=== PATIENT | female | born 1995 | race Caucasian/White ===

== ENCOUNTER 2020-10-20 07:36 | Inpatient (IN) ==
[2020-10-20] MEDS ORDERED: DINOPROSTONE 10 MG INSERT PV ONE (08:21)
[2020-10-20] MEDS ORDERED: PENICILLIN G POTASSIUM 6 MU in DEXTROSE 5% 250 ML IV STA (08:21)
[2020-10-20] MEDS ORDERED: OXYTOCIN 30 UNITS/500 ML BAG IV PRN (08:21)
[2020-10-20] MEDS ORDERED: OR MISCELLANEOUS MED ONE (08:23)
[2020-10-20] MEDS ORDERED: LACTATED RINGER'S 500 ML IV ONE (08:33)
--- NOTE | 2020-10-20 08:33 | History & Physical Report ---
Date of Service October 20, 2020 Assessment & Plan (1) Gestational diabetes mellitus (GDM): 25-year-old G1, P0 at 39 weeks of gestation with gestational diabetes, on Metformin and history of cystic fibrosis and on medications. Vital signs stable afebrile Cervix unfavorable, presentation Vertex, heart rate with borderline tachycardia, patient had coffee before she came GBS positive Plan, admit, labs, monitor, IV fluid bolus and Cervidil for cervical ripening (2) GBS (group B Streptococcus carrier), +RV culture, currently : Admission and Anticipated Discharge Date Admission Date: October 20, 2020 History of Present Illness Primary Care Provider: NO PCP Patient is a 25-year-old G1, P0 at 39 weeks of gestation who was scheduled for induction of labor for gestational diabetes and required Metformin. She has no complaints, denies contractions, leakage of fluid, vaginal bleeding, fever or chills, nausea or vomiting, chest pain or shortness of breath, cough nor Covid symptoms. She reports good movements. Her has been complicated by 1 history of cystic fibrosis since childhood and it has been stable with medications. Father of baby is tested for it and was not carrier. 2 gestational diabetes, on Metformin and fingersticks have been stable 3 medication exposure during first trimester 4 GBS positive 5) exocrine pancreatic insufficiency 6 splenomegaly 7 bipolar disorder She has been seen [facility], last ultrasound was about 3 weeks ago and baby was 63 percentile. Patient History [employer] History No h/o STD, no h/o HSV Review of Systems All systems reviewed & are unremarkable except as noted in HPI & below Physical Exam Constitutional: well developed and well nourished Portably laying in bed, not in acute distress. Gastrointestinal (Abdomen): normal bowel sounds, soft, nontender, no hepatosplenomegaly (GRAVDI, ALEA 7-8 LB, US: 3500 gr, vertex) Genitourinary: normal external appearance OB Exam Abdomen: + vertex Manual OB Exam: + cervical dilation fingertip, + cervical effacement 50% and + station -2 OB Exam Monitor Tracing: + external uterine monitor used and + category I (160's, normal variability, accels, no decels, had coffee before) Results & Data ([facility]) Vital Signs (Past 12 Hours) Vital Signs Pulse BP 10/20/20 07:41 85 116/78
[2020-10-20 08:48] LABS: Hematocrit (blood only) 38.1 % (37-47); Hemoglobin 13.4 g/dL (12.0-16.0); Mean Corpuscular Hgb Conc 35.2 g/dL (32-36); Mean Corpuscular Volume 88.2 fL (80-100); Mean Platelet Volume 11.1 fL (7.4-10.4); Platelet Count 146 K/uL (130-400); RDW Coefficient of Variation 12.3 % (11.5-14.5); RDW Standard Deviation 39.6 fL (36.4-46.3); Red Blood Count 4.32 M/uL (4.2-5.4); White Blood Count 9.59 K/uL (4.8-10.8)
[2020-10-20] MEDS: LACTATED RINGER'S 1,000 ML IV PRN ×3 (08:57→19:21)
[2020-10-20 09:08] LABS: Albumin Level 2.4 gm/dl (3.4-5.0); BUN Creatinine Ratio 15.2 (10-20); Calcium 8.6 mg/dl (8.5-10.1); Creatinine Clr Calc Pharmacy 144.3 ml/min; Est GFR (African American) 145.8 ml/min; Est GFR (Non-African American) 125.8 ml/min; Potassium 3.8 mmol/L (3.5-5.1)
[2020-10-20 09:11] LABS: Albumin Globulin Ratio 0.8 (0.9-2); Bilirubin,Total 0.4 mg/dl (0.2-1); Globulin 3.2 gm/dl (2.5-4.0); Total Protein 5.6 gm/dl (6.4-8.2)
[2020-10-20] MEDS ORDERED: BUTORPHANOL TARTRATE 1 MG/ML VIAL IV PRN (15:53)
--- NOTE | 2020-10-20 15:53 | Obstetrical Progress Note ---
Date of Service October 20, 2020 Assessment & Plan Admission and Anticipated Discharge Date Admission Date: October 20, 2020 Subjective Patient is reevaluated. She feels well no complaints. She denies contractions, pain, leakage of fluid or vaginal bleeding. She occasionally feels mild tightening but not painful. She reports good movements heart rate had been category 1 [place] with contractions every 2-4 minutes, patient does not feel them. Continue to monitor and cervical ripening. Lab Results 10/20/20 10/20/20 10/20/20 Range/Units 08:30 08:30 12:30 WBC 9.59 (4.8-10.8) K/uL RBC 4.32 (4.2-5.4) M/uL Hgb 13.4 (12.0-16.0) g/dL Hct 38.1 (37-47) % MCV 88.2 (80-100) fL MCH 31.0 (25-34) pg MCHC 35.2 (32-36) g/dL RDW Std Deviation 39.6 (36.4-46.3) fL RDW Coeff of Rayomnd 12.3 (11.5-14.5) % Plt Count 146 (130-400) K/uL MPV 11.1 H (7.4-10.4) fL Sodium 139 (136-145) mmol/L Potassium 3.8 (3.5-5.1) mmol/L Chloride 112 H (98-107) mmol/L Carbon Dioxide 17 L (21-32) mmol/L Anion Gap 11.0 (3-11) BUN 10 (7-18) mg/dl Creatinine 0.64 (0.6-1.2) mg/dl Est Cr Clr Drug Dosing 144.3 ml/min Est GFR ( Amer) 145.8 ml/min Est GFR (Non-Af Amer) 125.8 ml/min BUN/Creatinine Ratio 15.2 (10-20) Glucose 108 H (70-99) mg/dl POC Glucose 89 (70-99) mg/dl Calcium 8.6 (8.5-10.1) mg/dl Total Bilirubin 0.4 (0.2-1) mg/dl AST 13 L (15-37) U/L ALT 14 (12-78) U/L Alkaline Phosphatase 120 H (45-117) U/L Total Protein 5.6 L (6.4-8.2) gm/dl Albumin 2.4 L (3.4-5.0) gm/dl Globulin 3.2 (2.5-4.0) gm/dl Albumin/Globulin Ratio 0.8 L (0.9-2) COVID-19 Eval Order SARS-CoV-2, RNA, NAAT (NEGATIVE) 10/20/20 10/20/20 Range/Units Unknown Unknown WBC (4.8-10.8) K/uL RBC (4.2-5.4) M/uL Hgb (12.0-16.0) g/dL Hct (37-47) % MCV (80-100) fL MCH (25-34) pg MCHC (32-36) g/dL RDW Std Deviation (36.4-46.3) fL RDW Coeff of Raymond (11.5-14.5) % Plt Count (130-400) K/uL MPV (7.4-10.4) fL Sodium (136-145) mmol/L Potassium (3.5-5.1) mmol/L Chloride (98-107) mmol/L Carbon Dioxide (21-32) mmol/L Anion Gap (3-11) BUN (7-18) mg/dl Creatinine (0.6-1.2) mg/dl Est Cr Clr Drug Dosing ml/min Est GFR ( Amer) ml/min Est GFR (Non-Af Amer) ml/min BUN/Creatinine Ratio (10-20) Glucose (70-99) mg/dl POC Glucose (70-99) mg/dl Calcium (8.5-10.1) mg/dl Total Bilirubin (0.2-1) mg/dl AST (15-37) U/L ALT (12-78) U/L Alkaline Phosphatase (45-117) U/L Total Protein (6.4-8.2) gm/dl Albumin (3.4-5.0) gm/dl Globulin (2.5-4.0) gm/dl Albumin/Globulin Ratio (0.9-2) COVID-19 Eval [facility] SARS-CoV-2, RNA, NAAT NEGATIVE (NEGATIVE) Results & Data ([facility]) Vital Signs (Past 12 Hours) Vital Signs Temp Pulse Resp BP 10/20/20 15:27 36.8 C 67 20 118/62 10/20/20 12:33 72 106/66 10/20/20 11:18 36.8 C 10/20/20 10:45 71 112/56 L 10/20/20 07:46 36.8 C 85 20 116/78 10/20/20 07:41 85 116/78
[2020-10-20] MEDS: ASCORBIC ACID 500 MG TAB PO SCH (20:53)
[2020-10-20] MEDS: CALCIUM CARBONATE 1250MG TAB PO SCH (20:54)
[2020-10-20] MEDS: TOCOPHERYL, DL-ALPHA 400 UNITS 180 MG CAP PO SCH (20:55)
[2020-10-20] MEDS: MONTELUKAST SODIUM 10 MG TABLET PO SCH (20:55)
[2020-10-20] MEDS: LYSINE 500 MG PO SCH (20:56)
[2020-10-20] MEDS: TEZACAFTOR PO SCH (20:57)
[2020-10-20] MEDS: IVACAFTOR PO SCH (20:57)
[2020-10-20] MEDS: VITAMIN A PO SCH (20:57)
[2020-10-20] MEDS: [UNRECOGNIZED DRUG - OTHER] PO SCH (20:57)
[2020-10-20] MEDS: ELEXACAFTOR PO SCH (20:57)
[2020-10-20] MEDS ORDERED: MONTELUKAST SODIUM 10 MG TABLET PO SCH (21:00)
[2020-10-20] MEDS ORDERED: NON-FORMULARY MEDICATION (Vitamin A 2,400 mcg Capsule) PO SCH (21:00)
[2020-10-20] MEDS ORDERED: NON-FORMULARY MEDICATION (Lysine [L-Lysine] 500 mg Tablet) PO SCH (21:00)
[2020-10-20] MEDS: FERROUS SULFATE 325 MG TAB PO SCH (21:23)
[2020-10-20] MEDS: PRENATAL VITAMIN 1 TAB PO SCH (21:23)
--- NOTE | 2020-10-20 22:29 | Obstetrical Progress Note ---
Date of Service October 20, 2020 Assessment & Plan Admission and Anticipated Discharge Date Admission Date: October 20, 2020 Subjective Patient feels well, still does not feel contractions. Pain is 1/10 at most No LOF/VB +FM Cervidil was removed and her cervix was 1/ 50%/ -2 FHR categ I [place]: ctxs 1-3 min, palpate moderate to strong Plan to continue with Cervical ripening Will start PO Cytotec when ctxs will space out. All questions were not answered. Results & Data ([facility]) Vital Signs (Past 12 Hours) Vital Signs Temp Pulse Resp BP 10/20/20 19:33 36.8 C 68 18 114/67 10/20/20 15:27 36.8 C 67 20 118/62 10/20/20 12:33 72 106/66 10/20/20 11:18 36.8 C 10/20/20 10:45 71 112/56 L
[2020-10-21] MEDS: LACTATED RINGER'S 1,000 ML IV PRN ×2 (01:04→07:43)
[2020-10-21] MEDS: miSOPROStoL 50 MCG TAB PO SCH ×7 (01:18→23:20)
[2020-10-21] MEDS ORDERED: [UNRECOGNIZED DRUG - OTHER] PO SCH (09:00)
[2020-10-21] MEDS: CHOLECALCIFEROL 1,000 UNITS 25 MCG TAB PO SCH (09:03)
[2020-10-21] MEDS: ELEXACAFTOR PO SCH ×2 (09:03→20:56)
[2020-10-21] MEDS: TEZACAFTOR PO SCH ×2 (09:03→20:56)
[2020-10-21] MEDS: IVACAFTOR PO SCH ×2 (09:03→20:56)
--- NOTE | 2020-10-21 10:10 | Labor Progress Brief Note ---
Date of Service October 21, 2020 Assessment & Plan Admission and Anticipated Discharge Date Admission Date: October 20, 2020 Physical Exam Genitourinary: Manual OB Exam: + cervical dilation fingertip, + cervical effacement 50% and + station high OB Exam Monitor Tracing: + external FHT monitor used, + external uterine monitor used and + category I Results & Data ([facility]) Vital Signs (Past 12 Hours) Vital Signs Temp Pulse Resp BP 10/21/20 07:17 37.1 C 66 20 123/56 L 10/21/20 03:12 36.9 C 18 10/21/20 03:11 71 111/69 10/20/20 23:28 36.7 C 70 18 109/57 L
--- NOTE | 2020-10-21 17:04 | Labor Progress Brief Note ---
Date of Service October 21, 2020 Assessment & Plan Admission and Anticipated Discharge Date Admission Date: October 20, 2020 Physical Exam Genitourinary: Manual OB Exam: + cervical dilation 1 cm, + cervical effacement 60% and + station high OB Exam Monitor Tracing: + external FHT monitor used, + external uterine monitor used and + category I Will give another Cytotec Results & Data ([facility]) Vital Signs (Past 12 Hours) Vital Signs Temp Pulse Resp BP 10/21/20 11:27 36.6 C 74 20 113/63 10/21/20 07:17 37.1 C 66 20 123/56 L
[2020-10-21] MEDS: PRENATAL VITAMIN 1 TAB PO SCH (20:51)
[2020-10-21] MEDS: FERROUS SULFATE 325 MG TAB PO SCH (20:51)
[2020-10-21] MEDS: [UNRECOGNIZED DRUG - OTHER] PO SCH (20:52)
[2020-10-21] MEDS: LYSINE 500 MG PO SCH (20:52)
[2020-10-21] MEDS: VITAMIN A PO SCH (20:52)
[2020-10-21] MEDS: ASCORBIC ACID 500 MG TAB PO SCH (20:53)
[2020-10-21] MEDS: CALCIUM CARBONATE 1250MG TAB PO SCH (20:54)
[2020-10-21] MEDS: MONTELUKAST SODIUM 10 MG TABLET PO SCH (20:55)
[2020-10-21] MEDS: TOCOPHERYL, DL-ALPHA 400 UNITS 180 MG CAP PO SCH (20:55)
[2020-10-22] MEDS: miSOPROStoL 50 MCG TAB PO SCH ×4 (03:33→15:04)
[2020-10-22] MEDS: LACTATED RINGER'S 1,000 ML IV PRN (08:02)
[2020-10-22] MEDS ORDERED: PENICILLIN G POTASSIUM 6 MU in DEXTROSE 5% 250 ML IV ONE (08:30)
[2020-10-22] MEDS: CHOLECALCIFEROL 1,000 UNITS 25 MCG TAB PO SCH (08:35)
[2020-10-22] MEDS: IVACAFTOR PO SCH ×2 (08:36→21:05)
[2020-10-22] MEDS: ELEXACAFTOR PO SCH ×2 (08:36→21:05)
[2020-10-22] MEDS: TEZACAFTOR PO SCH ×2 (08:36→21:05)
[2020-10-22] MEDS ORDERED: OXYTOCIN 30 UNITS/500 ML BAG IV PRN (09:01)
--- NOTE | 2020-10-22 09:05 | Obstetrical Progress Note ---
Date of Service October 22, 2020 Assessment & Plan Admission and Anticipated Discharge Date Admission Date: October 20, 2020 Subjective Patient is seen and examined She has received PO Cytotec since yesterday morning She does not feel ctxs No LOF/VB +FM's 1st dose of PCN has been started VE: 2/ 40%/ -2, anterior FHR categ I Plan to start Oxytocin and AROM after PCN will be in She agrees with above plan Continue to monitor Results & Data ([facility]) Vital Signs (Past 12 Hours) Vital Signs Temp Pulse Resp BP 10/22/20 07:21 36.7 C 74 20 116/79 10/22/20 02:31 36.8 C 65 16 100/61 10/21/20 22:58 66 123/56 L 10/21/20 22:57 36.9 C 18
[2020-10-22] MEDS: PENICILLIN G POTASSIUM 3 MU in DEXTROSE 5% 100 ML IV PRN ×3 (12:13→20:13)
[2020-10-22] MEDS: LACTATED RINGER'S 1,000 ML IV SCH ×4 (13:06→22:52)
[2020-10-22] MEDS ORDERED: ePHEDrine sulfate 50 MG/ML AMP ONE (13:22)
[2020-10-22] MEDS ORDERED: BUPIVACAINE 0.25% 30 ML VIAL ONE (13:22)
[2020-10-22] MEDS ORDERED: SODIUM CHLORIDE 0.9% INJ 10 ML VIAL ONE (13:22)
[2020-10-22] MEDS ORDERED: fentaNYL citrate 100 MCG/2 ML VIAL ONE (13:22)
[2020-10-22] MEDS ORDERED: fentaNYL 2MCG/ML ROPIVACAINE 1.25MG/ML 100 ML BAG EPI ONE (13:23)
--- NOTE | 2020-10-22 13:34 | Anesthesiology Consultation ---
Date of Service October 22, 2020 Assessment & Plan (1) Encounter for pre-operative examination: Chart Review Chart Review: Acceptable Risk for Surgery and Patient NOT seen in Pre Admission Testing Consults Requested none History Height/Weight Height: 5 ft 5 in Weight: 81.647 kg Allergies Allergy/AdvReac Type Severity Reaction Status Date / Time No Known Allergies Allergy Verified 10/20/20 08:37 Medications Home Medications Medication Instructions Recorded Confirmed Last Taken ascorbic acid (vitamin C) [Vitamin 1 g PO HS 10/20/20 10/20/20 10/19/20 21:00 C] calcium 600 mg PO HS 10/20/20 10/20/20 10/19/20 21:00 cholecalciferol (vitamin D3) 125 mcg PO DAILY 10/20/20 10/20/20 10/19/20 21:00 [Vitamin D3] wizhtpzupan-ckxxjnaccn-tojicat 150 ea PO DAILY 10/20/20 10/20/20 10/20/20 06:00 [Trikafta] ferrous sulfate [iron] 325 mg PO HS 10/20/20 10/20/20 10/19/20 21:00 lysine [L-Lysine] 500 mg PO HS 10/20/20 10/20/20 10/19/20 21:00 montelukast [Singulair] 10 mg PO HS 10/20/20 10/20/20 10/19/20 21:00 prenat.vits,nohemi,yec-fftj-ptanp 1 tab PO HS 10/20/20 10/20/20 10/19/20 21:00 [ Vitamin] vitamin A 2,400 mcg PO HS 10/20/20 10/20/20 10/19/20 21:00 vitamin E 400 unit PO 10/20/20 10/20/20 10/19/20 21:00 Active Medications Generic Name Dose Route Start Last Admin Trade Name Freq PRN Reason Stop Dose Admin Ascorbic Acid 1,000 mg 10/20/20 21:00 10/21/20 20:53 Ascorbic Acid 500 Mg Tab PO 11/19/20 20:59 1,000 mg HS DMITRIY Administration Calcium Carbonate 1,250 mg 10/20/20 21:00 10/21/20 20:54 Calcium Carbonate 1250mg Tab PO 11/19/20 20:59 1,250 mg HS DMITRIY Administration Ferrous Sulfate 325 mg 10/20/20 21:00 10/21/20 20:51 Ferrous Sulfate 325 Mg Tab PO 11/19/20 20:59 325 mg HS DMITRIY Administration Penicillin G Potassium 3 mu/ 106 mls @ 100 mls/hr 10/20/20 08:21 10/22/20 12:13 Dextrose IV 10/30/20 08:20 100 mls/hr Q4H PRN Administration Give until delivery Oxytocin 30 units in 500 mls @ 6 mls/hr 10/22/20 09:01 10/22/20 10:30 Pitocin IV 10/24/20 09:00 0.36 units/hr .Q24H PRN 6 mls/hr Labor Induction/Augmentation Titration Protocol 0.36 UNITS/HR Misoprostol 50 mcg 10/21/20 00:00 10/22/20 13:07 Misoprostol 50 Mcg Tab PO 11/20/20 00:00 Not Given Q4 DMITRIY Montelukast Sodium 10 mg 10/20/20 21:00 10/21/20 20:55 Montelukast Sodium 10 Mg Tablet PO 11/19/20 20:59 10 mg HS DMITRIY Administration L-Lysine 500mg 1 ea 10/20/20 21:00 10/21/20 20:52 Tablet ~Non- PO 11/19/20 20:59 500 mg Formulary Patient's HS DMITRIY Administration Own Med~ Vitamin A - Retinal 1 ea 10/20/20 21:00 10/21/20 20:52 Pamitate 2400mcg PO 11/19/20 20:59 2,400 mcg Capsule ~Non- HS DMITRIY Administration Formulary Patient's Own Med~ Trikafta - 2 ea 10/21/20 09:00 10/22/20 08:36 Elexacaftor 100mg, PO 11/20/20 08:59 2 tab Tezacaftor 50mg, & QAM DMITRIY Administration Ivacaftor 75mg ~Non- Formulary Pom~ Trikafta - Ivacaftor 1 ea 10/20/20 21:00 10/21/20 20:56 150mg Tab ~Non- PO 11/19/20 20:59 150 mg Formulary Patient's HS DMITRIY Administration Own Med~ Prenat Multivit/Car Checker/Iron/Folic Ac 1 tab 10/20/20 21:00 10/21/20 20:51 Vitamin 1 Tab PO 11/19/20 20:59 1 tab HS DMITRIY Administration Vitamin D 5,000 units 10/21/20 09:00 10/22/20 08:35 Cholecalciferol 1,000 Units 25 Mcg Tab PO 11/20/20 08:59 5,000 units DAILY DMITRIY Administration Vitamin E 400 units 10/20/20 21:00 10/21/20 20:55 Tocopheryl, Dl-Alpha 400 Units 180 Mg Cap PO 11/19/20 20:59 400 units HS DMITRIY Administration Past Medical History Medical History Bipolar 1 disorder Constipation Cystic fibrosis Exocrine pancreatic insufficiency Gestational diabetes mellitus (GDM) affecting first Metformin Intestinal malabsorption Nasal polyp Splenomegaly Past Surgical History Surgical History H/O wisdom tooth extraction Social History Smoking Status: Never smoker Hx Alcohol Use: No Hx Substance Use: No Physical Exam Vital Signs Last Vital Signs Temp 36.7 C 10/22/20 07:21 Pulse 66 10/22/20 12:21 Resp 20 10/22/20 10:00 BP 115/67 10/22/20 12:21 Testing Laboratory Results 10/20/20 08:30 10/20/20 08:30
[2020-10-22] MEDS ORDERED: diphenhydrAMINE 50 MG/ML VIAL IV PRN (13:38)
[2020-10-22] MEDS ORDERED: NALOXONE HCL 1 MG in SODIUM CHLORIDE 0.9% 1000ML 1,000 ML IV PRN (13:38)
[2020-10-22] MEDS ORDERED: NALOXONE HCL 0.4 MG/1 ML VIAL/CARP IV PRN (13:38)
[2020-10-22] MEDS ORDERED: ONDANSETRON INJ 2 MG/ML 2 ML VIAL IV PRN (13:38)
[2020-10-22] MEDS ORDERED: fentaNYL 2MCG/ML ROPIVACAINE 1.25MG/ML 100 ML BAG EPI PRN (13:38)
[2020-10-22] MEDS ORDERED: ePHEDrine sulfate 50 MG/ML AMP IV PRN (13:38)
--- NOTE | 2020-10-22 16:23 | Obstetrical Progress Note ---
Date of Service October 22, 2020 Assessment & Plan Admission and Anticipated Discharge Date Admission Date: October 20, 2020 Subjective Late entry from 11:10 Patient is reevaluated She has received 1st dose of PCN, started on Pitocin Does not feel much contractions VE; 2-3cm/ 50%/ -2, anterior, tight bag, AROM'ed clear fluid Continue to monitor Results & Data ([facility]) Vital Signs (Past 12 Hours) Vital Signs Temp Pulse Resp BP Pulse Ox 10/22/20 16:15 67 111/59 L 10/22/20 16:14 66 96 10/22/20 16:09 65 96 10/22/20 16:04 64 94 10/22/20 16:02 60 117/70 10/22/20 15:59 64 95 10/22/20 15:54 61 94 10/22/20 15:49 61 94 10/22/20 15:47 57 L 112/65 10/22/20 15:44 60 94 10/22/20 15:39 62 94 10/22/20 15:34 61 94 10/22/20 15:31 37 C 60 16 111/74 10/22/20 15:29 61 94 10/22/20 15:27 58 L 94 10/22/20 15:24 63 96 10/22/20 15:22 63 94 10/22/20 15:19 64 95 10/22/20 15:16 62 20 121/59 L 10/22/20 15:14 63 95 10/22/20 15:09 67 95 10/22/20 15:04 67 96 10/22/20 14:59 71 96 10/22/20 14:56 70 115/69 10/22/20 14:54 69 16 108/61 95 10/22/20 14:52 71 114/63 10/22/20 14:50 68 115/65 10/22/20 14:49 70 96 10/22/20 14:48 69 112/68 10/22/20 14:46 70 118/70 10/22/20 14:44 79 98 10/22/20 14:43 83 20 118/83 10/22/20 14:39 67 100 10/22/20 14:37 65 115/73 10/22/20 14:34 81 96 10/22/20 14:29 79 99 10/22/20 14:24 80 125/79 99 10/22/20 14:23 81 139/97 10/22/20 13:36 67 121/68 10/22/20 13:35 36.9 C 20 10/22/20 12:21 66 115/67 10/22/20 11:25 65 109/64 10/22/20 10:20 65 104/53 L 10/22/20 10:00 65 20 114/58 L 10/22/20 09:46 67 16 105/60 10/22/20 09:29 60 20 115/75 10/22/20 07:21 36.7 C 74 20 116/79
--- NOTE | 2020-10-22 16:25 | Obstetrical Progress Note ---
Date of Service October 22, 2020 Assessment & Plan Admission and Anticipated Discharge Date Admission Date: October 20, 2020 Subjective Patient is reevaluated She received epidural and comfortable 3rd of PCN was given VE; 3/ 70%/ -1, coned head, IUPC was placed Pitocin is at 10 miu/min Continue to monitor closely and titer Pitocin dose Results & Data ([facility]) Vital Signs (Past 12 Hours) Vital Signs Temp Pulse Resp BP Pulse Ox 10/22/20 16:19 77 97 10/22/20 16:15 67 111/59 L 10/22/20 16:14 66 96 10/22/20 16:09 65 96 10/22/20 16:04 64 94 10/22/20 16:02 60 117/70 10/22/20 15:59 64 95 10/22/20 15:54 61 94 10/22/20 15:49 61 94 10/22/20 15:47 57 L 112/65 10/22/20 15:44 60 94 10/22/20 15:39 62 94 10/22/20 15:34 61 94 10/22/20 15:31 37 C 60 16 111/74 10/22/20 15:29 61 94 10/22/20 15:27 58 L 94 10/22/20 15:24 63 96 10/22/20 15:22 63 94 10/22/20 15:19 64 95 10/22/20 15:16 62 20 121/59 L 10/22/20 15:14 63 95 10/22/20 15:09 67 95 10/22/20 15:04 67 96 10/22/20 14:59 71 96 10/22/20 14:56 70 115/69 10/22/20 14:54 69 16 108/61 95 10/22/20 14:52 71 114/63 10/22/20 14:50 68 115/65 10/22/20 14:49 70 96 10/22/20 14:48 69 112/68 10/22/20 14:46 70 118/70 10/22/20 14:44 79 98 10/22/20 14:43 83 20 118/83 10/22/20 14:39 67 100 10/22/20 14:37 65 115/73 10/22/20 14:34 81 96 10/22/20 14:29 79 99 10/22/20 14:24 80 125/79 99 10/22/20 14:23 81 139/97 10/22/20 13:36 67 121/68 10/22/20 13:35 36.9 C 20 10/22/20 12:21 66 115/67 10/22/20 11:25 65 109/64 10/22/20 10:20 65 104/53 L 10/22/20 10:00 65 20 114/58 L 10/22/20 09:46 67 16 105/60 10/22/20 09:29 60 20 115/75 10/22/20 07:21 36.7 C 74 20 116/79
--- NOTE | 2020-10-22 19:23 | Obstetrical Progress Note ---
Date of Service October 22, 2020 Assessment & Plan Admission and Anticipated Discharge Date Admission Date: October 20, 2020 Subjective Patient is reevaluated IUPC was not monitoring contractions well, with higher base pressure and low amplitude contractions VE: 6 cm/ 90%/ 0 station, head is coned, ROP FHR categ I Ext toco" ctxs q 1-3 min Continue to monitor closely Results & Data ([facility]) Vital Signs (Past 12 Hours) Vital Signs Temp Pulse Resp BP Pulse Ox 10/22/20 19:16 64 120/64 10/22/20 19:14 72 95 10/22/20 19:09 79 96 10/22/20 19:04 72 95 10/22/20 19:01 68 109/64 10/22/20 18:59 71 96 10/22/20 18:54 76 96 10/22/20 18:49 71 97 10/22/20 18:47 69 106/58 L 10/22/20 18:44 73 97 10/22/20 18:39 72 97 10/22/20 18:34 81 96 10/22/20 18:32 69 102/58 L 10/22/20 18:29 68 95 10/22/20 18:24 65 95 10/22/20 18:19 64 95 10/22/20 18:17 82 104/56 L 10/22/20 18:14 37.1 C 68 16 95 10/22/20 18:09 68 95 10/22/20 18:04 68 95 10/22/20 18:02 61 105/65 10/22/20 18:00 62 101/61 10/22/20 17:59 65 95 10/22/20 17:54 67 95 10/22/20 17:49 67 96 10/22/20 17:46 72 99/57 L 10/22/20 17:44 72 96 10/22/20 17:39 81 96 10/22/20 17:34 67 95 10/22/20 17:30 56 L 106/58 L 10/22/20 17:29 63 94 10/22/20 17:24 62 94 10/22/20 17:19 69 97 10/22/20 17:16 58 L 109/61 10/22/20 17:14 65 97 10/22/20 17:09 60 94 10/22/20 17:04 57 L 96 10/22/20 17:01 36.8 C 55 L 16 125/76 10/22/20 16:59 57 L 96 10/22/20 16:54 58 L 96 10/22/20 16:49 59 L 95 10/22/20 16:47 64 128/87 10/22/20 16:44 60 95 10/22/20 16:39 60 96 10/22/20 16:34 60 95 10/22/20 16:31 59 L 20 121/71 10/22/20 16:29 62 94 10/22/20 16:24 74 96 10/22/20 16:19 77 97 10/22/20 16:15 67 111/59 L 10/22/20 16:14 66 96 10/22/20 16:09 65 96 10/22/20 16:04 64 94 10/22/20 16:02 60 16 117/70 10/22/20 15:59 64 95 10/22/20 15:54 61 94 10/22/20 15:49 61 94 10/22/20 15:47 57 L 112/65 10/22/20 15:44 60 94 10/22/20 15:39 62 94 10/22/20 15:34 61 94 10/22/20 15:31 37 C 60 16 111/74 10/22/20 15:29 61 94 10/22/20 15:27 58 L 94 10/22/20 15:24 63 96 10/22/20 15:22 63 94 10/22/20 15:19 64 95 10/22/20 15:16 62 20 121/59 L 10/22/20 15:14 63 95 10/22/20 15:09 67 95 10/22/20 15:04 67 96 10/22/20 14:59 71 96 10/22/20 14:56 70 115/69 10/22/20 14:54 69 16 108/61 95 10/22/20 14:52 71 114/63 10/22/20 14:50 68 115/65 10/22/20 14:49 70 96 10/22/20 14:48 69 112/68 10/22/20 14:46 70 118/70 10/22/20 14:44 79 98 10/22/20 14:43 83 20 118/83 10/22/20 14:39 67 100 10/22/20 14:37 65 115/73 10/22/20 14:34 81 96 10/22/20 14:29 79 99 10/22/20 14:24 80 125/79 99 10/22/20 14:23 81 139/97 10/22/20 13:36 67 121/68 10/22/20 13:35 36.9 C 20 10/22/20 12:21 66 115/67 10/22/20 11:25 65 109/64 10/22/20 10:20 65 104/53 L 10/22/20 10:00 65 20 114/58 L 10/22/20 09:46 67 16 105/60 10/22/20 09:29 60 20 115/75 10/22/20 07:21 36.7 C 74 20 116/79
[2020-10-22] MEDS: CALCIUM CARBONATE 1250MG TAB PO SCH (21:01)
[2020-10-22] MEDS: TOCOPHERYL, DL-ALPHA 400 UNITS 180 MG CAP PO SCH (21:01)
[2020-10-22] MEDS: ASCORBIC ACID 500 MG TAB PO SCH (21:01)
[2020-10-22] MEDS: MONTELUKAST SODIUM 10 MG TABLET PO SCH (21:02)
[2020-10-22] MEDS: LYSINE 500 MG PO SCH (21:03)
[2020-10-22] MEDS: VITAMIN A PO SCH (21:04)
[2020-10-22] MEDS: [UNRECOGNIZED DRUG - OTHER] PO SCH (21:04)
[2020-10-22] MEDS: PRENATAL VITAMIN 1 TAB PO SCH (21:08)
[2020-10-22] MEDS: FERROUS SULFATE 325 MG TAB PO SCH (21:08)
--- NOTE | 2020-10-22 21:55 | Obstetrical Progress Note ---
Date of Service October 22, 2020 Assessment & Plan Admission and Anticipated Discharge Date Admission Date: October 20, 2020 Subjective Patient has been reevalauted x2 by myself for variable/ early decels started about 1.5 hours ago Episodes of categ I and II Pitocin is stopped and IVF Bolus/ nasal O2 being given VE; 10/ 100%/+2 FHR 150's Will start pushing Results & Data ([facility]) Vital Signs (Past 12 Hours) Vital Signs Temp Pulse Resp BP Pulse Ox 10/22/20 21:49 71 100 10/22/20 21:47 74 127/59 L 10/22/20 21:46 70 90 10/22/20 21:44 65 96 10/22/20 21:39 66 96 10/22/20 21:34 68 96 10/22/20 21:32 66 121/66 10/22/20 21:29 72 97 10/22/20 21:24 66 96 10/22/20 21:19 71 96 10/22/20 21:15 63 112/63 10/22/20 21:14 73 98 10/22/20 21:09 69 97 10/22/20 21:04 76 96 10/22/20 21:00 66 108/61 10/22/20 20:59 77 97 10/22/20 20:54 80 96 10/22/20 20:49 67 96 10/22/20 20:46 74 99/57 L 10/22/20 20:44 75 93 10/22/20 20:39 79 93 10/22/20 20:34 75 93 10/22/20 20:32 75 101/55 L 10/22/20 20:29 82 94 10/22/20 20:24 74 95 10/22/20 20:19 78 96 10/22/20 20:15 71 123/68 10/22/20 20:14 73 94 10/22/20 20:09 70 95 10/22/20 20:08 36.8 C 10/22/20 20:04 72 95 10/22/20 20:00 76 118/66 10/22/20 19:59 81 95 10/22/20 19:54 70 94 10/22/20 19:49 67 94 10/22/20 19:46 62 120/64 10/22/20 19:44 66 94 10/22/20 19:39 70 94 10/22/20 19:34 66 94 10/22/20 19:31 65 117/65 10/22/20 19:29 66 95 10/22/20 19:24 66 95 10/22/20 19:19 68 95 10/22/20 19:16 64 120/64 10/22/20 19:15 18 10/22/20 19:14 72 95 10/22/20 19:09 79 96 10/22/20 19:04 72 95 10/22/20 19:01 68 109/64 10/22/20 18:59 71 96 10/22/20 18:54 76 96 10/22/20 18:49 71 97 10/22/20 18:47 69 106/58 L 10/22/20 18:44 73 97 10/22/20 18:39 72 97 10/22/20 18:34 81 96 10/22/20 18:32 69 102/58 L 10/22/20 18:29 68 95 10/22/20 18:24 65 95 10/22/20 18:19 64 95 10/22/20 18:17 82 104/56 L 10/22/20 18:14 37.1 C 68 16 95 10/22/20 18:09 68 95 10/22/20 18:04 68 95 10/22/20 18:02 61 105/65 10/22/20 18:00 62 101/61 10/22/20 17:59 65 95 10/22/20 17:54 67 95 10/22/20 17:49 67 96 10/22/20 17:46 72 99/57 L 10/22/20 17:44 72 96 10/22/20 17:39 81 96 10/22/20 17:34 67 95 10/22/20 17:30 56 L 106/58 L 10/22/20 17:29 63 94 10/22/20 17:24 62 94 10/22/20 17:19 69 97 10/22/20 17:16 58 L 109/61 10/22/20 17:14 65 97 10/22/20 17:09 60 94 10/22/20 17:04 57 L 96 10/22/20 17:01 36.8 C 55 L 16 125/76 10/22/20 16:59 57 L 96 10/22/20 16:54 58 L 96 10/22/20 16:49 59 L 95 10/22/20 16:47 64 128/87 10/22/20 16:44 60 95 10/22/20 16:39 60 96 10/22/20 16:34 60 95 10/22/20 16:31 59 L 20 121/71 10/22/20 16:29 62 94 10/22/20 16:24 74 96 10/22/20 16:19 77 97 10/22/20 16:15 67 111/59 L 10/22/20 16:14 66 96 10/22/20 16:09 65 96 10/22/20 16:04 64 94 10/22/20 16:02 60 16 117/70 10/22/20 15:59 64 95 10/22/20 15:54 61 94 10/22/20 15:49 61 94 10/22/20 15:47 57 L 112/65 10/22/20 15:44 60 94 10/22/20 15:39 62 94 10/22/20 15:34 61 94 10/22/20 15:31 37 C 60 16 111/74 10/22/20 15:29 61 94 10/22/20 15:27 58 L 94 10/22/20 15:24 63 96 10/22/20 15:22 63 94 10/22/20 15:19 64 95 10/22/20 15:16 62 20 121/59 L 10/22/20 15:14 63 95 10/22/20 15:09 67 95 10/22/20 15:04 67 96 10/22/20 14:59 71 96 10/22/20 14:56 70 115/69 10/22/20 14:54 69 16 108/61 95 10/22/20 14:52 71 114/63 10/22/20 14:50 68 115/65 10/22/20 14:49 70 96 10/22/20 14:48 69 112/68 10/22/20 14:46 70 118/70 10/22/20 14:44 79 98 10/22/20 14:43 83 20 118/83 10/22/20 14:39 67 100 10/22/20 14:37 65 115/73 10/22/20 14:34 81 96 10/22/20 14:29 79 99 10/22/20 14:24 80 125/79 99 10/22/20 14:23 81 139/97 10/22/20 13:36 67 121/68 10/22/20 13:35 36.9 C 20 10/22/20 12:21 66 115/67 10/22/20 11:25 65 109/64 10/22/20 10:20 65 104/53 L 10/22/20 10:00 65 20 114/58 L
--- NOTE | 2020-10-23 00:59 | Obstetrical Progress Note ---
Date of Service October 23, 2020 Assessment & Plan Admission and Anticipated Discharge Date Admission Date: October 20, 2020 Subjective Patient has been pushing almost an hour. Head at +2 station with caput succanadeum+ FHR categ I Continue to monitor and pushing. Results & Data ([facility]) Vital Signs (Past 12 Hours) Vital Signs Temp Pulse Resp BP Pulse Ox 10/23/20 00:54 83 95 10/23/20 00:49 81 95 10/23/20 00:44 87 95 10/23/20 00:39 80 95 10/23/20 00:34 72 94 10/23/20 00:29 71 95 10/23/20 00:24 93 H 94 10/23/20 00:19 70 94 10/23/20 00:14 66 96 10/23/20 00:09 68 97 10/23/20 00:04 68 97 10/23/20 00:02 118 H 120/59 L 10/22/20 23:59 68 97 10/22/20 23:54 97 H 96 10/22/20 23:49 68 98 10/22/20 23:46 67 121/76 10/22/20 23:44 69 98 10/22/20 23:39 69 98 10/22/20 23:34 75 98 10/22/20 23:31 70 127/77 10/22/20 23:29 67 97 10/22/20 23:24 72 98 10/22/20 23:19 89 98 10/22/20 23:16 63 120/71 10/22/20 23:14 72 96 10/22/20 23:09 73 97 10/22/20 23:04 74 95 10/22/20 23:00 63 119/71 10/22/20 22:59 69 96 10/22/20 22:54 67 97 10/22/20 22:49 71 98 10/22/20 22:45 67 126/75 10/22/20 22:44 60 99 10/22/20 22:39 64 99 10/22/20 22:34 66 99 10/22/20 22:31 65 123/69 10/22/20 22:29 61 100 10/22/20 22:24 67 99 10/22/20 22:19 66 99 10/22/20 22:16 62 128/75 10/22/20 22:14 64 99 10/22/20 22:09 65 99 10/22/20 22:04 71 99 10/22/20 22:02 62 119/73 10/22/20 22:00 37.0 C 10/22/20 21:59 63 99 10/22/20 21:54 64 98 10/22/20 21:49 71 100 10/22/20 21:47 74 127/59 L 10/22/20 21:46 70 90 10/22/20 21:44 65 96 10/22/20 21:39 66 96 10/22/20 21:34 68 96 10/22/20 21:32 66 121/66 10/22/20 21:29 72 97 10/22/20 21:24 66 96 10/22/20 21:19 71 96 10/22/20 21:15 63 112/63 10/22/20 21:14 73 98 10/22/20 21:09 69 97 10/22/20 21:04 76 96 10/22/20 21:00 66 108/61 10/22/20 20:59 77 97 10/22/20 20:54 80 96 10/22/20 20:49 67 96 10/22/20 20:46 74 99/57 L 10/22/20 20:44 75 93 10/22/20 20:39 79 93 10/22/20 20:34 75 93 10/22/20 20:32 75 101/55 L 10/22/20 20:29 82 94 10/22/20 20:24 74 95 10/22/20 20:19 78 96 10/22/20 20:15 71 123/68 10/22/20 20:14 73 94 10/22/20 20:09 70 95 10/22/20 20:08 36.8 C 10/22/20 20:04 72 95 10/22/20 20:00 76 118/66 10/22/20 19:59 81 95 10/22/20 19:54 70 94 10/22/20 19:49 67 94 10/22/20 19:46 62 120/64 10/22/20 19:44 66 94 10/22/20 19:39 70 94 10/22/20 19:34 66 94 10/22/20 19:31 65 117/65 10/22/20 19:29 66 95 10/22/20 19:24 66 95 10/22/20 19:19 68 95 10/22/20 19:16 64 120/64 10/22/20 19:15 18 10/22/20 19:14 72 95 10/22/20 19:09 79 96 10/22/20 19:04 72 95 10/22/20 19:01 68 109/64 10/22/20 18:59 71 96 10/22/20 18:54 76 96 10/22/20 18:49 71 97 10/22/20 18:47 69 106/58 L 10/22/20 18:44 73 97 10/22/20 18:39 72 97 10/22/20 18:34 81 96 10/22/20 18:32 69 102/58 L 10/22/20 18:29 68 95 10/22/20 18:24 65 95 10/22/20 18:19 64 95 10/22/20 18:17 82 104/56 L 10/22/20 18:14 37.1 C 68 16 95 10/22/20 18:09 68 95 10/22/20 18:04 68 95 10/22/20 18:02 61 105/65 10/22/20 18:00 62 101/61 10/22/20 17:59 65 95 10/22/20 17:54 67 95 10/22/20 17:49 67 96 10/22/20 17:46 72 99/57 L 10/22/20 17:44 72 96 10/22/20 17:39 81 96 10/22/20 17:34 67 95 10/22/20 17:30 56 L 106/58 L 10/22/20 17:29 63 94 10/22/20 17:24 62 94 10/22/20 17:19 69 97 10/22/20 17:16 58 L 109/61 10/22/20 17:14 65 97 10/22/20 17:09 60 94 10/22/20 17:04 57 L 96 10/22/20 17:01 36.8 C 55 L 16 125/76 10/22/20 16:59 57 L 96 10/22/20 16:54 58 L 96 10/22/20 16:49 59 L 95 10/22/20 16:47 64 128/87 10/22/20 16:44 60 95 10/22/20 16:39 60 96 10/22/20 16:34 60 95 10/22/20 16:31 59 L 20 121/71 10/22/20 16:29 62 94 10/22/20 16:24 74 96 10/22/20 16:19 77 97 10/22/20 16:15 67 111/59 L 10/22/20 16:14 66 96 10/22/20 16:09 65 96 10/22/20 16:04 64 94 10/22/20 16:02 60 16 117/70 10/22/20 15:59 64 95 10/22/20 15:54 61 94 10/22/20 15:49 61 94 10/22/20 15:47 57 L 112/65 10/22/20 15:44 60 94 10/22/20 15:39 62 94 10/22/20 15:34 61 94 10/22/20 15:31 37 C 60 16 111/74 10/22/20 15:29 61 94 10/22/20 15:27 58 L 94 10/22/20 15:24 63 96 10/22/20 15:22 63 94 10/22/20 15:19 64 95 10/22/20 15:16 62 20 121/59 L 10/22/20 15:14 63 95 10/22/20 15:09 67 95 10/22/20 15:04 67 96 10/22/20 14:59 71 96 10/22/20 14:56 70 115/69 10/22/20 14:54 69 16 108/61 95 10/22/20 14:52 71 114/63 10/22/20 14:50 68 115/65 10/22/20 14:49 70 96 10/22/20 14:48 69 112/68 10/22/20 14:46 70 118/70 10/22/20 14:44 79 98 10/22/20 14:43 83 20 118/83 10/22/20 14:39 67 100 10/22/20 14:37 65 115/73 10/22/20 14:34 81 96 10/22/20 14:29 79 99 10/22/20 14:24 80 125/79 99 10/22/20 14:23 81 139/97 10/22/20 13:36 67 121/68 10/22/20 13:35 36.9 C 20
[2020-10-23] MEDS: PENICILLIN G POTASSIUM 3 MU in DEXTROSE 5% 100 ML IV PRN (01:42)
[2020-10-23] MEDS ORDERED: MINERAL OIL 30 ML UDC ONE (02:55)
[2020-10-23] MEDS ORDERED: LIDOCAINE 1% LOCAL 20 ML VIAL ONE (03:32)
[2020-10-23] MEDS ORDERED: METHYLERGONOVINE MALEATE 0.2 MG/ML AMP ONE (04:13)
[2020-10-23] MEDS ORDERED: MEASLES, MUMPS & RUBELLA VIRUS VIAL SQ ONE (04:28)
[2020-10-23] MEDS ORDERED: miSOPROStoL 100 MCG TAB PR ONE (04:28)
[2020-10-23] MEDS ORDERED: BENZOCAINE 20% AER SPR 82.5 GM CAN EXT PRN (04:28)
[2020-10-23] MEDS ORDERED: oxyCODONE/ACETAMINOPHEN 5mg/325mg TAB PO PRN (04:28)
[2020-10-23] MEDS ORDERED: bisacodyL 10 MG SUPP PR PRN (04:28)
[2020-10-23] MEDS ORDERED: OXYTOCIN 30 UNITS/500 ML BAG IV PRN (04:28)
[2020-10-23] MEDS ORDERED: METHYLERGONOVINE MALEATE 0.2 MG/ML AMP IM ONE (04:28)
[2020-10-23] MEDS ORDERED: DIPHTHERIA/TETANUS/PERTUSSIS 0.5 ML SYR/VIAL IM ONE (04:28)
[2020-10-23] MEDS ORDERED: SUPERCREAM 0.870% 15 GM JAR EXT PRN (04:28)
[2020-10-23] MEDS ORDERED: HYDROCORTISONE ACETATE 25 MG SUPP PR PRN (04:28)
[2020-10-23] MEDS ORDERED: ACETAMINOPHEN 325 MG TAB PO PRN (04:28)
--- NOTE | 2020-10-23 04:37 | Delivery Summary ---
Vaginal Delivery Summary Date of Service October 23, 2020 Vaginal Delivery Summary Patient was found to be fully dilated and had urge to push. She pushed for almost 4 hours and there was a large caput on the head which was from the perineum. Perineum had tight hymenal band and skin. Patient was exhausted and after verbal a small right mediolateral episiotomy was opened. She pushed with female contractions and head was coming out very slowly suggesting turtle sign, nursing team were notified and the patient's bed was lowered. With Jason maneuver and suprapubic pressure unable to deliver anterior/right shoulder. Posterior left shoulder was grasped by my left hand and delivered without difficulty there was a body cord around the baby and then anterior shoulder was delivered with minimal traction baby was handed off to the mother and cord was clamped x2 and cut and baby was taken off to the by the nursery team. The time between the delivery of the head and body was less than 1 minute. The cord blood was obtained. And vagina perineum were checked for lacerations. There was only right mediolateral episode to me which was opened earlier. It was repaired with 2-0 Vicryl in a running locked fashion bringing the vaginal mucosa together bulbocavernosus muscles together and secured in a subcuticular fashion. An excellent hemostasis which was achieved. Rest of the vagina and perineum were intact. And placenta was found to be in the vagina delivered spontaneously as intact and complete uterus was explored found to be empty and it was boggy and feels with blood clots. IV oxytocin was started as bolus and uterine massage was done and she was given IM Methergine and uterus started to firm down and bleeding slowed down. Patient was also given intrarectal Cytotec. EBL was 300 mL. Mom and baby tolerated the procedure well sponge lap needle count was correct x2 baby was a viable male Apgars 5/8 and weight is 4203 gr. No other complications happened, other wilde moderate shoulder dystocia, and I was present during all procedure.
[2020-10-23] MEDS ORDERED: miSOPROStoL 100 MCG TAB ONE (04:53)
[2020-10-23] MEDS: IBUPROFEN 600 MG TAB PO PRN ×4 (06:36→22:24)
[2020-10-23] MEDS ORDERED: METHYLERGONOVINE MALEATE 0.2 MG TAB PO SCH (08:00)
[2020-10-23] MEDS: PRENATAL VITAMIN 1 TAB PO SCH ×2 (10:53→20:36)
[2020-10-23] MEDS: DOCUSATE SODIUM 100 MG CAP PO SCH ×2 (10:53→20:29)
[2020-10-23] MEDS: CHOLECALCIFEROL 1,000 UNITS 25 MCG TAB PO SCH (10:53)
[2020-10-23] MEDS: FERROUS SULFATE 325 MG TAB PO SCH ×2 (10:53→20:35)
[2020-10-23] MEDS: IVACAFTOR PO SCH ×2 (10:54→20:32)
[2020-10-23] MEDS: ELEXACAFTOR PO SCH ×2 (10:54→20:32)
[2020-10-23] MEDS: TEZACAFTOR PO SCH ×2 (10:54→20:32)
[2020-10-23] MEDS ORDERED: Nursing to Pharmacy Communication SCH (12:45)
--- NOTE | 2020-10-23 13:05 | Anesthesia Procedure Note ---
Date of Service October 23, 2020 Anesthesia Post Epidural Note Vital Signs Vital Signs: Temp Pulse Resp BP Pulse Ox 36.8 C 77 18 123/75 96 10/23/20 00:30 10/23/20 06:17 10/23/20 06:15 10/23/20 06:17 10/23/20 04:19 Pain Intensity Abdomen: Pain Intensity: 0 Notes Mental Status: alert / awake / arousable and participated in evaluation Nausea / Vomiting: adequately controlled Pain: adequately controlled Airway Patency, RR, SpO2: stable & adequate BP & HR: stable & adequate Hydration State: stable & adequate Neuraxial Anesthesia: was administered and sensory block is resolving Anesthetic Complications: no major complications apparent and Pt Satisfied with anesthetic care Epidural: Removed without complications and With tip intact
[2020-10-23] MEDS: METHYLERGONOVINE MALEATE 0.2 MG TAB PO SCH ×2 (17:17→20:29)
[2020-10-23] MEDS: MONTELUKAST SODIUM 10 MG TABLET PO SCH (20:30)
[2020-10-23] MEDS: ASCORBIC ACID 500 MG TAB PO SCH (20:30)
[2020-10-23] MEDS: CALCIUM CARBONATE 1250MG TAB PO SCH (20:30)
[2020-10-23] MEDS: TOCOPHERYL, DL-ALPHA 400 UNITS 180 MG CAP PO SCH (20:30)
[2020-10-23] MEDS: [UNRECOGNIZED DRUG - OTHER] PO SCH (20:31)
[2020-10-23] MEDS: VITAMIN A PO SCH (20:31)
[2020-10-23] MEDS: LYSINE 500 MG PO SCH (20:32)
[2020-10-24] MEDS: METHYLERGONOVINE MALEATE 0.2 MG TAB PO SCH (00:25)
[2020-10-24 06:25] LABS: Hematocrit (blood only) 35.5 % (37-47); Hemoglobin 12.2 g/dL (12.0-16.0); Mean Corpuscular Hemoglobin 31.2 pg (25-34); Mean Corpuscular Hgb Conc 34.4 g/dL (32-36); Mean Corpuscular Volume 90.8 fL (80-100); Mean Platelet Volume 11.3 fL (7.4-10.4); Platelet Count 144 K/uL (130-400); RDW Coefficient of Variation 12.8 % (11.5-14.5); RDW Standard Deviation 42.2 fL (36.4-46.3); Red Blood Count 3.91 M/uL (4.2-5.4); White Blood Count 13.85 K/uL (4.8-10.8)
[2020-10-24] MEDS: IBUPROFEN 600 MG TAB PO PRN ×2 (06:38→16:00)
[2020-10-24] MEDS: ELEXACAFTOR PO SCH ×2 (08:56→20:43)
[2020-10-24] MEDS: TEZACAFTOR PO SCH ×2 (08:56→20:43)
[2020-10-24] MEDS: IVACAFTOR PO SCH ×2 (08:56→20:43)
[2020-10-24] MEDS: PRENATAL VITAMIN 1 TAB PO SCH ×2 (08:58→20:42)
[2020-10-24] MEDS: CHOLECALCIFEROL 1,000 UNITS 25 MCG TAB PO SCH (08:58)
[2020-10-24] MEDS: DOCUSATE SODIUM 100 MG CAP PO SCH ×2 (08:58→20:39)
[2020-10-24] MEDS: FERROUS SULFATE 325 MG TAB PO SCH ×2 (08:58→20:39)
--- NOTE | 2020-10-24 11:41 | Obstetrical Progress Note ---
Date of Service October 24, 2020 Assessment & Plan (1) Normal course: POD #1 pt doing well No complaints Subjective Ambulation: ambulating normally Voiding: no voiding problems Passing Gas:: Yes Diet Tolerance:: regular diet Lochia:: Small Feeding Type:: breast feeding Review of Systems All systems reviewed & are unremarkable except as noted in HPI & below Physical Exam Constitutional WD/WN, vitals as above well developed and well nourished Eyes PERRL, conjunctivae normal, anicteric sclerae Neck trachea midline, no thyromegaly Respiratory normal respiratory effort, lungs clear to auscultation Auscultation: no crackles, no rales and no wheezes Cardiovascular RRR, no murmur, no edema Gastrointestinal (Abdomen) normal bowel sounds, soft, nontender, no hepatosplenomegaly Uterus is below umbilicus Musculoskeletal no cyanosis or clubbing, extremities motor strength 5/5 Skin no rashes, warm and dry Neurologic patellar DTR's 2+ bilat, sensation intact Psychiatric A+Ox3, euthymic affect Genitourinary normal external appearance Results & Data ([facility]) Vital Signs (Past 12 Hours) Vital Signs Temp Pulse Pulse Resp BP BP 10/24/20 10:05 37.1 C 99 H 18 123/83 10/24/20 09:00 36.7 C 78 18 112/77 10/24/20 00:24 36.8 C 79 16 115/79
[2020-10-24] MEDS ORDERED: bisacodyL 5 MG TABEC PO SCH (20:00)
[2020-10-24] MEDS: CALCIUM CARBONATE 1250MG TAB PO SCH (20:39)
[2020-10-24] MEDS: MONTELUKAST SODIUM 10 MG TABLET PO SCH (20:39)
[2020-10-24] MEDS: TOCOPHERYL, DL-ALPHA 400 UNITS 180 MG CAP PO SCH (20:41)
[2020-10-24] MEDS: LYSINE 500 MG PO SCH (20:41)
[2020-10-24] MEDS: ASCORBIC ACID 500 MG TAB PO SCH (20:41)
[2020-10-24] MEDS: VITAMIN A PO SCH (20:42)
[2020-10-24] MEDS: [UNRECOGNIZED DRUG - OTHER] PO SCH (20:42)
[2020-10-25] MEDS: IBUPROFEN 600 MG TAB PO PRN ×2 (02:55→08:08)
--- NOTE | 2020-10-25 05:51 | Obstetrical Progress Note ---
Date of Service October 25, 2020 Assessment & Plan (1) Normal course: PPD #2 pt doing well No complaints d/c home with instructions Subjective Ambulation: ambulating normally Voiding: no voiding problems Passing Gas:: Yes Diet Tolerance:: regular diet Lochia:: Small Feeding Type:: breast feeding Review of Systems All systems reviewed & are unremarkable except as noted in HPI & below Physical Exam Constitutional WD/WN, vitals as above well developed and well nourished Eyes PERRL, conjunctivae normal, anicteric sclerae Neck trachea midline, no thyromegaly Respiratory normal respiratory effort, lungs clear to auscultation Auscultation: no crackles, no rales and no wheezes Cardiovascular RRR, no murmur, no edema Gastrointestinal (Abdomen) normal bowel sounds, soft, nontender, no hepatosplenomegaly Uterus is below umbilicus Musculoskeletal no cyanosis or clubbing, extremities motor strength 5/5 Skin no rashes, warm and dry Neurologic patellar DTR's 2+ bilat, sensation intact Psychiatric A+Ox3, euthymic affect Genitourinary normal external appearance Results & Data ([facility]) Vital Signs (Past 12 Hours) Vital Signs Temp Pulse Resp BP 10/24/20 23:30 36.6 C 73 18 132/88
[2020-10-25 06:36] LABS: Hematocrit (blood only) 28.9 % (37-47); Hemoglobin 9.7 g/dL (12.0-16.0)
[2020-10-25] MEDS: FERROUS SULFATE 325 MG TAB PO SCH (08:09)
[2020-10-25] MEDS: DOCUSATE SODIUM 100 MG CAP PO SCH (08:09)
[2020-10-25] MEDS: PRENATAL VITAMIN 1 TAB PO SCH (08:09)
[2020-10-25] MEDS: CHOLECALCIFEROL 1,000 UNITS 25 MCG TAB PO SCH (08:10)
[2020-10-25] MEDS: ELEXACAFTOR PO SCH (08:11)
[2020-10-25] MEDS: IVACAFTOR PO SCH (08:11)
[2020-10-25] MEDS: TEZACAFTOR PO SCH (08:11)
== END 2020-10-25 12:35 | disposition home or self-care (01) | DRG 806 ==
LOC: 4S1 07:36 → 4S2 10-23 07:01

== ENCOUNTER 2024-01-24 07:40 | Inpatient (IN) ==
--- NOTE | 2024-01-11 14:51 | Anesthesiology Consultation ---
Date of Service January 11, 2024 Assessment & Plan (1) Encounter for pre-operative examination: - pulmonology office visit 11/14/23 [facility]: "...cystic fibrosis lung disease, CF related gastrointestinal disease, and CF related endocrine disease...CFTR Mutation Targeted Therapy Eligible: Trikafta since 05/2019...Encourage at least daily ACT (VEST, flutter, exercise) and inhaled meds to keep FEV1 >90%. Pt prefers to use them PRN, but will restart if any s/s acute infection. No indication for suppressive INH abx at this time..." - Per air support control officer on 01/11/24: No known infectious disease contacts, current infectious disease symptoms in past 10 days or COVID positive test result in the past 30 days. Chart Review Chart Review: charge entry clerk initiated History Surgery Operation Date: 01/24/24 09:05 Proposed Procedures p Primary Section - Husam Raymond MD Height/Weight Height: 5 ft 5 in Weight: 88.451 kg Allergies Allergy/AdvReac Type Severity Reaction Status Date / Time No Known Allergies Allergy Verified 01/11/24 12:47 Medications Home Medications Medication Instructions Recorded Confirmed Last Taken ascorbic acid (vitamin C) 1,000 mg 1 g PO HS 10/20/20 01/11/24 10/19/20 21:00 tablet (Vitamin C) calcium 600 mg capsule 600 mg PO HS 10/20/20 01/11/24 10/19/20 21:00 cholecalciferol (vitamin D3) 125 125 mcg PO DAILY 10/20/20 01/11/24 10/19/20 21:00 mcg (5,000 unit) tablet (Vitamin D3) elexacaftor 100 mg-tezacaf 150 ea PO DAILY 10/20/20 01/11/24 10/20/20 06:00 50mg-ivacaf 75mg(d)/ivacaf 150mg(n) tablets (Trikafta) lysine 500 mg tablet (L-Lysine) 500 mg PO HS 10/20/20 01/11/24 10/19/20 21:00 montelukast 10 mg tablet 10 mg PO HS 10/20/20 01/11/24 10/19/20 21:00 (Singulair) prenat.vits,nohemi,mei-gogi-lxinz 1 tab PO HS 10/20/20 01/11/24 10/19/20 21:00 vitamin A 2,400 mcg capsule 2,400 mcg PO HS 10/20/20 01/11/24 10/19/20 21:00 vitamin E 268 mg (400 unit) capsule 400 unit PO 10/20/20 01/11/24 10/19/20 21:00 risperidone 1 mg tablet 1.5 mg PO HS 01/11/24 01/11/24 Unknown sertraline 50 mg tablet 50 mg PO QA 01/11/24 01/11/24 Unknown Past Medical History Medical History Bipolar 1 disorder Cystic fibrosis Sees Pulmonology Dr. 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, no issues for a few years Gestational diabetes checks blood sugar daily, fasting in the 80's and post prandial 125, no meds Hx MRSA infection (2014) luisa lfredo clayton had been admitted for 2 weeks due to CF, treated at the time, no current problems Hx of splenomegaly (2020) hx, felt it was due to mono but not confirmed Intestinal malabsorption Nasal polyp Past Surgical History Surgical History H/O wisdom tooth extraction Social History Smoking Status: Never smoker Do You Dip or Chew Tobacco: No Hx Alcohol Use: Yes alcohol intake frequency: holidays/special occasions only Alcohol Intake Frequency Comment: when not Hx Substance Use: No substance use type: does not use
[2024-01-24] MEDS ORDERED: ONDANSETRON INJ 2 MG/ML 2 ML VIAL ONE (08:33)
[2024-01-24] MEDS ORDERED: fentaNYL citrate PF 100 MCG/2 ML VIAL ONE (08:33)
[2024-01-24] MEDS ORDERED: DEXAMETHASONE SOD INJ 4 MG/ML VIAL ONE (08:33)
[2024-01-24] MEDS ORDERED: MoRPHine SULFATE PF 1 MG/ML 10 ML AMP/VIAL ONE (08:33)
[2024-01-24] MEDS ORDERED: OXYTOCIN 10 UNITS/ML VIAL ONE (08:33)
[2024-01-24] MEDS ORDERED: PHENYLEPHRINE 100MCG/ML 10ML SYR IV ONE (08:33)
[2024-01-24] MEDS ORDERED: ePHEDrine sulfate 50 MG/5 ML SYR ONE (08:33)
--- OUTSIDE RECORDS SUMMARY | 2024-01-24 09:13 | External Medical Summary | Summary of Care ---
Author Name Unknown Organization [facility] Address [address] [place] [address] Phone [phone] Care Team Providers Care Embedded Processor Name Role Phone Unavailable Primary Care Provider Unavailabl e Reason for Visit * Reason Comments Return Visit Non Stress Test Encounter Details Date Type Department Care Team (Late st Contact Info) Description 01/12/2024 8:30 AM EDT [facility] [address] [place] [id number] Jhonny Dc MD [address] [place] [id number] Rh negative, antepartum*; Diet controlled gestational diabetes mellitus (GDM) in third trimester; CF (cystic fibrosis) ([facility]); High-risk in third trimester; Respiratory system disease affecting , antepartum; Bipolar disease during in third trimester ([facility]); H/O macrosomia in in prior , currently ; Rubella non-immune status, antepartum; Chlamydia infection affecting in third trimester; Excessive growth affecting management of in third trimester, single or unspecified fetus; Breech presentation, single or unspecified fetus Allergies No known active allergiesdocumented as of this encounter (statuses as of 01/12/2024) Medications Medication Sig Dispensed Refills Start Date End Date Status COMPRESSOR/NEBULIZER MISCIndications:Cyst ic fibrosis (HCC) Use as directed 1 Device 0 05/31/2012 Active Additional Information Patient not taking.Reported on 07/21/2023 JUAN CARLOS LC PLUS NEBULIZER MISCIndications:Cyst ic fibrosis with pulmonary manifestations (HCC) Use daily with Ijyyi-Xpj-wlqcjnye device 1 Device 5 06/13/2012 Active Additional Information Patient not taking.Reported on 12/12/2023 SIDESTREAM NEBULIZER-REUSABLE MISCIndications:Cyst ic fibrosis with pulmonary manifestations (HCC) Use daily with Pulmozyme 1 Device 5 06/13/2012 Active Additional Information Patient not taking.Reported on 07/21/2023 albuterol sulfate (PROVENTIL) (2.5 MG/3ML) 0.083% nebulizer solutionIndications: Cystic fibrosis (HCC),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 May increase to every 4 hours as needed during exacerbations 360 Vial 1 05/10/2018 Active Additional Information Patient not taking.Reported on 11/14/2023 Ferrous Sulfate (IRON) 325 (65 Fe) MG TABSIndications:Cyst ic fibrosis (HCC) Take 1 Tab by mouth daily. 90 Tab 1 05/10/2018 Active Additional Information Patient not taking.Reported on 11/14/2023 Calcium 500 MG TabletIndications:Cy stic fibrosis (HCC) Take 1 Tab by mouth daily. Unsure of dose 90 Tab 1 05/10/2018 Active Ascorbic Acid (VITAMIN C) 100 MG TabletIndications:Cy stic fibrosis (HCC) Take 1 Tab by mouth daily. 90 Tab 1 05/10/2018 Active dornase jamee (PULMOZYME) 1 MG/ML nebulizer solutionIndications: Cystic fibrosis (HCC) Inhale 2.5 mg by mouth daily. 75 mL 5 04/10/2019 Active Additional Information Patient not taking.Reported on 06/22/2023 Albuterol Sulfate (ALBUTEROL HFA) 108 (90 BASE) MCG/ACT inhalerIndications:C ystic fibrosis (HCC) Inhale 2 Puffs by mouth every 4 hours as needed for Cough, Shortness of Breath or Wheezing. 18 g 5 06/20/2019 Active Additional Information Patient not taking.Reported on 11/14/2023 Pancrelipase, Cfa-Iqzs-Dwxr, (ZENPEP) 19594-18605 units CPEPIndications:Cyst ic fibrosis (HCC) Take 6 Caps by mouth three times a day with meals. Take 4 caps with snacks. 2700 Cap 1 08/22/2019 Active Additional Information Patient not taking.Reported on 11/14/2023 MVW Complete Formulation D3000 Oral CapsuleIndications:C ystic fibrosis (HCC) Take 2 Capsules by mouth daily. 60 Capsule 5 04/01/2021 Active Sodium Chloride 7 % Inhalation Nebulization Solution (Hyper-Benjamin)Indicatio ns:Cystic fibrosis (HCC) Inhale via nebulizer 4 mL in the morning AND 4 mL before bedtime. 720 mL 1 06/28/2021 Active Additional Information Patient not taking.Reported on 06/22/2023 Fluticasone Propionate 50 MCG/ACT Nasal Suspension (Flonase)Indications :Dysfunction of right eustachian tube Administer into each nostril 2 Sprays in the morning. 16 g 5 09/30/2021 Active Additional Information Patient not taking.Reported on 11/14/2023 Montelukast Sodium 10 MG Oral Tablet (Singulair)Indicatio ns:Asthma, allergic,Cystic fibrosis (HCC) TAKE ONE TABLET BY MOUTH EVERY DAY 90 Tablet 3 09/12/2022 Active 28-0.8 MG Oral Tablet Take by mouth. Active Bizware Flex System w/Device Kit Use to test blood sugars 4 times daily (fasting, 1 hour after breakfast, lunch, and dinner) 1 Kit 07/18/2023 Active Bizware In Vitro Strip (Glucose Blood) Use to test blood sugars 4 times daily (fasting, 1 hour after breakfast, lunch, and dinner) 125 Strip 6 07/18/2023 Active Receptos Delica Lancets 30G Use to test blood sugars 4 times daily (fasting, 1 hour after breakfast, lunch, and dinner) 200 Each 6 07/18/2023 Active Cholecalciferol 125 MCG (5000 UT) Oral TabletIndications:Vi tamin D insufficiency Take 10,000 Units by mouth every evening. 60 Tablet 5 07/20/2023 Active risperiDONE 1 MG Oral Tablet (RisperDAL) Take 1.5 Tablets by mouth every night at bedtime. 135 Tablet 1 07/26/2023 Active Sertraline HCl 50 MG Oral Tablet (Zoloft) Take 1 Tablet by mouth in the morning. 90 Tablet 1 07/26/2023 Active Trikafta 100-50-75 & 150 MG Oral Tablet Therapy Pack (Ubrsmwoy-Tsprrsn-Nx acaf & Ivacaf)Indications:C ystic fibrosis with pulmonary manifestations (HCC) Take 2 orange tablets by mouth in the morning and 1 light blue tablet by mouth in the evening. Take with fat-containing food. TAKE 2 ORANGE TABLETS BY MOUTH IN THE MORNING AND 1 LIGHT BLUE TABLET BY MOUTH IN THE EVENING. TAKE WITH FAT-CONTAINING FOOD 84 Each 5 11/13/2023 Active documented as of this encounter (statuses as of 01/12/2024) Active Problems Problem Noted Date Diagnosed Date presentation, breech 12/28/2023 Last Assessment & Plan: Fetus remains in breech presentation. Spontaneous version may still occur, however may be less likely with larger fetus and persistence of this presentation. Vaginal is typically avoided to prevent head entrapment. Options include delivery or attempt at external cephalic version. In ECV manual pressure is applied to the abdomen to turn the fetus from breech to vertex. This can be achieved by either a forward or backward roll with the goal of converting the fetus to vertex and awaiting spontaneous labor. The procedure should be performed at 37+ weeks to reduce the risk for spontaneous re-version to breech and also so that fetus is full term should delivery be required due to emergency during the procedure. The only contraindications to the procedure are the same as those that would prohibit (previa, etc), although success rate may be lower in obese women, anterior placenta, and low AILEEN. The success rate is reported to be around 50%. Use of terbutaline before the procedure increases the success rate; epidural may also improve success. Rhogam should be given to Rh negative women unless they will be delivered within 72 hours of ECV. Monica has an upcoming appointment to discuss all options with her OB team and decide on next steps. Excessive growth affec ting management of in third trimester 12/01/2023 Last Assessment & Plan: LGA noted with EFW at 97%ile. Projected birthweight in a similar range to last delivery at just over 4000g. She had GDM in that as well. We reviewed larger size may increase the chance for delivery complications, however, she has a very reassuring history. If fetus turns cephalic and vaginal is planned, consider repeat u/s for growth at 38-39 weeks to r/o EFW > 4500g. Rubella non-immune status, antepartum 06/09/2023 Chlamydia infection complicating 06/09 Overview: + test at [facility], sent azithromycin High-risk 06/08/2023 Last Assessment & Plan: I reviewed the ultrasound. The anatomy that was visualized is appropriate for the gestational age. Respiratory system disease affecting , antepartum 06/08/2023 Overview: Cystic fibrosis Follows with [facility] Denies complications with cystic fibrosis in last 06/08/23 MFM genetic counseling referral placed Per MFM: Prothrombin time each trimester Growth scans q4-6 weeks Twice weekly NSTs 32 wks Last Assessment & Plan: CONSIDERATIONS: Reviewed with patient that in 2010, there were 211 pregnancies reported in the Cystic Fibrosis Foundation Registry. Small case series and larger cohort studies have not documented adverse maternal outcomes for women with mild to moderate pulmonary disease (ie, FEV1 greater than 60% predicted) who become , although the frequency of treatment for pulmonary exacerbations was increased during . Discussed with patient that severe disease, especially when pulmonary hypertension is present, can present significant challenges and should be considered a contraindication to . Risk factors for adverse outcomes include poor nutritional status, FEV1 less than 60%, pulmonary hypertension, and diabetes. does not appear to adversely affect the course of the disease; however, women with cystic fibrosis who become may experience complications such as growth restriction and premature delivery. RECOMMENDATIONS: Recommend that patient be followed closely by a pulmonology specialist throughout the course of her in a multi-disciplinary fashion with Maternal Medicine and patient s primary OB provider. See Genetic Counselor s notes. Recommend referral to Nutrition Services and close monitoring of maternal nutrition and weight gain throughout . Recommend early gestational diabetes screening due to the increased risk for secondary insulin deficiency. If the early 1 hour glucola is normal, then it should be repeated at 26 to 28 weeks Prothrombin Time should be evaluated every trimester, and parenteral vitamin K administered for elevated prothrombin time. Recommend Maternal Medicine ultrasound for anatomy at 18-20 gestation and then for growth every 4-6 weeks after 24 weeks gestation. Recommend twice weekly surveillance starting at 32 weeks gestation or sooner if the maternal condition warrants. Recommend an anesthesia referral antepartum. Bipolar disease during 06/08/2023 Overview: bipolar disorder managed with Risperidone and Zoloft No current outpatient therapy Reports a stable mood in . Denies any suicidal or homicidal ideation. Reports she has a good support system at home. Last Assessment & Plan: CONSIDERATIONS: and delivery can worsen the symptoms of bipolar disorder. and women have a sevenfold higher risk of hospital admission than those who have not recently been . Rates of relapse range from 32% to 67%. There also is an increased risk of psychosis as high as 46%. Stopping treatment may increase the risk of recurrent mood episodes, particularly if medications are discontinued abruptly (eg, in less than two weeks). Women who discontinue medication within 6 months of conception are more than twice as likely to suffer a recurrence of the disease. Risperdal. Risperidone and its metabolite cross the placenta. 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 Antipsychotic use during the third trimester of has a risk for extrapyramidal symptoms (EPS) and/or withdrawal symptoms in newborns following delivery. Symptoms in the may include agitation, feeding disorder, hypertonia, hypotonia, respiratory distress, somnolence, and tremor. These effects may be self-limiting and allow recovery within hours or days with no specific treatment, or they may be severe requiring prolonged hospitalization. RECOMMENDATIONS: For bipolar patients who are , we suggest maintenance pharmacotherapy rather than no treatment. However, for patients with a mild lifetime course of illness, it is reasonable to try to avoid pharmacotherapy during . The decision to treat bipolar disorder during should be determined on an individualized basis and treatment should be provided by general psychiatrists in collaboration with obstetricians and primary care clinicians H/O macrosomia in infant in prior , currently 06/08/2023 Overview: First complicated by macrosomia. Delivered vaginally. weighed 4,203g (9 lbs 4 oz). Last Assessment & Plan: CONSIDERATIONS: Explained that macrosomia is defined as a weight of greater than 4000 grams. A woman who previously has given to an weighing more than 4,000 g is 5-10 times more likely to deliver an weighing more than 4,500 g than a woman without such a history. Discussed that a variety of factors predispose a to macrosomia, including preexisting maternal diabetes, uncontrolled gestational diabetes, maternal prepregnancy obesity, excessive gestational weight gain, maternal interpregnancy weight gain, a prior macrosomic , postterm , and maternal nonsmoking status. An accurate diagnosis of macrosomia can be made only by weighing the after delivery. The diagnosis of macrosomia is imprecise. Methods used to predict weight include assessment of maternal risk factors, clinical examination, and ultrasound measurement of the fetus. For suspected macrosomia, the accuracy of estimated weight using ultrasound biometry is no better than that obtained with clinical palpation. RECOMMENDATION: Recommend performing gestational diabetes mellitus screen at time of first visit and repeat again at 26-28 weeks if early screen is normal. CF (cystic fibrosis) 06/08/2020 Last Assessment & Plan: I reviewed the ultrasound with her. The anatomy that was visualized appears unremarkable and the biometry is appropriate for the gestational age. The amniotic fluid volume is subjectively normal. She states that she has gained anywhere from 4 to 9 lb during this and her cystic fibrosis has been under good control. Bipolar 1 disorder 06/02/2020 Diet controlled gestational diabetes mellitus (G DM) 05/13/2020 Overview: 2hr OGTT completed on 07/06/2023: (12 weeks) FBS - 103 (elevated) 1hr - 216 (elevated) 2hr - 121 (WNL) Lab Results Component Value Date/Time HEMOGLOBIN A1C - [facility] 4.9 12/13/2022 09:41 AM HEMOGLOBIN A1C - [facility] 4.9 07/04/2019 08:17 AM 07/21/23: MFM [facility] consult complete. Enrolled in [facility]. Instructions provided to report blood sugars each week for MFM review; A1C ordered 07/26/23: received message from [facility] team that they are unable to get in contact with patient; MyG message sent to patient regarding same 08/17/23: Sent MyG message to patient about calling [facility] to get enrolled in RPM --KW 08/22/23: RPM; a couple elevated PP values; overall Stable (<50%) 08/28/23: RPM reviewed; stable overall 09/05/20230366-SXA-ywahuihl 5 of 7 days in the past week; stable 09/12/23: RPM reviewed; Stable 09/19/23: RPM reviewed; Stable. Not testing every day. 09/26/23: RPM reviewed; Stable; more consistent reporting 10/03/23: RPM reviewed; Stable but not testing consistently. 10/10/20238804-XTQ-zkevyrdf 2 days along with 2 additional fasting blood sugars. Messaged patient to be consistent with testing and reporting. 10/17/23: RPM reviewed; several missed readings, but overall stable 10/24/20231372-XVN-lxceqcrc 3 of past 6 days; overall stable. Messaged to test four times daily and report. 10/31/20237854-TPR-fcxedf 11/06/20233012-NPD-hudkpfvy 5 of 7 days; stable 11/14/20232358-HJP-lmqhrbsj 3 of past 7 days. Messaged to be consistent with testing and reporting. 11/21/20237215-PKX-atyyyw 11/27/23: RPM reviewed; Stable but missing some values - requested updated log of missing values 12/05/20230055-VJH-twembw 12/12/20236309-BRF-sfsoxlcg 5 of 7 days in the past week. Stable 12/19/23: RPM reviewed; a few missing days but all reported readings stable. 12/26/20239331-IDM-ctcactyo 4 of the past 7 days; stable. Messaged to be consistent with testing four times daily and reporting. 01/02/20241268-BVK-cricgtwl 4 days in the past week; stable 01/09/20244790-XUU-jruwzpbz 4 days in the past week; stable Last Assessment & Plan: Working with [facility]. Rh negative, antepartum 03/19/2020 Splenomegaly 11/07/2017 Constipation 09/06/2017 Overview: 06/02/20: denies current sx. Cystic fibrosis with gastrointestinal manifestat ions 07/26/2016 Exocrine pancreatic insufficiency 07/26/2016 Vitamin D insufficiency 07/26/2016 History of nasal polyp 07/26/2016 Cystic fibrosis with pulmonary manifestations Vaccine refused by patient 06/21/2011 Overview: refused HPV VACCIN FOR DISEASE NEC 11/20/2001 Malabsorption 08/29/2001 Cystic Fibrosis ( homozygous [id number]) Estimated Date of Delivery Comme nts Yes 01/29/2024 Based on Ultraso und documented as of this encounter (statuses as of 01/12/2024) Resolved Problems Problem Noted Date Diagnosed Date Resolved Date History of gestational diabe nahid mellitus (GDM) in prior , currently 06/08/2023 11/08/2023 Overview: History of gestational diabetes controlled with Metformin in last Last Assessment & Plan: Reviewed with patient that women who have a history of GDM in a previous may have up to a 75% risk for GDM in subsequent pregnancies. Recommend obtaining early one hour Glucola screen and repeat again at 26-28 weeks if early screen is normal. GBS (group B Streptococcus c arrjacques), +RV culture, currently 10/05/2020 06/07/2023 Bipolar disease during , antepartum 06/07/2023 Last Assessment & Plan: 06/02/20: reports symptoms range from mild; she denies SI/HI; declines psychiatric medications; intermittently follows with behavioral health provider here at [facility] [place]. DISCUSSION: 1. and delivery can worsen the symptoms of bipolar disorder. and women have a sevenfold higher risk of hospital admission than those who have not recently been . 2. Rates of relapse range from 32% to 67%. There also is an increased risk of psychosis as high as 46%. 3. Stopping treatment may increase the risk of recurrent mood episodes, particularly if medications are discontinued abruptly (eg, in less than two weeks). Women who discontinue medication within 6 months of conception are more than twice as likely to suffer a recurrence of the disease. RECOMMENDATIONS: 1. For bipolar patients who are , we suggest maintenance pharmacotherapy rather than no treatment. However, for patients with a mild lifetime course of illness, it is reasonable to try to avoid pharmacotherapy during . 2. The decision to treat bipolar disorder during should be determined on an individualized basis and treatment should be provided by general psychiatrists in collaboration with obstetricians and primary care clinicians 3. Women who experience depression exacerbation during may benefit from psychotherapy to replace or augment medication. 4. Alternative treatments such as EPA (eicosapentanoic acid) omega-3 fish oil may be tried if the patient desires. Natural sources of EPA include small oily fish that are also low in mercury, including anchovies, spencer, sardines (boneless & skinless & in olive oil), [place] mackerel (i.e. not Bereket mackerel), or cooked salmon (i.e. not sashimi). Medication exposure during f irst trimester of 06/02/2020 06/07/2023 Overview: Currently compliant with Trikafta and other CF related medications; she plans to breastfeed with Trikafta. Last Assessment & Plan: Trikafta: Based on experimental animal studies, therapy with ivacaftor/tezacaftor/elexacaftor or ivacaftor/tezacaftor is not expected to increase congenital malformations. Anecdotal human reports are available. High-risk 04/15/2020 06/07/19 24 Need for rubella vaccination 03/19/2020 06/07/2023 Respiratory system disease a ffecting , antepartum 03/19/2020 06/07/2023 Overview: 06/02/20: FEV1: 97%; partner has not been tested for CF carrier status --her partner's insurance information was collected today and provided to genetic counselor [facility]. 4x lifetime hospitalizations, most recent in 2014. Last Assessment & Plan: DISCUSSION: 1. Reviewed with patient that in 2010, there were 211 pregnancies reported in the Cystic Fibrosis Foundation Registry. Small case series and larger cohort studies have not documented adverse maternal outcomes for women with mild to moderate pulmonary disease (ie, FEV1 greater than 60% predicted) who become , although the frequency of treatment for pulmonary exacerbations was increased during . 2. Discussed with patient that severe disease, especially when pulmonary hypertension is present, can present significant challenges and should be considered a contraindication to . 3. Risk factors for adverse outcomes include poor nutritional status, FEV1 less than 60%, pulmonary hypertension, and diabetes. 4. does not appear to adversely affect the course of the disease; however, women with cystic fibrosis who become may experience complications such as growth restriction and premature delivery. RECOMMENDATIONS: 1. Recommend that patient be followed closely by a pulmonology specialist throughout the course of her in a multi-disciplinary fashion with Maternal Medicine and patient s primary OB provider. 2. See Genetic Counselor s notes. 3. Recommend referral to Nutrition Services and close monitoring of maternal nutrition and weight gain throughout . 4. Recommend early gestational diabetes screening due to the increased risk for secondary insulin deficiency. If the early 1 hour glucola is normal, then it should be repeated at 26 to 28 weeks 5. Prothrombin Time should be evaluated every trimester, and parenteral vitamin K administered for elevated prothrombin time. 6. Recommend Maternal Medicine ultrasound for anatomy at 18-20 gestation and then for growth every 4-6 weeks after 24 weeks gestation. 7. Recommend twice weekly surveillance starting at 32 weeks gestation or sooner if the maternal condition warrants. 8. Recommend an anesthesia referral antepartum. 9. s/p Influenza vaccine for fall 2019. Surveillance of previously p rescribed contraceptive method 12/05/2012 05/11/2020 documented as of this encounter (statuses as of 01/12/2024) Immunizations Name Administration Dates Next Due COVID-19 mRNA, LNP-s, No Pre serve, 2-Dose Series (PlayMotion) 06/01/2021,11/16/2020,10/26/2020 H1N1 2009 Influenza, IM 03/27/2009 Meningococcal Conjugate Vacc ine (Menactra/Menveo) 07/14/2015,05/18/2010 Pneumococcal Conjugate Vacci ne, 20-valent ([id number]) 03/31/2022 Pneumococcal Polysaccharide PPV23 (Pneumovax) 03/05/2019 Seasonal Influenza, PF, 6 M & above, IM , (FluLaval or Fluzone) 04/18/2023,03/07/2022,04/01/2021,03/05 Seasonal Influenza, Quadriva lent, No Preserve, IM 03/05/2019,02/08/2018,03/09/2017,03/16,03/19/2015 Seasonal Influenza, Split, I IV3, With Preserve, Inj 01/23/2014,04/04/2013,03/08/2012,03/14,02/25/2010,02/05/2009,02/25/2008 ,03/21/2007,03/17/2006 TDAP (age 10 and older)(Boostrix) 11/08/2023,,07/14/2015 TDAP, Age 7 and older, IM (Adacel) 05/18/2010 Varicella Vaccine (Chicken Pox) 05/18/2010 documented as of this encounter Social History Tobacco Use Types Packs/Day Years Used Date Smoking Tobacco: Never Smokeless Tobacco: Never Alcohol Use Standard Drinks/Week Comments Not Currently 0 (1 standard drink = 0.6 oz pur e alcohol) denies in AUDIT-C Answer Date Recorded Q1: How often do you have a drink containing alc ohol? 2-4 times a month 03/30/2022 Q2: How many drinks containi ng alcohol do you have on a typical day when you are drinking? 5 or 6 03/30/2022 Q3: How often do you have si x or more drinks on one occasion? Monthly 03/30/2022 PHQ-2 Answer Date Recorded PHQ Adult Total Score 0 11/14/2023 Hunger Vital Sign Answer Date Recorded Within the past 12 months, y ou worried that your food would run out before you got the money to buy more. Never true 12/05/19 24 Within the past 12 months, t he food you bought just didn't last and you didn't have money to get more. Never true 12/05/2023 Cutler Depression Scale Answer Date Recorded Cutler Depression Scale Total 5 06/08/2023 The thought of harming myself has occurred to me . Never 06/08/2023 Childcare Answer Date Recorded Do you feel overwhelmed with taking care of a child, family member or friend? No 12/05/2023 Does your family need help f inding childcare? (Household - for ages 0-17 years) Not on file 12/05/2023 Clothing Answer Date Recorded Have you been unable to get clothing when it was really needed? No 12/05/2023 Is your family able to get c lothes or diapers when needed? (Household - for ages 0-17 years) Not on file 12/05/2023 Personal Safety Answer Date Recorded Do you feel unsafe or have concerns for your saf ety? No 12/05/2023 Do you have concerns for you r family's safety? (Household - for ages 0-17 years) Not on file 12/05/2023 Utilities Answer Date Recorded Do you have trouble paying y our heating, water, or electric bill? No 12/05/2023 Is your family able to pay t he heat, water, or electric bill? (Household - for ages 0-17 years) Not on file 12/05/2023 Does your family have access to good internet? (Household - for ages 0-17 years) Not on file 12/05/2023 Employment Status Answer Date Recorded Are you unemployed or without regular income? No 12/05/2023 Does the household have a [facility] source of income? (Household - for ages 0-17 years) Not on file 12/05/2023 Social Connections Answer Date Recorded How often do you feel lonely or isolated from th ose around you? Rarely 12/05/2023 Financial Resource Strain Answer Date R ecorded Do you have any trouble payi ng for your medications, or do you think you might in the future? No 12/05/2023 Does your family have troubl e paying for medicine? (Household - for ages 0-17 years) Not on file 12/05/2023 Transportation Needs Answer Date Record ed Do you have trouble getting a ride to medical visits or work? (Adult - for ages 18 years and over) Not on file 12/05/2023 Does your family have a hard time getting a ride to doctors visits? (Household - for ages 0-17 years) Not on file 12/05/2023 Has lack of transportation k ept you from medical appointments, meetings, work, or from getting things needed for daily living? Check all that apply. No 12/05/2023 Do you (or your family) have trouble finding or paying for a ride (transportation)? (Household - for ages 0-17 years) Not on file 12/05/2023 Housing Stability Answer Date Recorded Do you currently live in a s helter or have no steady place to sleep at night? No 12/05/2023 Do you think you are at risk of becoming homeless? (Adult - for ages 18 years and over) Not on file 12/05/2023 Does your family worry about paying for your home or becoming homeless? (Household - for ages 0-17 years) Not on file 0 12/05/2023 Are you homeless or worried that you might be in the future? No 12/05/2023 Are you (or your family) ben eless or worried that you might be in the future? (Household - for ages 0-17 years) Not on file Food Insecurity Answer Date Recorded Do you need food for this week? No 12/05/2023 Are you able to get enough f ood for your family? (Household - for ages 0-17 years) Not on file 12/05/2023 Does your family need food t his week? (Household - for ages 0-17 years) Not on file 12/05/2023 Do you always have enough fo od for your family? (Household - for ages 0-17 years) Not on file 12/05/2023 Estimated Date of Delivery Comme nts Yes 01/29/2024 Based on Ultraso und Sex and Gender Information Value Date Recorded Sex Assigned at Female 06/08/2023 1:32 PM EST Gender Identity Female 06/08/2023 1:32 PM EST Sexual Orientation Straight 06/08/2023 1: 32 PM EST Job Start Date Occupation Industry Not on file Not on file Not on file documented as of this encounter Last Filed Vital Signs Vital Sign Reading Time Taken Comments Blood Pressure 102/60 01/12/2024 8:16 AM EDT Pulse - - Temperature 36.1 C (97 F) 01/12/2024 8:16 AM EDT Respiratory Rate - - Oxygen Saturation - - Inhaled Oxygen Concentration - - Weight 91.2 kg (201 lb) 01/12/2024 8:16 AM EDT Height 162.6 cm (5' 4") 01/12/2024 8:16 AM EDT Body Mass Index 34.5 01/12/2024 8:16 AM EDT documented in this encounter Functional Status Functional Status Response Date of Assess ment Are you deaf or do you have serious difficulty h earing? No 10/30/2014 Are you blind or do you have serious difficulty seeing, even when wearing glasses? No 10/30/2014 Do you have serious difficul ty walking or climbing stairs? (5 years old or older) No 10/30/2014 Do you have difficulty dress ing or bathing? (5 years old or older) No 10/30/2014 Because of a physical, menta l, or emotional condition, do you have difficulty doing errands alone such as visiting a doctor s office or shopping? (15 years old or older) No 10/31/19 15 Cognitive Status Response Date of Assessm ent Because of a physical, menta l, or emotional condition, do you have serious difficulty concentrating, remembering, or making decisions? (5 years old or older) No 10/30/2014 documented as of this encounter Progress Notes * Jhonny Dc MD - 01/12/2024 9:39 AM EDT 1st time seeing pt Doing well Pt has hx of DM on diet CF Bipolar disorder Breech presentation; Sono done today confirms breech presentation H&P done in [facility] documented in this encounter H&P Notes * Jhonny Dc MD - 01/12/2024 9:46 AM EDT [address] [address] Appt line [phone] Monica Dickey is a 28 year old year old year old at 37w4d Patient is scheduled for section because of breech presentation. Ultrasound done on 01/12/2024 confirms breech presentation. Patient's is complicated with the following gestational diabetes on diet 2. Bipolar disorder 3. 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 Denies h/o STDs and abnormal Paps. Her past medical/surgical histories and current medications are recorded in the electronic record. Past Surgical History: Procedure Laterality Date INTRAUT COPPER CONTRACEPTIVE 07/03/15 Family History Problem Relation Name Age of Onset No Past Hx Mother No Past Hx Father Cystic Fibrosis Sister Bipolar Disorder Sister Anxiety Disorder Sister Depression Sister Heart Disorder Grandmother (Maternal) Heart Disorder Grandfather (Maternal) Cancer Grandfather (Paternal) No Known Problems Son History Social History Socioeconomic History Marital status: Spouse name: Not on file Number of children: 1 Years of education: Not on file Highest education level: Not on file Occupational History Not on file Tobacco Use Smoking status: Never Smokeless tobacco: Never Vaping Use Vaping status: Never Used Substance and Sexual Activity Alcohol use: Not Currently Comment: denies in Drug use: Never Sexual activity: Yes Partners: Male Other Topics Concern Not on file Social History Narrative Not on file Social Determinants of Health Financial Resource Strain: Low Risk (12/05/2023) Financial Resource Strain Do you have any trouble paying for your medications, or do you think you might in the future? (Adult - for ages 18 years and over): No Does your family have trouble paying for medicine? (Household - for ages 0-17 years): Not on file Food Insecurity: No Food Insecurity (12/05/2023) Food Insecurity Do you need food for this week? (Adult - for ages 18 years and over): No Are you able to get enough food for your family? (Household - for ages 0-17 years): Not on file Does your family need food this week? (Household - for ages 0-17 years): Not on file Do you always have enough food for your family? (Household - for ages 0-17 years): Not on file Transportation Needs: No Transportation Needs (12/05/2023) Transportation Needs Do you have trouble getting a ride to medical visits or work? (Adult - for ages 18 years and over):Not on file Does your family have a hard time getting a ride to doctors visits? (Household - for ages 0-17 years): Not on file Has lack of transportation kept you from medical appointments, meetings, work, or from getting things needed for daily living? Check all that apply. (Adult - for ages 18 years and over): No Do you (or your family) have trouble finding or paying for a ride (transportation)? (Household - for ages 0-17 years): Not on file Social Connections: Socially Integrated (12/05/2023) Social Connections How often do you feel lonely or isolated from those around you? (Adult - for ages 18 years and over): Rarely Housing Stability: Low Risk (12/05/2023) Housing Stability Do you currently live in a chcf or have no steady place to sleep at night? (Adult - for ages 18 years and over): No Do you think you are at risk of becoming homeless? (Adult - for ages 18 years and over): Not on file Does your family worry about paying for your home or becoming homeless? (Household - for ages 0-17 years): Not on file Are you homeless or worried that you might be in the future? (Adult - for ages 18 years and over): No Are you (or your family) homeless or worried that you might be in the future? (Household - for ages0-17 years): Not on file @[facility]@ Physical Exam: BP 102/60 | Temp 36.1 C (97 F) | Ht 1.626 m (5' 4") | Wt 91.2 kg (201 lb) | LMP 03/25/2023 | BMI 34.50 kg/m | BSA 2.03 m CV: S1, S2. Regular rate and Rhythm Lungs: Clear to auscultation bilaterally. Abdomen: Soft with a gravid uterus and no palpable contractions. Fundal Height: 37cms heart rate: 140/min Extremities: Soft non tender calves bilaterally. A/P: 28 year old year old 1. Breech presentation scheduled for primary section. 2. History of cystic fibrosis 3. History of bipolar disorder. 4. Gestational diabetes mellitus on diet We have discussed the risk alternatives and complications of surgery including more surgery to correct complication,risk of anesthesia,infection,damage to internal organs and . We have also discussed the possibility that pt's present situation may not change. Pt is aware and wishes to proceed to surgery. Consent is signed Jhonny Dc MD 01/12/2024 9:46 AM documented in this encounter Plan of Treatment Upcoming Encounters Date Type Department Care Team (Late st Contact Info) Description 01/16/2024 1:45 PM EDT Office Visit Gynecology/Obstetrics Alisa Fiore [address] [place] [address] Radha Diaz CRNP [address] [place] [address] Scarlett Fiore Stress Tests [place] [address] [place] [address] 01/19/2024 1:45 PM EDT Office Visit Gynecology/Obstetrics Alisa Fiore [address] [place] [address] Radha Diaz CRNP [address] [place] [address] Scarlett Fiore Stress [facility] [place] [address] [place] [address] 01/24/2024 9:15 AM EDT Office Visit Non [facility], Operating Room, [address] [place] [address] Husam Haque MD [address] [place] [address] 01/26/2024 1:45 PM EDT Office Visit Gynecology/Obstetrics [facility] [place] [address] [place] [address] Radha Diaz CRNP [address] [place] [address] [facility], Non Stress Tests [facility] [address] [place] [address] 01/30/2024 11:30 AM EDT Telemedicine Pulmonary Medicine, [place] [address] [place] [address] [place], [facility] Pulmonary [address] [place] [address] 01/31/2024 2:00 PM EDT Office Visit Gynecology/Obstetrics [facility] [place] [address] [place] [address] Radha Diaz CRNP [address] [place] [address] 02/05/2024 10:00 AM EDT Telemedicine Psychiatry Jimbo [facility] [address] [place] [address] Catina Araiza CRNP [address] [place] [address] Health Maintenance Due Date Last Done Comments HPV (Gardasil) Vaccine (1 - 3-dose series) 2012 COVID-19 Vaccine (2022-2 4 season) 2023 06/01/2021, 11/16/2020, 10/26/2020 Influenza Vaccine (FLU shot) (#1) 2024 04/18/2023, 03/07/2022, 04/01/2021, Additional history exists Pap Smear 05/20/2025 05/20/2022, 07/05/2019 DTaP,Tdap,and Td Vaccines (1 0 - Td or Tdap) 11/07/2033 11/08/2023, 09/01/2020, 07/14/2015, Additional history exists Hepatitis B Vaccine Completed 03/30/1998, 1997, 1997 MENINGOCOCCAL (MENACTRA/MENVEO) Completed 6, 05/18/2010 Pneumococcal Vaccine: Pediat rics (0 to 5 Years) and At-Risk Patients (6 to 64 Years) Completed 03/31/2022, 03/05/2019 Gonorrhea / Chlamydia Screen Discontinued , 07/06/2023, 06/08/2023, Additional history exists documented as of this encounter Medical Devices Not on filedocumented as of this encounter Visit Diagnoses Diagnosis Rh negative, antepartum- Primary Rhesus isoimmunization affecting management of mother, antepartum condition Diet controlled gestational diabetes mellitus (GDM) in third trimester CF (cystic fibrosis) (HCC) Cystic fibrosis without mention of meconium ileus High-risk in third trimester Respiratory system disease affecting , antepartum Bipolar disease during in third trimester (HCC) H/O macrosomia in infant in prior , currently with other poor obstetric history Rubella non-immune status, antepartum Other specified complication, antepartum Chlamydia infection affecting in third trimester Excessive growth affecting management of in third trimester, single or unspecified fetus Breech presentation, single or unspecified fetus documented in this encounter Additional Health Concerns Infection Onset Date Last Indicated Resolved Time Cystic fibrosis 11/10/2021 11/10/2021 documented as of this encounter Advance Directives * Full Code (Latest Code Status on File) Date Activated Date Inactivated Comments 10/30/2014 3:30 PM 11/12/2014 6:49 PM This order r eflects the patients wishes and were consensually agreed upon. Question Answer Comments Discussion of Advance Directives occurred with: Not Discussed Does the patient have a Living Will? No Does the patient have Health Care Power of Attor blank? No * Full Code Date Activated Date Inactivated Comments 04/24/2012 12:01 PM 05/08/2012 6:45 PM This order reflects the patients wishes and were consensually agreed upon. Question Answer Comments Discussion of Advance Directives occurred with: Not Discussed Does the patient have a Living Will? No Does the patient have Health Care Power of Attor blank? No * Full Code Date Activated Date Inactivated Comments 03/18/2011 2:41 PM 03/21/2011 7:11 PM This order reflects the patients wishes and were consensually agreed upon. Question Answer Comments Discussion of Advance Directives occurred with: Not Discussed
--- OUTSIDE RECORDS SUMMARY | 2024-01-24 09:13 | External Medical Summary | Summary of Care ---
Author Name Unknown Organization [facility] Address [address] [facility] [place] [address] Phone [phone] Care Team Providers Care Frame Changer Name Role Phone Unavailable Primary Care Provider Unavailabl e Encounter Details Date Type Department Care Team (Late st Contact Info) Description 01/04/2024 Telephone [facility] [address] [place] [address] Rdaha Diaz CRNP [address] [place] [address] Allergies No known active allergiesdocumented as of this encounter (statuses as of 01/10/2024) Medications Medication Sig Dispensed Refills Start Date End Date Status COMPRESSOR/NEBULIZER MISCIndications:Cyst ic fibrosis (HCC) Use as directed 1 Device 0 05/31/2012 Active Additional Information Patient not taking.Reported on 07/21/2023 JUAN CARLOS LC PLUS NEBULIZER MISCIndications:Cyst ic fibrosis with pulmonary manifestations (HCC) Use daily with Uqxru-Gef-oathzbwp device 1 Device 5 06/13/2012 Active Additional [...] Information Patient not taking.Reported on 11/14/2023 Pancrelipase, Vya-Aczh-Ayvh, (ZENPEP) [id number] units CPEPIndications:Cyst ic fibrosis (HCC) Take 6 [...] MG Oral Tablet Take by mouth. Active PointCare Flex System w/Device Kit Use to test blood sugars 4 times daily (fasting, 1 hour after breakfast, lunch, and dinner) 1 Kit 07/18/2023 Active PointCare In Vitro Strip (Glucose Blood) Use to test blood sugars 4 times daily (fasting, 1 hour after breakfast, lunch, and dinner) 125 Strip 6 07/18/2023 Active Keepy [employer] Systems Lancets 30G Use to test blood sugars 4 times daily (fasting, 1 hour after breakfast, lunch, and dinner) 200 Each 07/18/2023 Active Cholecalciferol 125 MCG (5000 UT) [...] & 150 MG Oral Tablet Therapy Pack (Azbopkws-Zmxcgjy-Cu acaf & Ivacaf)Indications:C ystic fibrosis with pulmonary [...] as of this encounter (statuses as of 01/10/2024) Active Problems Problem Noted Date Diagnosed Date [...] infection complicating 06/09 Overview: + test at [facility], sent azithromycin High-risk 06/08/2023 Last Assessment [...] and primary care clinicians H/O macrosomia in in prior , currently 06/08/2023 Overview: First complicated by macrosomia. Delivered vaginally. Infant weighed 4,203g (9 lbs 4 oz). Last Assessment & Plan: CONSIDERATIONS: Explained that macrosomia is defined as a weight of greater than 4000 grams. A woman who previously has given to an infant weighing more than 4,000 g is 5-10 times more likely to deliver an weighing more than 4,500 g than a woman without such a history. Discussed that a variety of factors predispose a to macrosomia, including preexisting maternal diabetes, uncontrolled gestational diabetes, maternal prepregnancy obesity, excessive gestational weight gain, maternal interpregnancy weight gain, a prior macrosomic infant, postterm , and maternal nonsmoking status. An [...] Sent MyG message to patient about calling to get enrolled in RPM --KW 08/22/23: RPM; a couple elevated PP values; overall Stable (<50%) 08/28/23: RPM reviewed; stable overall 09/05/20230551-RKT-jcukivaa 5 of 7 days in the past week; stable 09/12/23: RPM reviewed; Stable 09/19/23: RPM reviewed; Stable. Not testing every day. 09/26/23: RPM reviewed; Stable; more consistent reporting 10/03/23: RPM reviewed; Stable but not testing consistently. 10/10/20238090-ASF-hktqjuqo 2 days along with 2 additional fasting blood sugars. Messaged patient to be consistent with testing and reporting. 10/17/23: RPM reviewed; several missed readings, but overall stable 10/24/20230270-XVQ-hvhltjih 3 of past 6 days; overall stable. Messaged to test four times daily and report. 10/31/20235194-UDE-xkgvbo 11/06/20237116-DKY-aczzcich 5 of 7 days; stable 11/14/20235505-NFS-cbgrbaqe 3 of past 7 days. Messaged to be consistent with testing and reporting. 11/21/[id number]-OSJ-lynwbu 11/27/23: RPM reviewed; Stable but missing some values - requested updated log of missing values 12/05/20238408-TXR-zteedh 12/12/20231775-MVF-zvdysduk 5 of 7 days in the past week. Stable 12/19/23: RPM reviewed; a few missing days but all reported readings stable. 12/26/20238232-ZDD-tttpkgdp 4 of the past 7 days; stable. Messaged to be consistent with testing four times daily and reporting. 01/02/20243803-VWZ-rbswnnhu 4 days in the past week; stable 01/09/20248249-YRF-vchytocj 4 days in the past week; stable [...] 11/20/2001 Malabsorption 08/29/2001 Cystic Fibrosis ( homozygous [id number]) Estimated Date of Delivery Comme nts Yes 01/29/2024 Based on Ultraso und documented as of this encounter (statuses as of 01/10/2024) Resolved Problems Problem Noted Date Diagnosed Date [...] is normal. GBS (group B Streptococcus c arrier), +RV culture, currently 10/05/2020 06/07/2023 Bipolar disease during , antepartum 06/07/2023 Last Assessment & Plan: 06/02/20: reports symptoms range from mild; she denies SI/HI; declines psychiatric medications; intermittently follows with behavioral health provider here at [facility]. DISCUSSION: 1. and delivery can worsen the [...] low in mercury, including anchovies, spencer, sardines (bonesindy & skinless & in olive oil), Hopkins mackerel (i.e. not Bereket mackerel), or cooked [...] collected today and provided to genetic counselor BRADEN. 4x lifetime hospitalizations, most recent in 2014. [...] as of this encounter (statuses as of 01/10/2024) Immunizations Name Administration Dates Next Due COVID-19 mRNA, LNP-s, No Pre serve, 2-Dose Series ([employer]) 06/01/2021,11/16/2020,10/26/2020 H1N1 2009 Influenza, IM 03/27/2009 Meningococcal Conjugate Vacc ine (Menactra/Menveo) 07/14/2015,05/18/2010 Pneumococcal Conjugate Vacci ne, 20-valent (Okzryge79) 03/31/2022 Pneumococcal Polysaccharide PPV23 (Pneumovax) 03/05/2019 Seasonal [...] money to get more. Never true 12/05/2023 Omaha Depression Scale Answer Date Recorded Omaha Depression Scale Total 5 06/08/2023 The thought [...] No 12/05/2023 Does the household have a re gular source of income? (Household - for ages [...] No 12/05/2023 Are you (or your family) bne eless or worried that you might be [...] on file documented as of this encounter Functional Status Functional Status Response [...] No 10/30/2014 documented as of this encounter Miscellaneous Notes * Telephone Encounter - Patrizia Padilla MED ASSIST - 01/04/2024 2:56 PM EDT FMLA papers handed in by patient. Papers filled out, faxed and placed in triage. Patient picking up at next appointment. documented in this encounter Plan of Treatment Upcoming Encounters Date Type Department Care Team (Late st Contact Info) Description 01/12/2024 8:30 AM EDT Office Visit Gynecology/Obstetrics Alisa Fiore [address] [place] [address] Jhonny Dc MD [address] [place] [address] 01/16/2024 1:45 PM EDT Office Visit Gynecology/Obstetrics Alisa Fiore [address] [place] [address] Radha Diaz CRNP [address] [place] [address] Scarlett Fiore Stress [facility] [place] [address] [place] [address] 01/19/2024 1:45 PM EDT Office Visit Gynecology/Obstetrics Alisa Fiore [address] [place] [address] Radha Diaz CRNP [address] [place] [address] Scarlett Foire Stress [facility] [place] [address] [place] [address] 01/24/2024 9:15 AM EDT Office Visit Non [facility], Operating Room, [address] [place] [address] Husam Haque MD [address] [place] [address] 01/26/2024 1:45 PM EDT Office Visit Gynecology/Obstetrics Alisa Fiore [address] [place] [address] Radha Diaz CRNP [address] [place] [address] [facility] [place] [address] [place] [address] 01/30/2024 11:30 AM EDT Telemedicine Pulmonary Medicine, [place] [address] [place] [address] [place], Pharmacist Pulmonary [address] [place] [address] 01/31/2024 2:00 PM EDT Office Visit Gynecology/Obstetrics Alisa Fiore [address] [place] [address] Radha Diaz CRNP [address] [facility] [place] [address] 02/05/2024 10:00 AM EDT [facility] [address] [place] [address] Catina Araiza CRNP [address] [place] [address] Health Maintenance Due Date Last Done Comments HPV (Gardasil) Vaccine (1 - 3-dose series) 2012 COVID-19 Vaccine ( - 2022-2 4 season) 2023 06/01/2021, 11/16/2020, 10/26/2020 Influenza Vaccine (FLU shot) (#1) 2024 04/18/2023, 03/07/2022, 04/01/2021, Additional history exists Pap Smear 05/20/2025 05/20/2022, 07/05/2019 DTaP,Tdap,and Td Vaccines (1 0 - Td or Tdap) 11/07/2033 11/08/2023, 09/01/2020, 07/14/2015, Additional history exists Hepatitis B Vaccine Completed 03/30/1998, 1997, 1997 MENINGOCOCCAL (MENACTRA/MENVEO) Completed , 05/18/2010 Pneumococcal Vaccine: Pediat rics (0 to 5 Years) and At-Risk Patients (6 to 64 Years) Completed 03/31/2022, 03/05/2019 Gonorrhea / Chlamydia Screen Discontinued , 07/06/2023, 06/08/2023, Additional history exists documented as of this encounter Medical Devices Not on filedocumented as of this encounter Additional Health Concerns Infection Onset [...]
--- OUTSIDE RECORDS SUMMARY | 2024-01-24 09:13 | External Medical Summary | Summary of Care ---
Author Name Unknown Organization [facility] Address [address] [facility] [place] [address] Phone [phone] Care Team Providers Care Afterschool Name Role Phone Unavailable Primary Care Provider Unavailabl e Reason for Visit * Reason Comments Return Visit Encounter Details Date Type Department Care Team (Late st Contact Info) Description 01/16/2024 1:45 PM EDT Office Visit Gynecology/Obstetric s [facility] [address] [place] [address] Radha Diaz CRNP [address] [place] [address] [place], Non Stress Tests [facility] [address] [place] [address] Rh negative, antepartum*; Diet controlled gestational diabetes mellitus (GDM) in third trimester; CF (cystic fibrosis) ([facility]); High-risk in third trimester; Respiratory system disease affecting , antepartum; Bipolar disease during , antepartum ([facility]); H/O macrosomia in in prior , currently ; Rubella non-immune status, antepartum; Chlamydia infection affecting in first trimester; Excessive growth affecting management of in third trimester, single or unspecified fetus; Breech presentation, single or unspecified fetus Allergies No known active allergiesdocumented as of this encounter (statuses as of 01/16/2024) Medications Medication Sig Dispensed Refills Start Date End Date Status COMPRESSOR/NEBULIZER MISCIndications:Cyst ic fibrosis (HCC) Use as directed 1 Device 0 05/31/2012 Active Additional Information Patient not taking.Reported on 07/21/2023 JUAN CARLOS LC PLUS NEBULIZER MISCIndications: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 Active OpenWhere Verio Flex System w/Device Kit Use to test blood sugars 4 times daily (fasting, 1 hour after breakfast, lunch, and dinner) 1 Kit 07/18/2023 Active Sellboxio In Vitro Strip (Glucose Blood) Use to test blood sugars 4 times daily (fasting, 1 hour after breakfast, lunch, and dinner) 125 Strip 6 07/18/2023 Active OpenWhere Delica Lancets 30G Use to test blood [...] & 150 MG Oral Tablet Therapy Pack (Mnagfgbr-Mmxbamc-Sw acaf & Ivacaf)Indications:C ystic fibrosis with pulmonary [...] as of this encounter (statuses as of 01/16/2024) Active Problems Problem Noted Date Diagnosed Date [...] infection complicating 06/09 Overview: + test at [facility], sent azithromycin High-risk 06/08/2023 Last Assessment & Plan: I reviewed the ultrasound. The anatomy that was visualized is appropriate for the gestational age. Respiratory system disease affecting , antepartum 06/08/2023 Overview: [facility] Denies complications with cystic fibrosis in last 06/08/23 MF genetic counseling referral placed Per [facility]: Prothrombin time each trimester Growth scans q4-6 [...] 5-10 times more likely to deliver an infant weighing more than 4,500 g than a [...] Stable (<50%) 08/28/23: RPM reviewed; stable overall 09/05/20232658-OBI-rkgssqgd 5 of 7 days in the past week; stable 09/12/23: RPM reviewed; Stable 09/19/23: RPM reviewed; Stable. Not testing every day. 09/26/23: RPM reviewed; Stable; more consistent reporting 10/03/23: RPM reviewed; Stable but not testing consistently. 10/10/20238563-AZP-hcysvtti 2 days along with 2 additional fasting blood sugars. Messaged patient to be consistent with testing and reporting. 10/17/23: RPM reviewed; several missed readings, but overall stable 10/24/20235508-KNU-jverhwfr 3 of past 6 days; overall stable. Messaged to test four times daily and report. 10/31/20230636-FIZ-gnxaqa 11/06/20233686-JQR-bqlcqnel 5 of 7 days; stable 11/14/20239540-QDJ-vbuvtejl 3 of past 7 days. Messaged to be consistent with testing and reporting. 11/21/20237408-UCE-ireobv 11/27/23: RPM reviewed; Stable but missing some values - requested updated log of missing values 12/05/20238885-HQX-necwsg 12/12/20235971-AST-ojideobw 5 of 7 days in the past week. Stable 12/19/23: RPM reviewed; a few missing days but all reported readings stable. 12/26/20234139-OTE-rgnxpwpz 4 of the past 7 days; stable. Messaged to be consistent with testing four times daily and reporting. 01/02/20242437-BRB-kgetxbfx 4 days in the past week; stable 01/09/20247933-JSM-zjuhdymn 4 days in the past week; stable 01/15/20243739-ZWW-mrmxxzia 1 day in the past week. Sent message asking her to report values. Last Assessment & Plan: Working with [facility]. [...] 11/20/2001 Malabsorption 08/29/2001 Cystic Fibrosis ( homozygous [id number]) Estimated Date of Delivery Comme nts Yes 01/29/2024 Based on Ultraso und documented as of this encounter (statuses as of 01/16/2024) Resolved Problems Problem Noted Date Diagnosed Date [...] is normal. GBS (group B Streptococcus c mary), +RV culture, currently 10/05/2020 06/07/2023 Bipolar disease during , antepartum 1 06/07/2023 Last Assessment & Plan: 06/02/20: reports symptoms range from mild; she denies SI/HI; declines psychiatric medications; intermittently follows with behavioral health provider here at [facility]. DISCUSSION: 1. and delivery can worsen the [...] (boneless & skinless & in olive oil), Upshur mackerel (i.e. not Bereket mackerel), or cooked [...] as of this encounter (statuses as of 01/16/2024) Immunizations Name Administration Dates Next Due COVID-19 mRNA, LNP-s, No Pre serve, 2-Dose Series ([employer]) 06/01/2021,11/16/2020,10/26/2020 H1N1 2009 Influenza, IM 03/27/2009 Meningococcal Conjugate Vacc ine (Menactra/Menveo) 07/14/2015,05/18/2010 Pneumococcal Conjugate Vacci ne, 20-valent ([id number]) 03/31/2022 Pneumococcal Polysaccharide PPV23 (Pneumovax) 03/05/2019 Seasonal [...] money to get more. Never true 12/05/2023 [place] Depression Scale Answer Date Recorded [place] Depression Scale Total 5 06/08/2023 The thought [...] No 12/05/2023 Does the household have a [facility] source of income? (Household - for ages [...] Sign Reading Time Taken Comments Blood Pressure 104/72 01/16/2024 1:47 PM EDT Pulse - - Temperature - - Respiratory Rate - - Oxygen Saturation - - Inhaled Oxygen Concentration - - Weight 91.6 kg (202 lb) 01/16/2024 1:47 PM EDT Height 162.6 cm (5' 4") 01/16/2024 1:47 PM EDT Body Mass Index 34.67 01/16/2024 1:47 PM EDT documented in this encounter Functional Status [...] as of this encounter Progress Notes * Radha Diaz CRNP - 01/16/2024 1:49 PM EDT ASSESSMENT assessment with Non-stress Test completed on 01/16/2024 at 38.1weeks gestation for indication of CF heart baseline: 130 bpm Variability: Moderate Decelerations: absent Accelerations: present Contractions: Present, iregular NST start time: 2010 (per timestamp on NST machine) NST stop time: 2039 (per timestamp on NST machine) NST strip reviewed, interpreted, and approved by OB providerRadha CRNP . NST strip stored in clinic storage file documented in this encounter Plan of Treatment Upcoming Encounters Date Type Department Care Team (Late st Contact Info) Description 01/19/2024 1:45 PM EDT Office Visit Gynecology/Obstetrics [facility] [address] [place] [address] Radha Diaz CRNP [address] [place] [address] [place] [facility] Stress Tests [place] [address] [place] [address] 01/24/2024 9:15 AM EDT Office Visit Non [facility], Operating Room, [address] [place] [address] Husam Haque MD [address] [place] [address] 01/26/2024 1:45 PM EDT Office Visit Gynecology/Obstetrics [facility] [address] [address] Radha Diaz CRNP [address] [place] [address] [facility] Stress Tests [place] [address] [place] [address] 01/30/2024 11:30 AM EDT Telemedicine Pulmonary Medicine, [place] [address] [place] [address] [place], [facility] Pulmonary [address] [place] [address] 01/31/2024 2:00 PM EDT Office Visit Gynecology/Obstetrics [facility] [address] [place] [address] Radha Diaz CRNP [address] [place] [address] 02/05/2024 10:00 AM EDT Telemedicine Psychiatry [facility] [address] [place] [address] Catina Araiza CRNP [address] [place] [address] 02/22/2024 9:30 AM EDT Office Visit Pulmonary Medicine, [place] [address] [place] [address] Micaela Holly, [address] [place] [address] Health Maintenance Due Date Last Done Comments HPV (Gardasil) Vaccine (1 - 3-dose series) 2012 COVID-19 Vaccine ( - 2022-2 4 season) 2023 06/01/2021, 11/16/2020, 10/26/2020 Influenza Vaccine (FLU shot) (#1) 2024 04/18/2023, 03/07/2022, 04/01/2021, Additional history exists Pap Smear 05/20/2025 05/20/2022, 07/05/2019 DTap/Tdap Vaccines (10 - Td or Tdap) 11/07/2033 11/08/2023, 09/01/2020, [...] disease affecting , antepartum Bipolar disease during , antepartum (HCC) H/O macrosomia in infant in prior , currently with other poor obstetric history Rubella non-immune status, antepartum Other specified complication, antepartum Chlamydia infection affecting in first trimester Excessive growth affecting management of in [...]
--- OUTSIDE RECORDS SUMMARY | 2024-01-24 09:13 | External Medical Summary | Summary of Care ---
Author Name Unknown Organization [facility] Address [address] [facility] [place] [address] Phone [phone] Care Team Providers Care Electronic Plotting System Operator Name Role Phone Unavailable Primary Care Provider Unavailabl e Reason for Visit * Reason Comments Return Visit Non Stress Test Encounter Details Date Type Department Care Team (Late st Contact Info) Description 01/19/2024 1:45 PM EDT Office Visit Gynecology/Obstetric s [facility] [address] [place] [address] Radha Diaz CRNP [address] [place] [address] [place], Non Stress Tests [place] [address] [place] [address] High-risk in third trimester*; Rh negative, antepartum; Diet controlled gestational diabetes mellitus (GDM) in third trimester; CF (cystic fibrosis) ([facility]); Respiratory system disease affecting , antepartum; Bipolar disease during , antepartum ([facility]); H/O macrosomia in in prior , currently ; Rubella non-immune status, antepartum; Chlamydia infection affecting , antepartum; Excessive growth affecting management of in third trimester, single or unspecified fetus; Breech presentation, single or unspecified fetus Allergies No known active allergiesdocumented as of this encounter (statuses as of 01/19/2024) Medications Medication Sig Dispensed Refills Start Date End Date Status COMPRESSOR/NEBULIZER MISCIndications:Cyst ic fibrosis (HCC) Use as directed 1 Device 0 05/31/2012 Active Additional Information Patient not taking.Reported on 07/21/2023 JUAN CARLOS LC PLUS NEBULIZER MISCIndications: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 Active [employer] Verio Flex System w/Device Kit Use to test blood sugars 4 times daily (fasting, 1 hour after breakfast, lunch, and dinner) 1 Kit 07/18/2023 Active Ard[employer] Technologies[employer] Verio In Vitro Strip (Glucose Blood) Use to test blood sugars 4 times daily (fasting, 1 hour after breakfast, lunch, and dinner) 125 Strip 6 07/18/2023 Active Ardica TechnologiesTouch Delica Lancets 30G Use to test blood [...] & 150 MG Oral Tablet Therapy Pack (Eddgaabj-Ofifdfh-Wa acaf & Ivacaf)Indications:C ystic fibrosis with pulmonary [...] as of this encounter (statuses as of 01/19/2024) Active Problems Problem Noted Date Diagnosed Date [...] infection complicating 06/09 Overview: + test at [facility], sent azithromycin High-risk 06/08/2023 Last Assessment & Plan: I reviewed the ultrasound. The anatomy that was visualized is appropriate for the gestational age. Respiratory system disease affecting , antepartum 06/08/2023 Overview: Cystic fibrosis Follows with [facility] Denies complications with cystic fibrosis in last 06/08/23 MFM genetic counseling referral placed Per [facility]: Prothrombin time each trimester Growth scans [...] noted in one case report of an exposed to risperidone in utero; relationship to [...] Stable (<50%) 08/28/23: RPM reviewed; stable overall 09/05/20236368-YFB-twcibmqh 5 of 7 days in the past week; stable 09/12/23: RPM reviewed; Stable 09/19/23: RPM reviewed; Stable. Not testing every day. 09/26/23: RPM reviewed; Stable; more consistent reporting 10/03/23: RPM reviewed; Stable but not testing consistently. 10/10/20234683-DIY-uwwaiapc 2 days along with 2 additional fasting blood sugars. Messaged patient to be consistent with testing and reporting. 10/17/23: RPM reviewed; several missed readings, but overall stable 10/24/20232505-OSY-eucpmefm 3 of past 6 days; overall stable. Messaged to test four times daily and report. 10/31/20230160-ZMN-bhwpti 11/06/20239405-OVE-pflgttmd 5 of 7 days; stable 11/14/20236614-HKZ-frdheouo 3 of past 7 days. Messaged to be consistent with testing and reporting. 11/21/20233503-NHY-qvrowm 11/27/23: RPM reviewed; Stable but missing some values - requested updated log of missing values 12/05/20234108-MMF-gpvjtt 12/12/20233528-WGZ-zdvzobbh 5 of 7 days in the past week. Stable 12/19/23: RPM reviewed; a few missing days but all reported readings stable. 12/26/20234328-EML-txcsjrap 4 of the past 7 days; stable. Messaged to be consistent with testing four times daily and reporting. 01/02/20242012-HSO-zvxcibik 4 days in the past week; stable 01/09/20246983-XPT-qazqiwnn 4 days in the past week; stable 01/15/20245063-VZF-waskqbjh 1 day in the past week. Sent [...] 11/20/2001 Malabsorption 08/29/2001 Cystic Fibrosis ( homozygous [id number]) Estimated Date of Delivery Comme nts Yes 01/29/2024 Based on Ultraso und documented as of this encounter (statuses as of 01/19/2024) Resolved Problems Problem Noted Date Diagnosed Date [...] follows with behavioral health provider here at [facility]. DISCUSSION: 1. and delivery can worsen the [...] (boneless & skinless & in olive oil), Carlton mackerel (i.e. not Bereket mackerel), or cooked [...] as of this encounter (statuses as of 01/19/2024) Immunizations Name Administration Dates Next Due COVID-19 mRNA, LNP-s, No Pre serve, 2-Dose Series ([employer]) 06/01/2021,11/16/2020,10/26/2020 H1N1 2009 Influenza, IM 03/27/2009 Meningococcal Conjugate Vacc ine (Menactra/Menveo) 07/14/2015,05/18/2010 Pneumococcal Conjugate Vacci ne, 20-valent (Egryeen46) 03/31/2022 Pneumococcal Polysaccharide PPV23 (Pneumovax) 03/05/2019 Seasonal Influenza, PF, 6 M & above, IM , (FluLaval or Fluzone) 04/18/2023,03/07/2022,04/01/2021,03/05 Seasonal Influenza, Quadriva lent, No Preserve, IM 03/05/2019,02/08/2018,03/09/2017,03/16,03/19/2015 Seasonal Influenza, Trivalen t, (IIV3), with Preserv, (Fluzone) 01/23/2014,04/04/2013,03/08/2012,03/14,02/25/2010,02/05/2009,02/25/2008 ,03/21/2007,03/17/2006 TDAP (age 10 and older)(Boostrix) [...] money to get more. Never true 12/05/2023 [place] Depression Scale Answer Date Recorded [place] Depression Scale Total 5 06/08/2023 The thought [...] Sign Reading Time Taken Comments Blood Pressure 92/62 01/19/2024 1:37 PM EDT Pulse - - Temperature - - Respiratory Rate - - Oxygen Saturation - - Inhaled Oxygen Concentration - - Weight 91.6 kg (202 lb) 01/19/2024 1:37 PM EDT Height 162.6 cm (5' 4") 01/19/2024 1:37 PM EDT Body Mass Index 34.67 01/19/2024 1:37 PM EDT documented in this encounter Functional [...] Progress Notes * Radha Diaz CRNP - 01/19/2024 1:46 PM EDT 38w4d No concerns today. Ready for c/s next week. Aware to call to confirm time. ASSESSMENT assessment with Non-stress Test completed on 01/19/2024 at 38.4weeks gestation for indication of CF heart baseline: 150 bpm Variability: Moderate Decelerations: absent Accelerations: present Contractions: None NST start time: 2328 (per timestamp on NST machine) NST stop time: 2356 (per timestamp on NST machine NST strip reviewed, interpreted, and approved by OB provider, LAMIN Cross . NST strip stored in clinic storage file documented in this encounter Nursing Notes * Massiel Keith LPN - 01/19/2024 2:01 PM EDT 38w4d NST, VIVI Csenelda 01/23. documented in this encounter Plan of Treatment Upcoming Encounters Date Type Department Care Team (Late st Contact Info) Description 01/24/2024 9:15 AM EDT Office Visit Non [facility], Operating Room, [facility] [address] [place] [facility] [place] [address] Husam Haque MD [address] [place] [address] 01/26/2024 1:45 PM EDT Office Visit Gynecology/Obstetrics [facility] [address] [place] [address] Radha Diaz CRNP [address] [place] [address] Scar[facility] Stress Tests [facility] [address] [facility] [place] [address] 01/30/2024 3:00 PM EDT Telemedicine Pulmonary Medicine, [place] [address] [place], [place] [id number] [place], Pharmacist Pulmonary [address] [place] [address] 01/31/2024 2:00 PM EDT Office Visit Gynecology/Obstetrics [facility] [address] [facility] [place] [address] Radha Diaz CRNP [address] [place] [address] 02/05/2024 10:00 AM EDT Telemedicine Psychiatry [facility] [place] [address] [place] [address] Catina Araiza CRNP [address] [place] [address] 02/22/2024 9:30 AM EDT Office Visit Pulmonary Medicine, [place] [address] [place] [address] Micaela Holly, [address] [place], [place] [id number] Health Maintenance Due Date Last Done Comments [...] as of this encounter Visit Diagnoses Diagnosis High-risk in third trimester- Primary Rh negative, antepartum Rhesus isoimmunization affecting management of mother, antepartum condition Diet controlled gestational diabetes mellitus (GDM) in third trimester CF (cystic fibrosis) (HCC) Cystic fibrosis without mention of meconium ileus Respiratory system disease affecting , antepartum Bipolar disease during , antepartum (HCC) H/O macrosomia in infant in prior , currently with other poor obstetric history Rubella non-immune status, antepartum Other specified complication, antepartum Chlamydia infection affecting , antepartum Excessive growth affecting management of in third [...]
--- OUTSIDE RECORDS SUMMARY | 2024-01-24 09:14 | External Medical Summary | Summary of Care ---
Author Name Unknown Organization [facility] Address [address] [facility] [place] [address] Phone [phone] Care Team Providers Care Surface Room Shop Optician Name Role Phone Unavailable Primary Care Provider Unavailabl e Reason for Visit * Reason Comments Return Visit Non Stress Test Encounter Details Date Type Department Care Team (Late st Contact Info) Description 01/05/2024 1:45 PM EDT Office Visit Gynecology/Obstetric s [facility] [address] [place] [address] Radha Diaz CRNP [address] [place] [address] [place], Non Stress Tests [facility] [address] [place] [address] Rh negative, antepartum*; High-risk in third trimester; Diet controlled gestational diabetes mellitus (GDM) in third trimester; CF (cystic fibrosis) ([facility]); Respiratory system disease affecting , antepartum; Bipolar disease during , antepartum ([facility]); H/O macrosomia in in prior , currently ; Rubella non-immune status, antepartum; Chlamydia infection affecting , antepartum; Excessive growth affecting management of in third trimester, single or unspecified fetus; Breech presentation, single or unspecified fetus Allergies No known active allergiesdocumented as of this encounter (statuses as of 01/05/2024) Medications Medication Sig Dispensed Refills Start Date End Date Status COMPRESSOR/NEBULIZER MISCIndications:Cyst ic fibrosis (HCC) Use as directed 1 Device 0 05/31/2012 Active Additional Information Patient not taking.Reported on 07/21/2023 JUAN CARLOS LC PLUS NEBULIZER MISCIndications: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 Active Kaboodle Verio Flex System w/Device Kit Use to test blood sugars 4 times daily (fasting, 1 hour after breakfast, lunch, and dinner) 1 Kit 07/18/2023 Active Autism Home Support ServicesToBooyah Verio In Vitro Strip (Glucose Blood) Use to test blood sugars 4 times daily (fasting, 1 hour after breakfast, lunch, and dinner) 125 Strip 6 07/18/2023 Active Autism Home Support ServicesTouch Delica Lancets 30G Use to test blood [...] & 150 MG Oral Tablet Therapy Pack (Nybqibxo-Nwvogte-Hx acaf & Ivacaf)Indications:C ystic fibrosis with pulmonary [...] as of this encounter (statuses as of 01/05/2024) Active Problems Problem Noted Date Diagnosed Date [...] infection complicating 06/09 Overview: + test at [facility], sent azithromycin High-risk 06/08/2023 Last Assessment & Plan: I reviewed the ultrasound. The anatomy that was visualized is appropriate for the gestational age. Respiratory system disease affecting , antepartum 06/08/2023 Overview: Cystic fibrosis Follows with [facility] Denies complications with cystic fibrosis in last 06/08/23 MFM genetic counseling referral placed Per [facility]: Prothrombin time each trimester Growth scans q4-6 [...] Stable (<50%) 08/28/23: RPM reviewed; stable overall 09/05/20235292-XDO-xsclycnn 5 of 7 days in the past week; stable 09/12/23: RPM reviewed; Stable 09/19/23: RPM reviewed; Stable. Not testing every day. 09/26/23: RPM reviewed; Stable; more consistent reporting 10/03/23: RPM reviewed; Stable but not testing consistently. 10/10/20237376-EVO-ewihplwk 2 days along with 2 additional fasting blood sugars. Messaged patient to be consistent with testing and reporting. 10/17/23: RPM reviewed; several missed readings, but overall stable 10/24/20232258-XXF-duilrasp 3 of past 6 days; overall stable. Messaged to test four times daily and report. 10/31/20234883-TFB-cufmwm 11/06/20230590-IPK-ehbqvtcj 5 of 7 days; stable 11/14/20236088-HBO-ohupoibe 3 of past 7 days. Messaged to be consistent with testing and reporting. 11/21/20231971-MQN-diubts 11/27/23: RPM reviewed; Stable but missing some values - requested updated log of missing values 12/05/20237253-GDI-nzpbhy 12/12/20233937-AWH-lmjfiikz 5 of 7 days in the past week. Stable 12/19/23: RPM reviewed; a few missing days but all reported readings stable. 12/26/20238964-YIS-duzcgyyi 4 of the past 7 days; stable. Messaged to be consistent with testing four times daily and reporting. 01/02/20243133-BHQ-wboufnml 4 days in the past week; stable [...] 11/20/2001 Malabsorption 08/29/2001 Cystic Fibrosis ( homozygous [id number]) Estimated Date of Delivery Comme nts Yes 01/29/2024 Based on Ultraso und documented as of this encounter (statuses as of 01/05/2024) Resolved Problems Problem Noted Date Diagnosed Date [...] follows with behavioral health provider here at [facility] [place]. DISCUSSION: 1. and delivery can worsen the [...] (boneless & skinless & in olive oil), [place] mackerel (i.e. not [place] mackerel), or cooked [...] as of this encounter (statuses as of 01/05/2024) Immunizations Name Administration Dates Next Due COVID-19 mRNA, LNP-s, No Pre serve, 2-Dose Series (Hipvan) 06/01/2021,11/16/2020,10/26/2020 H1N1 2009 Influenza, IM 03/27/2009 Meningococcal Conjugate Vacc ine (Menactra/Menveo) 07/14/2015,05/18/2010 Pneumococcal Conjugate Vacci ne, 20-valent (Sjwgyav72) 03/31/2022 Pneumococcal Polysaccharide PPV23 (Pneumovax) 03/05/2019 Seasonal [...] money to get more. Never true 12/05/2023 [place] Depression Scale Answer Date Recorded [place] Depression Scale Total 5 06/08/2023 The thought [...] No 12/05/2023 Does the household have a [facility] source of income? (Household - for ages [...] Sign Reading Time Taken Comments Blood Pressure 100/68 01/05/2024 1:48 PM EDT Pulse - - Temperature - - Respiratory Rate - - Oxygen Saturation - - Inhaled Oxygen Concentration - - Weight 90.7 kg (200 lb) 01/05/2024 1:48 PM EDT Height 162.6 cm (5' 4") 01/05/2024 1:48 PM EDT Body Mass Index 34.33 01/05/2024 1:48 PM EDT documented in this encounter Functional [...] Progress Notes * Radha Diaz CRNP - 01/05/2024 2:42 PM EDT ASSESSMENT assessment with Non-stress Test completed on 01/05/2024 at 36.4weeks gestation for indication of CF heart baseline: 150 bpm Variability: Moderate Decelerations: absent Accelerations: present Contractions: None NST start time: 1346 NST stop time: 1426 NST strip reviewed, interpreted, and approved by OB provider, LAMIN Cross . NST strip stored in clinic storage file documented in this encounter Nursing Notes * Massiel Keith LPN - 01/05/2024 2:12 PM EDT 36w4d NST documented in this encounter Plan of Treatment Upcoming Encounters Date Type Department Care Team (Late st Contact Info) Description 01/09/2024 11:00 AM EDT Telemedicine Pulmonary Medicine, [address] [address] [place], Pharmacist Pulmonary [address] [place] [address] 01/09/2024 1:45 PM EDT Office Visit Gynecology/Obstetrics [facility] [address] [place] [address] Radha Diaz CRNP [address] [place] [address] [place], Non Stress Tests [facility] [address] [place] [address] 01/11/2024 9:30 AM EDT Office Visit Pulmonary Medicine, [place] [address] [place] [address] Micaela Holly [address] [place] [address] 01/12/2024 8:30 AM EDT Office Visit Gynecology/Obstetrics [facility] [address] [place] [address] Jhonny Dc MD [address] [place] [address] 01/12/2024 1:45 PM EDT Office Visit Gynecology/Obstetrics [facility] [address] [place] [address] Radha Diaz CRNP [address] [place] [address] Adebayo Non Stress Tests [facility] [address] [place] [address] 01/16/2024 1:45 PM EDT Office Visit Gynecology/Obstetrics [facility] [address] [place] [address] Radha Diaz CRNP [address] [place] [address] Adebayo Non Stress Tests [place] [address] [place] [address] 01/19/2024 1:45 PM EDT Office Visit Gynecology/Obstetrics [facility] [address] [place], [place] [address] Radha Diaz CRNP [address] [place] [address] Adebayo Non Stress Tests [place] [address] [place] [address] 01/24/2024 9:15 AM EDT Office Visit Non [facility], Operating Room, [address] [place] [address] Husam Haque MD [address] [place], [place] [address] 01/26/2024 1:45 PM EDT Office Visit Gynecology/Obstetrics [facility] [address] [place] [address] Radha Diaz CRNP [address] [place] [address] Adebayo Non Stress Tests [facility] [address] [place], [place] [address] 01/31/2024 2:00 PM EDT Office Visit Gynecology/Obstetrics [facility] [address] [place] [address] Radha Diaz CRNP [address] [place] [address] 02/05/2024 10:00 AM EDT [facility] [address] [place] [address] Catina Araiza CRNP [address] [place] [address] Health Maintenance Due Date Last Done Comments HPV (Gardasil) Vaccine (1 - 3-dose series) 2012 COVID-19 Vaccine (4 - 2022-2 4 season) 2023 06/01/2021, 11/16/2020, [...] isoimmunization affecting management of mother, antepartum condition High-risk in third trimester Diet controlled gestational diabetes mellitus (GDM) in third trimester CF (cystic fibrosis) (HCC) Cystic fibrosis without mention of meconium ileus Respiratory system disease affecting , antepartum Bipolar disease during , antepartum (HCC) H/O macrosomia in in prior , currently with other poor [...]
--- OUTSIDE RECORDS SUMMARY | 2024-01-24 09:14 | External Medical Summary | Summary of Care ---
Author Name Unknown Organization [facility] Address [address] [facility] [place] [address] Phone [phone] Care Team Providers Care Property Staff Accountant Name Role Phone Unavailable Primary Care Provider Unavailabl e Reason for Visit * Reason Comments Return Visit Encounter Details Date Type Department Care Team (Late st Contact Info) Description 01/09/2024 1:45 PM EDT Office Visit Gynecology/Obstetric s [facility] [address] [place] [address] Radha Diaz CRNP [address] [place] [address] [place], Non Stress Tests [place] [address] [place] [address] High-risk in third trimester*; Rh negative, antepartum; Diet controlled gestational diabetes mellitus (GDM) in third trimester; CF (cystic fibrosis) ([facility]); Respiratory system disease affecting , antepartum; H/O macrosomia in in prior , currently ; Rubella non-immune status, antepartum; Excessive growth affecting management of in third trimester, single or unspecified fetus; Breech presentation, single or unspecified fetus Allergies No known active allergiesdocumented as of this encounter (statuses as of 01/09/2024) Medications Medication Sig Dispensed Refills Start Date End Date Status COMPRESSOR/NEBULIZER MISCIndications:Cyst ic fibrosis (HCC) Use as directed 1 Device 0 05/31/2012 Active Additional Information Patient not taking.Reported on 07/21/2023 JUAN CARLOS LC PLUS NEBULIZER MISCIndications: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 Active BrandShieldio Flex System w/Device Kit Use to test blood sugars 4 times daily (fasting, 1 hour after breakfast, lunch, and dinner) 1 Kit 07/18/2023 Active BrandShieldio In Vitro Strip (Glucose Blood) Use to test blood sugars 4 times daily (fasting, 1 hour after breakfast, lunch, and dinner) 125 Strip 6 07/18/2023 Active AcomniToWhat's On Foodie Delica Lancets 30G Use to test blood [...] & 150 MG Oral Tablet Therapy Pack (Igrpvlex-Pwtwvaa-Sa acaf & Ivacaf)Indications:C ystic fibrosis with pulmonary [...] as of this encounter (statuses as of 01/09/2024) Active Problems Problem Noted Date Diagnosed Date [...] infection complicating 06/09 Overview: + test at [facility], sent azithromycin High-risk 06/08/2023 Last Assessment [...] Stable (<50%) 08/28/23: RPM reviewed; stable overall 09/05/20230072-WMU-obilytlz 5 of 7 days in the past week; stable 09/12/23: RPM reviewed; Stable 09/19/23: RPM reviewed; Stable. Not testing every day. 09/26/23: RPM reviewed; Stable; more consistent reporting 10/03/23: RPM reviewed; Stable but not testing consistently. 10/10/20232863-YGG-icnicfyr 2 days along with 2 additional fasting blood sugars. Messaged patient to be consistent with testing and reporting. 10/17/23: RPM reviewed; several missed readings, but overall stable 10/24/20238806-TKN-vdhevfiw 3 of past 6 days; overall stable. Messaged to test four times daily and report. 10/31/20235735-RUF-xwayob 11/06/20237355-OCS-pvocnojd 5 of 7 days; stable 11/14/20236931-MUD-ligqcein 3 of past 7 days. Messaged to be consistent with testing and reporting. 11/21/20231624-XLT-eoaius 11/27/23: RPM reviewed; Stable but missing some values - requested updated log of missing values 12/05/20231646-ZOJ-gjyjqb 12/12/20237847-EZV-syrdwmwe 5 of 7 days in the past week. Stable 12/19/23: RPM reviewed; a few missing days but all reported readings stable. 12/26/20233083-AZY-zrvxhdka 4 of the past 7 days; stable. Messaged to be consistent with testing four times daily and reporting. 01/02/20243966-QDW-duixworg 4 days in the past week; stable 01/09/20244924-DPS-wjapcilk 4 days in the past week; stable [...] 11/20/2001 Malabsorption 08/29/2001 Cystic Fibrosis ( homozygous [id number]) Estimated Date of Delivery Comme nts Yes 01/29/2024 Based on Ultraso und documented as of this encounter (statuses as of 01/09/2024) Resolved Problems Problem Noted Date Diagnosed Date [...] follows with behavioral health provider here at [facility] [place]. DISCUSSION: 1. and [...] (boneless & skinless & in olive oil), [place] mackerel (i.e. not Bere[place] mackerel), or cooked [...] as of this encounter (statuses as of 01/09/2024) Immunizations Name Administration Dates Next Due COVID-19 mRNA, LNP-s, No Pre serve, 2-Dose Series (Infinisource) 06/01/2021,11/16/2020,10/26/2020 H1N1 2009 Influenza, IM 03/27/2009 Meningococcal Conjugate Vacc ine (Menactra/Menveo) 07/14/2015,05/18/2010 Pneumococcal Conjugate Vacci ne, 20-valent (Kwevawf98) 03/31/2022 Pneumococcal Polysaccharide PPV23 (Pneumovax) 03/05/2019 Seasonal [...] money to get more. Never true 12/05/2023 [place] Depression Scale Answer Date Recorded [place] Depression Scale Total 5 06/08/2023 The thought [...] No 12/05/2023 Does the household have a [facility] [employer] [facility] source of income? (Household - for ages [...] Sign Reading Time Taken Comments Blood Pressure - - Pulse - - Temperature - - Respiratory Rate - - Oxygen Saturation - - Inhaled Oxygen Concentration - - Weight 91.2 kg (201 lb) 01/09/2024 1:41 PM EDT Height 162.6 cm (5' 4") 01/09/2024 1:41 PM EDT Body Mass Index 34.5 01/09/2024 1:41 PM EDT documented in this encounter Functional [...] Progress Notes * Radha Diaz CRNP - 01/09/2024 2:10 PM EDT ASSESSMENT assessment with Non-stress Test completed on 01/09/2024 at 37.1weeks gestation for indication of CF heart baseline: 130 bpm Variability: Moderate Decelerations: absent Accelerations: present Contractions: None NST start time: 1539 NST stop time: 1605 NST strip reviewed, interpreted, and approved by OB provider, LAMIN Cross . NST strip stored in clinic storage file documented in this encounter Plan of Treatment Upcoming Encounters Date Type Department Care Team (Late st Contact Info) Description 01/12/2024 8:30 AM EDT Office Visit Gynecology/Obstetrics [facility] [address] [place] [address] Jhonny Dc MD [address] [place] [address] 01/16/2024 1:45 PM EDT Office Visit Gynecology/Obstetrics [facility] [address] [place] [address] Radha Diaz CRNP [address] [place] [address] Adebayo Non Stress Tests [facility] [address] [place] [address] 01/19/2024 1:45 PM EDT Office Visit Gynecology/Obstetrics [facility] [address] [place] [address] Radha Diaz CRNP [address] [place] [address] Adebayo Non Stress Tests [place] [address] [place] [address] 01/24/2024 9:15 AM EDT Office Visit Non [facility], Operating Room, [address] [place] [address] Husam Haque MD [address] [place] [address] 01/26/2024 1:45 PM EDT Office Visit Gynecology/Obstetrics [facility] [address] [place] [address] Radha Diaz CRNP [address] [place] [address] Adebayo Non Stress Tests [facility] [address] [place] [address] 01/30/2024 11:30 AM EDT Telemedicine Pulmonary Medicine, [address] [address] [place], Pharmacist Pulmonary [facility] [address] 01/31/2024 2:00 PM EDT Office Visit Gynecology/Obstetrics [facility] [address] [place] [address] Radha Diaz CRNP [address] [place] [address] 02/05/2024 10:00 AM EDT Telemedicine Psychiatry [facility] Marie [address] [place] [address] Catina Araiza CRNP [address] [place] [address] Health Maintenance Due Date Last [...] ileus Respiratory system disease affecting , antepartum H/O macrosomia in infant in prior , currently with other poor obstetric history Rubella non-immune status, antepartum Other specified complication, antepartum Excessive growth affecting management of in [...]
--- OUTSIDE RECORDS SUMMARY | 2024-01-24 09:14 | External Medical Summary | Summary of Care ---
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 Name Role Phone Unavailable Primary Care Provider Unavailabl e Reason for Visit * Reason Comments Return Visit Non Stress Test Encounter Details Date Type Department Care Team (Late st Contact Info) Description 01/02/2024 1:45 PM EDT Office Visit Gynecology/Obstetric s [facility] [address] [place] [address] Radha Diaz CRNP [address] [place] [address] [place], Non Stress Tests [facility] [address] [place] [address] High-risk in third trimester*; Rh negative, antepartum; Diet controlled gestational diabetes mellitus (GDM) in third trimester; CF (cystic fibrosis) ([facility]); Respiratory system disease affecting , antepartum; Bipolar disease during , antepartum ([facility]); H/O macrosomia in in prior , currently ; Rubella non-immune status, antepartum; Chlamydia infection affecting in third trimester; Excessive growth affecting management of in third trimester, single or unspecified fetus; Breech presentation, single or unspecified fetus Allergies No known active allergiesdocumented as of this encounter (statuses as of 01/02/2024) Medications Medication Sig Dispensed Refills Start Date End Date Status COMPRESSOR/NEBULIZER MISCIndications:Cyst ic fibrosis (HCC) Use as directed 1 Device 0 05/31/2012 Active Additional Information Patient not taking.Reported on 07/21/2023 JUAN CARLOS LC PLUS NEBULIZER MISCIndications:Cyst ic fibrosis with pulmonary manifestations (HCC) Use daily with Gixxv-Oyr-bobtuvfu device 1 Device 5 06/13/2012 Active Additional [...] Information Patient not taking.Reported on 11/14/2023 Pancrelipase, Sbt-Vhul-Ydup, (ZENPEP) 55352-64[address] units CPEPIndications:Cyst ic fibrosis (HCC) Take 6 [...] MG Oral Tablet Take by mouth. Active [employer] Verio Flex System w/Device Kit Use to test blood sugars 4 times daily (fasting, 1 hour after breakfast, lunch, and dinner) 1 Kit 07/18/2023 Active BflyToBitInstant Verio In Vitro Strip (Glucose Blood) Use to test blood sugars 4 times daily (fasting, 1 hour after breakfast, lunch, and dinner) 125 Strip 6 07/18/2023 Active BflyTouch Delica Lancets 30G Use to test blood [...] & 150 MG Oral Tablet Therapy Pack ([place]-Dwsevvp-Az acaf & Ivacaf)Indications:C ystic fibrosis with pulmonary [...] as of this encounter (statuses as of 01/02/2024) Active Problems Problem Noted Date Diagnosed Date [...] infection complicating 06/09 Overview: + test at [facility], sent azithromycin High-risk 06/08/2023 Last Assessment & Plan: I reviewed the ultrasound. The anatomy that was visualized is appropriate for the gestational age. Respiratory system disease affecting , antepartum 06/08/2023 Overview: Cystic fibrosis Follows with [facility] Denies complications with cystic fibrosis in last 06/08/23 MFM genetic counseling referral placed Per [facility]: Prothrombin time each trimester Growth scans [...] Stable (<50%) 08/28/23: RPM reviewed; stable overall 09/05/20235546-PWP-yqzwwpbt 5 of 7 days in the past week; stable 09/12/23: RPM reviewed; Stable 09/19/23: RPM reviewed; Stable. Not testing every day. 09/26/23: RPM reviewed; Stable; more consistent reporting 10/03/23: RPM reviewed; Stable but not testing consistently. 10/10/20234862-QZM-orxdxsny 2 days along with 2 additional fasting blood sugars. Messaged patient to be consistent with testing and reporting. 10/17/23: RPM reviewed; several missed readings, but overall stable 10/24/20232955-SFG-ewxzzqtx 3 of past 6 days; overall stable. Messaged to test four times daily and report. 10/31/20233584-QHY-wblilr 11/06/20236172-WBB-gylohoqy 5 of 7 days; stable 11/14/20231912-KKF-nfbgauim 3 of past 7 days. Messaged to be consistent with testing and reporting. 11/21/20231138-JEE-epqlua 11/27/23: RPM reviewed; Stable but missing some values - requested updated log of missing values 12/05/20235899-TFK-ixbxpl 12/12/20239874-BDD-lkoeaabd 5 of 7 days in the past week. Stable 12/19/23: RPM reviewed; a few missing days but all reported readings stable. 12/26/20232186-VFA-sqciwqww 4 of the past 7 days; stable. Messaged to be consistent with testing four times daily and reporting. 01/02/20241487-LAG-huoswsbf 4 days in the past week; stable [...] 11/20/2001 Malabsorption 08/29/2001 Cystic Fibrosis ( homozygous [id number]) Estimated Date of Delivery Comme nts Yes 01/29/2024 Based on Ultraso und documented as of this encounter (statuses as of 01/02/2024) Resolved Problems Problem Noted Date Diagnosed Date [...] [place] [facility] [place]: 1. and delivery can worsen the [...] (boneless & skinless & in olive oil), [place] mackerel (i.e. not Bere[place] mackerel), or cooked [...] as of this encounter (statuses as of 01/02/2024) Immunizations Name Administration Dates Next Due COVID-19 mRNA, LNP-s, No Pre serve, 2-Dose Series ([employer]) 06/01/2021,11/16/2020,10/26/2020 DTP/HIB (Tetramune) 01/27/1998,1997 DTaP Dipth/Tet/Acell Pertussis (Infanrix), Peds 11/20/2001,12/22/1998,03/30/1998 H1N1 2009 Influenza, IM 03/27/2009 Haemophilius B (HIB), unspecified 12/22/1998,01/1998 Hepatitis B Vaccine 03/30/1998,1997,1997 IPV - Polio Virus Vaccine (Inact) 11/20/2001 Influenza, Whole Virus 03/05/2001 MMR - Measles/Mumps/Rubella Vaccine 11/20/2001,0 09/21/1998 Meningococcal Conjugate Vacc ine (Menactra/Menveo) 07/14/2015,05/18/2010 OPV - Polio Virus Vaccine (Oral) 999,03/30/1998,01/27/1998,11/26 Pneumococcal Conjugate Vacci ne, 20-valent (Rwjwbos37) 03/31/2022 Pneumococcal Polysaccharide PPV23 (Pneumovax) 03/05/2019 Seasonal Influenza, PF, 6 M & above, IM , (FluLaval or Fluzone) 04/18/2023,03/07/2022,04/01/2021,03/05 Seasonal Influenza, Quadriva lent, No Preserve, IM 03/05/2019,02/08/2018,03/09/2017,03/16,03/19/2015 Seasonal Influenza, Split, I IV3, No Preserve, Inj 05/11/1998,04/13/1998 Seasonal Influenza, Split, I IV3, With Preserve, Inj 01/23/2014,04/04/2013,03/08/2012,03/14,02/25/2010,02/05/2009,02/25/2008 ,03/21/2007,03/17/2006,03/24/2005,11/2003,03/03/2003,04/03/2002 TB Vicki Test 09/20/1999,09/21/1998 TDAP (age 10 and older)(Boostrix) 11/08/2023,,07/14/2015 TDAP, Age 7 and older, IM (Adacel) 05/18/2010 Varicella Vaccine (Chicken Pox) 05/18/2010,09/21 documented as of this encounter Social History [...] money to get more. Never true 12/05/2023 [place] Depression Scale Answer Date Recorded [place] Depression Scale Total 5 06/08/2023 The thought [...] Sign Reading Time Taken Comments Blood Pressure 118/66 01/02/2024 1:52 PM EDT Pulse - - Temperature - - Respiratory Rate - - Oxygen Saturation - - Inhaled Oxygen Concentration - - Weight 90.3 kg (199 lb) 01/02/2024 1:52 PM EDT Height - - Body Mass Index 34.16 12/26/2023 1:39 PM EDT documented in this encounter Functional [...] Progress Notes * Radha Diaz CRNP - 01/02/2024 2:40 PM EDT 36w1d Baby is breech. Agreeable to scheduling c/s at [facility]. No concerns. Baby is active. Denies feeling contractions, no bleeding or LOF. GBS and repeat chlamydia today. Soil Checker Documentation Provider requested logging tractor operator swamp. Name of logging tractor operator swamp: Patrizia ASSESSMENT assessment with Non-stress Test completed on 01/02/2024 at 36.1weeks gestation for indication of cystic fibrosis heart baseline: 130 bpm Variability: Moderate Decelerations: absent Accelerations: present Contractions: Present, irregular. Pt not feeling any NST start time: 1206 NST stop time: 1231 NST strip reviewed, interpreted, and approved by OB provider, LAMIN Cross . NST strip stored in clinic storage file * Patrizia Padilla MED ASSIST - 01/02/2024 2:27 PM EDT 36w1d Discuss delivery per MFM, baby still breech GBS swab and GC swab today. documented in this encounter Plan of Treatment Upcoming Encounters Date Type Department Care Team (Late st Contact Info) Description 01/05/2024 1:45 PM EDT Office Visit Gynecology/Obstetrics [facility] [address] [place] [address] Radha Diaz CRNP [address] [place] [address] [facility] Stress Tests [facility] [address] [place] [address] 01/09/2024 11:00 AM EDT Telemedicine Pulmonary Medicine, [place] [address] [place] [address] [place], [facility] Pulmonary [address] [place] [address] 01/09/2024 1:45 PM EDT Office Visit Gynecology/Obstetrics [facility] [address] [place] [address] Radha Diaz CRNP [address] [place] [address] [place], Non Stress Tests [place] [address] [place] [address] 01/11/2024 9:30 AM EDT Office Visit Pulmonary Medicine, [place] [address] [place] [address] Micaela Holly, [address] [place] [facility] [place] [address] 01/12/2024 1:45 PM EDT Office Visit Gynecology/Obstetrics [facility] [address] [place], [place] [address] Radha Diaz CRNP [address] [place], [place] [address] Adebayo Non Stress Tests [facility] [address] [place] [address] 01/16/2024 1:45 PM EDT Office Visit Gynecology/Obstetrics [facility] [address] [place] [address] Radha Diaz CRNP [address] [place] [address] Adebayo Non Stress Tests [place] [address] [place] [address] 01/19/2024 1:45 PM EDT Office Visit Gynecology/Obstetrics [facility] [address] [place] [address] Radha Diaz CRNP [address] [place] [address] Adebayo, Non Stress Tests [place] [address] [place] [address] 01/26/2024 1:45 PM EDT Office Visit Gynecology/Obstetrics [facility] [address] [place] [address] Radha Diaz CRNP [address] [place] [address] Adebayo, Non Stress Tests [place] [address] [facility] [place] [address] 02/05/2024 10:00 AM EDT Telemedicine Psychiatry Erika Chambers [address] [place] [address] Catina Araiza CRNP [address] [place] [address] Pending Results Name Type Priority Associated Diagnoses Date /Time GROUP B STREP CULTURE/PCR Lab Routine High-risk in third trimester 01/02/2024 2:45 PM EDT CHLAMYDIA TRACHOMATIS AND NEISSERIA GONORRHOEAE, AMPLIFIED PROBE Lab Routine High-risk in third trimester Chlamydia infection affecting in third trimester 01/02/2024 2:45 PM EDT Scheduled Orders Name Type Priority Associated Diagnoses Orde r Schedule CHLAMYDIA TRACHOMATIS AND NEISSERIA GONORRHOEAE, AMPLIFIED PROBE Lab Routine High-risk in third trimester Chlamydia infection affecting in third trimester Expected: 01/02/2024, Expires: 01/01/2025 Health Maintenance Due Date Last Done Comments [...] 03/05/2019 Gonorrhea / Chlamydia Screen Discontinued , 06/08/2023, 03/18/2020, Additional history exists documented as of this [...]
--- OUTSIDE RECORDS SUMMARY | 2024-01-24 09:14 | External Medical Summary | Summary of Care ---
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 Name Role Phone Unavailable Primary Care Provider Unavailabl e Reason for Visit * Reason Onset Date Comments Appointment 01/04/2024 Encounter Details Date Type Department Care Team (Late st Contact Info) Description 01/04/2024 Telephone [facility] [address] [place] [address] Radha Diaz CRNP [address] [place] [address] Appointment Allergies No known active allergiesdocumented as of this encounter (statuses as of 01/04/2024) Medications Medication Sig Dispensed Refills Start Date End Date Status COMPRESSOR/NEBULIZER MISCIndications:Cyst ic fibrosis (HCC) Use as directed 1 Device 0 05/31/2012 Active Additional Information Patient not taking.Reported on 07/21/2023 JUAN CARLOS LC PLUS NEBULIZER MISCIndications:Cyst ic fibrosis with pulmonary manifestations (HCC) Use daily with Jrgcb-Pok-purqcals device 1 Device 5 06/13/2012 Active Additional [...] Information Patient not taking.Reported on 11/14/2023 Pancrelipase, Bjb-Dhpz-Kobn, (ZENPEP) 30346-47[address] units CPEPIndications:Cyst ic fibrosis (HCC) Take 6 [...] MG Oral Tablet Take by mouth. Active [employer] Flex System w/Device Kit Use to test blood sugars 4 times daily (fasting, 1 hour after breakfast, lunch, and dinner) 1 Kit 07/18/2023 Active [employer] Systems In Vitro Strip (Glucose Blood) Use to test blood sugars 4 times daily (fasting, 1 hour after breakfast, lunch, and dinner) 125 Strip 6 07/18/2023 Active Overtone Lancets 30G Use to test blood sugars [...] & 150 MG Oral Tablet Therapy Pack (Aimivokg-Pafikle-Es acaf & Ivacaf)Indications:C ystic fibrosis with pulmonary [...] as of this encounter (statuses as of 01/04/2024) Active Problems Problem Noted Date Diagnosed Date [...] infection complicating 06/09 Overview: + test at [facility], sent azithromycin High-risk 06/08/2023 Last [...] Stable (<50%) 08/28/23: RPM reviewed; stable overall 09/05/20238724-OHQ-xvrkuszb 5 of 7 days in the past week; stable 09/12/23: RPM reviewed; Stable 09/19/23: RPM reviewed; Stable. Not testing every day. 09/26/23: RPM reviewed; Stable; more consistent reporting 10/03/23: RPM reviewed; Stable but not testing consistently. 10/10/20235255-UHV-vhntrsgy 2 days along with 2 additional fasting blood sugars. Messaged patient to be consistent with testing and reporting. 10/17/23: RPM reviewed; several missed readings, but overall stable 10/24/20235540-UHM-zbasxqlb 3 of past 6 days; overall stable. Messaged to test four times daily and report. 10/31/20233616-VEB-fydrct 11/06/20235329-AED-dmwegoxa 5 of 7 days; stable 11/14/20238428-SCU-zplskogj 3 of past 7 days. Messaged to be consistent with testing and reporting. 11/21/20232213-XSQ-nafpkn 11/27/23: RPM reviewed; Stable but missing some values - requested updated log of missing values 12/05/20230751-YUH-hxheqn 12/12/20233748-YDS-sxtzjvmp 5 of 7 days in the past week. Stable 12/19/23: RPM reviewed; a few missing days but all reported readings stable. 12/26/20237014-DFY-givuyvst 4 of the past 7 days; stable. Messaged to be consistent with testing four times daily and reporting. 01/02/20244417-GSO-tzheimhv 4 days in the past week; stable [...] 11/20/2001 Malabsorption 08/29/2001 Cystic Fibrosis ( homozygous [id number]) Estimated Date of Delivery Comme nts Yes 01/29/2024 Based on Ultraso und documented as of this encounter (statuses as of 01/04/2024) Resolved Problems Problem Noted Date Diagnosed Date [...] follows with behavioral health provider here at [facility] [place]. DISCUSSION: 1. and delivery can worsen the [...] (boneless & skinless & in olive oil), [place] mackerel (i.e. not [place] mackerel), or cooked [...] as of this encounter (statuses as of 01/04/2024) Immunizations Name Administration Dates Next Due COVID-19 mRNA, LNP-s, No Pre serve, 2-Dose Series ([employer]) 06/01/2021,11/16/2020,10/26/2020 H1N1 2009 Influenza, IM 03/27/2009 Meningococcal Conjugate Vacc ine (Menactra/Menveo) 07/14/2015,05/18/2010 Pneumococcal Conjugate Vacci ne, 20-valent ([id number]) 03/31/2022 Pneumococcal Polysaccharide PPV23 (Pneumovax) 03/05/2019 Seasonal [...] money to get more. Never true 12/05/2023 [place] Depression Scale Answer Date Recorded [place] Depression Scale Total 5 06/08/2023 The thought [...] encounter Miscellaneous Notes * Telephone Encounter - Massiel Keith LPN - 01/04/2024 3:25 PM EDT left message for patient to call office Can pt come in for nst at 10am tomorrow, 01/04? documented in this encounter Plan of Treatment Upcoming Encounters Date Type Department Care Team (Late st Contact Info) Description 01/05/2024 1:45 PM EDT Office Visit [facility]cology[facility] [address] [place] [address] Radha Diaz CRNP [address] [place] [address] Adebayo, Non Stress Tests [facility] [address] [place] [address] 01/09/2024 11:00 AM EDT Telemedicine Pulmonary Medicine, [place] [address] [place] [address] [place] [address] [place] [address] 01/09/2024 1:45 PM EDT Office Visit Gynecology/Obstetrics [facility] [address] [place] [address] Radha Diaz CRNP [address] [place] [address] Adebayo Non Stress Tests [place] [address] [place] [address] 01/11/2024 9:30 AM EDT Office Visit Pulmonary Medicine, [place] [address] [place] [address] Micaela Holly, [address] [place], [place] [id number] 01/12/2024 8:30 AM EDT Office Visit Gynecology/Obst[facility]s [facility] [address] [place] [address] Jhonny Dc MD [address] [place] [address] 01/12/2024 1:45 PM EDT Office Visit Gynecology/Obstetrics [facility] [address] [place] [address] Radha Diaz CRNP [address] [place], [place] [address] Scarlett [facility] Stress Tests [place] [address] [place], [place] [address] 01/16/2024 1:45 PM EDT Office Visit Gynecology/Obstetrics [facility] [address] [place] [address] Radha Diaz CRNP [address] [place], [place] [address] Scarlett [facility] Stress Tests [place] [address] [place] [address] 01/19/2024 1:45 PM EDT Office Visit Gynecology/Obstetrics [facility] [address] [place] [address] Radha Diaz CRNP [address] [place], [place] [address] Scarlett [facility] Stress Tests [place] [address] [place] [address] 01/24/2024 9:15 AM EDT Office Visit Non [facility], Operating Room, [address] [place] [address] Husam Haque MD [address] [place] [address] 01/26/2024 1:45 PM EDT Office Visit Gynecology/Obstetrics [facility] [address] [place], [place] [address] Radha Diaz CRNP [address] [place], [place] [address] Adebayo, Scarlett Stress Tests [place] [address] [place] [address] 01/31/2024 2:00 PM EDT Office Visit [facility] [address] [place] [address] Radha Diaz CRNP [address] [place] [address] 02/05/2024 10:00 AM EDT Telemedicine Psychiatry Erika Chambers [address] [place] [address] Catina Araiza CRNP [address] [place] [address] Health Maintenance Due Date Last [...]
--- OUTSIDE RECORDS SUMMARY | 2024-01-24 09:14 | External Medical Summary ---
Author Name Unknown Address Unknown Organization K01:[facility] [place] [address] [place] [address] Laboratory Report Ordering Provider Test Date Status BRUCEALFREDO 01/02/2024 14:45:04 Final Observation Date Value Abnormality Reference (Units ) Status Chlamydia trachomatis rRNA [Presence] in Specimen by NIKI with probe detection 01/02/2024 14:45:04 Negative Negative Final No Chlamydia trachomatis det ected by time study engineer-mediated nucleic acid amplification. Neisseria gonorrhoeae rRNA [ Presence] in Specimen by NIKI with probe detection 01/02/2024 14:45:04 Negative Negative Final No Neisseria gonorrhoeae det ected by time study engineer-mediated nucleic acid amplification. Performing Location [facility] [place] [address] [place] [address]
--- OUTSIDE RECORDS SUMMARY | 2024-01-24 09:14 | External Medical Summary | Summary of Care ---
Author Name Unknown Organization [facility] Address [address] [facility] [place] [address] Phone [phone] Care Team Providers Care Top Cleaner Name Role Phone Unavailable Primary Care Provider Unavailabl e Reason for Visit * Reason Onset Date Comments Advice 01/02/2024 Call for [facility] se ction Encounter Details Date Type Department Care Team (Late st Contact Info) Description 01/02/2024 Telephone Gynecology/Obstetrics [facility] [address] [place] [address] Radha Diaz CRNP [address] [place] [id number] Advice (Call for [facility] section) Allergies No known active allergiesdocumented as of this encounter (statuses as of 01/03/2024) Medications Medication Sig Dispensed Refills Start Date End Date Status COMPRESSOR/NEBULIZER MISCIndications:Cyst ic fibrosis (HCC) Use as directed 1 Device 0 05/31/2012 Active Additional Information Patient not taking.Reported on 07/21/2023 JUAN CARLOS LC PLUS NEBULIZER MISCIndications:Cyst ic fibrosis with pulmonary manifestations (HCC) Use daily with Rigre-Ijn-ephioeoz device 1 Device 5 06/13/2012 Active Additional [...] Information Patient not taking.Reported on 11/14/2023 Pancrelipase, Wup-Frof-Raed, (ZENPEP) 82705-88732 units CPEPIndications:Cyst ic fibrosis (HCC) Take 6 [...] MG Oral Tablet Take by mouth. Active Digital Envoy Flex System w/Device Kit Use to test blood sugars 4 times daily (fasting, 1 hour after breakfast, lunch, and dinner) 1 Kit 07/18/2023 Active Digital Envoy In Vitro Strip (Glucose Blood) Use to test blood sugars 4 times daily (fasting, 1 hour after breakfast, lunch, and dinner) 125 Strip 6 07/18/2023 Active Blue Source Delica Lancets 30G Use to test blood [...] & 150 MG Oral Tablet Therapy Pack (Ebxjbedi-Sxfgkuc-Tp acaf & Ivacaf)Indications:C ystic fibrosis with pulmonary manifestations ([facility]) Take 2 orange tablets by mouth in the morning and 1 light blue tablet by mouth in the evening. Take with fat-containing food. TAKE 2 ORANGE TABLETS BY MOUTH IN THE MORNING AND 1 LIGHT BLUE TABLET BY MOUTH IN THE EVENING. TAKE WITH FAT-CONTAINING FOOD 84 Each 5 11/13/2023 Active documented as of this encounter (statuses as of 01/03/2024) Active Problems Problem Noted Date Diagnosed Date [...] infection complicating 06/09 Overview: + test at [facility], sent azithromycin High-risk 06/08/2023 Last Assessment & [...] Stable (<50%) 08/28/23: RPM reviewed; stable overall 09/05/20230078-FRT-skpshpto 5 of 7 days in the past week; stable 09/12/23: RPM reviewed; Stable 09/19/23: RPM reviewed; Stable. Not testing every day. 09/26/23: RPM reviewed; Stable; more consistent reporting 10/03/23: RPM reviewed; Stable but not testing consistently. 10/10/20232756-CWR-bnzpltkl 2 days along with 2 additional fasting blood sugars. Messaged patient to be consistent with testing and reporting. 10/17/23: RPM reviewed; several missed readings, but overall stable 10/24/20239125-TDH-rtzirosz 3 of past 6 days; overall stable. Messaged to test four times daily and report. 10/31/20235311-AKB-bcsbai 11/06/20237359-PYU-poqjlqaa 5 of 7 days; stable 11/14/20230725-BOH-chficmyp 3 of past 7 days. Messaged to be consistent with testing and reporting. 11/21/20232394-VHV-pfkdco 11/27/23: RPM reviewed; Stable but missing some values - requested updated log of missing values 12/05/20232967-ZMQ-bufwlw 12/12/20232704-IQX-ulxchlug 5 of 7 days in the past week. Stable 12/19/23: RPM reviewed; a few missing days but all reported readings stable. 12/26/20234815-GFT-sbsxahok 4 of the past 7 days; stable. Messaged to be consistent with testing four times daily and reporting. 01/02/20249684-SJX-yntkqpnb 4 days in the past week; stable [...] 11/20/2001 Malabsorption 08/29/2001 Cystic Fibrosis ( homozygous [id number]) Estimated Date of Delivery Comme nts Yes 01/29/2024 Based on Ultraso und documented as of this encounter (statuses as of 01/03/2024) Resolved Problems Problem Noted Date Diagnosed Date [...] follows with behavioral health provider here at [facility]. DISCUSSION: 1. and [...] (boneless & skinless & in olive oil), [place] mackerel (i.e. not [place] mackerel), or cooked [...] as of this encounter (statuses as of 01/03/2024) Immunizations Name Administration Dates Next Due COVID-19 mRNA, LNP-s, No Pre serve, 2-Dose Series ([employer]) 06/01/2021,11/16/2020,10/26/2020 H1N1 2009 Influenza, IM 03/27/2009 Meningococcal Conjugate Vacc ine (Menactra/Menveo) 07/14/2015,05/18/2010 Pneumococcal Conjugate Vacci ne, 20-valent (Ylxqcrz11) 03/31/2022 Pneumococcal Polysaccharide PPV23 (Pneumovax) 03/05/2019 Seasonal [...] money to get more. Never true 12/05/2023 [place] Depression Scale Answer Date Recorded [place] Depression Scale Total 5 06/08/2023 The thought [...] 12/05/2023 Does the household have a re lar source of income? (Household - for ages [...] Telephone Encounter - Massiel Keith LPN - 01/03/2024 3:16 PM EDT Patient aware. * Telephone Encounter - Ludivina Huertas RN - 01/03/2024 1:52 PM EDT Pt scheduled for on 01/23. Spoke with Keara in L&D and Maria at OR. Date reserved. Submitted through [email or web address]. Preop appt made for 01/[address] Dc Incision check made for 01/30 at 200 with Radha. left message for patient to call office * Telephone Encounter - Radha Diaz CRNP - 01/02/2024 2:39 PM EDT Pt needs scheduled for primary c/s, breech presentation, in 39th week. EDC 01/29/24. documented in this encounter Plan of Treatment Upcoming Encounters Date Type Department Care Team (Late st Contact Info) Description 01/05/2024 1:45 PM EDT Office Visit Gynecology/Obstetrics [facility] [address] [place] [address] Radha Diaz CRNP [address] [place] [address] Adebyao Non Stress Tests [facility] [address] [place] [address] 01/09/2024 11:00 AM EDT Telemedicine Pulmonary Medicine, [place] [address] [facility] [place] [address] E[facility] [address] [facility] [place] [address] 01/09/2024 1:45 PM EDT Office Visit Gynecology/Obstetrics [facility] [address] [place] [address] Radha Diaz CRNP [address] [place] [address] [facility], Non Stress Tests [facility] [address] [place] [address] 01/11/2024 9:30 AM EDT Office Visit Pulmonary Medicine, [place] [address] [place] [address] Micaela Holly, [address] [place] [address] 01/12/2024 8:30 AM EDT Office Visit Gynecology/Obstetrics [facility] [address] [place] [address] Jhonny Dc MD [address] [place] [address] 01/12/2024 1:45 PM EDT Office Visit Gynecology/Obstetrics [facility] [address] [place] [address] Radha Diaz CRNP [address] [place] [address] Adebayo Non Stress Tests [facility] [address] [place] [address] 01/16/2024 1:45 PM EDT Office Visit Gynecology/Obstetrics [facility] [address] [place] [address] Radha Diaz CRNP [address] [place] [address] Fi[place], Non Stress Tests [facility] [address] [place] [address] 01/19/2024 1:45 PM EDT Office Visit Gynecology/Obstetrics [facility] [address] [place] [address] Radha Diaz CRNP [address] [place] [address] Scarlett [facility] Stress [facility] [address] [place] [address] 01/24/2024 9:15 AM EDT Office Visit Non [facility], Operating Room, [place] [address] [facility] [place] [address] Husam Haque MD [address] [place] [address] 01/26/2024 1:45 PM EDT Office Visit Gynecology/Obstetrics [facility] [address] [place] [address] Radha Diaz CRNP [address] [place] [address] Scarlett [facility] [address] [place] [address] 01/31/2024 2:00 PM EDT Office Visit Gynecology/Obstetrics [facility] [address] [place] [address] Radha Diaz CRNP [address] [place] [address] 02/05/2024 10:00 AM EDT Telemedicine Psychiatry Erika [facility] [address] [place] [address] Catina Araiza CRNP [address] [place] [address] Health Maintenance Due Date Last Done [...]
--- OUTSIDE RECORDS SUMMARY | 2024-01-24 09:14 | External Medical Summary | Summary of Care ---
Author Name Unknown Organization [facility] Address [address] [place] [address] Phone [phone] Care Team Providers Care Radius Grinder Name Role Phone Unavailable Primary Care Provider Unavailabl e Encounter Details Date Type Department Care Team (Late st Contact Info) Description 12/28/2023 9:30 AM EDT Office Visit Artificial Limb Fitter Obstetrics [facility], [address] [place] [address] Wilda Qiu, DO [address] [place] [address] H/O macrosomia in in prior , currently *; Diet controlled gestational diabetes mellitus (GDM) in third trimester; 35 weeks gestation of ; Ultrasound for screening for growth restriction; Excessive growth affecting management of in third trimester, single or unspecified fetus; Breech presentation, single or unspecified fetus Allergies No known active allergiesdocumented as of this encounter (statuses as of 12/28/2023) Medications Medication Sig Dispensed Refills Start Date End Date Status COMPRESSOR/NEBULIZER MISCIndications:Cyst ic fibrosis (HCC) Use as directed 1 Device 0 05/31/2012 Active Additional Information Patient not taking.Reported on 07/21/2023 JUAN CARLOS LC PLUS NEBULIZER MISCIndications:Cyst ic fibrosis with pulmonary manifestations (HCC) Use daily with Wdgcg-Gxc-lksblmya device 1 Device 5 06/13/2012 Active Additional [...] Information Patient not taking.Reported on 11/14/2023 Pancrelipase, Mdj-Mvfh-Pdqv, (ZENPEP) 24993-40[address] units CPEPIndications:Cyst ic fibrosis (HCC) Take 6 [...] MG Oral Tablet Take by mouth. Active Tilkee Flex System w/Device Kit Use to test blood sugars 4 times daily (fasting, 1 hour after breakfast, lunch, and dinner) 1 Kit 07/18/2023 Active Tilkee In Vitro Strip (Glucose Blood) Use to test blood sugars 4 times daily (fasting, 1 hour after breakfast, lunch, and dinner) 125 Strip 6 07/18/2023 Active [employer] Media Delopendorse Lancets 30G Use to test blood sugars [...] & 150 MG Oral Tablet Therapy Pack (Jnvjzgeo-Vodfwgv-Ef acaf & Ivacaf)Indications:C ystic fibrosis with pulmonary [...] as of this encounter (statuses as of 12/28/2023) Active Problems Problem Noted Date Diagnosed Date [...] infection complicating 06/09 Overview: + test at [facility], sent azithromycin High-risk 06/08/2023 Last Assessment & [...] patient about calling to get enrolled in [facility] 08/22/23: RPM; a couple elevated PP values; overall Stable (<50%) 08/28/23: RPM reviewed; stable overall 09/05/20230991-BLX-hkjpbyni 5 of 7 days in the past week; stable 09/12/23: RPM reviewed; Stable 09/19/23: RPM reviewed; Stable. Not testing every day. 09/26/23: RPM reviewed; Stable; more consistent reporting 10/03/23: RPM reviewed; Stable but not testing consistently. 10/10/20233534-TZK-caeqnvcc 2 days along with 2 additional fasting blood sugars. Messaged patient to be consistent with testing and reporting. 10/17/23: RPM reviewed; several missed readings, but overall stable 10/24/20237034-JKW-bwjglavx 3 of past 6 days; overall stable. Messaged to test four times daily and report. 10/31/20237287-RYI-fyinje 11/06/20232524-VGF-wewxxngu 5 of 7 days; stable 11/14/20234033-ZVF-ypxllqww 3 of past 7 days. Messaged to be consistent with testing and reporting. 11/21/20235207-GIC-zpslne 11/27/23: RPM reviewed; Stable but missing some values - requested updated log of missing values 12/05/20236917-YXX-iiegbr 12/12/20234503-HQL-docodvrk 5 of 7 days in the past week. Stable 12/19/23: RPM reviewed; a few missing days but all reported readings stable. 12/26/20235526-XFB-wdjeoblx 4 of the past 7 days; stable. Messaged to be consistent with testing four times daily and reporting. Last Assessment & Plan: Working with [facility]. [...] 11/20/2001 Malabsorption 08/29/2001 Cystic Fibrosis ( homozygous [id number]) Estimated Date of Delivery Comme nts Yes 01/29/2024 Based on Ultraso und documented as of this encounter (statuses as of 12/28/2023) Resolved Problems Problem Noted Date Diagnosed Date [...] follows with behavioral health provider here at [facility]. DISCUSSION: 1. and delivery can worsen the [...] (boneless & skinless & in olive oil), [place] mackerel (i.e. not [place]re[place] mackerel), or cooked [...] as of this encounter (statuses as of 12/28/2023) Immunizations Name Administration Dates Next Due COVID-19 mRNA, LNP-s, No Pre serve, 2-Dose Series (Power2SME) 06/01/2021,11/16/2020,10/26/2020 DTP/HIB (Tetramune) 01/27/1998,1997 DTaP Dipth/Tet/Acell Pertussis (Infanrix), Peds 11/20/2001,12/22/1998,03/30/1998 H1N1 2009 Influenza, IM 03/27/2009 Haemophilius B (HIB), unspecified 12/22/1998,01/1998 Hepatitis B Vaccine 03/30/1998,1997,1997 IPV - Polio Virus Vaccine (Inact) 11/20/2001 Influenza, Whole Virus 03/05/2001 MMR - Measles/Mumps/Rubella Vaccine 11/20/2001,0 09/21/1998 Meningococcal Conjugate Vacc ine (Menactra/Menveo) 07/14/2015,05/18/2010 OPV - Polio Virus Vaccine (Oral) 999,03/30/1998,01/27/1998,11/26 Pneumococcal Conjugate Vacci ne, 20-valent (Mrkwudj76) 03/31/2022 Pneumococcal Polysaccharide PPV23 (Pneumovax) 03/05/2019 Seasonal [...] money to get more. Never true 12/05/2023 [place] Depression Scale Answer Date Recorded [place] Depression Scale Total 5 06/08/2023 The thought [...] as of this encounter Progress Notes * Wilda Qiu, - 12/28/2023 12:40 PM EDT MATERNAL MEDICINE VISIT Monica Dickey presented today at 35w3d for an ultrasound and follow-up of her high risk . She was seen for the following indications: Problem List Items Addressed This Visit Diet controlled gestational diabetes mellitus (GDM) H/O macrosomia in infant in prior , currently - Primary Excessive growth affecting management of in third trimester LGA noted with EFW at 97%ile. Projected [...] 38-39 weeks to r/o EFW > 4500g. presentation, breech Fetus remains in breech presentation. Spontaneous version may still occur, however may be less likely with larger fetus and persistence of this presentation. Vaginal is typically avoided to prevent head entrapment. Options include delivery or attempt at external cephalic version. In E CV manual pressure is applied to the abdomen [...] OB team and decide on next steps. Other Visit Diagnoses 35 weeks gestation of Ultrasound for screening for growth restriction We reviewed today's ultrasound findings via telephone after her visit. Patient presented for growth assessment at 35w 3d. Large AC noted at >99% with overall EFW of 3384 g at 97%. AILEEN 20.5 cm. Breech presentation. (For full details, please refer to ultrasound report provided separately). Ms. Dickey's questions were answered to her satisfaction. She was advised to contact our office or her OB provider for any additional questions regarding her . RECOMMENDATIONS: Follow up with MFM for ultrasound as clinically indicated. Thank you for allowing us to participate in the care of this patient. Please call with any questions. Wilda Qiu DO 12/28/2023 12:40 PM documented in this encounter Miscellaneous Notes * Assessment & Plan Note - Wilda Qiu DO - 12/28/2023 12:39 PM EDT Associated Problem(s): presentation, breech Fetus remains in breech presentation. Spontaneous version may still occur, however may be less likely with larger fetus and persistence of this presentation. Vaginal is typically avoided to prevent head entrapment. Options include delivery or attempt at external cephalic version. In E CV manual pressure is applied to the abdomen [...] OB team and decide on next steps. * Assessment & Plan Note - Wilda Qiu DO - 12/28/2023 12:01 PM EDT Associated Problem(s): Excessive growth affecting management of in third trimester LGA noted with EFW at 97%ile. Projected [...] 38-39 weeks to r/o EFW > 4500g. documented in this encounter Plan of Treatment Upcoming Encounters Date Type Department Care Team (Late st Contact Info) Description 12/29/2023 1:45 PM EDT Office Visit Gynecology/Obstetrics [facility] [address] [place] [address] Radha Diaz CRNP [address] [place] [address] Scarlett [facility] Stress [facility] [address] [place] [address] 01/02/2024 1:45 PM EDT Office Visit Gynecology/Obstetrics [facility] [address] [place], [place] [address] Radha Diaz CRNP [address] [place] [address] Scarlett [facility] Stress [facility] [address] [place], [place] [address] 01/05/2024 1:45 PM EDT Office Visit Gynecology/Obstetrics [facility] [address] [place] [address] Radha Diaz CRNP [address] [place], [place] [address] Scarlett Fiore Stress [facility] [place] [address] [place], [place] [address] 01/09/2024 1:45 PM EDT Office Visit Gynecology/Obstetrics [facility] [address] [place] [address] Radha Diaz CRNP [address] [place], [place] [address] Scarlett Fi[facility] Stress [facility] [place] [address] [place], [place] [address] 01/11/2024 9:30 AM EDT Office Visit Pulmonary Medicine, [place] [address] [place] [address] Micaela Holly, [address] [place] [address] 01/12/2024 1:45 PM EDT Office Visit Gynecology/Obstetrics [facility] [address] [place] [address] Radha Diaz STUDIO OWNER [address] [place] [address] Adebayo Non Stress Tests [facility] [address] [place] [address] 01/16/2024 1:45 PM EDT Office Visit Gynecology/Obstetrics [facility] [address] [place] [address] Radha Diaz CRNP [address] [place] [address] Adebayo Non Stress Tests [place] [address] [place] [address] 01/19/2024 1:45 PM EDT Office Visit Gynecology/Obstetrics [facility] [address] [place] [address] Radha Diaz CRNP [address] [place] [address] Adebayo Non Stress Tests [facility] [address] [place] [address] 01/26/2024 1:45 PM EDT Office Visit Gynecology/Obstetrics [facility] [address] [place] [address] Radha Diaz CRNP [address] [place] [address] Adebayo Non Stress Tests [facility] [address] [place] [address] 02/05/2024 10:00 AM EDT Telemedicine Psychiatry Erika Chambers [address] [place] [address] Catina Araiza CRNP [address] [place] [address] Health Maintenance Due Date Last Done Comments [...] as of this encounter Visit Diagnoses Diagnosis H/O macrosomia in in prior , currently - Primary with other poor obstetric history Diet controlled gestational diabetes mellitus (GDM) in third trimester 35 weeks gestation of state, incidental Ultrasound for screening for growth restriction screening for growth retardation using ultrasonics Excessive growth affecting management of in third [...]
--- OUTSIDE RECORDS SUMMARY | 2024-01-24 09:14 | External Medical Summary | Summary of Care ---
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 Name Role Phone Unavailable Primary Care Provider Unavailabl e Reason for Visit * Reason Comments Return Visit Non Stress Test Encounter Details Date Type Department Care Team (Late st Contact Info) Description 01/02/2024 1:45 PM EDT Office Visit Gynecology/Obstetric s [facility] [address] [place] [address] Radha Diaz CRNP [address] [place] [address] [place], Non Stress Tests [place] [address] [place] [address] High-risk in third trimester*; Rh negative, antepartum; Diet controlled gestational diabetes mellitus (GDM) in third trimester; CF (cystic fibrosis) ([facility]); Respiratory system disease affecting , antepartum; Bipolar disease during , antepartum ([facility]); H/O macrosomia in in prior [...] with pulmonary manifestations (HCC) Use daily with Icnbv-Ece-xsgunrhe device 1 Device 5 06/13/2012 Active Additional [...] Information Patient not taking.Reported on 11/14/2023 Pancrelipase, Jdn-Gniy-Glas, (ZENPEP) 19491-15747 units CPEPIndications:Cyst ic fibrosis (HCC) Take 6 [...] MG Oral Tablet Take by mouth. Active [employer] Verio Flex System w/Device Kit Use to test blood sugars 4 times daily (fasting, 1 hour after breakfast, lunch, and dinner) 1 Kit 07/18/2023 [employer]Toenrich-in Verio In Vitro Strip (Glucose Blood) Use to test blood sugars 4 times daily (fasting, 1 hour after breakfast, lunch, and dinner) 125 Strip 6 07/18/2023 [employer]Touch Delica Lancets 30G Use to test blood [...] & 150 MG Oral Tablet Therapy Pack (Yysodquj-Fkhpwrf-Wf acaf & Ivacaf)Indications:C ystic fibrosis with pulmonary [...] complicating 06/09 Overview: + test at [facility], sent azithromycin High-risk 06/08/2023 Last Assessment & Plan: I reviewed the ultrasound. The anatomy that was visualized is appropriate for the gestational age. Respiratory system disease affecting , antepartum 06/08/2023 Overview: Cystic fibrosis Follows with [facility] Denies complications with cystic fibrosis in last 06/08/23 MFM genetic counseling referral placed Per [facility]: Prothrombin time each trimester Growth scans [...] Stable (<50%) 08/28/23: RPM reviewed; stable overall 09/05/20230241-KZV-qgvufkur 5 of 7 days in the past week; stable 09/12/23: RPM reviewed; Stable 09/19/23: RPM reviewed; Stable. Not testing every day. 09/26/23: RPM reviewed; Stable; more consistent reporting 10/03/23: RPM reviewed; Stable but not testing consistently. 10/10/20239195-KIE-cfcrnbpp 2 days along with 2 additional fasting blood sugars. Messaged patient to be consistent with testing and reporting. 10/17/23: RPM reviewed; several missed readings, but overall stable 10/24/20233640-GUM-yjfdxwzp 3 of past 6 days; overall stable. Messaged to test four times daily and report. 10/31/20235028-TRX-rkicqf 11/06/20232000-JPS-zbftdbyf 5 of 7 days; stable 11/14/20230114-BBU-omtyunfz 3 of past 7 days. Messaged to be consistent with testing and reporting. 11/21/20237061-JAV-wqmekv 11/27/23: RPM reviewed; Stable but missing some values - requested updated log of missing values 12/05/20234369-HVT-enekph 12/12/20237077-XHM-wzxndean 5 of 7 days in the past week. Stable 12/19/23: RPM reviewed; a few missing days but all reported readings stable. 12/26/20234545-RFC-ighbsuig 4 of the past 7 days; stable. Messaged to be consistent with testing four times daily and reporting. 01/02/20249455-LIQ-qmqhojrq 4 days in the past week; stable [...] 11/20/2001 Malabsorption 08/29/2001 Cystic Fibrosis ( homozygous [id number]) Estimated Date of Delivery Comme nts Yes [...] follows with behavioral health provider here at [facility]. DISCUSSION: 1. and delivery can worsen the [...] (boneless & skinless & in olive oil), [place] mackerel (i.e. not [place] mackerel), or cooked [...] mRNA, LNP-s, No Pre serve, 2-Dose Series (Chubbies Shorts) 06/01/2021,11/16/2020,10/26/2020 DTP/HIB (Tetramune) 01/27/1998,1997 DTaP Dipth/Tet/Acell Pertussis (Infanrix), Peds 11/20/2001,12/22/1998,03/30/1998 H1N1 2009 Influenza, IM 03/27/2009 Haemophilius B (HIB), unspecified 12/22/1998,01/1998 Hepatitis B Vaccine 03/30/1998,1997,1997 IPV - Polio Virus Vaccine (Inact) 11/20/2001 Influenza, Whole Virus 03/05/2001 MMR - Measles/Mumps/Rubella Vaccine 11/20/2001,0 09/21/1998 Meningococcal Conjugate Vacc ine (Menactra/Menveo) 07/14/2015,05/18/2010 OPV - Polio Virus Vaccine (Oral) 999,03/30/1998,01/27/1998,11/26 Pneumococcal Conjugate Vacci ne, 20-valent (Xesyyjp40) 03/31/2022 Pneumococcal Polysaccharide PPV23 (Pneumovax) 03/05/2019 Seasonal [...] money to get more. Never true 12/05/2023 [place] Depression Scale Answer Date Recorded [place] Depression Scale Total 5 06/08/2023 The thought [...] is breech. Agreeable to scheduling c/s at [facility]. No concerns. Baby is active. Denies feeling contractions, no bleeding or LOF. GBS and repeat chlamydia today. Traffic Technician Documentation Provider requested footwear sales associate. Name of footwear sales associate: Patrizia ASSESSMENT assessment with Non-stress Test completed [...] Gynecology/Obstetrics [facility] [address] [place] [address] Radha Diaz CRNP [address] [place] [address] Scar[facility] Stress Tests [place] [address] [place] [address] 01/09/2024 11:00 AM EDT Telemedicine Pulmonary Medicine, [place] [address] [place] [address] [place], [facility]monary [address] [place] [address] 01/09/2024 1:45 PM EDT Office Visit Gynecology/Obstetrics [facility] [address] [place] [address] Radha Diaz CRNP [address] [place] [address] [place], Non Stress Tests [place] [address] [place] [address] 01/11/2024 9:30 AM EDT Office Visit Pulmonary Medicine, [place] [address] [place] [address] Micaela Holly, [address] [place] [facility] [address] 01/12/2024 1:45 PM EDT Office Visit Gynecology/Obstetrics [facility] [address] [place], [place] [address] Radha Diaz CRNP [address] [place], [place] [address] Adebayo Non Stress Tests [place] [address] [place] [address] 01/16/2024 1:45 PM EDT Office Visit Gynecology/Obstetrics [facility] [address] [place] [address] Radha Diaz CRNP [address] [place] [address] Adebayo Non Stress Tests [place] [address] [place] [address] 01/19/2024 1:45 PM EDT Office Visit Gynecology/Obstetrics [facility] [address] [place] [address] Radha Diaz CRNP [address] [place] [address] Adebayo, Non Stress Tests [place] [address] [place] [address] 01/26/2024 1:45 PM EDT Office Visit Gynecology/Obstetrics [facility] [address] [place] [address] Radha Diaz CRNP [address] [place] [address] Adebayo, Non Stress Tests [place] [address] [facility] [address] 02/05/2024 10:00 AM EDT Telemedicine Psychiatry [facility]rika Chambers [address] [place] [address] Catina Araiza CRNP [address] [place] [address] Pending Results Name Type Priority [...]
--- OUTSIDE RECORDS SUMMARY | 2024-01-24 09:14 | External Medical Summary ---
Author Name Unknown Address Unknown Organization [id number]:[facility] - [address] [place] [address] Laboratory Report Ordering Provider Test Date Status ALFREDO BARRERA 01/02/2024 14:45:04 Final Observation Date Value Abnormality Reference (Units ) Status Streptococcus agalactiae DNA [Presence] in Specimen by NIKI with probe detection 01/02/2024 14:45:04 Negative Negative Final No Group B Streptococcus det ected by culture-enhanced PCR (amplified probe). GBS GBSCT - [facility] 01/02/2024 14:45:04 0.0 Final GBS SPCCT - [facility] 01/02/2024 14:45:04 32.2 Final Performing Location [facility] - [address] [place] [address]
[2024-01-24] MEDS: LACTATED RINGER'S 1,000 ML IV SCH (09:15)
--- OUTSIDE RECORDS SUMMARY | 2024-01-24 09:15 | External Medical Summary | Summary of Care ---
Author Name Unknown Organization [facility] Address [address] [place] [address] Phone [phone] Care Team Providers Care Operator And Truck Driver Name Role Phone Unavailable Primary Care Provider Unavailabl e Encounter Details Date Type Department Care Team (Late st Contact Info) Description 12/26/2023 Telephone Pulmonary Medicine, [place] [address] [place], [place] [id number] [facility] [address] [place], [place] [phone] Allergies No known active allergiesdocumented as of this encounter (statuses as of 12/26/2023) Medications Medication Sig Dispensed Refills Start Date End Date Status COMPRESSOR/NEBULIZER MISCIndications:Cyst ic fibrosis (HCC) Use as directed 1 Device 0 05/31/2012 Active Additional Information Patient not taking.Reported on 07/21/2023 JUAN CARLOS LC PLUS NEBULIZER MISCIndications:Cyst ic fibrosis with pulmonary manifestations (HCC) Use daily with Lmmvz-Nkr-wrudlxaq device 1 Device 5 06/13/2012 Active Additional [...] Information Patient not taking.Reported on 11/14/2023 Pancrelipase, Lit-Iloi-Lpsu, (ZENPEP) 74980-67632 units CPEPIndications:Cyst ic fibrosis (HCC) Take 6 [...] MG Oral Tablet Take by mouth. Active [employer] Flex System w/Device Kit Use to test blood sugars 4 times daily (fasting, 1 hour after breakfast, lunch, and dinner) 1 Kit 07/18/2023 Active [employer] In Vitro Strip (Glucose Blood) Use to test blood sugars 4 times daily (fasting, 1 hour after breakfast, lunch, and dinner) 125 Strip 6 07/18/2023 Active [employer] Delica Lancets 30G Use to test blood [...] & 150 MG Oral Tablet Therapy Pack (Veyxxjcg-Vpzmbqp-Fl acaf & Ivacaf)Indications:C ystic fibrosis with pulmonary [...] as of this encounter (statuses as of 12/26/2023) Active Problems Problem Noted Date Diagnosed Date Excessive growth affec ting management of in third trimester 12/01/2023 Last Assessment & Plan: EFW today at [facility] non-immune status, antepartum 06/09/2023 Chlamydia infection complicating 06/09 Overview: + test at [facility], sent azithromycin High-risk 06/08/2023 Last Assessment & [...] Stable (<50%) 08/28/23: RPM reviewed; stable overall 09/05/20236196-ZEW-ybzsbhor 5 of 7 days in the past week; stable 09/12/23: RPM reviewed; Stable 09/19/23: RPM reviewed; Stable. Not testing every day. 09/26/23: RPM reviewed; Stable; more consistent reporting 10/03/23: RPM reviewed; Stable but not testing consistently. 10/10/20232666-UAV-xaadvjzx 2 days along with 2 additional fasting blood sugars. Messaged patient to be consistent with testing and reporting. 10/17/23: RPM reviewed; several missed readings, but overall stable 10/24/20236559-UKS-ykzzzzbi 3 of past 6 days; overall stable. Messaged to test four times daily and report. 10/31/20236620-FDU-jfmike 11/06/20230983-SBO-pogcfwdf 5 of 7 days; stable 11/14/20237147-BUC-ehwdauop 3 of past 7 days. Messaged to be consistent with testing and reporting. 11/21/20234470-HTJ-stxstf 11/27/23: RPM reviewed; Stable but missing some values - requested updated log of missing values 12/05/20233700-YZW-lvhtcx 12/12/20238876-MNY-ahxkkahy 5 of 7 days in the past week. Stable 12/19/23: RPM reviewed; a few missing days but all reported readings stable. 12/26/20232369-IGH-dabcniic 4 of the past 7 days; stable. [...] 11/20/2001 Malabsorption 08/29/2001 Cystic Fibrosis ( homozygous [id number]) Estimated Date of Delivery Comme nts Yes 01/29/2024 Based on Ultraso und documented as of this encounter (statuses as of 12/26/2023) Resolved Problems Problem Noted Date Diagnosed Date [...] with behavioral health provider here at [facility]. DISCUSSION: 1. and [...] (boneless & skinless & in olive oil), [place] mackerel (i.e. not Bereket mackerel), or cooked [...] as of this encounter (statuses as of 12/26/2023) Immunizations Name Administration Dates Next Due COVID-19 mRNA, LNP-s, No Pre serve, 2-Dose Series ([employer]) 06/01/2021,11/16/2020,10/26/2020 H1N1 2009 Influenza, IM 03/27/2009 Meningococcal Conjugate Vacc ine (Menactra/Menveo) 07/14/2015,05/18/2010 Pneumococcal Conjugate Vacci ne, 20-valent (Hwttxzx03) 03/31/2022 Pneumococcal Polysaccharide PPV23 (Pneumovax) 03/05/2019 Seasonal [...] money to get more. Never true 12/05/2023 [place] Depression Scale Answer Date Recorded [place] Depression Scale Total 5 06/08/2023 The thought [...] encounter Miscellaneous Notes * Telephone Encounter - Ludivina Us RPh - 12/26/2023 3:32 PM EDT Cystic Fibrosis Pharmacist Appointment Request Please schedule annual visit with cystic fibrosis pharmacist. During this visit, patients can expect to review their medication list and discuss medication related issues or concerns including side effects, medication/dose changes, barriers to medication adherence, enrollment in copay assistance programs, etc Department & Provider: Pulm [facility] [place] [[id number]] & Pharmacist Vikram James [[id number]] Patient to be scheduled for visit type:Telemedicine Visit [[id number]] Length of visit: 30 mins Time Frame: within 4 weeks Please route this encounter back to Pulmonary Pharmacist Pool [[id number]] if unable to schedule patientafter 3 attempts. documented in this encounter Plan of Treatment Upcoming Encounters Date Type Department Care Team (Late st Contact Info) Description 12/28/2023 9:30 AM EDT Imaging Maternal Medicine Imaging, [place] [facility] [address] [place] [id number] 12/28/2023 9:30 AM EDT Office Visit Lock Tender Obstetrics Maternal Medicine, [place] [facility] [address] [place] [address] Wilda Qiu, DO [address] [place] [address] 12/29/2023 1:45 PM EDT Office Visit Gynecology/Obstetrics [facility] [address] [place] [address] Radha Diaz CRNP [address] [place] [address] Scarlett [facility] Stress Tests [place] [address] [place] [address] 01/02/2024 1:45 PM EDT Office Visit Gynecology/Obstetrics [facility] [address] [place] [address] Radha Diaz CRNP [address] [place] [address] Adebayo Non Stress Tests [place] [address] [place] [address] 01/05/2024 1:45 PM EDT Office Visit Gynecology/Obstetrics [facility] [address] [place] [address] Radha Diaz CRNP [address] [place] [address] Scarlett [facility] Stress Tests [place] [address] [place] [address] 01/09/2024 1:45 PM EDT Office Visit Gynecology/Obstetrics [facility] [address] [place] [address] Radha Diaz CRNP [address] [place] [address] Scarlett [facility] Stress Tests [place] [address] [place] [address] 01/11/2024 9:30 AM EDT Office Visit Pulmonary Medicine, [place] [address] [place] [address] Micaela Holly, DO [address] [place] [facility] [address] 01/12/2024 1:45 PM EDT Office Visit Gynecology/Obstetrics [facility] [address] [place] [address] Radha Diaz CRNP [address] [place] [address] [place], Non Stress Tests [place] [address] [place] [address] 01/16/2024 1:45 PM EDT Office Visit Gynecology/Obstetrics [facility] [address] [place] [address] Radha Diaz CRNP [address] [place] [address] Fi[place], Non Stress Tests [place] [address] [place] [address] 01/19/2024 1:45 PM EDT Office Visit Gynecology/Obstetrics [facility] [address] [place] [address] Radha Diaz CRNP [address] [place] [address] Fi[place], Non Stress Tests [place] [address] [place] [address] 01/26/2024 1:45 PM EDT Office Visit Gynecology/Obstetrics [facility] [address] [place] [address] Radha Diaz CRNP [address] [place] [address] Fi[place], Non Stress Tests [place] [address] [place] [address] 02/05/2024 10:00 AM EDT Telemedicine Psychiatry [place] [address] [place] [address] Catina Araiza CRNP [address] [facility] [place] [phone] Health Maintenance Due Date Last Done [...]
--- OUTSIDE RECORDS SUMMARY | 2024-01-24 09:15 | External Medical Summary | Summary of Care ---
Author Name Unknown Organization [facility] Address [address] [facility] [place] [address] Phone [phone] Care Team Providers Care Dietary Cook Name Role Phone Unavailable Primary Care Provider Unavailabl e Reason for Visit * Reason Comments Non Stress Test Encounter Details Date Type Department Care Team (Late st Contact Info) Description 12/12/2023 1:45 PM EDT Office Visit Gynecology/Obstetric s [facility] [address] [facility] [place] [address] Radha Diaz CRNP [address] [place] [address] [place], Non Stress Tests [place] [address] [place] [address] High-risk in third trimester*; Rh negative, antepartum; Diet controlled gestational diabetes mellitus (GDM) in third trimester; CF (cystic fibrosis) ([facility]); Respiratory system disease affecting , antepartum; H/O macrosomia in in prior , currently ; Rubella non-immune status, antepartum Allergies No known active allergiesdocumented as of this encounter (statuses as of 12/12/2023) Medications Medication Sig Dispensed Refills Start Date End Date Status COMPRESSOR/NEBULIZER MISCIndications:Cyst ic fibrosis (HCC) Use as directed 1 Device 0 05/31/2012 Active Additional Information Patient not taking.Reported on 07/21/2023 JUAN CARLOS LC PLUS NEBULIZER MISCIndications:Cyst ic fibrosis with pulmonary manifestations (HCC) Use daily with Fzijt-Xfu-lggqqnqr device 1 Device 5 06/13/2012 Active Additional [...] Information Patient not taking.Reported on 11/14/2023 Pancrelipase, Klz-Dtje-Rqdt, (ZENPEP) 46583-94346 units CPEPIndications:Cyst ic fibrosis (HCC) Take 6 [...] MG Oral Tablet Take by mouth. Active Tiendeo Flex System w/Device Kit Use to test blood sugars 4 times daily (fasting, 1 hour after breakfast, lunch, and dinner) 1 Kit 07/18/2023 Active Tiendeo In Vitro Strip (Glucose Blood) Use to test blood sugars 4 times daily (fasting, 1 hour after breakfast, lunch, and dinner) 125 Strip 6 07/18/2023 Active Sportmeets Delica Lancets 30G Use to test blood [...] & 150 MG Oral Tablet Therapy Pack (Iqkbxbpi-Nmklhld-Me acaf & Ivacaf)Indications:C ystic fibrosis with pulmonary [...] as of this encounter (statuses as of 12/12/2023) Active Problems Problem Noted Date Diagnosed Date Excessive growth affec ting management of in third trimester 12/01/2023 Last Assessment & Plan: EFW today at Rubella non-immune status, antepartum 06/09/2023 Chlamydia infection complicating 06/09 Overview: + test at [facility], sent azithromycin High-risk 06/08/2023 Last Assessment [...] Stable (<50%) 08/28/23: RPM reviewed; stable overall 09/05/20236703-GCX-lwmvtpms 5 of 7 days in the past week; stable 09/12/23: RPM reviewed; Stable 09/19/23: RPM reviewed; Stable. Not testing every day. 09/26/23: RPM reviewed; Stable; more consistent reporting 10/03/23: RPM reviewed; Stable but not testing consistently. 10/10/20239137-DVC-zesylcjk 2 days along with 2 additional fasting blood sugars. Messaged patient to be consistent with testing and reporting. 10/17/23: RPM reviewed; several missed readings, but overall stable 10/24/20230352-ROC-noysrxvr 3 of past 6 days; overall stable. Messaged to test four times daily and report. 10/31/20232325-WMY-bggajt 11/06/20236456-ZXU-pvjkzauq 5 of 7 days; stable 11/14/20230146-HFQ-cbwbpynb 3 of past 7 days. Messaged to be consistent with testing and reporting. 11/21/20238537-TFD-xezerc 11/27/23: RPM reviewed; Stable but missing some values - requested updated log of missing values 12/05/20234415-JRZ-hqciab 12/12/20233424-YMS-iomguhlw 5 of 7 days in the past week. Stable Last Assessment & Plan: Working with [facility]. [...] 11/20/2001 Malabsorption 08/29/2001 Cystic Fibrosis ( homozygous [id number]) Estimated Date of Delivery Comme nts Yes 01/29/2024 Based on Ultraso und documented as of this encounter (statuses as of 12/12/2023) Resolved Problems Problem Noted Date Diagnosed Date [...] follows with behavioral health provider here at [facility]. DISCUSSION: 1. and [...] (boneless & skinless & in olive oil), [place] mackerel (i.e. not [place] mackerel), or cooked [...] as of this encounter (statuses as of 12/12/2023) Immunizations Name Administration Dates Next Due COVID-19 mRNA, LNP-s, No Pre serve, 2-Dose Series (Heart Buddy) 06/01/2021,11/16/2020,10/26/2020 H1N1 2009 Influenza, IM 03/27/2009 Meningococcal Conjugate Vacc ine (Menactra/Menveo) 07/14/2015,05/18/2010 Pneumococcal Conjugate Vacci ne, 20-valent ([id number]) 03/31/2022 Pneumococcal Polysaccharide PPV23 (Pneumovax) 03/05/2019 Seasonal [...] Date Smoking Tobacco: Never Smokeless Tobacco: Never Tobacco Cessation:Counseling Given: Not Answered Alcohol Use Standard Drinks/Week Comments Not Currently [...] money to get more. Never true 12/05/2023 [place] Depression Scale Answer Date Recorded [place] Depression Scale Total 5 06/08/2023 The thought [...] 12/05/2023 Transportation Needs Answer Date Record ed READ ONLY Do you have troubl e getting a ride to medical visits or work? Never True 12/05/2023 Does your family have a hard [...] place to sleep at night? No 12/05/2023 READ ONLY Do you think you a re at risk of becoming homeless? No 12/05/2023 Does your family worry about paying [...] Sign Reading Time Taken Comments Blood Pressure 102/62 12/12/2023 2:01 PM EDT Pulse - - Temperature - - Respiratory Rate - - Oxygen Saturation - - Inhaled Oxygen Concentration - - Weight 91.2 kg (201 lb) 12/12/2023 2:01 PM EDT Height 162.6 cm (5' 4") 12/12/2023 2:01 PM EDT Body Mass Index 34.5 12/12/2023 2:01 PM EDT documented in this encounter Functional [...] Progress Notes * Radha Diaz CRNP - 12/12/2023 2:13 PM EDT ASSESSMENT assessment with Non-stress Test completed on 12/12/2023 at 33.1weeks gestation for indication of CF heart baseline: 130 bpm Variability: Moderate Decelerations: absent Accelerations: present Contractions: None NST start time: 1346 NST stop time: 140 NST strip reviewed, interpreted, and approved by OB provider, LAMIN Cross . NST strip stored in clinic storage file documented in this encounter Nursing Notes * Adriana Matthew RN - 12/12/2023 1:57 PM EDT Patient here for NST [id number] No concerns + FM Adriana Matthew RN documented in this encounter Plan of Treatment Upcoming Encounters Date Type Department Care Team (Late st Contact Info) Description 12/15/2023 11:00 AM EDT Office Visit Gynecology/Obstetrics [address] [place] [address] Back[place], LAMIN Kennedy [address] [place] [address] Adebayo, Non Stress Tests [place] [address] [place] [address] 12/19/2023 1:45 PM EDT Office Visit Gynecology/Obstetrics [facility] [address] [place] [address] Radha Diaz CRNP [address] [place] [address] Adebayo Non Stress Tests [place] [address] [place] [address] 12/22/2023 11:00 AM EDT Office Visit Gynecology/Obstetrics [facility] [address] [place] [address] Backer, LAMIN Kennedy [address] [place] [address] Adebayo Non Stress Tests [place] [address] [place] [address] 12/26/2023 1:45 PM EDT Office Visit Gynecology/Obstetrics [facility]Landroc[facility] [place] [address] [place] [address] Radha Diaz CRNP [address] [place] [address] Adebayo Non Stress Tests [place] [address] [place] [address] 12/28/2023 9:30 AM EDT Imaging Maternal Medicine Imaging, [place] [address] [place] [address] 12/29/2023 1:45 PM EDT Office Visit Gynecology/Obstetrics Leandro'padma Rolons [address] [place] [address] Radha Diaz CRNP [address] [place] [address] [place], Non Stress Tests [place] [address] [place] [address] 01/02/2024 1:45 PM EDT Office Visit Gynecology/Obstetrics Alisa Rolons [address] [place] [address] Radha Diaz CRNP [address] [place] [address] Adebayo Non Stress Tests [place] [address] [place] [address] 01/05/2024 1:45 PM EDT Office Visit Gynecology/Obstetrics Alisa Rolons [address] [place] [address] Radha Diaz CRNP [address] [place] [address] Adebayo Non Stress Tests [place] [address] [place] [address] 01/09/2024 1:45 PM EDT Office Visit Gynecology/Obstetrics Alisa [place] [address] [place] [address] Radha Diaz CRNP [address] [place] [address] [place], Non Stress Tests [place] [address] [place] [address] 01/11/2024 9:30 AM EDT Office Visit Pulmonary Medicine, [place] [address] [place] [facility] [place] [address] Micaela Holly, [address] [facility] [place] [address] 01/12/2024 1:45 PM EDT Office Visit Gynecology/Obstetrics [facility] [address] [place] [address] Radha Diaz CRNP [address] [place] [address] Adebayo Non Stress Tests [place] [address] [place] [address] 01/16/2024 1:45 PM EDT Office Visit Gynecology/Obstetrics [facility] [address] [place] [address] Radha Diaz CRNP [address] [place] [address] Adebayo Non Stress Tests [place] [address] [place] [address] 01/19/2024 1:45 PM EDT Office Visit Gynecology/Obstetrics [facility] [address] [place] [address] Radha Diaz CRNP [address] [place] [address] Adebayo Non Stress Tests [place] [address] [place] [address] 01/26/2024 1:45 PM EDT Office Visit Gynecology/Obstetrics [facility] [address] [place] [address] Radha Diaz CRNP [address] [place] [address] [place], Scarlett Stress Tests [place] [address] [place] [address] 02/05/2024 10:00 AM EDT Telemedicine Psychiatry [place] [place] [address] [place] [address] Catina Araiza CRNP [address] [place] [address] Health Maintenance Due Date Last [...] non-immune status, antepartum Other specified complication, antepartum documented in this encounter Additional Health Concerns [...]
--- OUTSIDE RECORDS SUMMARY | 2024-01-24 09:15 | External Medical Summary | Summary of Care ---
Author Name Unknown Organization [facility] Address [address] [facility] [place] [address] Phone [phone] Care Team Providers Care Business Development Representative Name Role Phone Unavailable Primary Care Provider Unavailabl e Reason for Visit * Reason Comments Return Visit Non Stress Test Encounter Details Date Type Department Care Team (Late st Contact Info) Description 12/15/2023 11:00 AM EDT Office Visit Gynecology/Obstetric s [facility] [address] [place] [address] Ling Leonard CRNP [address] [place] [address] Adebayo Non Stress Tests [place] [address] [place] [address] High-risk in third trimester*; Rh negative, antepartum; Diet controlled gestational diabetes mellitus (GDM) in third trimester; CF (cystic fibrosis) ([facility]); Respiratory system disease affecting , antepartum; Bipolar disease during in third trimester ([facility]); H/O macrosomia in in prior , currently ; Rubella non-immune status, antepartum; Chlamydia infection affecting , antepartum Allergies No known active allergiesdocumented as of this encounter (statuses as of 12/15/2023) Medications Medication Sig Dispensed Refills Start Date End Date Status COMPRESSOR/NEBULIZER MISCIndications:Cyst ic fibrosis (HCC) Use as directed 1 Device 0 05/31/2012 Active Additional Information Patient not taking.Reported on 07/21/2023 JUAN CARLOS LC PLUS NEBULIZER MISCIndications:Cyst ic fibrosis with pulmonary manifestations (HCC) Use daily with Tpkdd-Yyg-kvhprois device 1 Device 5 06/13/2012 Active Additional [...] Information Patient not taking.Reported on 11/14/2023 Pancrelipase, Tdr-Upao-Nfda, (ZENPEP) [id number] units CPEPIndications:Cyst ic fibrosis (HCC) Take 6 [...] MG Oral Tablet Take by mouth. Active Drync Flex System w/Device Kit Use to test blood sugars 4 times daily (fasting, 1 hour after breakfast, lunch, and dinner) 1 Kit 07/18/2023 Active Drync In Vitro Strip (Glucose Blood) Use to test blood sugars 4 times daily (fasting, 1 hour after breakfast, lunch, and dinner) 125 Strip 6 07/18/2023 Active Eggs Overnight Delica Lancets 30G Use to test blood [...] & 150 MG Oral Tablet Therapy Pack (Wytgswfe-Ekwzihi-Zb acaf & Ivacaf)Indications:C ystic fibrosis with pulmonary [...] as of this encounter (statuses as of 12/15/2023) Active Problems Problem Noted Date Diagnosed Date Excessive growth affec ting management of in third trimester 12/01/2023 Last Assessment & Plan: EFW today at Rubella non-immune status, antepartum 06/09/2023 Chlamydia infection complicating 06/09 Overview: + test at [facility], sent azithromycin High-risk 06/08/2023 Last Assessment & Plan: I reviewed the ultrasound. The anatomy that was visualized is appropriate for the gestational age. Respiratory system disease affecting , antepartum 06/08/2023 Overview: Cystic fibrosis Follows with [facility] Denies complications with cystic fibrosis in last 06/08/23 MF genetic counseling referral placed Per [facility]: Prothrombin time each trimester Growth [...] Stable (<50%) 08/28/23: RPM reviewed; stable overall 09/05/20232962-ZXL-qzddfknv 5 of 7 days in the past week; stable 09/12/23: RPM reviewed; Stable 09/19/23: RPM reviewed; Stable. Not testing every day. 09/26/23: RPM reviewed; Stable; more consistent reporting 10/03/23: RPM reviewed; Stable but not testing consistently. 10/10/20237012-BTH-vyubkmaw 2 days along with 2 additional fasting blood sugars. Messaged patient to be consistent with testing and reporting. 10/17/23: RPM reviewed; several missed readings, but overall stable 10/24/20239256-NPI-qfoinegf 3 of past 6 days; overall stable. Messaged to test four times daily and report. 10/31/20239667-KRP-nrvaki 11/06/20237951-WTV-gvoxndxu 5 of 7 days; stable 11/14/20233464-WLJ-amrqrmor 3 of past 7 days. Messaged to be consistent with testing and reporting. 11/21/20233558-GKX-zmlene 11/27/23: RPM reviewed; Stable but missing some values - requested updated log of missing values 12/05/20232068-AYT-imvoai 12/12/20232839-YHP-jgxpfzhu 5 of 7 days in the past [...] 11/20/2001 Malabsorption 08/29/2001 Cystic Fibrosis ( homozygous [id number]) Estimated Date of Delivery Comme nts Yes 01/29/2024 Based on Ultraso und documented as of this encounter (statuses as of 12/15/2023) Resolved Problems Problem Noted Date Diagnosed Date [...] follows with behavioral health provider here at [facility] [facility]. DISCUSSION: 1. and [...] (boneless & skinless & in olive oil), [place] mackerel (i.e. not [place] mackerel), or cooked [...] as of this encounter (statuses as of 12/15/2023) Immunizations Name Administration Dates Next Due COVID-19 mRNA, LNP-s, No Pre serve, 2-Dose Series (Transit App) 06/01/2021,11/16/2020,10/26/2020 H1N1 2009 Influenza, IM 03/27/2009 Meningococcal Conjugate Vacc ine (Menactra/Menveo) 07/14/2015,05/18/2010 Pneumococcal Conjugate Vacci ne, 20-valent (Wejgyvn75) 03/31/2022 Pneumococcal Polysaccharide PPV23 (Pneumovax) 03/05/2019 Seasonal [...] money to get more. Never true 12/05/2023 [place] Depression Scale Answer Date Recorded [place] Depression Scale Total 5 06/08/2023 The thought [...] No 12/05/2023 Does the household have a [facility] source of income? (Household - for ages [...] Sign Reading Time Taken Comments Blood Pressure 98/66 12/15/2023 10:57 AM EDT Pulse - - Temperature - - Respiratory Rate - - Oxygen Saturation - - Inhaled Oxygen Concentration - - Weight 90.2 kg (198 lb 12.8 oz) 024 10:57 AM EDT Height 162.6 cm (5' 4") 12/15/2023 10:5 7 AM EDT Body Mass Index 34.12 12/15/2023 10:57 AM EDT documented in this encounter Functional [...] as of this encounter Progress Notes * Ling Leonard CRNP - 12/15/2023 11:09 AM EDT ASSESSMENT assessment with Non-stress Test completed on 12/15/2023 at 33.4 weeks gestation for indicationof maternal cystic fibrosis heart baseline: 130 bpm Variability: Moderate Decelerations: absent Accelerations: present Contractions: None NST start time: 1053 NST stop time: 1116 NST strip reviewed, interpreted, and approved by OB provider, LAMIN Melton . NST strip stored in clinic storage file documented in this encounter Plan of Treatment Upcoming Encounters Date Type Department Care Team (Late st Contact Info) Description 12/19/2023 1:45 PM EDT Office Visit Gynecology/Obstetrics [facility] [address] [place] [address] Radha Diaz CRNP [address] [place] [address] Scarlett [place] [address] 12/22/2023 11:00 AM EDT Office Visit Gynecology/Obstetrics Alisa [facility] [address] [place] [address] Backer, LAMIN Kennedy [address] [place] [address] [place], Non Stress Tests [place] [address] [place] [address] 12/26/2023 1:45 PM EDT Office Visit Gynecology/Obstetrics Alisa [facility] [address] [place] [address] Radha Diaz CRNP [address] [place] [address] Adebayo, Non Stress Tests [place] [address] [place] [address] 12/28/2023 9:30 AM EDT Imaging Maternal Medicine Imaging, [place] [address] [place] [address] 12/29/2023 1:45 PM EDT Office Visit Gynecology/Obstetrics Alisa [facility] [address] [place] [address] Radha Diaz CRNP [address] [place] [address] [place], Non Stress Tests [place] [address] [place] [address] 01/02/2024 1:45 PM EDT Office Visit Gynecology/Obstetrics Alisa [facility] [address] [place] [address] Radha Diaz CRNP [address] [place] [address] Adebayo Non Stress Tests [place] [address] [place] [address] 01/05/2024 1:45 PM EDT Office Visit Gynecology/Obstetrics Alisa [facility] [address] [place] [address] Radha Diaz CRNP [address] [place] [address] Adebayo Non Stress Tests [place] [address] [place] [address] 01/09/2024 1:45 PM EDT Office Visit Gynecology/Obstetrics Alisa [facility] [address] [place] [address] Radha Diaz CRNP [address] [place] [address] Adebayo Non Stress Tests [place] [address] [place] [address] 01/11/2024 9:30 AM EDT Office Visit Pulmonary Medicine, [place] [address] [place] [address] Micaela Holly, [address] [place] [address] 01/12/2024 1:45 PM EDT Office Visit Gynecology/Obstetrics Alisa [facility] [address] [place] [address] Radha Diaz CRNP [address] [place] [address] Adebayo Non Stress Tests [place] [address] [place] [address] 01/16/2024 1:45 PM EDT Office Visit Gynecology/Obstetrics Alisa [place] [address] [place] [address] Radha Diaz CRNP [address] [place], [place] [address] Scarlett Fiore Stress Tests [place] [address] [place], [place] [address] 01/19/2024 1:45 PM EDT Office Visit Gynecology/Obstetrics Alisa [place] [address] [place] [address] Radha Diaz CRNP [address] [place] [address] Scarlett Fiore Stress Tests [place] [address] [place] [address] 01/26/2024 1:45 PM EDT Office Visit Gynecology/Obstetrics Alisa [facility] [address] [place] [address] Radha Diaz CRNP [address] [place] [address] Scarlett Fiore Stress Tests [place] [address] [place] [address] 02/05/2024 10:00 AM EDT Telemedicine Psychiatry Erika Chambers [address] [place] [address] Catina Araiza CRNP [address] [facility] [place] [address] Health Maintenance Due Date Last Done Comments HPV (Gardasil) Vaccine (1 - 3-dose series) 2012 COVID-19 Vaccine (4 - 2023-2 4 season) 2023 06/01/2021, 11/16/2020, 10/26/2020 Influenza [...] in third trimester (HCC) H/O macrosomia in in prior , currently with other poor obstetric history Rubella non-immune status, antepartum Other specified complication, antepartum Chlamydia infection affecting , antepartum documented in this encounter Additional Health [...]
--- OUTSIDE RECORDS SUMMARY | 2024-01-24 09:15 | External Medical Summary | Summary of Care ---
Author Name Unknown Organization [facility] Address [address] [facility] [place] [address] Phone [phone] Care Team Providers Care Bicycle Ii Assembler Name Role Phone Unavailable Primary Care Provider Unavailabl e Reason for Visit * Reason Comments Return Visit Non Stress Test Encounter Details Date Type Department Care Team (Late st Contact Info) Description 12/19/2023 1:45 PM EDT Office Visit Gynecology/Obstetric s [facility] [address] [place] [address] Radha Diaz CRNP [address] [place] [address] [place], Non Stress Tests [place] [address] [place] [address] High-risk in third trimester*; Diet controlled gestational diabetes mellitus (GDM) in third trimester; CF (cystic fibrosis) ([facility]); Respiratory system disease affecting , antepartum; Bipolar disease during in third trimester ([facility]); H/O macrosomia in infant in prior , currently ; Rh negative, antepartum; Rubella non-immune status, antepartum; NST (non-stress test) nonreactive Allergies No known active allergiesdocumented as of this encounter (statuses as of 12/19/2023) Medications Medication Sig Dispensed Refills Start Date End Date Status COMPRESSOR/NEBULIZER MISCIndications:Cyst ic fibrosis (HCC) Use as directed 1 Device 0 05/31/2012 Active Additional Information Patient not taking.Reported on 07/21/2023 JUAN CARLOS LC PLUS NEBULIZER MISCIndications:Cyst ic fibrosis with pulmonary manifestations (HCC) Use daily with Gweww-Amq-eqdkwijv device 1 Device 5 06/13/2012 Active Additional [...] Information Patient not taking.Reported on 11/14/2023 Pancrelipase, Yvi-Zsex-Vmcq, (ZENPEP) 96089-[address] units CPEPIndications:Cyst ic fibrosis (HCC) Take 6 [...] MG Oral Tablet Take by mouth. Active Domosite Flex System w/Device Kit Use to test blood sugars 4 times daily (fasting, 1 hour after breakfast, lunch, and dinner) 1 Kit 07/18/2023 Active TRUECario In Vitro Strip (Glucose Blood) Use to test blood sugars 4 times daily (fasting, 1 hour after breakfast, lunch, and dinner) 125 Strip 6 07/18/2023 Active Groupe Athena Delica Lancets 30G Use to test blood [...] & 150 MG Oral Tablet Therapy Pack (Esxdhivh-Fcejima-Ia acaf & Ivacaf)Indications:C ystic fibrosis with pulmonary [...] as of this encounter (statuses as of 12/19/2023) Active Problems Problem Noted Date Diagnosed Date Excessive growth affec ting management of in third trimester 12/01/2023 Last Assessment & Plan: EFW today at Rubella non-immune status, antepartum 06/09/2023 Chlamydia infection complicating 06/09 Overview: + test at [facility], sent azithromycin High-risk 06/08/2023 Last Assessment & Plan: I reviewed the ultrasound. The anatomy that was visualized is appropriate for the gestational age. Respiratory system disease affecting , antepartum 06/08/2023 Overview: Cystic fibrosis Follows with [facility] Denies complications with cystic fibrosis in last 06/08/23 MF genetic counseling referral placed Per [facility]: Prothrombin time each trimester Growth scans q4-6 [...] Stable (<50%) 08/28/23: RPM reviewed; stable overall 09/05/20232638-KJN-ncbadlhp 5 of 7 days in the past week; stable 09/12/23: RPM reviewed; Stable 09/19/23: RPM reviewed; Stable. Not testing every day. 09/26/23: RPM reviewed; Stable; more consistent reporting 10/03/23: RPM reviewed; Stable but not testing consistently. 10/10/20235365-AJV-nnnypcfd 2 days along with 2 additional fasting blood sugars. Messaged patient to be consistent with testing and reporting. 10/17/23: RPM reviewed; several missed readings, but overall stable 10/24/20236017-IHQ-vqdpmwvz 3 of past 6 days; overall stable. Messaged to test four times daily and report. 10/31/20237727-BLX-gbwwce 11/06/20234246-HPQ-ooqmcgoi 5 of 7 days; stable 11/14/20237484-FMI-llweypwh 3 of past 7 days. Messaged to be consistent with testing and reporting. 11/21/20237820-PDP-wikhgi 11/27/23: RPM reviewed; Stable but missing some values - requested updated log of missing values 12/05/20237534-PBE-zepkef 12/12/20233302-XGH-dnevjfra 5 of 7 days in the past [...] 11/20/2001 Malabsorption 08/29/2001 Cystic Fibrosis ( homozygous [id number]) Estimated Date of Delivery Comme nts Yes 01/29/2024 Based on Ultraso und documented as of this encounter (statuses as of 12/19/2023) Resolved Problems Problem Noted Date Diagnosed Date [...] follows with behavioral health provider here at [facility]. DISCUSSION: 1. and [...] (boneless & skinless & in olive oil), [place] mackerel (i.e. not Bereket mackerel), or cooked [...] as of this encounter (statuses as of 12/19/2023) Immunizations Name Administration Dates Next Due COVID-19 mRNA, LNP-s, No Pre serve, 2-Dose Series (Creditable) 06/01/2021,11/16/2020,10/26/2020 H1N1 2009 Influenza, IM 03/27/2009 Meningococcal Conjugate Vacc ine (Menactra/Menveo) 07/14/2015,05/18/2010 Pneumococcal Conjugate Vacci ne, 20-valent (Suqefoc54) 03/31/2022 Pneumococcal Polysaccharide PPV23 (Pneumovax) 03/05/2019 Seasonal [...] money to get more. Never true 12/05/2023 [place] Depression Scale Answer Date Recorded [place] Depression Scale Total 5 06/08/2023 The thought [...] No 12/05/2023 Does the household have a [facility] [place] source of income? (Household - for ages [...] Sign Reading Time Taken Comments Blood Pressure 108/62 12/19/2023 1:33 PM EDT Pulse - - Temperature - - Respiratory Rate - - Oxygen Saturation - - Inhaled Oxygen Concentration - - Weight 89.4 kg (197 lb) 12/19/2023 1:33 PM EDT Height 162.6 cm (5' 4") 12/19/2023 1:33 PM EDT Body Mass Index 33.81 12/19/2023 1:33 PM EDT documented in this encounter Functional [...] Progress Notes * Radha Diaz CRNP - 12/19/2023 1:43 PM EDT 34w1d Has questions about delivery- baby has been breech, also LGA. Discussed 39w IOL or c/s, dependent on position and size. Following with MFM, next growth u/s is next week. She states that her Apple Watch has reported elevated heart rate on a few occasions, reports to 150bpm. Taught pt how to take pulse to assess this at home. ASSESSMENT assessment with Non-stress Test completed on 12/19/2023 at 34.1weeks gestation for indication of CF heart baseline: 140 bpm Variability: Moderate Decelerations: absent Accelerations: absent Contractions: None NST start time: 1329 NST stop time: 1403 NST strip reviewed, interpreted, and approved by OB provider, LAMIN Cross . NST strip stored in clinic storage file NST does not meet criteria for reactivity- no accelerations. BPP today. documented in this encounter Plan of Treatment Upcoming Encounters Date Type Department Care Team (Late st Contact Info) Description 12/22/2023 11:00 AM EDT Office Visit Gynecology/Obstetrics [facility] [address] [place] [address] Ling Leonard CRNP [address] [place] [address] [place], Non Stress Tests [place] [address] [place] [address] 12/26/2023 1:45 PM EDT Office Visit Gynecology/Obstetrics [facility] [address] [place] [address] Radha Diaz CRNP [address] [place] [address] Adebayo, Non Stress Tests [place] [address] [place] [address] 12/28/2023 9:30 AM EDT Imaging Maternal Medicine Imaging, [place] [facility] [address] [place] [id number] 12/29/2023 1:45 PM EDT Office Visit Gynecology/Obstetrics [facility] [address] [place] [address] Radha Diaz CRNP [address] [place] [address] Adebayo, Non Stress Tests [place] [address] [place] [address] 01/02/2024 1:45 PM EDT Office Visit Gynecology/Obstetrics [facility] [address] [place] [address] Radha Diaz CRNP [address] [place] [address] [place], Non Stress Tests [place] [address] [place] [address] 01/05/2024 1:45 PM EDT Office Visit Gynecology/Obstetrics [facility] [address] [place] [address] Radha iDaz CRNP [address] [place] [address] [place], Non Stress Tests [place] [address] [place] [address] 01/09/2024 1:45 PM EDT Office Visit Gynecology/Obstetrics [facility] [address] [place] [address] Radha Diaz CRNP [address] [place] [address] [place], Non Stress Tests [place] [address] [place] [address] 01/11/2024 9:30 AM EDT Office Visit Pulmonary Medicine, [place] [address] [place] [address] Micaela Holly, [address] [place], [place] [id number] 01/12/2024 1:45 PM EDT Office Visit Gynecology/Obstetrics [facility] [address] [place] [address] Radha Diaz CRNP [address] [place] [address] [place], Non Stress Tests [place] [address] [place] [address] 01/16/2024 1:45 PM EDT Office Visit Gynecology/Obstetrics [facility] [address] [place] [address] Radha Diaz CRNP [address] [place] [address] Adebayo, Non Stress Tests [place] [address] [place] [address] 01/19/2024 1:45 PM EDT Office Visit Gynecology/Obstetrics [facility] [address] [place] [address] Radha Diaz CRNP [address] [place] [address] Adebayo, Non Stress Tests [place] [address] [place] [address] 01/26/2024 1:45 PM EDT Office Visit Gynecology/Obstetrics [facility] [address] [place] [address] Radha Diaz CRNP [address] [place] [address] Adebayo, Non Stress Tests [place] [address] [place] [address] 02/05/2024 10:00 AM EDT Telemedicine Psychiatry Erika [facility] [address] [place] [address] Catina Araiza CRNP [address] [facility] [place] [address] Pending Results Name Type Priority Associated Diagnoses Date /Time US BPP W/O NON-STRESS TEST Medical Imaging Routine NST (non-stress test) nonreactive 12/19/2023 2:24 PM EDT Scheduled Orders Name Type Priority Associated Diagnoses Orde r Schedule US BPP W/O NON-STRESS TEST Medical Imaging Routine NST (non-stress test) nonreactive Expected: 12/19/2023 (Approximate), Expires: 01/18/2025 Health Maintenance Due Date Last Done Comments [...] (6 to 64 Years) Completed 03/31/2022, 03/05/2019 HIV Screening Completed 06/08/2023, 02/20, 04/28/2017 Hepatitis C Screening Completed 06/08/2023 , 06/08/2023, 06/08/2023, Additional history exists Gonorrhea / Chlamydia Screen Discontinued , 06/08/2023, 03/18/2020, Additional history exists documented as of this encounter Medical Devices Not on filedocumented as of this encounter Visit Diagnoses Diagnosis High-risk in third trimester- Primary Diet controlled gestational diabetes mellitus (GDM) in third trimester CF (cystic fibrosis) (HCC) Cystic fibrosis without mention of meconium ileus Respiratory system disease affecting , antepartum Bipolar disease during in third trimester (HCC) H/O macrosomia in in prior , currently with other poor obstetric history Rh negative, antepartum Rhesus isoimmunization affecting management of mother, antepartum condition Rubella non-immune status, antepartum Other specified complication, antepartum NST (non-stress test) nonreactive Abnormal findings on screening documented in this encounter Additional Health Concerns [...]
--- OUTSIDE RECORDS SUMMARY | 2024-01-24 09:15 | External Medical Summary | Summary of Care ---
Author Name Unknown Organization [facility] Address [address] [facility] [place] [address] Phone [phone] Care Team Providers Care Executive Talent Acquisition Consultant Name Role Phone Unavailable Primary Care Provider Unavailabl e Reason for Visit * Reason Comments Return Visit Non Stress Test Encounter Details Date Type Department Care Team (Late st Contact Info) Description 12/26/2023 1:45 PM EDT Office Visit Gynecology/Obstetric s [facility] [address] [place] [address] Radha Diaz CRNP [address] [place] [address] [place], Non Stress Tests [place] [address] [place] [address] High-risk in third trimester*; Diet controlled gestational diabetes mellitus (GDM) in third trimester; CF (cystic fibrosis) ([facility]); Respiratory system disease affecting , antepartum; Bipolar disease during , antepartum ([facility]); H/O macrosomia in infant in prior , currently ; Rubella non-immune status, antepartum; Rh negative, antepartum Allergies No known active allergiesdocumented as of this encounter (statuses as of 12/26/2023) Medications Medication Sig Dispensed Refills Start Date End Date Status COMPRESSOR/NEBULIZER MISCIndications:Cyst ic fibrosis (HCC) Use as directed 1 Device 0 05/31/2012 Active Additional Information Patient not taking.Reported on 07/21/2023 JUAN CARLOS LC PLUS NEBULIZER MISCIndications:Cyst ic fibrosis with pulmonary manifestations (HCC) Use daily with Rpwwi-Wue-xylawqrt device 1 Device 5 06/13/2012 Active Additional [...] Information Patient not taking.Reported on 11/14/2023 Pancrelipase, Aex-Pqts-Dpuh, (ZENPEP) [id number] units CPEPIndications:Cyst ic fibrosis (HCC) Take 6 [...] MG Oral Tablet Take by mouth. Active Merku Flex System w/Device Kit Use to test blood sugars 4 times daily (fasting, 1 hour after breakfast, lunch, and dinner) 1 Kit 07/18/2023 Active CustExio In Vitro Strip (Glucose Blood) Use to test blood sugars 4 times daily (fasting, 1 hour after breakfast, lunch, and dinner) 125 Strip 6 07/18/2023 Active Spectral Edge DelSafeTool Lancets 30G Use to test blood sugars [...] & 150 MG Oral Tablet Therapy Pack (Iucwxpsg-Ghbcgpv-Oc acaf & Ivacaf)Indications:C ystic fibrosis with pulmonary [...] infection complicating 06/09 Overview: + test at [facility], sent azithromycin High-risk 06/08/2023 Last Assessment & Plan: I reviewed the ultrasound. The anatomy that was visualized is appropriate for the gestational age. Respiratory system disease affecting , antepartum 06/08/2023 Overview: Cystic fibrosis Follows with [facility] Denies complications with cystic fibrosis in last 06/08/23 MF genetic counseling referral placed Per [facility]: Prothrombin time each trimester Growth scans [...] Stable (<50%) 08/28/23: RPM reviewed; stable overall 09/05/20238434-HNX-yigdptun 5 of 7 days in the past week; stable 09/12/23: RPM reviewed; Stable 09/19/23: RPM reviewed; Stable. Not testing every day. 09/26/23: RPM reviewed; Stable; more consistent reporting 10/03/23: RPM reviewed; Stable but not testing consistently. 10/10/20234344-CDA-rqdcjcmu 2 days along with 2 additional fasting blood sugars. Messaged patient to be consistent with testing and reporting. 10/17/23: RPM reviewed; several missed readings, but overall stable 10/24/20234936-NRS-xvqrvvag 3 of past 6 days; overall stable. Messaged to test four times daily and report. 10/31/20235809-BDF-efoill 11/06/20234683-OUD-dnywskub 5 of 7 days; stable 11/14/20231532-PYQ-fyqweyhj 3 of past 7 days. Messaged to be consistent with testing and reporting. 11/21/20232300-RHH-uzeyju 11/27/23: RPM reviewed; Stable but missing some values - requested updated log of missing values 12/05/20238658-OXT-opfvlf 12/12/20232004-SWB-beatkogn 5 of 7 days in the past week. Stable 12/19/23: RPM reviewed; a few missing days but all reported readings stable. 12/26/20231940-KMW-tedapwjq 4 of the past 7 days; stable. [...] 11/20/2001 Malabsorption 08/29/2001 Cystic Fibrosis ( homozygous [id number]) Estimated Date of Delivery Comme nts Yes [...] (boneless & skinless & in olive oil), [place] mackerel (i.e. not Bereket mackerel), or cooked [...] mRNA, LNP-s, No Pre serve, 2-Dose Series (Endorphin) 06/01/2021,11/16/2020,10/26/2020 H1N1 2009 Influenza, IM 03/27/2009 Meningococcal Conjugate Vacc ine (Menactra/Menveo) 07/14/2015,05/18/2010 Pneumococcal Conjugate Vacci ne, 20-valent (Tayyxro19) 03/31/2022 Pneumococcal Polysaccharide PPV23 (Pneumovax) 03/05/2019 Seasonal [...] money to get more. Never true 12/05/2023 [place] Depression Scale Answer Date Recorded [place] Depression Scale Total 5 06/08/2023 The thought [...] Sign Reading Time Taken Comments Blood Pressure 94/66 12/26/2023 1:39 PM EDT Pulse - - Temperature - - Respiratory Rate - - Oxygen Saturation - - Inhaled Oxygen Concentration - - Weight 92.1 kg (203 lb) 12/26/2023 1:39 PM EDT Height 162.6 cm (5' 4") 12/26/2023 1:39 PM EDT Body Mass Index 34.84 12/26/2023 1:39 PM EDT documented in this [...] Progress Notes * Radha Diaz CRNP - 12/26/2023 2:07 PM EDT ASSESSMENT assessment with Non-stress Test completed on 12/26/2023 at 35.1weeks gestation for indication of CF heart baseline: 135 bpm Variability: Moderate Decelerations: absent Accelerations: present Contractions: None NST start time: 1324 NST stop time: 1357 NST strip reviewed, interpreted, and approved by OB Radha roberson CRNP . NST strip stored in clinic storage file documented in this encounter Nursing Notes * Massiel Keith LPN - 12/26/2023 1:41 PM EDT 35w1d NST documented in this encounter Plan of Treatment Upcoming Encounters Date Type Department Care Team (Late st Contact Info) Description 12/28/2023 9:30 AM EDT Imaging Maternal Medicine Imaging, [place] [address] [place] [phone] 12/28/2023 9:30 AM EDT Office Visit Windows Desktop Engineer Obstetrics Maternal Medicine, [place] [address] [place] [address] Wilda Qiu, DO [address] [facility] [place], [place] [address] 12/29/2023 1:45 PM EDT Office Visit Gynecology/Obstetrics [facility] [address] [place] [address] Radha Diaz CRNP [address] [place] [address] Adebayo Non Stress Tests [place] [address] [place] [address] 01/02/2024 1:45 PM EDT Office Visit Gynecology/Obstetrics [facility] [address] [place] [address] Radha Diaz CRNP [address] [place] [address] Adebayo Non Stress Tests [place] [address] [place] [address] 01/05/2024 1:45 PM EDT Office Visit Gynecology/Obstetrics [facility] [address] [place] [address] Radha Diaz CRNP [address] [place] [address] Adebayo, Non Stress Tests [place] [address] [place] [address] 01/09/2024 1:45 PM EDT Office Visit Gynecology/Obstetrics [facility] [address] [place] [address] Radha Diaz CRNP [address] [place] [address] Adebayo Non Stress Tests [place] [address] [place] [address] 01/11/2024 9:30 AM EDT Office Visit Pulmonary Medicine, [facility] [address] [place] [address] Micaela Holly, [address] [place] [address] 01/12/2024 1:45 PM EDT Office Visit Gynecology/Obstetrics [facility] [address] [place] [address] Radha Diaz CRNP [address] [place] [address] Adebayo Non Stress Tests [place] [address] [place] [address] 01/16/2024 1:45 PM EDT Office Visit Gynecology/Obstetrics [facility] [address] [place] [address] Radha Diaz COMMERCIAL HORTICULTURE INSTRUCTOR [address] [place] [address] Adebayo Non Stress Tests [place] [address] [place] [address] 01/19/2024 1:45 PM EDT Office Visit Gynecology/Obstetrics [facility] [address] [address] Radha Diaz CRNP [address] [place] [address] [place], Non Stress Tests [place] [address] [place] [address] 01/26/2024 1:45 PM EDT Office Visit Gynecology/Obstetrics [facility] [address] [place] [address] Radha Diaz CRNP [address] [place] [address] Adebayo, Non Stress Tests [place] [address] [place] [address] 02/05/2024 10:00 AM EDT Telemedicine Psychiatry [facility] [address] [place] [address] Catina Araiza CRNP [address] [place] [address] Health Maintenance Due Date Last [...] non-immune status, antepartum Other specified complication, antepartum Rh negative, antepartum Rhesus isoimmunization affecting management of mother, antepartum condition documented in this encounter Additional Health Concerns [...]
--- OUTSIDE RECORDS SUMMARY | 2024-01-24 09:15 | External Medical Summary | Summary of Care ---
Author Name Unknown Organization [facility] Address [address] [place] [address] Phone [phone] Care Team Providers Care Tax Accounting Assistant Name Role Phone Unavailable Primary Care Provider Unavailabl e Encounter Details Date Type Department Care Team (Late st Contact Info) Description 12/28/2023 9:30 AM EDT Office Visit [facility] M[facility], [address] [place] [address] Wilda Qiu, DO [address] [place] [address] H/O macrosomia in in prior [...] with pulmonary manifestations (HCC) Use daily with Cicns-Odc-rcfayszu device 1 Device 5 06/13/2012 Active Additional [...] Information Patient not taking.Reported on 11/14/2023 Pancrelipase, Utd-Ohdz-Uewm, (ZENPEP) [id number] units CPEPIndications:Cyst ic fibrosis (HCC) Take 6 [...] MG Oral Tablet Take by mouth. Active Amperion Flex System w/Device Kit Use to test blood sugars 4 times daily (fasting, 1 hour after breakfast, lunch, and dinner) 1 Kit 07/18/2023 Active Amperion In Vitro Strip (Glucose Blood) Use to test blood sugars 4 times daily (fasting, 1 hour after breakfast, lunch, and dinner) 125 Strip 6 07/18/2023 Active GAMINSIDE DelInventys Thermal Technologies Lancets 30G Use to test blood sugars [...] & 150 MG Oral Tablet Therapy Pack (Zufvdrlm-Mwbsxhg-Io acaf & Ivacaf)Indications:C ystic fibrosis with pulmonary [...] patient about calling to get enrolled in [facility] 08/22/23: RPM; a couple elevated PP values; overall Stable (<50%) 08/28/23: RPM reviewed; stable overall 09/05/20232529-HOL-ewelywbi 5 of 7 days in the past week; stable 09/12/23: RPM reviewed; Stable 09/19/23: RPM reviewed; Stable. Not testing every day. 09/26/23: RPM reviewed; Stable; more consistent reporting 10/03/23: RPM reviewed; Stable but not testing consistently. 10/10/20233094-KFA-vbbmweun 2 days along with 2 additional fasting blood sugars. Messaged patient to be consistent with testing and reporting. 10/17/23: RPM reviewed; several missed readings, but overall stable 10/24/20239177-YOQ-ymrrvoor 3 of past 6 days; overall stable. Messaged to test four times daily and report. 10/31/20234981-XFD-mtdnei 11/06/20236568-QKC-gfxpqxek 5 of 7 days; stable 11/14/20232504-FGO-dfmatfbd 3 of past 7 days. Messaged to be consistent with testing and reporting. 11/21/20231103-NQQ-jpyauk 11/27/23: RPM reviewed; Stable but missing some values - requested updated log of missing values 12/05/20234247-EQN-suchbm 12/12/20239128-GOF-aaeswuzb 5 of 7 days in the past week. Stable 12/19/23: RPM reviewed; a few missing days but all reported readings stable. 12/26/20237563-LIP-fbsoxuox 4 of the past 7 days; stable. [...] 11/20/2001 Malabsorption 08/29/2001 Cystic Fibrosis ( homozygous [id number]) Estimated Date of Delivery Comme nts Yes [...] follows with behavioral health provider here at [facility]. DISCUSSION: 1. and [...] (boneless & skinless & in olive oil), [place] mackerel (i.e. not [place] mackerel), or cooked [...] mRNA, LNP-s, No Pre serve, 2-Dose Series ([employer]) 06/01/2021,11/16/2020,10/26/2020 H1N1 2008 Influenza, IM 03/27/2009 Meningococcal Conjugate Vacc ine (Menactra/Menveo) 07/14/2015,05/18/2010 Pneumococcal Conjugate Vacci ne, 20-valent (Chzltek51) 03/31/2022 Pneumococcal Polysaccharide PPV23 (Pneumovax) 03/05/2019 Seasonal [...] money to get more. Never true 12/05/2023 [place] Depression Scale Answer Date Recorded [place] Depression Scale Total 5 06/08/2023 The thought [...] gestational diabetes mellitus (GDM) H/O macrosomia in in prior , currently - Primary Excessive [...] [place] [address] [place], [place] [address] Radha Diaz CRNP [address] [place] [address] Adebayo Non Stress Tests [facility] [address] [place] [address] 01/02/2024 1:45 PM EDT Office Visit Gynecology/Obstetrics Alisa [facility] [address] [place] [address] Radha Diaz CRNP [address] [place] [address] Adebayo Non Stress Tests [place] [address] [place] [address] 01/05/2024 1:45 PM EDT Office Visit Gynecology/Obstetrics Alisa [place] [address] [place] [address] Radha Diaz CRNP [address] [place] [address] Adebayo Non Stress Tests [place] [address] [place] [address] 01/09/2024 1:45 PM EDT Office Visit Gynecology/Obstetrics [facility] [address] [place] [address] Radha Diaz CRNP [address] [place] [address] Adebayo, Non Stress Tests [place] [address] [place] [address] 01/11/2024 9:30 AM EDT Office Visit Pulmonary Medicine, [place] [address] [place] [address] [facility] [address] [place] [address] 01/12/2024 1:45 PM EDT Office Visit Gynecology/Obstetrics [facility] [address] [place] [address] Radha Diaz CRNP [address] [place] [address] Adebayo Non Stress Tests [place] [address] [place] [address] 01/16/2024 1:45 PM EDT Office Visit Gynecology/Obstetrics [facility] [address] [place] [address] Radha Diaz CRNP [address] [place] [address] Adebayo Non Stress Tests [place] [address] [place] [address] 01/19/2024 1:45 PM EDT Office Visit Gynecology/Obstetrics [facility] [address] [place] [address] Radha Diaz CRNP [address] [place] [address] Fiore, Non Stress Tests [place] [address] [facility] [place] [address] 01/26/2024 1:45 PM EDT Office Visit Gynecology/Obstetrics Alisa Rolons [address] [facility] [place] [address] Radha Diaz CRNP [address] [facility] [address] Adebayo Non Stress Tests [place] [address] [facility] [place] [address] 02/05/2024 10:00 AM EDT [facility] [address] [place] [address] Catina Araiza CRNP [address] [place] [address] Health Maintenance Due Date Last [...]
--- OUTSIDE RECORDS SUMMARY | 2024-01-24 09:15 | External Medical Summary | Summary of Care ---
Author Name Unknown Organization [facility] Address [address] [facility] [place] [address] Phone [phone] Care Team Providers Care Toolmaker Grade Three Name Role Phone Unavailable Primary Care Provider Unavailabl e Reason for Visit * Reason Comments Return Visit Encounter Details Date Type Department Care Team (Late st Contact Info) Description 12/22/2023 11:00 AM EDT Office Visit Gynecology/Obstetric s [facility] [place] [address] [place] [address] Ling Leonard CRNP [address] [place] [address] Adebayo, Non Stress Tests [place] [address] [place] [address] High-risk in third trimester*; Rh negative, antepartum; Diet controlled gestational diabetes mellitus (GDM) in third trimester; CF (cystic fibrosis) ([facility]); Respiratory system disease affecting , antepartum; Bipolar disease during in third trimester ([facility]); H/O macrosomia in in prior , currently ; Rubella non-immune status, antepartum; Chlamydia infection affecting in third trimester; Non-reactive NST (non-stress test) Allergies No known active allergiesdocumented as of this encounter (statuses as of 12/22/2023) Medications Medication Sig Dispensed Refills Start Date End Date Status COMPRESSOR/NEBULIZER MISCIndications:Cyst ic fibrosis (HCC) Use as directed 1 Device 0 05/31/2012 Active Additional Information Patient not taking.Reported on 07/21/2023 JUAN CARLOS LC PLUS NEBULIZER MISCIndications:Cyst ic fibrosis with pulmonary manifestations (HCC) Use daily with Ndeyz-Wbf-gzqbdyxy device 1 Device 5 06/13/2012 Active Additional [...] Information Patient not taking.Reported on 11/14/2023 Pancrelipase, Sdx-Pacx-Yxjb, (ZENPEP) [id number] units CPEPIndications:Cyst ic fibrosis (HCC) Take 6 [...] MG Oral Tablet Take by mouth. Active [employer] Flex System w/Device Kit Use to test blood sugars 4 times daily (fasting, 1 hour after breakfast, lunch, and dinner) 1 Kit 07/18/2023 Active Musical SneakersTouch Slingrio In Vitro Strip (Glucose Blood) Use to test blood sugars 4 times daily (fasting, 1 hour after breakfast, lunch, and dinner) 125 Strip 6 07/18/2023 Active Musical SneakersTouch Delica Lancets 30G Use to test blood [...] & 150 MG Oral Tablet Therapy Pack (Hgxeobkv-Gnytllm-Hg acaf & Ivacaf)Indications:C ystic fibrosis with pulmonary [...] as of this encounter (statuses as of 12/22/2023) Active Problems Problem Noted Date Diagnosed Date Excessive growth affec ting management of in third trimester 12/01/2023 Last Assessment & Plan: EFW today at Rubella non-immune status, antepartum 06/09/2023 Chlamydia infection complicating 06/09 Overview: + test at [facility], sent azithromycin High-risk 06/08/2023 Last Assessment & Plan: I reviewed the ultrasound. The anatomy that was visualized is appropriate for the gestational age. Respiratory system disease affecting , antepartum 06/08/2023 Overview: Cystic fibrosis Follows with [facility] Denies complications with cystic fibrosis in last 06/08/23 MF genetic counseling referral placed Per [facility]: Prothrombin time each trimester Growth scans [...] Stable (<50%) 08/28/23: RPM reviewed; stable overall 09/05/20238280-JHY-nspseqmi 5 of 7 days in the past week; stable 09/12/23: RPM reviewed; Stable 09/19/23: RPM reviewed; Stable. Not testing every day. 09/26/23: RPM reviewed; Stable; more consistent reporting 10/03/23: RPM reviewed; Stable but not testing consistently. 10/10/20234854-EVT-aqvxjgse 2 days along with 2 additional fasting blood sugars. Messaged patient to be consistent with testing and reporting. 10/17/23: RPM reviewed; several missed readings, but overall stable 10/24/20239538-GZC-hsyhatii 3 of past 6 days; overall stable. Messaged to test four times daily and report. 10/31/20231971-UCI-wseztv 11/06/20233141-RYZ-qodjxpzm 5 of 7 days; stable 11/14/20237070-RQS-gmcppgik 3 of past 7 days. Messaged to be consistent with testing and reporting. 11/21/20239022-SLH-guqbzj 11/27/23: RPM reviewed; Stable but missing some values - requested updated log of missing values 12/05/20232157-VOC-alqfeo 12/12/20239514-IPW-phenbpyf 5 of 7 days in the past week. Stable 12/19/23: RPM reviewed; a few missing days but all reported readings stable. Last Assessment & Plan: Working with [facility]. [...] 11/20/2001 Malabsorption 08/29/2001 Cystic Fibrosis ( homozygous [id number]) Estimated Date of Delivery Comme nts Yes 01/29/2024 Based on Ultraso und documented as of this encounter (statuses as of 12/22/2023) Resolved Problems Problem Noted Date Diagnosed Date [...] follows with behavioral health provider here at [facility]. DISCUSSION: 1. and delivery can worsen the [...] (boneless & skinless & in olive oil), [place] mackerel (i.e. not [place]re[place] mackerel), or cooked [...] human reports are available. High-risk 04/15/2020 06/07/19 Need for rubella vaccination 03/19/2020 06/07/2023 Respiratory [...] as of this encounter (statuses as of 12/22/2023) Immunizations Name Administration Dates Next Due COVID-19 mRNA, LNP-s, No Pre serve, 2-Dose Series ([employer]) 06/01/2021,11/16/2020,10/26/2020 H1N1 2009 Influenza, IM 03/27/2009 Meningococcal Conjugate Vacc ine (Menactra/Menveo) 07/14/2015,05/18/2010 Pneumococcal Conjugate Vacci ne, 20-valent ([id number]) 03/31/2022 Pneumococcal Polysaccharide PPV23 (Pneumovax) 03/05/2019 Seasonal [...] money to get more. Never true 12/05/2023 [place] Depression Scale Answer Date Recorded [place] Depression Scale Total 5 06/08/2023 The thought [...] - - Weight 90.7 kg (200 lb) 12/22/2023 10:55 AM EDT Height 162.6 cm (5' 4") 12/22/2023 10:55 AM EDT Body Mass Index 34.33 12/22/2023 10:55 AM EDT documented in this encounter Functional [...] Progress Notes * Ling Leonard CRNP - 12/22/2023 10:53 AM EDT ASSESSMENT assessment with Non-stress Test completed on 12/22/2023 at 34.4 weeks gestation for indication of CF heart baseline: 130 bpm Variability: Moderate Decelerations: absent Accelerations: present x1 Contractions: Present occasional NST start time: 1050 NST stop time: 1137 NST strip reviewed, interpreted, and approved by OB provider, LAMIN Melton . NST strip stored in clinic storage file BPP for non-reactive NST 12/27 documented in this encounter Plan of Treatment Upcoming Encounters Date Type Department Care Team (Late st Contact Info) Description 12/22/2023 2:45 PM EDT Imaging Radiology [address] [place] [address] High-risk in third trimester; CF (cystic fibrosis) (HCC); Non-reactive NST (non-stress test) 12/26/2023 1:45 PM EDT Office Visit Gynecology/Obstetric s Alisa Rolons [address] [place] [address] Radha Diaz CRNP [address] [place] [address] Fiore, Non Stress Tests [place] [address] [place] [address] 12/28/2023 9:30 AM EDT Imaging Maternal Medicine Imaging, [place] [address] [place] [id number] 12/29/2023 1:45 PM EDT Office Visit Gynecology/Obstetric s Alisa Rolons [address] [place] [address] Radha Diaz CRNP [address] [place] [address] Fiore, Non Stress Tests [place] [address] [place] [address] 01/02/2024 1:45 PM EDT Office Visit Gynecology/Obstetric s Alisa Rolons [address] [place] [address] Radha Diaz CRNP [address] [place] [address] Fiore, Non Stress Tests [place] [address] [place] [address] 01/05/2024 1:45 PM EDT Office Visit Gynecology/Obstetric s Alisa Rolons [address] [place] [address] Radha Diaz CRNP [address] [place] [address] Fiore, Non Stress Tests [place] [address] [place] [address] 01/09/2024 1:45 PM EDT Office Visit Gynecology/Obstetric s [facility] [address] [place] [address] Radha Diaz CRNP [address] [place] [address] Fiore, Non Stress Tests [place] [address] [place] [address] 01/11/2024 9:30 AM EDT Office Visit Pulmonary Medicine, [place] [address] [place] [address] Micaela Holly, [address] [place] [address] 01/12/2024 1:45 PM EDT Office Visit Gynecology/Obstetric s [facility] [address] [place] [address] Radha Diaz CRNP [address] [place] [address] Fiore, Non Stress Tests [place] [address] [place] [address] 01/16/2024 1:45 PM EDT Office Visit Gynecology/Obstetric s [facility] [address] [place] [address] Radha Diaz CRNP [address] [place] [address] Fiore, Non Stress Tests [place] [address] [place] [address] 01/19/2024 1:45 PM EDT Office Visit Gynecology/Obstetric s Alisa Fi[facility] [address] [place] [address] Radha Diaz CRNP [address] [place] [address] Fiore, Non Stress Tests [place] [address] [place] [address] 01/26/2024 1:45 PM EDT Office Visit Gynecology/Obstetric s Alisa Fiore [address] [place] [address] Radha Diaz CRNP [address] [place] [address] Adebayo Non Stress Tests [place] [address] [place] [address] 02/05/2024 10:00 AM EDT Telemedicine Psychiatry [facility] [place] [address] [place] [address] Catina Araiza CRNP [address] [place] [address] Pending Results Name Type Priority Associated Diagnoses Date /Time US BPP W/O NON-STRESS TEST Medical Imaging Routine High-risk in third trimester CF (cystic fibrosis) (HCC) Non-reactive NST (non-stress test) 12/22/2023 12:02 PM EDT Scheduled Orders Name Type Priority Associated Diagnoses Orde r Schedule US BPP W/O NON-STRESS TEST Medical Imaging Routine High-risk in third trimester CF (cystic fibrosis) (HCC) Non-reactive NST (non-stress test) Expected: 12/22/2023, Expires: 01/21/2025 Health Maintenance Due Date Last Done Comments [...] antepartum Chlamydia infection affecting in third trimester Non-reactive NST (non-stress test) Abnormal findings on screening High-risk in third trimester CF (cystic fibrosis) (HCC) Cystic fibrosis without mention of meconium ileus Non-reactive NST (non-stress test) Abnormal findings on screening documented in this [...]
--- NOTE | 2024-01-24 09:16 | History & Physical Bridge Note ---
Date of Service January 24, 2024 History & Physical Bridge Note I have examined the patient, reviewed the History & Physical and in the interval since the performance of the History & Physical I have noted the following changes of clinical significance: no changes noted Bed side US: denice
--- OUTSIDE RECORDS SUMMARY | 2024-01-24 09:16 | External Medical Summary | Summary of Care ---
Author Name Unknown Organization [facility] Address [address] [place] [address] Phone [phone] Care Team Providers Care Cork Cutter Name Role Phone Unavailable Primary Care Provider Unavailabl e Encounter Details Date Type Department Care Team (Late st Contact Info) Description 11/30/2023 9:30 AM EDT Office Visit Hardboard Press Operator Obstetrics Maternal Medicine, [address] [place] [address] Wilda Qiu, DO [address] [place] [address] Diet controlled gestational diabetes mellitus (GDM) in third trimester*; CF (cystic fibrosis) (HCC); Ultrasound for screening for growth restriction; 31 weeks gestation of Allergies No known active allergiesdocumented as of this encounter (statuses as of 12/01/2023) Medications Medication Sig Dispensed Refills Start Date End Date Status COMPRESSOR/NEBULIZER MISCIndications:Cyst ic fibrosis (HCC) Use as directed 1 Device 0 05/31/2012 Active Additional Information Patient not taking.Reported on 07/21/2023 JUAN CARLOS LC PLUS NEBULIZER MISCIndications:Cyst ic fibrosis with pulmonary manifestations (HCC) Use daily with Ycora-Ajs-vanjorcn device 1 Device 5 06/13/2012 Active Additional Information Patient not taking.Reported on 07/21/2023 SIDESTREAM NEBULIZER-REUSABLE MISCIndications:Cyst ic fibrosis with pulmonary [...] Information Patient not taking.Reported on 11/14/2023 Pancrelipase, Ejt-Jfni-Sjfv, (ZENPEP) [id number] units CPEPIndications:Cyst ic fibrosis (HCC) Take 6 [...] MG Oral Tablet Take by mouth. Active 10BestThings Flex System w/Device Kit Use to test blood sugars 4 times daily (fasting, 1 hour after breakfast, lunch, and dinner) 1 Kit 07/18/2023 Active 10BestThings In Vitro Strip (Glucose Blood) Use to test blood sugars 4 times daily (fasting, 1 hour after breakfast, lunch, and dinner) 125 Strip 6 07/18/2023 Active imagoo Delica Lancets 30G Use to test blood [...] & 150 MG Oral Tablet Therapy Pack (Semdyioo-Xkjmrxj-Eb acaf & Ivacaf)Indications:C ystic fibrosis with pulmonary [...] as of this encounter (statuses as of 12/01/2023) Active Problems Problem Noted Date Diagnosed Date Excessive growth affec ting management of in third trimester 12/01/2023 Last Assessment & Plan: EFW today at [place] non-immune status, antepartum 06/09/2023 Chlamydia infection complicating 06/09 Overview: + test at [facility], sent azithromycin High-risk 06/08/2023 Last Assessment & Plan: I reviewed the ultrasound. The anatomy that was visualized is appropriate for the gestational age. Respiratory system disease affecting , antepartum 06/08/2023 Overview: Cystic fibrosis Follows with [facility] Denies complications with cystic fibrosis in last 06/08/23 MFM genetic counseling referral placed Per [facility]: Prothrombin time each trimester Growth scans [...] Stable (<50%) 08/28/23: RPM reviewed; stable overall 09/05/20238967-WDC-pmrktqsx 5 of 7 days in the past week; stable 09/12/23: RPM reviewed; Stable 09/19/23: RPM reviewed; Stable. Not testing every day. 09/26/23: RPM reviewed; Stable; more consistent reporting 10/03/23: RPM reviewed; Stable but not testing consistently. 10/10/20234500-SAG-sikkpepe 2 days along with 2 additional fasting blood sugars. Messaged patient to be consistent with testing and reporting. 10/17/23: RPM reviewed; several missed readings, but overall stable 10/24/20230794-IDQ-wratgybs 3 of past 6 days; overall stable. Messaged to test four times daily and report. 10/31/20234221-SSX-empfji 11/06/20235946-THD-rehcqill 5 of 7 days; stable 11/14/20236539-EZV-sfpiiohm 3 of past 7 days. Messaged to be consistent with testing and reporting. 11/21/20230266-UXX-fyzpzw 11/27/23: RPM reviewed; Stable but missing some values - requested updated log of missing values Last Assessment & Plan: Working with [facility]. 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 DISCUSSION: 1. and delivery [...] (boneless & skinless & in olive oil), Philo mackerel (i.e. not Bereket mackerel), or cooked [...] as of this encounter (statuses as of 12/01/2023) Immunizations Name Administration Dates Next Due COVID-19 mRNA, LNP-s, No Pre serve, 2-Dose Series (Clavister) 06/01/2021,11/16/2020,10/26/2020 H1N1 2009 Influenza, IM 03/27/2009 Meningococcal Conjugate Vacc ine (Menactra/Menveo) 07/14/2015,05/18/2010 Pneumococcal Conjugate Vacci ne, 20-valent (Xsuqwat45) 03/31/2022 Pneumococcal Polysaccharide PPV23 (Pneumovax) 03/05/2019 Seasonal [...] the money to buy more. Never true 12/14/19 23 Within the past 12 months, t he food you bought just didn't last and you didn't have money to get more. Never true 12/13/2022 [place] Depression Scale Answer Date Recorded [place] Depression Scale Total 5 06/08/2023 The thought of harming myself has occurred to me . Never 06/08/2023 Childcare Answer Date Recorded Do you feel overwhelmed with taking care of a child, family member or friend? No 12/13/2022 Does your family need help f inding childcare? (Household - for ages 0-17 years) Not on file 12/13/2022 Clothing Answer Date Recorded Have you been unable to get clothing when it was really needed? No 12/13/2022 Is your family able to get c lothes or diapers when needed? (Household - for ages 0-17 years) Not on file 12/13/2022 Personal Safety Answer Date Recorded Do you feel unsafe or have concerns for your saf ety? No 12/13/2022 Do you have concerns for you r family's safety? (Household - for ages 0-17 years) Not on file 12/13/2022 Utilities Answer Date Recorded Do you have trouble paying y our heating, water, or electric bill? No 12/13/2022 Is your family able to pay t he heat, water, or electric bill? (Household - for ages 0-17 years) Not on file 12/13/2022 Does your family have access to good internet? (Household - for ages 0-17 years) Not on file 12/13/2022 Employment Status Answer Date Recorded Are you unemployed or without regular income? No 12/13/2022 Does the household have a re gular source of income? (Household - for ages 0-17 years) Not on file 12/13/2022 Social Connections Answer Date Recorded How often do you feel lonely or isolated from th ose around you? Never 12/13/2022 Financial Resource Strain Answer Date R ecorded Do you have any trouble payi ng for your medications, or do you think you might in the future? No 12/13/2022 Does your family have troubl e paying for medicine? (Household - for ages 0-17 years) Not on file 12/13/2022 Transportation Needs Answer Date Record ed READ ONLY Do you have troubl e getting a ride to medical visits or work? Never True 12/13/2022 Does your family have a hard time getting a ride to doctors visits? (Household - for ages 0-17 years) Not on file 12/13/2022 Has lack of transportation k ept you from medical appointments, meetings, work, or from getting things needed for daily living? Check all that apply. (Adult - for ages 18 years and over) Not on file 12/13/2022 Do you (or your family) have trouble finding or paying for a ride (transportation)? (Household - for ages 0-17 years) Not on file 12/13/2022 Housing Stability Answer Date Recorded Do you currently live in a s helter or have no steady place to sleep at night? No 12/13/2022 READ ONLY Do you think you a re at risk of becoming homeless? No 12/13/2022 Does your family worry about paying for your home or becoming homeless? (Household - for ages 0-17 years) Not on file 0 12/13/2022 Are you homeless or worried that you might be in the future? (Adult - for ages 18 years and over) Not on file Are you (or your family) ben eless or worried that you might be in the future? (Household - for ages 0-17 years) Not on file Food Insecurity Answer Date Recorded Do you need food for this week? No 12/13/2022 Are you able to get enough f ood for your family? (Household - for ages 0-17 years) Not on file 12/13/2022 Does your family need food t his week? (Household - for ages 0-17 years) Not on file 12/13/2022 Do you always have enough fo od for your family? (Household - for ages 0-17 years) Not on file 12/13/2022 Estimated Date of Delivery Comme nts Yes [...] this encounter Progress Notes * Wilda Qiu, DO - 12/01/2023 8:35 AM EDT Monica presented today at 31w3d for an ultrasound for the following indications: Diet controlled gestational diabetes mellitus (GDM) in third trimester CF (cystic fibrosis) ([facility]) Ultrasound for screening for growth restriction 31 weeks gestation of Ultrasound summary: Patient presented for growth assessment at 31w 3d. Large AC noted at >99% with overall EFW of 2106 g at 86%. AILEEN 18.2 cm. Breech presentation. I reviewed the ultrasound images. Monica was given the opportunity to meet with me if she had any questions. Please refer to the ultrasound report for additional details about today's ultrasound examination. RECOMMENDATIONS: Recommend follow up ultrasound with MFM in 4-6 weeks for growth secondary to above indications. See prior formal MFM consultation note. Thank you for allowing us to participate in the care of this patient. Please call with any questions. Wilda Qiu DO 12/01/2023 8:35 AM documented in this encounter Miscellaneous Notes * Assessment & Plan Note - Wilda Qiu DO - 12/01/2023 9:29 AM EDT Associated Problem(s): Excessive growth affecting management of in third trimester EFW today at * Assessment & Plan Note - Wilda Qiu DO - 12/01/2023 9:28 AM EDT Associated Problem(s): Diet controlled gestational diabetes mellitus (GDM) Working with [facility]. documented in this encounter Plan of Treatment Upcoming Encounters Date Type Department Care Team (Late st Contact Info) Description 12/05/2023 10:00 AM EDT Telemedicine Psychiatry Erika Chambers [address] [place] [place] [id number] [facility] [address] [facility] [address] 12/05/2023 1:45 PM EDT Office Visit Gynecology/Obstetrics Leandro'padma Rolons [address] [place] [address] Radha Diaz CRNP [address] [place] [address] Fiore, Non Stress Tests Guerrero [address] [place] [address] 12/08/2023 1:45 PM EDT Office Visit Gynecology/Obstetrics Leandro'padma Rolons [address] [place] [address] Radha Diaz CRNP [address] [place] [address] Adebayo Non Stress Tests Guerrero [address] [place] [address] 12/12/2023 1:45 PM EDT Office Visit Gynecology/Obstetrics Alisa Rolons [address] [place] [address] Radha Diaz CRNP [address] [place] [address] Fiore, Non Stress Tests Gu[place]ro [address] [place] [address] 12/15/2023 11:00 AM EDT Office Visit Gynecology/Obstetrics Sylvesters Fiore [address] [place] [address] Ling Leonard CRNP [address] [place] [address] Fiore, Non Stress Tests Guerrero [address] [place] [address] 12/19/2023 1:45 PM EDT Office Visit Gynecology/Obstetrics Alisa Fiore [address] [place] [address] Radha Diaz CRNP [address] [place] [address] Adebayo Non Stress Tests Guerrero [address] [place] [address] 12/22/2023 11:00 AM EDT Office Visit Gynecology/Obstetrics Alisa Fiore [address] [place], [place] [address] BackerLing CRNP [address] [place] [address] Scarlett Fiore Stress Tests [place] [place] [address] 12/26/2023 1:45 PM EDT Office Visit Gynecology/Obstetrics Alisa Fiore [address] [place] [address] Radha Diaz CRNP [address] [place], [place] [address] Scarlett Fiore Stress Tests [address] [place] [address] 12/28/2023 9:30 AM EDT Imaging Maternal Medicine Imaging, [address] [place] [phone] 12/29/2023 1:45 PM EDT Office Visit Gynecology/Obstetrics Alisa Fiore [address] [place], [place] [address] Radha Diaz CRNP [address] [place] [address] Scarlett Fiore Stress Tests [place] [address] [place] [address] 01/02/2024 1:45 PM EDT Office Visit Gynecology/Obstetrics Alisa Fiore [address] [place] [address] Radha Diaz CRNP [address] [place] [address] Scarlett Fiore Stress [facility] [address] [place] [address] 01/05/2024 1:45 PM EDT Office Visit Gynecology/Obstetrics Leandrocindy Fiore [address] [place], [place] [address] Radha Diaz CRNP [address] [place] [address] Scarlett Fiore Stress Tests [place] [address] [place] [address] 01/09/2024 1:45 PM EDT Office Visit Gynecology/Obstetrics Leandrocindy Fiore [address] [place], [place] [address] Radha Diaz CRNP [address] [place] [address] Scarlett Fiore Stress Tests [place] [address] [place] [address] 01/11/2024 9:30 AM EDT Office Visit Pulmonary Medicine, [place] [address], [place] [id number] Micaela Holly, [address] [facility] [place] [address] 01/12/2024 1:45 PM EDT Office Visit Gynecology/Obstetrics Alisa Rolons [address] [place] [address] Radha Diaz CRNP [address] [place] [address] Adebayo Non Stress Tests [place]ro [address] [place] [address] 01/16/2024 1:45 PM EDT Office Visit Gynecology/Obstetrics Alisa Fiore [address] [place] [address] Radha Diaz CRNP [address] [place] [address] Adebayo Non Stress Tests Gu[place]ro [address] [place] [address] 01/19/2024 1:45 PM EDT Office Visit Gynecology/Obstetrics Alisa Rolons [address] [place] [address] Radha Diaz CRNP [address] [place] [address] Adebayo Non Stress Tests Guerrero [address] [place] [address] 01/26/2024 1:45 PM EDT Office Visit Gynecology/Obstetrics Alisa Fiore [address] [place] [address] Radha Diaz CRNP [address] [place] [address] Adebayo Non Stress Tests Guerrero [address] [place] [address] Health Maintenance Due Date Last Done Comments [...] as of this encounter Visit Diagnoses Diagnosis Diet controlled gestational diabetes mellitus (GDM) in third trimester- Primary CF (cystic fibrosis) (HCC) Cystic fibrosis without mention of meconium ileus Ultrasound for screening for growth restriction screening for growth retardation using ultrasonics 31 weeks gestation of state, incidental documented in this encounter Additional Health Concerns [...]
--- OUTSIDE RECORDS SUMMARY | 2024-01-24 09:16 | External Medical Summary | Summary of Care ---
Author Name Unknown Organization [facility] Address [address] [place] [address] Phone [phone] Care Team Providers Care Chuck Splitter Name Role Phone Unavailable Primary Care Provider Unavailabl e Encounter Details Date Type Department Care Team (Late st Contact Info) Description 12/05/2023 10:00 AM EDT Telemedicine Psychiatry Sophia Chambers [address] [place] [phone] Catina Araiza CRNP [address] [place] [address] Bipolar 1 disorder (HCC)* Allergies No known active allergiesdocumented as of this encounter (statuses as of 12/11/2023) Medications Medication Sig Dispensed Refills Start Date End Date Status COMPRESSOR/NEBULIZER MISCIndications:Cyst ic fibrosis (HCC) Use as directed 1 Device 0 05/31/2012 Active Additional Information Patient not taking.Reported on 07/21/2023 JUAN CARLOS LC PLUS NEBULIZER MISCIndications: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 Active Touchtalent Flex System w/Device Kit Use to test blood sugars 4 times daily (fasting, 1 hour after breakfast, lunch, and dinner) 1 Kit 07/18/2023 Active Touchtalent In Vitro Strip (Glucose Blood) Use to test blood sugars 4 times daily (fasting, 1 hour after breakfast, lunch, and dinner) 125 Strip 6 07/18/2023 Active MedRunner Delica Lancets 30G Use to test blood [...] & 150 MG Oral Tablet Therapy Pack (Mlwjlqbz-Yubvvex-Cq acaf & Ivacaf)Indications:C ystic fibrosis with pulmonary [...] as of this encounter (statuses as of 12/11/2023) Active Problems Problem Noted Date Diagnosed Date [...] Stable (<50%) 08/28/23: RPM reviewed; stable overall 09/05/20239724-UUG-opgjpozn 5 of 7 days in the past week; stable 09/12/23: RPM reviewed; Stable 09/19/23: RPM reviewed; Stable. Not testing every day. 09/26/23: RPM reviewed; Stable; more consistent reporting 10/03/23: RPM reviewed; Stable but not testing consistently. 10/10/20233595-TYM-ckugafpn 2 days along with 2 additional fasting blood sugars. Messaged patient to be consistent with testing and reporting. 10/17/23: RPM reviewed; several missed readings, but overall stable 10/24/20232897-EKJ-znsfhxfa 3 of past 6 days; overall stable. Messaged to test four times daily and report. 10/31/20235563-ZKV-ucmhig 11/06/20239748-HUD-nexdomhg 5 of 7 days; stable 11/14/20237008-LUG-jcxgqjjo 3 of past 7 days. Messaged to be consistent with testing and reporting. 11/21/20238126-EDO-bezgfu 11/27/23: RPM reviewed; Stable but missing some values - requested updated log of missing values 12/05/20237649-WUG-owpahk Last Assessment & Plan: Working with [facility]. [...] 11/20/2001 Malabsorption 08/29/2001 Cystic Fibrosis ( homozygous [id number]) Estimated Date of Delivery Comme nts Yes 01/29/2024 Based on Ultraso und documented as of this encounter (statuses as of 12/11/2023) Resolved Problems Problem Noted Date Diagnosed Date [...] follows with behavioral health provider here at [facility]. DISCUSSION: 1. and delivery can worsen the [...] (boneless & skinless & in olive oil), [place] mackerel (i.e. not [place] mackerel), or cooked [...] as of this encounter (statuses as of 12/11/2023) Immunizations Name Administration Dates Next Due COVID-19 mRNA, LNP-s, No Pre serve, 2-Dose Series (CL3VER) 06/01/2021,11/16/2020,10/26/2020 H1N1 2008 Influenza, IM 03/27/2009 Meningococcal Conjugate Vacc ine (Menactra/Menveo) 07/14/2015,05/18/2010 Pneumococcal Conjugate Vacci ne, 20-valent (Wtjilwy48) 03/31/2022 Pneumococcal Polysaccharide PPV23 (Pneumovax) 03/05/2019 Seasonal [...] money to get more. Never true 12/05/2023 [place] Depression Scale Answer Date Recorded [place] Depression Scale Total 5 06/08/2023 The thought [...] as of this encounter Progress Notes * Catina Araiza CRNP - 12/05/2023 10:04 AM EDT OUTPATIENT PSYCHIATRY RETURN VISIT DIVISION OF PSYCHIATRY [facility] [address] Name: Monica Dickey : 1995 Date and Time Patient was Seen: 12/05/2023 at 10:06 AM Patient location: HOME. I was not in a hospital or clinic location. After connecting through [employer], patient was verified with two unique identifiers. Patient (or authorized legal entry level account representative) was then informed that this was a Telemedicine visit and being conducted confidentially over secure lines. Methods to assure confidentiality were taken. Patient acknowledged consent and understanding of privacy and security of the Telemedicine visit. The patient agreed to participate. Start Time: 10:00 am Stop Time: 10:30 am Physical Location of patient: Home CC: I am doing pretty well INTERVAL HISTORY: Patient states that she has been doing well and that her medications continue to work at their current dosages without side effects. She states that her symptoms of depression such as low mood, low energy, low motivation, feelings of excessive guilt, poor sleep, poor appetite and helplessness and hopelessness. Are currently in remission. States that she is not having any new anxious symptoms. Pt denies current or recent active or passive suicidal ideation. Denies experiencing any current or recent AVH, paranoia, and no other delusions endorsed. No signs or symptoms suggesting the presence of derian or psychosis present on exam today. Describes sleep and appetite as WNL. Discussed risks and benefits of medications. Discussed how to contact SENIOR SOFTWARE QUALITY ANALYST if needed through My Chart. DX: Bipolar 1 MEDICATION PLAN: CONTINUE Risperdal 1.5 mg QHS START Sertraline 50 mg QD AIMS: 0 [place]-SUICIDE SEVERITY RATING SCALE Frequent Screener Ask questions that are bold and underlined Since Last Contact (Ramses with an X) YES NO Have you actually had thoughts about killing yourself? x If YES, ask the following questions. If NO, go directly to the last question Have you been thinking about how you might do this? Have you had these thoughts and had some intention of acting on them? E.g. I thought about taking an overdose, but I never made a specific plan as to when where or how I would actually do it.and I would never go through with it. Have you started to work out or worked out the details of how to kill yourself? Do you intend to carry out this plan? As opposed to I have the thoughts, but I definitely will not do anything about them. Have you done anything, started to do anything, or prepared to do anything to end your life? Examples: Collected pills, obtained a gun, gave away valuables, wrote a will or suicide note, took out pills but didn't swallow any, held a gun but changed your mind or it was grabbed from your hand,went to the roof but didn't jump; or actually took pills, tried to shoot yourself, cut yourself, tried to hang yourself, etc. x Low Risk Complete or review crisis plan with patient Discuss risk/protective factors and reasons for living Moderate Risk Complete or review crisis plan with patient Discuss risk/protective factors and reasons for living Discuss removal of means High Risk Maintain 1 to 1 monitoring until assessment is completed Evaluate for higher level of care (Inpatient or PHP) Consultation with Emergency Services as appropriate If patient not admitted: Complete or review crisis plan with patient Discuss risk/protective factors and reasons for living Advise removal of means Consider family or collateral contact to promote safety Schedule follow up care consistent with assessment ALLERGIES Review of patient's allergies indicates: No Known Allergies CURRENT MEDICATIONS: Current Outpatient Medications Medication Sig Dispense Refill COMPRESSOR/NEBULIZER MISC Use as directed (Patient not taking: Reported on 07/21/2023) 1 Device 0 JUAN CARLOS LC PLUS NEBULIZER MISC Use daily with Jytjz-Wxn-zuphiwom device (Patient not taking: Reported on 07/21/2023) 1 Device 5 SIDESTREAM NEBULIZER-REUSABLE MISC Use daily with Pulmozyme (Patient not taking: Reported on 07/21/2023) 1 Device 5 albuterol sulfate (PROVENTIL) (2.5 MG/3ML) 0.083% nebulizer solution Inhale 1 Vial via nebulizer 2 times a day. May increase to every 4 hours as needed during exacerbations (Patient not taking: Reported on 11/14/2023) 360 Vial 1 Ferrous Sulfate (IRON) 325 (65 Fe) MG TABS Take 1 Tab by mouth daily. (Patient not taking: Reportedon 11/14/2023) 90 Tab 1 Calcium 500 MG Tablet Take 1 Tab by mouth daily. Unsure of dose 90 Tab 1 Ascorbic Acid (VITAMIN C) 100 MG Tablet Take 1 Tab by mouth daily. 90 Tab 1 dornase jamee (PULMOZYME) 1 MG/ML nebulizer solution Inhale 2.5 mg by mouth daily. (Patient not taking: Reported on 06/22/2023) 75 mL 5 Albuterol Sulfate (ALBUTEROL HFA) 108 (90 BASE) MCG/ACT inhaler Inhale 2 Puffs by mouth every 4 hours as needed for Cough, Shortness of Breath or Wheezing. (Patient not taking: Reported on 11/14/2023)18 g 5 Pancrelipase, Mte-Blyg-Zltm, (ZENPEP) 51601-69546 units CPEP Take 6 Caps by mouth three times a daywith meals. Take 4 caps with snacks. (Patient not taking: Reported on 11/14/2023) 2700 Cap 1 MVW Complete Formulation D3000 Oral Capsule Take 2 Capsules by mouth daily. 60 Capsule 5 Sodium Chloride 7 % Inhalation Nebulization Solution (Hyper-Benjamin) Inhale via nebulizer 4 mL in the morning AND 4 mL before bedtime. (Patient not taking: Reported on 06/22/2023) 720 mL 1 Fluticasone Propionate 50 MCG/ACT Nasal Suspension (Flonase) Administer into each nostril 2 Sprays in the morning. (Patient not taking: Reported on 11/14/2023) 16 g 5 Montelukast Sodium 10 MG Oral Tablet (Singulair) TAKE ONE TABLET BY MOUTH EVERY DAY 90 Tablet 3 28-0.8 MG Oral Tablet Take by mouth. Touchtalent Flex System w/Device Kit Use to test blood sugars 4 times daily (fasting, 1 hour after breakfast, lunch, and dinner) 1 Kit 0 Touchtalent In Vitro Strip (Glucose Blood) Use to test blood sugars 4 times daily (fasting, 1 hour after breakfast, lunch, and dinner) 125 Strip 6 MedRunner Delica Lancets 30G Use to test blood sugars 4 times daily (fasting, 1 hour after breakfast, lunch, and dinner) 200 Each 6 Cholecalciferol 125 MCG (5000 UT) Oral Tablet Take 10,000 Units by mouth every evening. 60 Tablet 5 risperiDONE 1 MG Oral Tablet (RisperDAL) Take 1.5 Tablets by mouth every night at bedtime. 135 Tablet 1 Sertraline HCl 50 MG Oral Tablet (Zoloft) Take 1 Tablet by mouth in the morning. 90 Tablet 1 Trikafta 100-50-75 & 150 MG Oral Tablet Therapy Pack (Ppvifhck-Luzsdnz-Zfyxkp & Ivacaf) Take 2 orange tablets by mouth in the morning and 1 light blue tablet by mouth in the evening. Take with fat-containing food. TAKE 2 ORANGE TABLETS BY MOUTH IN THE MORNING AND 1 LIGHT BLUE TABLET BY MOUTH IN THE EVENING. TAKE WITH FAT-CONTAINING FOOD 84 Each 5 No current facility-administered medications for this visit. RECENT LABS/IMAGING: Recent Results (from the past 672 hour(s)) TYPE AND SCREEN Collection Time: 11/08/23 1:27 PM Result Value Ref Range ABO B Rh Negative Red Blood Cell Antibody Screen Negative Specimen Expiration Date 11/11/2023 23:59 PT INR Collection Time: 11/08/23 1:27 PM Result Value Ref Range Prothrombin Time 12.2 11.6 - 15.2 seconds INR 0.9 0.8 - 1.2 APTT Collection Time: 11/08/23 1:27 PM Result Value Ref Range aPTT 25 21 - 38 seconds HEMOGLOBIN A1C Collection Time: 11/08/23 1:27 PM Result Value Ref Range Hemoglobin A1C 4.8 4.0 - 5.6 % Estimated Average Glucose 91 <126 mg/dL 25-HYDROXY VITAMIN D Collection Time: 11/08/23 1:27 PM Result Value Ref Range 25-Hydroxy Vitamin D 66 >19 ng/mL VITAMIN A (RETINOL) Collection Time: 11/08/23 1:27 PM Result Value Ref Range Vitamin A (Retinol) 34 (L) 38 - 98 mcg/dL VITAMIN E (TOCOPHEROL) Collection Time: 11/08/23 1:27 PM Result Value Ref Range Alpha-Tocopherol 12.3 5.7 - 19.9 mg/L Wwgz-Pvyhy-Skmtysjami <1.0 <=4.3 mg/L FERRITIN Collection Time: 11/08/23 1:27 PM Result Value Ref Range Ferritin 21 13 - 150 ng/mL GGTP Collection Time: 11/08/23 1:27 PM Result Value Ref Range GGTP 5 <=40 U/L IGE Collection Time: 11/08/23 1:27 PM Result Value Ref Range IgE <2.0 <=214.0 kU/L SYPHILIS ANTIBODY SCREEN Collection Time: 11/08/23 1:27 PM Result Value Ref Range Syphilis Screen Interpretation Nonreactive Nonreactive ANEMIA CBC Collection Time: 11/08/23 1:27 PM Result Value Ref Range WBC 9.06 4.00 - 10.80 K/uL RBC 4.04 3.85 - 5.15 M/uL HGB 12.3 12.0 - 15.3 g/dL HCT 36.2 36.0 - 45.2 % MCV 89.6 81.5 - 97.5 fL MCH 30.4 27.0 - 34.0 pg MCHC 34.0 32.0 - 36.0 g/dL RDW 13.0 11.5 - 15.5 % PLT 153 140 - 400 K/uL MPV 10.7 6.6 - 11.1 fL nRBCs 0 <=0 /100 WBCs DIFFERENTIAL, AUTOMATED Collection Time: 11/08/23 1:27 PM Result Value Ref Range WBC 9.06 4.00 - 10.80 K/uL Neutrophils % 82.1 (H) 40.0 - 75.0 % Lymphocytes % 12.4 (L) 18.0 - 42.0 % Monocytes % 4.1 1.0 - 11.0 % Eosinophils % 0.9 0.0 - 6.0 % Basophils % 0.2 0.0 - 2.0 % Immature Granulocytes % 0.3 0.0 - 2.0 % Absolute Neutrophils 7.44 1.80 - 7.70 K/uL Absolute Lymphocytes 1.12 1.00 - 4.80 K/ul Absolute Monocytes 0.37 0.00 - 1.10 K/uL Absolute Eosinophils 0.08 0.00 - 0.70 K/uL Absolute Basophils 0.02 0.00 - 0.20 K/uL Absolute Immature Granulocytes 0.03 0.00 - 0.20 K/uL PULSE OXIMETRY SNGL DETERMIN (OP) Collection Time: 11/14/23 12:00 AM Result Value Ref Range Pulse Oximetry-Initial Rest 97 Pulse Oximetry-During Exercise Pulse Oximetry-Post Exercise Pulse Oximetry-Post Nebulizer BASIC SPIROMETRY Collection Time: 11/14/23 11:34 AM Result Value Ref Range FVC Actual Pre 3.92 L FVC Actual Pre %Predict 106 % FEV1 Actual Pre 2.89 L FEV1 Actual Pre %Predict 91 % FEV1/FVC Actual Pre 74 % FEF 25-75% Actual Pre 2.10 L/sec FEF 25-75% Actual Pre %Predict 55 % CULTURE, CYSTIC FIBROSIS Collection Time: 11/14/23 11:52 AM Specimen: Throat; Swab Result Value Ref Range Culture Growth Moderate growth normal [place] VITALS There were no vitals filed for this visit. Wt Readings from Last 3 Encounters: 11/21/23 87.4 kg (192 lb 9.6 oz) 11/15/23 86 kg (189 lb 9.5 oz) 11/14/23 86 kg (189 lb 9.6 oz) There is no height or weight on file to calculate BMI. CURRENT MEDICATIONS: Current Outpatient Medications Medication Sig Dispense Refill COMPRESSOR/NEBULIZER MISC Use as directed (Patient not taking: Reported on 07/21/2023) 1 Device 0 JUAN CARLOS LC PLUS NEBULIZER MISC Use daily with Xvnjp-Uhz-euwlrzgl device (Patient not taking: Reported on 07/21/2023) 1 Device 5 SIDESTREAM NEBULIZER-REUSABLE MISC Use daily with Pulmozyme (Patient not taking: Reported on 07/21/2023) 1 Device 5 albuterol sulfate (PROVENTIL) (2.5 MG/3ML) 0.083% nebulizer solution Inhale 1 Vial via nebulizer 2 times a day. May increase to every 4 hours as needed during exacerbations (Patient not taking: Reported on 11/14/2023) 360 Vial 1 Ferrous Sulfate (IRON) 325 (65 Fe) MG TABS Take 1 Tab by mouth daily. (Patient not taking: Reportedon 11/14/2023) 90 Tab 1 Calcium 500 MG Tablet Take 1 Tab by mouth daily. Unsure of dose 90 Tab 1 Ascorbic Acid (VITAMIN C) 100 MG Tablet Take 1 Tab by mouth daily. 90 Tab 1 dornase jamee (PULMOZYME) 1 MG/ML nebulizer solution Inhale 2.5 mg by mouth daily. (Patient not taking: Reported on 06/22/2023) 75 mL 5 Albuterol Sulfate (ALBUTEROL HFA) 108 (90 BASE) MCG/ACT inhaler Inhale 2 Puffs by mouth every 4 hours as needed for Cough, Shortness of Breath or Wheezing. (Patient not taking: Reported on 11/14/2023)18 g 5 Pancrelipase, Mzl-Hppn-Cmtw, (ZENPEP) [id number] units CPEP Take 6 Caps by mouth three times a daywith meals. Take 4 caps with snacks. (Patient not taking: Reported on 11/14/2023) 2700 Cap 1 MVW Complete Formulation D3000 Oral Capsule Take 2 Capsules by mouth daily. 60 Capsule 5 Sodium Chloride 7 % Inhalation Nebulization Solution (Hyper-Benjamin) Inhale via nebulizer 4 mL in the morning AND 4 mL before bedtime. (Patient not taking: Reported on 06/22/2023) 720 mL 1 Fluticasone Propionate 50 MCG/ACT Nasal Suspension (Flonase) Administer into each nostril 2 Sprays in the morning. (Patient not taking: Reported on 11/14/2023) 16 g 5 Montelukast Sodium 10 MG Oral Tablet (Singulair) TAKE ONE TABLET BY MOUTH EVERY DAY 90 Tablet 3 28-0.8 MG Oral Tablet Take by mouth. Touchtalent Flex System w/Device Kit Use to test blood sugars 4 times daily (fasting, 1 hour after breakfast, lunch, and dinner) 1 Kit 0 [place]SE[employer]uch Verio In Vitro Strip (Glucose Blood) Use to test blood sugars 4 times daily (fasting, 1 hour after breakfast, lunch, and dinner) 125 Strip 6 UXArmyTouch Delica Lancets 30G Use to test blood sugars 4 times daily (fasting, 1 hour after breakfast, lunch, and dinner) 200 Each 6 Cholecalciferol 125 MCG (5000 UT) Oral Tablet Take 10,000 Units by mouth every evening. 60 Tablet 5 risperiDONE 1 MG Oral Tablet (RisperDAL) Take 1.5 Tablets by mouth every night at bedtime. 135 Tablet 1 Sertraline HCl 50 MG Oral Tablet (Zoloft) Take 1 Tablet by mouth in the morning. 90 Tablet 1 Trikafta 100-50-75 & 150 MG Oral Tablet Therapy Pack (Hgcohipn-Erhdkfs-Sfwvak & Ivacaf) Take 2 orange tablets by mouth in the morning and 1 light blue tablet by mouth in the evening. Take with fat-containing food. TAKE 2 ORANGE TABLETS BY MOUTH IN THE MORNING AND 1 LIGHT BLUE TABLET BY MOUTH IN THE EVENING. TAKE WITH FAT-CONTAINING FOOD 84 Each 5 No current facility-administered medications for this visit. FAMILY HISTORY: Family History Problem Relation Name Age of Onset No Past Hx Mother No Past Hx Father Cystic Fibrosis Sister Bipolar Disorder Sister Anxiety Disorder Sister Depression Sister Heart Disorder Grandmother (Maternal) Heart Disorder Grandfather (Maternal) Cancer Grandfather (Paternal) No Known Problems Son PAST MEDICAL HISTORY: Past Medical History: Diagnosis Date Bipolar 1 disorder ([facility]) 06/02/2020 Chlamydia infection 04/2017 tx with azithromycin Cystic fibrosis ([facility]) 12/21/2000 cf with stable lung exam weight slowed GDM (gestational diabetes mellitus) 05/13/2020 Early 2 hr GTT due to CF Right lower lobe pneumonia 04/24/2012 Vitamin D insufficiency 07/26/2016 SUMMARY OF/CHANGES TO PAST PSYCHIATRIC, MEDICAL, FAMILY, OR SOCIAL HISTORY: See interval history MEDICAL REVIEW OF SYSTEMS: No medical notes MENTAL STATUS EVALUATION: Appearance: casually dressed Muscle strength and tone: no abnormal involuntary movements noticeable Gait and Station: not assessed, patient seen via teleconference Behavior: cooperative Speech: normal, rate, tone and volume Mood: happy Affect: type - euthymic; range - full range; lability - no Associations: intact Thought Process: goal directed Abstract Reasoning: intact Thought Content: denies suicidal ideations, homicidal ideations, auditory hallucinations, visual hallucinations, delusions, impulsivity to act out or preoccupation with violence Orientation: alert and oriented to person, place, time and situation Attention span/concentration as evidenced by: ability to sustain attention to examiner - intact Insight: good Judgment: good ASSESSMENT AND PLAN: Treatment options and alternatives reviewed with patient who agrees with the above plan. Information about current medications was provided to the patient including reasons why medications are being used. Patient understood the risks, benefits, side-effects, and potential complications associated with changes in medications being proposed (both medications being started, and medications being discontinued or having dose changed). Patient is making an informed medical decision to follow the recommendations outlined in this note. Directed pt to call with any questions or concerns, worsening symptoms and/or ask for earlier appointment. Greater than 50% of the time was spent counseling or coordinating the care of the patient Risk assessment was performed. This is a patient being treated for chronic mental health conditionsand/or substance use disorder as characterized above; at the time of this visit, there was no indication that this patient was either a risk to self, others, or gravely disabled by symptoms of a mental illness or substance use disorder. At the time of this evaluation, pt did not appear to be an acute risk to self or others, there were enough protective factors in place, and it was deemed safe andappropriate to continue with treatment on an outpatient basis with return to clinic in the timeframe described above. We reviewed previous crisis plan should he/she experience worsening of symptoms before next follow-up appointment, including being aware of what resources to use according to the urgency and severityof symptoms. Monica Dickey was able to verbalize understanding of the steps necessary to obtain help between appointments should be needed, from requesting a phone call, to requesting an appointment sooner, including reaching clinic after hours, accessing our system, and accessing emergency mental health and medical services, either at a local emergency department or by activating mobile crisis teams and EMS. Time Spent on Visit: 30 minutes Please note 17 minutes of counseling time over and above medication management was spent on Billing code: [id number] and [id number] LAMIN Torrez Psychiatrist, [facility] 12/05/2023 documented in this encounter Plan of Treatment Upcoming Encounters Date Type Department Care Team (Late st Contact Info) Description 12/12/2023 1:45 PM EDT Office Visit Gynecology/Obstetrics Alisa Fiore [address] [place] [address] Radha Diaz CRNP [address] [place] [address] Fiore, Non Stress Tests [facility] [address] [place] [address] 12/15/2023 11:00 AM EDT Office Visit Gynecology/Obstetrics Alisa Rolons [address] [place] [address] Ling Leonard CRNP [address] [place] [address] Fiore, Non Stress Tests [facility] [address] [place] [address] 12/19/2023 1:45 PM EDT Office Visit Gynecology/Obstetrics Alisa Rolons [address] [place] [address] Radha Diaz CRNP [address] [place] [address] Fiore, Non Stress Tests [facility] [address] [place] [address] 12/22/2023 11:00 AM EDT Office Visit Gynecology/Obstetrics Alisa Rolons [address] [place] [address] Ling Leonard CRNP [address] [place] [address] Fiore, Non Stress Tests [facility] [address] [place] [address] 12/26/2023 1:45 PM EDT Office Visit Gynecology/Obstetrics Alisa Rolons [address] [place] [address] Radha Diaz CRNP [address] [place] [address] Fiore, Non Stress Tests [place] [address] [place] [address] 12/28/2023 9:30 AM EDT Imaging [facility], [place] Fi[facility] [address] [place] [id number] 12/29/2023 1:45 PM EDT Office Visit Gynecology/Obstetrics [facility] [address] [place] [address] Radha Diaz CRNP [address] [place] [address] Fiore, Non Stress Tests [place] [address] [place] [address] 01/02/2024 1:45 PM EDT Office Visit Gynecology/Obstetrics Alisa Rolons [address] [place] [address] Radha Diaz CRNP [address] [place] [address] Adebayo Non Stress Tests [facility] [address] [place] [address] 01/05/2024 1:45 PM EDT Office Visit Gynecology/Obstetrics Alisa Fiore [address] [place] [address] Radha Diaz CRNP [address] [place] [address] Adebayo Non Stress Tests [place] [address] [place] [address] 01/09/2024 1:45 PM EDT Office Visit Gynecology/Obstetrics Alisa Fiore [address] [place] [address] Radha Diaz CRNP [address] [place] [address] Adebayo Non Stress Tests [place] [address] [place] [address] 01/11/2024 9:30 AM EDT Office Visit Pulmonary Medicine, [place] [address] [place] [address] Micaela Holly, [address] [facility] [place] [address] 01/12/2024 1:45 PM EDT Office Visit Gynecology/Obstetrics Alisa Fiore [address] [place] [address] Radha Diaz CRNP [address] [place] [address] Adebayo Non Stress Tests [place] [address] [place] [address] 01/16/2024 1:45 PM EDT Office Visit Gynecology/Obstetrics Alisa Fiore [address] [place] [place] [address] Radha Diaz CRNP [address] [place] [address] Adebayo Non Stress Tests [place] [address] [place] [address] 01/19/2024 1:45 PM EDT Office Visit Gynecology/Obstetrics Alisa Fiore [address] [place] [address] Radha Diaz CRNP [address] [place] [address] Scarlett Fiore Stress Tests [place] [address] [place] [address] 01/26/2024 1:45 PM EDT Office Visit Gynecology/Obstetrics Alisa Fiore [address] [place] [address] Radha Diaz CRNP [address] [place], [place] [address] Scarlett Fiore Stress Tests [place] [address] [place] [address] 02/05/2024 10:00 AM EDT Telemedicine Psychiatry Sophia Chambers 9 [place] [address] Catina Araiza CRNP [address] [facility] [place] [address] Health Maintenance Due [...] as of this encounter Visit Diagnoses Diagnosis Bipolar 1 disorder (HCC)- Primary Bipolar I disorder, most recent episode (or current) unspecified documented in this encounter Additional Health Concerns [...]
--- OUTSIDE RECORDS SUMMARY | 2024-01-24 09:16 | External Medical Summary | Summary of Care ---
Author Name Unknown Organization [facility] Address [address] [facility] [place] [address] Phone [phone] Care Team Providers Care Physical Medicine Physician Name Role Phone Unavailable Primary Care Provider Unavailabl e Reason for Visit * Reason Comments Return Visit Encounter Details Date Type Department Care Team (Late st Contact Info) Description 12/08/2023 1:45 PM EDT Office Visit Gynecology/Obstetric s [facility] [address] [facility] [place] [address] Radha Diaz CRNP [address] [place] [address] Fiore, Non Stress Tests [place] [address] [place] [address] High-risk in third trimester*; Rh negative, antepartum; Diet controlled gestational diabetes mellitus (GDM) in third trimester; CF (cystic fibrosis) ([facility]); Respiratory system disease affecting , antepartum; H/O macrosomia in infant in prior , currently ; Rubella non-immune status, antepartum; Chlamydia infection affecting in first trimester Allergies No known active allergiesdocumented as of this encounter (statuses as of 12/08/2023) Medications Medication Sig Dispensed Refills Start Date End Date Status COMPRESSOR/NEBULIZER MISCIndications:Cyst ic fibrosis (HCC) Use as directed 1 Device 0 05/31/2012 Active Additional Information Patient not taking.Reported on 07/21/2023 JUAN CARLOS LC PLUS NEBULIZER MISCIndications:Cyst ic fibrosis with pulmonary manifestations (HCC) Use daily with Rdbni-Vda-sgsmhyew device 1 Device 5 06/13/2012 Active SIDESTREAM [...] Information Patient not taking.Reported on 11/14/2023 Pancrelipase, Nir-Kxsh-Ahke, (ZENPEP) 64755-[address] units CPEPIndications:Cyst ic fibrosis (HCC) Take 6 [...] MG Oral Tablet Take by mouth. Active [employer] Verio Flex System w/Device Kit Use to test blood sugars 4 times daily (fasting, 1 hour after breakfast, lunch, and dinner) 1 Kit 07/18/2023 Active Epulsio In Vitro Strip (Glucose Blood) Use to test blood sugars 4 times daily (fasting, 1 hour after breakfast, lunch, and dinner) 125 Strip 6 07/18/2023 Active [employer] Delica Lancets 30G Use to test blood [...] & 150 MG Oral Tablet Therapy Pack (Txcwoemc-Nspsfts-Uy acaf & Ivacaf)Indications:C ystic fibrosis with pulmonary [...] as of this encounter (statuses as of 12/08/2023) Active Problems Problem Noted Date Diagnosed Date Excessive growth affec ting management of in third trimester 12/01/2023 Last Assessment & Plan: EFW today at Rubella non-immune status, antepartum 06/09/2023 Chlamydia infection complicating 06/09 Overview: + test at [facility], sent azithromycin High-risk 06/08/2023 Last Assessment & [...] Stable (<50%) 08/28/23: RPM reviewed; stable overall 09/05/20233073-WJH-rutusdbg 5 of 7 days in the past week; stable 09/12/23: RPM reviewed; Stable 09/19/23: RPM reviewed; Stable. Not testing every day. 09/26/23: RPM reviewed; Stable; more consistent reporting 10/03/23: RPM reviewed; Stable but not testing consistently. 10/10/20235713-PEG-nqkjptqx 2 days along with 2 additional fasting blood sugars. Messaged patient to be consistent with testing and reporting. 10/17/23: RPM reviewed; several missed readings, but overall stable 10/24/20236227-FXG-dwfmpbah 3 of past 6 days; overall stable. Messaged to test four times daily and report. 10/31/20234373-MDP-ucckkc 11/06/20237617-LAZ-xgdmvzyr 5 of 7 days; stable 11/14/20235644-BVY-ppmswjac 3 of past 7 days. Messaged to be consistent with testing and reporting. 11/21/20232689-RRX-ubtush 11/27/23: RPM reviewed; Stable but missing some values - requested updated log of missing values 12/05/20233951-ELO-muiqjc Last Assessment & Plan: Working with [facility]. [...] 11/20/2001 Malabsorption 08/29/2001 Cystic Fibrosis ( homozygous [id number]) Estimated Date of Delivery Comme nts Yes 01/29/2024 Based on Ultraso und documented as of this encounter (statuses as of 12/08/2023) Resolved Problems Problem Noted Date Diagnosed Date [...] follows with behavioral health provider here at [facility]. DISCUSSION: 1. and [...] (boneless & skinless & in olive oil), [place] mackerel (i.e. not Bereket mackerel), or cooked [...] as of this encounter (statuses as of 12/08/2023) Immunizations Name Administration Dates Next Due COVID-19 mRNA, LNP-s, No Pre serve, 2-Dose Series (Zhaopin) 06/01/2021,11/16/2020,10/26/2020 H1N1 2009 Influenza, IM 03/27/2009 Meningococcal Conjugate Vacc ine (Menactra/Menveo) 07/14/2015,05/18/2010 Pneumococcal Conjugate Vacci ne, 20-valent ([id number]) 03/31/2022 Pneumococcal Polysaccharide PPV23 (Pneumovax) 03/05/2019 Seasonal [...] money to get more. Never true 12/05/2023 Hampton Depression Scale Answer Date Recorded [place] Depression Scale Total 5 06/08/2023 The thought [...] No 12/05/2023 Does the household have a [facility] source of income? (Household - for ages [...] Sign Reading Time Taken Comments Blood Pressure 118/64 12/08/2023 1:40 PM EDT Pulse - - Temperature - - Respiratory Rate - - Oxygen Saturation - - Inhaled Oxygen Concentration - - Weight 89.4 kg (197 lb) 12/08/2023 1:40 PM EDT Height 164.7 cm (5' 4.84") 12/08/2023 1:40 PM ED T Body Mass Index 32.94 12/08/2023 1:40 PM EDT documented in this encounter Functional [...] Progress Notes * Radha Diaz CRNP - 12/08/2023 2:01 PM EDT ASSESSMENT assessment with Non-stress Test completed on 12/08/2023 at 32.4weeks gestation for indication of CF heart baseline: 130 bpm Variability: Moderate Decelerations: absent Accelerations: present Contractions: None NST start time: 1332 NST stop time: 1400 NST strip reviewed, interpreted, and approved by OB providerRadha CRNP . NST strip stored in clinic storage file documented in this encounter Plan of Treatment Upcoming Encounters Date Type Department Care Team (Late st Contact Info) Description 12/12/2023 1:45 PM EDT Office Visit Gynecology/Obstetrics Alisa Fiore [address] [place] [address] Radha Diaz CRNP [address] [place] [address] Scarlett Fiore Stress Tests [place] [address] [place] [address] 12/15/2023 11:00 AM EDT Office Visit Gynecology/Obstetrics Alisa Fiore [address] [place] [address] Backer, LAMIN Kennedy [address] [place] [address] Fiore, Non Stress Tests [place] [address] [place] [address] 12/19/2023 1:45 PM EDT Office Visit Gynecology/Obstetrics Alisa Fiore [address] [place] [address] Radha Diaz CRNP [address] [place] [address] Adebayo Non Stress Tests [place] [address] [place] [address] 12/22/2023 11:00 AM EDT Office Visit Gynecology/Obstetrics Reevescindy Fiore [address] [place] [address] Backer, LAMIN Kennedy [address] [place] [address] Adebayo Non Stress Tests [place] [address] [place] [address] 12/26/2023 1:45 PM EDT Office Visit Gynecology/Obstetrics Reevescindy Fiore [address] [place] [address] Radha Diaz CRNP [address] [place] [address] Adebayo Non Stress Tests [place] [address] [place] [address] 12/28/2023 9:30 AM EDT Imaging Maternal Medicine Imaging, [place] Fiore [address] [place] [address] 12/29/2023 1:45 PM EDT Office Visit Gynecology/Obstetrics Leandro'padma Rolons [address] [place] [address] Radha Diaz CRNP [address] [place] [address] Fiore, Non Stress Tests [place] [address] [place] [address] 01/02/2024 1:45 PM EDT Office Visit Gynecology/Obstetrics Alisa Rolons [address] [place] [address] Radha Diaz CRNP [address] [place] [address] Adebayo Non Stress Tests [place] [address] [place] [address] 01/05/2024 1:45 PM EDT Office Visit Gynecology/Obstetrics Alisa Rolons [address] [place] [address] Radha Diaz CRNP [address] [place] [address] Adebayo Non Stress Tests [place] [address] [place] [address] 01/09/2024 1:45 PM EDT Office Visit Gynecology/Obstetrics Alisa Rolons [address] [place] [address] Radha Diaz CRNP [address] [place] [address] Adebayo, Non Stress Tests [place] [address] [place] [address] 01/11/2024 9:30 AM EDT Office Visit Pulmonary Medicine, [place] [address] [place] [address] Micaela Holyl, [address] [facility] [place] [address] 01/12/2024 1:45 PM EDT Office Visit Gynecology/Obstetrics [facility] [address] [place] [address] Radha Diaz CRNP [address] [place] [address] Adebayo Non Stress Tests [place] [address] [place] [address] 01/16/2024 1:45 PM EDT Office Visit Gynecology/Obstetrics [facility] [address] [place] [address] Radha Diaz CRNP [address] [place] [address] Adebayo Non Stress Tests [place] [address] [place] [address] 01/19/2024 1:45 PM EDT Office Visit Gynecology/Obstetrics [facility] [address] [place] [address] Radha Diaz CRNP [address] [place] [address] Adebayo Non Stress Tests [place] [address] [place] [address] 01/26/2024 1:45 PM EDT Office Visit Gynecology/Obstetrics [facility] [address] [place] [address] Radha Diaz CRNP [address] [place] [address] Scarlett Fiore Stress Tests [place] [address] [place] [address] 02/05/2024 10:00 AM EDT Telemedicine Psychiatry Artem [place] [address] [place] [address] Catina Araiza CRNP [address] [place] [facility] [place] [address] Health Maintenance Due Date Last Done [...] disease affecting , antepartum H/O macrosomia in in prior , currently with other poor obstetric history Rubella non-immune status, antepartum Other specified complication, antepartum Chlamydia infection affecting in first trimester documented in this encounter Additional Health Concerns [...]
--- OUTSIDE RECORDS SUMMARY | 2024-01-24 09:16 | External Medical Summary | Summary of Care ---
Author Name Unknown Organization [facility] Address [address] [facility] [place] [address] Phone [phone] Care Team Providers Care Automotive Finance Manager Name Role Phone Unavailable Primary Care Provider Unavailabl e Reason for Visit * Reason Comments Return Visit Non Stress Test Encounter Details Date Type Department Care Team (Late st Contact Info) Description 12/05/2023 1:45 PM EDT Office Visit Gynecology/Obstetric s [facility] [address] [place] [address] Radha Diaz CRNP [address] [place] [address] Fiore, Non Stress Tests [place] [address] [place] [address] High-risk in third trimester*; Rh negative, antepartum; Diet controlled gestational diabetes mellitus (GDM) in third trimester; CF (cystic fibrosis) ([facility]); Respiratory system disease affecting , antepartum; Bipolar disease during , antepartum ([facility]); H/O macrosomia in infant in prior , currently ; Rubella non-immune status, antepartum; Chlamydia infection affecting in third trimester Allergies No known active allergiesdocumented as of this encounter (statuses as of 12/05/2023) Medications Medication Sig Dispensed Refills Start Date End Date Status COMPRESSOR/NEBULIZER MISCIndications:Cyst ic fibrosis (HCC) Use as directed 1 Device 0 05/31/2012 Active Additional Information Patient not taking.Reported on 07/21/2023 JUAN CARLOS LC PLUS NEBULIZER MISCIndications:Cyst ic fibrosis with pulmonary manifestations (HCC) Use daily with Fwemz-Bui-oiectglg device 1 Device 5 06/13/2012 Active Additional [...] Information Patient not taking.Reported on 11/14/2023 Pancrelipase, Nsw-Vdem-Bzuy, (ZENPEP) [id number] units CPEPIndications:Cyst ic fibrosis (HCC) Take 6 [...] MG Oral Tablet Take by mouth. Active [employer] Flex System w/Device Kit Use to test blood sugars 4 times daily (fasting, 1 hour after breakfast, lunch, and dinner) 1 Kit 07/18/2023 Active [employer] In Vitro Strip (Glucose Blood) Use to test blood sugars 4 times daily (fasting, 1 hour after breakfast, lunch, and dinner) 125 Strip 6 07/18/2023 Active [employer] Delica Lancets 30G Use to test blood [...] & 150 MG Oral Tablet Therapy Pack (Ypusfgwe-Oppephq-Cs acaf & Ivacaf)Indications:C ystic fibrosis with pulmonary [...] as of this encounter (statuses as of 12/05/2023) Active Problems Problem Noted Date Diagnosed Date Excessive growth affec ting management of in third trimester 12/01/2023 Last Assessment & Plan: EFW today at Rubella non-immune status, antepartum 06/09/2023 Chlamydia infection complicating 06/09 Overview: + test at [facility], sent azithromycin High-risk 06/08/2023 Last Assessment & Plan: I reviewed the ultrasound. The anatomy that was visualized is appropriate for the gestational age. Respiratory system disease affecting , antepartum 06/08/2023 Overview: Cystic fibrosis Follows with [facility] Denies complications with cystic fibrosis in last 06/08/23 MF genetic counseling referral placed Per [facility]: Prothrombin time each trimester Growth scans [...] Stable (<50%) 08/28/23: RPM reviewed; stable overall 09/05/20233836-LZW-mtrairdc 5 of 7 days in the past week; stable 09/12/23: RPM reviewed; Stable 09/19/23: RPM reviewed; Stable. Not testing every day. 09/26/23: RPM reviewed; Stable; more consistent reporting 10/03/23: RPM reviewed; Stable but not testing consistently. 10/10/20231402-GRM-jxlqdtjx 2 days along with 2 additional fasting blood sugars. Messaged patient to be consistent with testing and reporting. 10/17/23: RPM reviewed; several missed readings, but overall stable 10/24/20234089-TFP-rkxtcgpk 3 of past 6 days; overall stable. Messaged to test four times daily and report. 10/31/20230212-DAZ-szczln 11/06/20238423-EDY-wxxpaquc 5 of 7 days; stable 11/14/20238418-ZMU-gxrkjrwt 3 of past 7 days. Messaged to be consistent with testing and reporting. 11/21/20234436-UKE-vwjyvj 11/27/23: RPM reviewed; Stable but missing some values - requested updated log of missing values 12/05/20231990-CLG-mrasry Last Assessment & Plan: Working with [facility]. [...] 11/20/2001 Malabsorption 08/29/2001 Cystic Fibrosis ( homozygous [id number]) Estimated Date of Delivery Comme nts Yes 01/29/2024 Based on Ultraso und documented as of this encounter (statuses as of 12/05/2023) Resolved Problems Problem Noted Date Diagnosed Date [...] follows with behavioral health provider here at [facility]. DISCUSSION: 1. and delivery can worsen the [...] (boneless & skinless & in olive oil), [place] mackerel (i.e. not Bereket mackerel), or cooked [...] as of this encounter (statuses as of 12/05/2023) Immunizations Name Administration Dates Next Due COVID-19 mRNA, LNP-s, No Pre serve, 2-Dose Series ([employer]u Shuju) 06/01/2021,11/16/2020,10/26/2020 H1N1 2009 Influenza, IM 03/27/2009 Meningococcal Conjugate Vacc ine (Menactra/Menveo) 07/14/2015,05/18/2010 Pneumococcal Conjugate Vacci ne, 20-valent ([id number]) 03/31/2022 Pneumococcal Polysaccharide PPV23 (Pneumovax) 03/05/2019 Seasonal [...] money to get more. Never true 12/05/2023 [place] Depression Scale Answer Date Recorded [place] Depression Scale Total 5 06/08/2023 The thought [...] No 12/05/2023 [facility] the [facility]? (Household - [...] Sign Reading Time Taken Comments Blood Pressure 112/62 12/05/2023 2:01 PM EDT Pulse - - Temperature - - Respiratory Rate - - Oxygen Saturation - - Inhaled Oxygen Concentration - - Weight 88.9 kg (196 lb) 12/05/2023 2:01 PM EDT Height - - Body Mass Index 32.77 11/15/2023 2:28 PM EDT documented in this encounter Functional [...] Progress Notes * Radha Diaz CRNP - 12/05/2023 2:38 PM EDT 32w1d No concerns. Baby was still breech last week, wondering how much longer she has to turn cephalic. Has next [facility] 12/27. Baby is active, no contractions, bleeding, LOF. Reports good blood sugar readings. ASSESSMENT assessment with Non-stress Test completed on 12/05/2023 at 32.1weeks gestation for indication of CF heart baseline: 130 bpm Variability: Moderate Decelerations: absent Accelerations: present Contractions: None NST start time: 1347 NST stop time: 1420 NST strip reviewed, interpreted, and approved by OB providerRadha CRNP . NST strip stored in clinic storage file * Patrizia Padilla MED ASSIST - 12/05/2023 2:01 PM EDT Patient present for VIVI/NST 32w1d Denies vaginal bleeding/rom + movements documented in this encounter Plan of Treatment Upcoming Encounters Date Type Department Care Team (Late st Contact Info) Description 12/08/2023 1:45 PM EDT Office Visit Gynecology/Obstetrics [facility] [address] [place] [address] Radha Diaz CRNP [address] [place] [address] Fiore, Non Stress Tests [place] [address] [place] [address] 12/12/2023 1:45 PM EDT Office Visit Gynecology/Obstetrics [facility] [address] [place] [address] Radha Diaz CRNP [address] [place] [address] Adebayo Non Stress Tests [place] [address] [place] [address] 12/15/2023 11:00 AM EDT Office Visit Gynecology/Obstetrics [facility] [address] [place] [address] Ling Leonard CRNP [address] [place] [address] Adebayo Non Stress Tests [place] [address] [place] [address] 12/19/2023 1:45 PM EDT Office Visit Gynecology/Obstetrics [facility] [address] [place] [address] Radha Diaz CRNP [address] [place] [address] Fiore, Non Stress Tests [place] [address] [place] [address] 12/22/2023 11:00 AM EDT Office Visit Gynecology/Obstetrics [facility] [address] [place] [address] Ling Leonard CRNP [address] [place] [address] Fiore, Non Stress Tests [place] [address] [place] [address] 12/26/2023 1:45 PM EDT Office Visit Gynecology/Obstetrics [facility] [address] [place] [address] Radha Diaz CRNP [address] [place] [address] Fiore, Non Stress Tests [place] [address] [place] [address] 12/28/2023 9:30 AM EDT Imaging Maternal Medicine Imaging, [place] [facility]ore [address] [place] [address] 12/29/2023 1:45 PM EDT Office Visit Gynecology/Obstetrics [facility] [address] [place] [address] Radha Diaz CRNP [address] [place] [address] Fiore, Non Stress Tests [place] [address] [place] [address] 01/02/2024 1:45 PM EDT Office Visit Gynecology/Obstetrics [facility] [address] [place] [address] Radha Diaz CRNP [address] [place] [address] Fiore, Non Stress Tests [place] [address] [place] [address] 01/05/2024 1:45 PM EDT Office Visit Gynecology/Obstetrics Alisa Fiore [address] [place] [address] Radha Diaz CRNP [address] [place] [address] Adebayo, Non Stress Tests [place] [address] [place] [address] 01/09/2024 1:45 PM EDT Office Visit Gynecology/Obstetrics Alisa Fiore [address] [place] [address] Radha Diaz CRNP [address] [place] [address] Adebayo Non Stress Tests [place] [address] [place] [address] 01/11/2024 9:30 AM EDT Office Visit Pulmonary Medicine, [place] [address] [place] [address] Micaela Holly, [address] [place] [address] 01/12/2024 1:45 PM EDT Office Visit Gynecology/Obstetrics Alisa Fiore [address] [place] [address] Radha Diaz CRNP [address] [place] [address] Adebayo Non Stress Tests [place] [address] [place] [address] 01/16/2024 1:45 PM EDT Office Visit Gynecology/Obstetrics Alisa Fiore [address] [place] [address] Radha Diaz CRNP [address] [place] [address] Scarlett Fiore Stress Tests [place] [address] [place] [address] 01/19/2024 1:45 PM EDT Office Visit Gynecology/Obstetrics Alisa Fiore [address] [place] [address] Radha Diaz CRNP [address] [place] [address] Scarlett Fiore Stress Tests [place] [address] [place] [address] 01/26/2024 1:45 PM EDT Office Visit Gynecology/Obstetrics Reevescindy Rolons [address] [place], [place] [address] Radha Diaz CRNP [address] [place] [address] Scarlett Fiore Stress Tests [place] [address] [place] [address] 02/05/2024 10:00 AM EDT Telemedicine Psychiatry Erika Chambers [address] [place] [address] Catina Araiza CRNP [address] [facility] [place] [address] Health Maintenance Due Date Last Done [...] antepartum Chlamydia infection affecting in third trimester documented in this encounter Additional Health [...]
--- OUTSIDE RECORDS SUMMARY | 2024-01-24 09:16 | External Medical Summary | Summary of Care ---
Author Name Unknown Organization [facility] Address [address] [facility] [place] [address] Phone [phone] Care Team Providers Care German Tutor Name Role Phone Unavailable Primary Care Provider Unavailabl e Reason for Visit * Reason Comments Return Visit Encounter Details Date Type Department Care Team (Late st Contact Info) Description 11/21/2023 10:15 AM EDT Office Visit Gynecology/Obstetric s [facility] [address] [facility] [place] [address] Marnie Calvo PA-C [address] [facility] [place] [address] High-risk in third trimester*; Diet controlled gestational diabetes mellitus (GDM) in third trimester; Disease of respiratory system affecting in third trimester; CF (cystic fibrosis) ([facility]); Rh negative, antepartum; Bipolar disease during in third trimester ([facility]); H/O macrosomia in infant in prior , currently ; Rubella non-immune status, antepartum; Chlamydia infection affecting in third trimester Allergies No known active allergiesdocumented as of this encounter (statuses as of 11/21/2023) Medications Medication Sig Dispensed Refills Start Date End Date Status COMPRESSOR/NEBULIZER MISCIndications:Cyst ic fibrosis ([facility]) Use as directed 1 Device 0 05/31/2012 Active Additional Information Patient not taking.Reported on 07/21/2023 JUAN CARLOS LC PLUS NEBULIZER MISCIndications:Cyst ic fibrosis with pulmonary manifestations (HCC) Use daily with Ecdtn-Snq-mbjxlefg device 1 Device 5 06/13/2012 Active Additional [...] Information Patient not taking.Reported on 11/14/2023 Pancrelipase, Bvk-Fsse-Rdzh, (ZENPEP) [id number] units CPEPIndications:Cyst ic fibrosis (HCC) Take 6 [...] MG Oral Tablet Take by mouth. Active Ortho-tag Flex System w/Device Kit Use to test blood sugars 4 times daily (fasting, 1 hour after breakfast, lunch, and dinner) 1 Kit 07/18/2023 Active Ortho-tag In Vitro Strip (Glucose Blood) Use to test blood sugars 4 times daily (fasting, 1 hour after breakfast, lunch, and dinner) 125 Strip 6 07/18/2023 Active finalsite Delica Lancets 30G Use to test blood [...] & 150 MG Oral Tablet Therapy Pack (Bjjypwkf-Ynbxcnn-Sx acaf & Ivacaf)Indications:C ystic fibrosis with pulmonary [...] as of this encounter (statuses as of 11/21/2023) Active Problems Problem Noted Date Diagnosed Date Rubella non-immune status, antepartum 06/09/2023 Chlamydia infection complicating 06/09 Overview: + test at [facility], sent azithromycin High-risk 06/08/2023 Last Assessment [...] Stable (<50%) 08/28/23: RPM reviewed; stable overall 09/05/20230275-SOS-tcuazueb 5 of 7 days in the past week; stable 09/12/23: RPM reviewed; Stable 09/19/23: RPM reviewed; Stable. Not testing every day. 09/26/23: RPM reviewed; Stable; more consistent reporting 10/03/23: RPM reviewed; Stable but not testing consistently. 10/10/20238124-XPI-onpimdeb 2 days along with 2 additional fasting blood sugars. Messaged patient to be consistent with testing and reporting. 10/17/23: RPM reviewed; several missed readings, but overall stable 10/24/20232933-XNS-ahpvflne 3 of past 6 days; overall stable. Messaged to test four times daily and report. 10/31/20231689-HCA-jncisz 11/06/20231679-PRL-hljsvqux 5 of 7 days; stable 11/14/20239046-SRR-tekzcfql 3 of past 7 days. Messaged to be consistent with testing and reporting. 11/21/20236761-FHH-txatti Last Assessment & Plan: Working with [facility], but not sending sugars regularly. Please encourage patient to submit sugars. Rh negative, antepartum 03/19/2020 Splenomegaly 11/07/2017 Constipation 09/06/2017 Overview: 06/02/20: denies current sx. Cystic fibrosis with gastrointestinal manifestat ions 07/26/2016 Exocrine pancreatic insufficiency 07/26/2016 Vitamin D insufficiency 07/26/2016 History of nasal polyp 07/26/2016 Cystic fibrosis with pulmonary manifestations Vaccine refused by patient 06/21/2011 Overview: refused HPV VACCIN FOR DISEASE NEC 11/20/2001 Malabsorption 08/29/2001 Cystic Fibrosis ( homozygous [id number]) Estimated Date of Delivery Comme nts Yes 01/29/2024 Based on Ultraso und documented as of this encounter (statuses as of 11/21/2023) Resolved Problems Problem Noted Date Diagnosed Date [...] (boneless & skinless & in olive oil), Guthrie mackerel (i.e. not Bereket mackerel), or cooked [...] as of this encounter (statuses as of 11/21/2023) Immunizations Name Administration Dates Next Due COVID-19 mRNA, LNP-s, No Pre serve, 2-Dose Series (TalentEarth) 06/01/2021,11/16/2020,10/26/2020 H1N1 2009 Influenza, IM 03/27/2009 Meningococcal Conjugate Vacc ine (Menactra/Menveo) 07/14/2015,05/18/2010 Pneumococcal Conjugate Vacci ne, 20-valent ([id number]) 03/31/2022 Pneumococcal Polysaccharide PPV23 (Pneumovax) 03/05/2019 Seasonal [...] money to get more. Never true 12/13/2022 [place] Depression Scale Answer Date Recorded [place] Depression Scale Total 5 06/08/2023 The thought [...] No 12/13/2022 Does the household have a [facility] source [facility] income? (Household - for [...] Sign Reading Time Taken Comments Blood Pressure 116/56 11/21/2023 10:15 AM EDT Pulse - - Temperature - - Respiratory Rate - - Oxygen Saturation - - Inhaled Oxygen Concentration - - Weight 87.4 kg (192 lb 9.6 oz) 11/21/2023 10:15 AM EDT Height - - Body Mass Index 32.21 11/15/2023 2:28 PM EDT documented in this [...] as of this encounter Progress Notes * Marnie Calvo PA-C - 11/21/2023 10:17 AM EDT Monica Dickey is a 28 year old female here for her routine OB appointment at 30w1d Her Estimated Date of Delivery: 01/29/24 REVIEW OF SYSTEMS She affirms movement. Denies vaginal bleeding, LOF, contractions, N/V, headaches, vision changes, chest pain, RUQ pain. PHYSICAL EXAM: Filed Vitals: 11/21/23 1015 BP: 116/56 Weight: 87.4 kg (192 lb 9.6 oz) +FHT 140s Fundal height 30 cm ASSESSMENT/PLAN High-risk in third trimester (Primary) - Follows with MFM for growth U/S q 4-6 weeks. Diet controlled gestational diabetes mellitus (GDM) in third trimester Disease of respiratory system affecting in third trimester - Scheduled for twice weekly NSTs starting at 32w (12/04). CF (cystic fibrosis) ([facility]) Rh negative, antepartum Bipolar disease during in third trimester ([facility]) H/O macrosomia in in prior , currently Rubella non-immune status, antepartum Chlamydia infection affecting in third trimester - Needs NNAMDI at 36w Supervision of - labor precautions and kick counts reviewed RTO in 2 weeks for VIVI/NST. Marnie Calvo PA-C 11/21/2023 * Patrizia Padilla MED ASSIST - 11/21/2023 10:15 AM EDT 30w1d Denies vaginal bleeding/rom + movements No new concerns documented in this encounter Plan of Treatment Upcoming Encounters Date Type Department Care Team (Late st Contact Info) Description 11/30/2023 9:30 AM EDT Imaging Maternal Medicine Imaging, [address] [place] [id number] 12/05/2023 10:00 AM EDT Telemedicine Psychiatry Erika Chambers [address] [place] [phone] Catina Araiza CRNP [address] [place] [phone] 12/05/2023 1:45 PM EDT Office Visit Gynecology/Obstetrics [facility] Rolons [address] [place] [address] Radha Diaz CRNP [address] [place] [address] [place], Non Stress Tests [address] [place] [address] 12/08/2023 1:45 PM EDT Office Visit Gynecology/Obstetrics [facility]ev[facility] Rolons [address] [place] [address] Radha Diaz CRNP [address] [place] [address] [place], Non Stress Tests [place] [address] [place] [address] 12/12/2023 1:45 PM EDT Office Visit Gynecology/Obstetrics Alisa Rolons [address] [place] [address] Radha Diaz CRNP [address] [place] [address] [place], Non Stress Tests [place] [address] [place] [address] 12/15/2023 11:00 AM EDT Office Visit Gynecology/Obstetrics [facility] [place] [address] [place] [address] Backer, Ling Ma, MAIL MESSENGER [address] [place] [address] [place], Non Stress Tests [place] [address] [place] [address] 12/19/2023 1:45 PM EDT Office Visit Gynecology/Obstetrics Alisa Rolons [address] [place] [address] Radha Diaz CRNP [address] [place] [address] [place], Non Stress Tests [place] [address] [place] [address] 12/22/2023 11:00 AM EDT Office Visit Gynecology/Obstetrics Alisa Rolons [address] [place] [address] Backer, Ling Ma, MAIL MESSENGER [address] [place] [address] [place], Non Stress Tests [place] [address] [place] [address] 12/26/2023 1:45 PM EDT Office Visit Gynecology/Obstetrics [facility] [place] [address] [place] [address] Radha Diaz, MAIL MESSENGER [address] [place] [address] [place], Non Stress Tests [place] [address] [place] [address] 12/28/2023 9:30 AM EDT Imaging Maternal Medicine Imaging, [place] [place] [address] 12/29/2023 1:45 PM EDT Office Visit Gynecology/Obstetrics Alisa Rolons [address] [place] [address] Radha Diaz CRNP [address] [place] [address] Adebayo Non Stress Tests [place] [address] [place] [address] 01/02/2024 1:45 PM EDT Office Visit Gynecology/Obstetrics Alisa [place] [address] [place] [address] Radha Diaz CRNP [address] [place] [address] Adebayo Non Stress Tests [place] [address] [place] [address] 01/05/2024 1:45 PM EDT Office Visit Gynecology/Obstetrics Alisa [place] [address] [place] [address] Radha Diaz CRNP [address] [place] [address] Adebayo Non Stress Tests [place] [address] [place] [address] 01/09/2024 1:45 PM EDT Office Visit Gynecology/Obstetrics Alisa [place] [address] [place] [address] Radha Diaz CRNP [address] [place] [address] Adebayo, Non Stress Tests [place] [address] [place] [address] 01/11/2024 9:30 AM EDT Office Visit Pulmonary Medicine, [place] [address] [place] [address] Micaela Holly, [address] [place] [place] [address] 01/12/2024 1:45 PM EDT Office Visit Gynecology/Obstetrics [facility] [place] [address] [place] [address] Radha Diaz CRNP [address] [place] [address] Adebayo Non Stress Tests [place] [address] [place] [address] 01/16/2024 1:45 PM EDT Office Visit Gynecology/Obstetrics Alisa Rolons [address] [place] [address] Radha Diaz CRNP [address] [place] [address] Adebayo Non Stress Tests [place] [address] [place] [address] 01/19/2024 1:45 PM EDT Office Visit Gynecology/Obstetrics [facility] [place] [address] [place] [address] Radha Diaz CRNP [address] [place] [address] [place], Non Stress Tests [place] [address] [place] [address] 01/23/2024 1:45 PM EDT Office Visit Gynecology/Obstetrics [facility] [address] [place] [address] Radha Diaz CRNP [address] [place] [address] Fi[place] Non Stress Tests [facility] [address] [place] [address] 01/26/2024 1:45 PM EDT Office Visit Gynecology/Obstetrics [facility] [address] [place] [address] Radha Diaz CRNP [address] [place] [address] Adebayo Non Stress Tests [facility] [address] [place] [address] Health Maintenance Due Date Last Done Comments GARDASIL-HPV IMMUNIZATION SE AIDA (1 - 3-dose series) 2012 COVID-19 Vaccine (2022-2 4 season) 2023 06/01/2021, 11/16/2020, 10/26/2020 Influenza Vaccine (FLU shot) (#1) 2024 04/18/2023, 03/07/2022, 04/01/2021, Additional history exists Pap Smear 05/20/2025 05/20/2022, 07/05/2019 DTaP,Tdap,and Td Vaccines (1 0 - Td or Tdap) 11/07/2033 11/08/2023, 09/01/2020, 07/14/2015, Additional history exists Hepatitis B Completed 03/30/1998, 12/1997, 1997 MENINGOCOCCAL (MENACTRA/MENVEO) Completed 6, 05/18/2010 Pneumococcal [...] gestational diabetes mellitus (GDM) in third trimester Disease of respiratory system affecting in third trimester CF (cystic fibrosis) (HCC) Cystic fibrosis without mention of meconium ileus Rh negative, antepartum Rhesus isoimmunization affecting management of mother, antepartum condition Bipolar disease during in third trimester (HCC) [...]
--- OUTSIDE RECORDS SUMMARY | 2024-01-24 09:16 | External Medical Summary | Summary of Care ---
Author Name Unknown Organization [facility] Address [address] [place] [address] Phone [phone] Care Team Providers Care Hot Mill Operator Name Role Phone Unavailable Primary Care Provider Unavailabl e Reason for Visit * Reason Comments Follow Up Encounter Details Date Type Department Care Team (Late st Contact Info) Description 11/14/2023 Documentation [facility], [place] [address] [place] [address] Emilia Ferrara Ps [address] [place] [address] Bipolar 1 disorder (HCC)*; Generalized anxiety disorder Allergies No known active allergiesdocumented as of this encounter (statuses as of 11/20/2023) Medications Medication Sig Dispensed Refills Start Date End Date Status COMPRESSOR/NEBULIZER MISCIndications:Cyst ic fibrosis (HCC) Use as directed 1 Device 0 05/31/2012 Active Additional Information Patient not taking.Reported on 07/21/2023 JUAN CARLOS LC PLUS NEBULIZER MISCIndications:Cyst ic fibrosis with pulmonary manifestations (HCC) Use daily with Pdjrv-Cvx-svcvzuag device 1 Device 5 06/13/2012 Active Additional [...] Information Patient not taking.Reported on 11/14/2023 Pancrelipase, Bpx-Nemv-Nosk, (ZENPEP) 01359-52568 units CPEPIndications:Cyst ic fibrosis (HCC) Take 6 [...] MG Oral Tablet Take by mouth. Active AMKAI Flex System w/Device Kit Use to test blood sugars 4 times daily (fasting, 1 hour after breakfast, lunch, and dinner) 1 Kit 07/18/2023 Active AMKAI In Vitro Strip (Glucose Blood) Use to test blood sugars 4 times daily (fasting, 1 hour after breakfast, lunch, and dinner) 125 Strip 6 07/18/2023 Active GeeYuu Lancets 30G Use to test blood sugars [...] & 150 MG Oral Tablet Therapy Pack (Gcroemym-Snryyww-Iz acaf & Ivacaf)Indications:C ystic fibrosis with pulmonary [...] as of this encounter (statuses as of 11/20/2023) Active Problems Problem Noted Date Diagnosed Date Rubella non-immune status, antepartum 06/09/2023 Chlamydia infection complicating 06/09 Overview: + test at [facility], sent azithromycin High-risk 06/08/2023 Last Assessment & Plan: I reviewed the ultrasound. The anatomy that was visualized is appropriate for the gestational age. Respiratory system disease affecting , antepartum 06/08/2023 Overview: Cystic fibrosis Follows with [facility] Denies complications with cystic fibrosis in last 06/08/23 MFM genetic counseling referral placed Per M: Prothrombin time each trimester Growth scans q4-6 [...] Stable (<50%) 08/28/23: RPM reviewed; stable overall 09/05/20232210-CBO-lcjbclgm 5 of 7 days in the past week; stable 09/12/23: RPM reviewed; Stable 09/19/23: RPM reviewed; Stable. Not testing every day. 09/26/23: RPM reviewed; Stable; more consistent reporting 10/03/23: RPM reviewed; Stable but not testing consistently. 10/10/20233425-TQT-gtemtenl 2 days along with 2 additional fasting blood sugars. Messaged patient to be consistent with testing and reporting. 10/17/23: RPM reviewed; several missed readings, but overall stable 10/24/20235130-XMO-acrmkoej 3 of past 6 days; overall stable. Messaged to test four times daily and report. 10/31/20236007-BIG-qykyeq 11/06/20233371-YQE-dcymmakb 5 of 7 days; stable 11/14/20238497-ITH-nmholwmn 3 of past 7 days. Messaged to be consistent with testing and reporting. Last Assessment & Plan: Working with [facility], [...] 11/20/2001 Malabsorption 08/29/2001 Cystic Fibrosis ( homozygous [id number]) Estimated Date of Delivery Comme nts Yes 01/29/2024 Based on Ultraso und documented as of this encounter (statuses as of 11/20/2023) Resolved Problems Problem Noted Date Diagnosed Date [...] follows with behavioral health provider here at [facility]. DISCUSSION: 1. and delivery can worsen the [...] (boneless & skinless & in olive oil), [place] mackerel (i.e. not [place] mackerel), or cooked [...] as of this encounter (statuses as of 11/20/2023) Immunizations Name Administration Dates Next Due COVID-19 mRNA, LNP-s, No Pre serve, 2-Dose Series (REPP) 06/01/2021,11/16/2020,10/26/2020 H1N1 2009 Influenza, IM 03/27/2009 Meningococcal Conjugate Vacc ine (Menactra/Menveo) 07/14/2015,05/18/2010 Pneumococcal Conjugate Vacci ne, 20-valent ([id number]) 03/31/2022 Pneumococcal Polysaccharide PPV23 (Pneumovax) 03/05/2019 Seasonal [...] money to get more. Never true 12/13/2022 Hayward Depression Scale Answer Date Recorded Hayward Depression Scale Total 5 06/08/2023 The thought [...] as of this encounter Progress Notes * Emilia Ferrara PsyD - 11/16/2023 11:10 AM EDT BEHAVIORAL MEDICINE PROGRESS NOTE FOR CYSTIC FIBROSIS CLINIC Psychology, [address] [address] 11/14/2023 11:10 AM DURATION OF VISIT: 10 minutes TYPE OF VISIT: Individual DIAGNOSIS: Bipolar 1; TASNEEM Monica Dickey ([id number]) is a 28 year old female who was seen for 0-15 minutes as part of the Multidisciplinary CF Clinic in order to evaluate psychosocial functioning as it relates to cystic fibrosisand associated treatment adherence. Accompanying Monica were the following: son. AGENDA: Complete mental health symptom screening update Follow up on managing stress and mental health during NOTES: PT denied any significant mood symptoms on assessment or subjective report today Overall feels stress has been well-managed Noted one period of feeling increased stress when selling/buying house, but felt handled this well Continues to use positive coping strategies, as well as utilize social support Continues with medication management and no concerns were reported Denied any other specific concerns today or needs at this time Verbalized understanding how to contact provider should needs arise Agreeable to f/u PRN and plan for yearly BMed visit in March PROGRESS TOWARDS GOALS: Goal: Improved self-management of CF and mood Depression/Anxiety Screening: Labs/Outcomes 06/22/2023 10:42 11/14/2023 Labs/Outcomes PHQ Score 2 0 PHQ Score Description No Depression No Depression GAD7 Score 0 0 PHQ-9 11/16/2023: 0 (0-4 None-minimal depression) TASNEEM-7 11/16/2023: 0 (0-4 None-minimal Anxiety) INTERVENTION: Cognitive Behavioral Therapy PATIENT EDUCATION: Verbal & written MENTAL STATUS AND BEHAVIORAL OBSERVATIONS: Appearance: within normal limits Behavior: within normal limits Speech: normal pitch, rate and volume Affect: Congruent with content of conversation Thought Process: within normal limits and goal directed Thought Content: within normal limits Intellectual Function: within normal limits Sensorium: alert and oriented to person, place, time and situation Cognition: grossly intact Insight/Judgment: good Suicide/Homicidal Ideation/Plan/Intent: none reported Risk/Protective Factors: Reviewed Risk Level Impression: Low Plan: Patient has been provided with emergency phone numbers- [facility] and [facility] Psychiatry [phone]. Encouraged to proceed to the nearest ER 24hrs/7days if symptoms worsen or patientfeels out of control with plan or intent to act on thoughts. Agrees to call back to the clinic withany additional concerns or difficulties. FOLLOW-UP PLAN: Return: will follow w/ team Action Plan: Complete mood symptom screening on annual basis, or earlier if indicated Continue with psychotropic medication management. Treatment plan reviewed with the patient. Patient voices understanding and concurs with plan. Emilia Ferrara PsyD Division of Psychiatry & Behavioral Medicine [facility] [phone] documented in this encounter Plan of Treatment Upcoming Encounters Date Type Department Care Team (Late st Contact Info) Description 11/21/2023 10:15 AM EDT Office Visit Gynecology/Obstetrics Alisa Fiore [address] [place] [address] [facility] Calvo [facility]C [address] [facility] [address] 11/30/2023 9:30 AM EDT Imaging Maternal Medicine Imaging, [place] [place] [phone] 12/05/2023 10:00 AM EDT Telemedicine Psychiatry Erika Chambers [address] [place] [phone] Catina Araiza CRNP [address] [facility] [place] [phone] 12/05/2023 1:45 PM EDT Office Visit Gynecology/Obstetrics [facility]ette[facility] Fiore [address] [place] [address] Radha Diaz CRNP [address] [place] [address] Adebayo Non Stress Tests [place] [address] [place] [address] 12/08/2023 1:45 PM EDT Office Visit Gynecology/Obstetrics [facility]andro[facility]annettepad[facility] Fiore [address] [place] [address] Radha Diaz CRNP [address] [place] [address] Fiore, Non Stress Tests [place] [address] [place] [address] 12/12/2023 1:45 PM EDT Office Visit Gynecology/Obstetrics [facility] [address] [place] [address] Radha Diaz CRNP [address] [place] [address] Adebayo, Non Stress Tests [place] [address] [place] [address] 12/15/2023 11:00 AM EDT Office Visit Gynecology/Obstetrics [facility] [place] [address] BackerLing CRNP [address] [place] [address] Adebayo Non Stress Tests [place] [address] [place] [address] 12/19/2023 1:45 PM EDT Office Visit Gynecology/Obstetrics [facility] [address] [place] [address] Radha Diaz CRNP [address] [place] [address] Adebayo Non Stress Tests [place] [address] [place] [address] 12/22/2023 11:00 AM EDT Office Visit Gynecology/Obstetrics [facility] [address] [place] [address] BackerLing CRNP [address] [place] [address] Fiore, Non Stress Tests [place] [address] [place] [address] 12/26/2023 1:45 PM EDT Office Visit Gynecology/Obstetrics [facility] [address] [place] [address] Radha Diaz CRNP [address] [place] [address] Fiore, Non Stress Tests [place] [address] [place] [address] 12/28/2023 9:30 AM EDT Imaging Maternal Medicine Imaging, [place] [address] [place] [phone] 12/29/2023 1:45 PM EDT Office Visit Gynecology/Obstetrics [facility] [address] [place] [address] Radha Diaz CRNP [address] [place] [address] Adebayo, Non Stress Tests [place] [address] [place] [address] 01/02/2024 1:45 PM EDT Office Visit Gynecology/Obstetrics [facility] [address] [place] [address] Radha Diaz POLLUTION CONTROL ENGINEER [address] [place] [address] Adebayo, Non Stress Tests [place] [address] [place] [address] 01/05/2024 1:45 PM EDT Office Visit Gynecology/Obstetrics [facility] [address] [place] [address] Radha Diaz CRNP [address] [place] [address] Fiore, Non Stress Tests [place] [address] [place] [address] 01/09/2024 1:45 PM EDT Office Visit Gynecology/Obstetrics [facility] [address] [place] [address] Radha Diaz CRNP [address] [place] [address] Adebayo, Non Stress Tests [place] [address] [place] [address] 01/11/2024 9:30 AM EDT Office Visit Pulmonary Medicine, [place] [address] [place] [address] Micaela Holly, [address] [place] [address] 01/12/2024 1:45 PM EDT Office Visit Gynecology/Obstetrics Alisa Rolons [address] [place] [address] Radha Diaz CRNP [address] [place] [address] Adebayo, Non Stress Tests [place] [address] [place] [address] 01/16/2024 1:45 PM EDT Office Visit Gynecology/Obstetrics [facility] [address] [place] [address] Radha Diaz CRNP [address] [place] [address] Adebayo, Non Stress Tests [place] [address] [place] [address] 01/19/2024 1:45 PM EDT Office Visit Gynecology/Obstetrics Alisa Fiore [address] [place] [address] Radha Diaz CRNP [address] [place] [address] Scarlett Fiore Stress Tests [place] [address] [place] [address] 01/23/2024 1:45 PM EDT Office Visit Gynecology/Obstetrics Alisa Fiore [address] [place] [address] Radha Diaz CRNP [address] [place] [address] Scarlett Fiore Stress Tests [place] [address] [place] [address] 01/26/2024 1:45 PM EDT Office Visit Gynecology/Obstetrics Alisa Fiore [address] [place] [address] Radha Diaz CRNP [address] [place] [address] Scarlett Fiore Stress Tests [place] [address] [place] [address] Health Maintenance Due Date Last Done Comments [...] disorder, most recent episode (or current) unspecified Generalized anxiety disorder documented in this encounter Additional Health Concerns [...]
--- OUTSIDE RECORDS SUMMARY | 2024-01-24 09:17 | External Medical Summary | Summary of Care ---
Author Name Unknown Organization [facility] Address [address] [place] [address] Phone [phone] Care Team Providers Care Chartered Wealth Manager Name Role Phone Unavailable Primary Care Provider Unavailabl e Reason for Visit * Reason Onset Date Comments MyCode Consent 11/20/2023 Encounter Details Date Type Department Care Team (Late st Contact Info) Description 11/13/2023 Orders Only Outcomes Research Department [address] [place] [address] Bernadine Yuen CHRA MyCode Research Other*[id number]* Allergies No known active allergiesdocumented as of this encounter (statuses as of 11/20/2023) Medications Medication Sig Dispensed Refills Start Date End Date Status COMPRESSOR/NEBULIZE R MISCIndications:Cys tic fibrosis (HCC) Use as directed 1 Device 0 3 Active Additional Information Patient not taking.Reported on 07/21/2023 JUAN CARLOS LC PLUS NEBULIZER MISCIndications:Cys tic fibrosis with pulmonary manifestations (HCC) Use daily with Qyill-Shg-frxbnlda device 1 Device 5 3 Active Additional Information Patient not taking.Reported on 07/21/2023 SIDESTREAM NEBULIZER-REUSABLE MISCIndications:Cys tic fibrosis with pulmonary manifestations (HCC) Use daily with Pulmozyme 1 Device 5 3 Active Additional Information Patient not taking.Reported on 07/21/2023 albuterol sulfate (PROVENTIL) (2.5 MG/3ML) 0.083% nebulizer solutionIndications :Cystic fibrosis (HCC),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 May increase to every 4 hours as needed during exacerbations 360 Vial 1 8 Active Additional Information Patient not taking.Reported on 11/14/2023 Ferrous Sulfate (IRON) 325 (65 Fe) MG TABSIndications:Cys tic fibrosis (HCC) Take 1 Tab by mouth daily. 90 Tab 1 8 Active Additional Information Patient not taking.Reported on 11/14/2023 Calcium 500 MG TabletIndications:C ystic fibrosis (HCC) Take 1 Tab by mouth daily. Unsure of dose 90 Tab 1 8 Active Ascorbic Acid (VITAMIN C) 100 MG TabletIndications:C ystic fibrosis (HCC) Take 1 Tab by mouth daily. 90 Tab 1 8 Active dornase jamee (PULMOZYME) 1 MG/ML nebulizer solutionIndications :Cystic fibrosis (HCC) Inhale 2.5 mg by mouth daily. 75 mL 5 9 Active Additional Information Patient not taking.Reported on 06/22/2023 Albuterol Sulfate (ALBUTEROL HFA) 108 (90 BASE) MCG/ACT inhalerIndications: Cystic fibrosis (HCC) Inhale 2 Puffs by mouth every 4 hours as needed for Cough, Shortness of Breath or Wheezing. 18 g 5 0 Active Additional Information Patient not taking.Reported on 11/14/2023 Pancrelipase, Vrp-Qktp-Ycgm, (ZENPEP) 26252-03213 units CPEPIndications:Cys tic fibrosis (HCC) Take 6 Caps by mouth three times a day with meals. Take 4 caps with snacks. 2700 Cap 1 0 Active Additional Information Patient not taking.Reported on 11/14/2023 MVW Complete Formulation D3000 Oral CapsuleIndications: Cystic fibrosis (HCC) Take 2 Capsules by mouth daily. 60 Capsule 5 1 Active Sodium Chloride 7 % Inhalation Nebulization Solution (Hyper-Benjamin)Indicati ons:Cystic fibrosis (HCC) Inhale via nebulizer 4 mL in the morning AND 4 mL before bedtime. 720 mL 1 2 Active Additional Information Patient not taking.Reported on 06/22/2023 Fluticasone Propionate 50 MCG/ACT Nasal Suspension (Flonase)Indication s:Dysfunction of right eustachian tube Administer into each nostril 2 Sprays in the morning. 16 g 5 2 Active Additional Information Patient not taking.Reported on 11/14/2023 Montelukast Sodium 10 MG Oral Tablet (Singulair)Indicati ons:Asthma, allergic,Cystic fibrosis (HCC) TAKE ONE TABLET BY MOUTH EVERY DAY 90 Tablet 3 3 Active 28-0.8 MG Oral Tablet Take by mouth. Active Chegue.lá Flex System w/Device Kit Use to test blood sugars 4 times daily (fasting, 1 hour after breakfast, lunch, and dinner) 1 Kit 4 Active Chegue.lá In Vitro Strip (Glucose Blood) Use to test blood sugars 4 times daily (fasting, 1 hour after breakfast, lunch, and dinner) 125 Strip 6 4 Active Engage Mobility Delica Lancets 30G Use to test blood sugars 4 times daily (fasting, 1 hour after breakfast, lunch, and dinner) 200 Each 6 4 Active Cholecalciferol 125 MCG (5000 UT) Oral TabletIndications:V itamin D insufficiency Take 10,000 Units by mouth every evening. 60 Tablet 5 4 Active risperiDONE 1 MG Oral Tablet (RisperDAL) Take 1.5 Tablets by mouth every night at bedtime. 135 Tablet 1 4 Active Sertraline HCl 50 MG Oral Tablet (Zoloft) Take 1 Tablet by mouth in the morning. 90 Tablet 1 4 Active Trikafta 100-50-75 & 150 MG Oral Tablet Therapy Pack (Heglfbty-Zndztyt-F vacaf & Ivacaf)Indications: Cystic fibrosis with pulmonary manifestations (HCC) Take 2 orange tablets by mouth in the morning and 1 light blue tablet by mouth in the evening. Take with fat-containing food. TAKE 2 ORANGE TABLETS BY MOUTH IN THE MORNING AND 1 LIGHT BLUE TABLET BY MOUTH IN THE EVENING. TAKE WITH FAT-CONTAINING FOOD 84 Each 4 11/13/19 24 Discontinu ed(Refill) documented as of this encounter (statuses as of 11/20/2023) Active Problems Problem Noted Date Diagnosed Date Rubella non-immune status, antepartum 06/09/2023 Chlamydia infection complicating 06/09 Overview: + test at [facility], sent azithromycin High-risk 06/08/2023 Last Assessment [...] Stable (<50%) 08/28/23: RPM reviewed; stable overall 09/05/20233659-RMP-fuuoramo 5 of 7 days in the past week; stable 09/12/23: RPM reviewed; Stable 09/19/23: RPM reviewed; Stable. Not testing every day. 09/26/23: RPM reviewed; Stable; more consistent reporting 10/03/23: RPM reviewed; Stable but not testing consistently. 10/10/20233479-GXP-icltkajb 2 days along with 2 additional fasting blood sugars. Messaged patient to be consistent with testing and reporting. 10/17/23: RPM reviewed; several missed readings, but overall stable 10/24/20236299-HCM-mqnijnzd 3 of past 6 days; overall stable. Messaged to test four times daily and report. 10/31/20236224-LBR-hhxszn 11/06/20230623-HXP-qnehiesc 5 of 7 days; stable 11/14/20231208-DUQ-riqzsknh 3 of past 7 days. Messaged to [...] 11/20/2001 Malabsorption 08/29/2001 Cystic Fibrosis ( homozygous [id number]) Estimated Date of Delivery Comme nts Yes [...] follows with behavioral health provider here at [facility] [place] DISCUSSION: 1. and delivery can worsen the [...] (boneless & skinless & in olive oil), Benton mackerel (i.e. not Bereket mackerel), or cooked [...] mRNA, LNP-s, No Pre serve, 2-Dose Series ([employer]) 06/01/2021,11/16/2020,10/26/2020 DTP/HIB (Tetramune) 01/27/1998,1997 DTaP Dipth/Tet/Acell Pertussis (Infanrix), Peds 11/20/2001,12/22/1998,03/30/1998 H1N1 2009 Influenza, IM 03/27/2009 Haemophilius B (HIB), unspecified 12/22/1998,01/1998 Hepatitis B Vaccine 03/30/1998,1997,1997 IPV - Polio Virus Vaccine (Inact) 11/20/2001 Influenza, Whole Virus 03/05/2001 MMR - Measles/Mumps/Rubella Vaccine 11/20/2001,0 09/21/1998 Meningococcal Conjugate Vacc ine (Menactra/Menveo) 07/14/2015,05/18/2010 OPV - Polio Virus Vaccine (Oral) 999,03/30/1998,01/27/1998,11/26 Pneumococcal Conjugate Vacci ne, 20-valent (Qncndgs53) 03/31/2022 Pneumococcal Polysaccharide PPV23 (Pneumovax) 03/05/2019 Seasonal [...] money to get more. Never true 12/13/2022 Falconer Depression Scale Answer Date Recorded Falconer Depression Scale Total 5 06/08/2023 The thought [...] 12/13/2022 Does the household have a re lar [...] as of this encounter Progress Notes * Kianna Mckinnon CHRA - 11/20/2023 9:07 AM EDT MyCode Consent Documentation Monica Youssef Keli provided consent/authorization to participate in the MyCode Project. * Bernadine Yuen CHRA - 11/13/2023 9:38 AM EDT MyCode Reconsent Documentation Monica Dickey was invited to reconsent to the MyCode project and agreed. documented in this encounter Miscellaneous Notes * Addendum Note - Kianna Mckinnon CHRA - 11/20/2023 9:07 AM EDTAddended by: KIANNA MCKINNON on: 11/20/2023 09:07 AM Modules accepted: Orders documented in this encounter Plan of Treatment Upcoming Encounters Date Type Department Care Team (Late st Contact Info) Description 11/21/2023 10:15 AM EDT Office Visit Gynecology/Obstetrics [facility] [address] [facility] [place] [address] Marnie Calvo PA-C [address] [place] [address] [place] [address] 11/30/2023 9:30 AM EDT Imaging [facility], [facility] [address] [place] [address] 12/05/2023 10:00 AM EDT Telemedicine Psychiatry [address], [place] [address] [place] [phone] Catina Araiza CRNP [address] [place] [phone] 12/05/2023 1:45 PM EDT Office Visit Gynecology/Obstetrics [facility] [address] [place], [place] [address] Radha Diaz CRNP [address] [place] [address] Adebayo, Non Stress Tests [facility] [address] [place] [address] 12/08/2023 1:45 PM EDT Office Visit Gynecology/Obstetrics [facility] [address] [place] [address] Radha Diaz CRNP [address] [place] [address] Adebayo, Non Stress Tests [facility] [address] [place] [address] 12/12/2023 1:45 PM EDT Office Visit Gynecology/Obstetrics [facility] [address] [place] [address] Radha Diaz CRNP [address] [place] [address] Adebayo, Non Stress Tests [facility] [address] [place] [address] 12/15/2023 11:00 AM EDT Office Visit Gynecology/Obstetrics [facility] [address] [place] [address] Ling Leonard CRNP [address] [place] [address] Fi[place], Non Stress Tests [facility] [address] [place] [address] 12/19/2023 1:45 PM EDT Office Visit Gynecology/Obstetrics [facility] [address] [place] [address] Radha Diaz CRNP [address] [place] [address] Fi[place], Non Stress Tests [facility] [address] [place] [address] 12/22/2023 11:00 AM EDT Office Visit Gynecology/Obstetrics [facility] [address] [place] [address] Ling Leonard CRNP [address] [place] [address] Fi[place], Non Stress Tests [facility] [address] [place] [address] 12/26/2023 1:45 PM EDT Office Visit Gynecology/Obstetrics [facility] [address] [place] [address] Radha Diaz CRNP [address] [place] [address] Fiore, Non Stress Tests [facility] [address] [place] [address] 12/28/2023 9:30 AM EDT Imaging [facility], [facility] [address] [place] [address] 12/29/2023 1:45 PM EDT Office Visit Gynecology/Obstetrics [facility] [address] [place] [address] Radha Diaz, FORMS ANALYSIS MANAGER [address] [place] [address] Adebayo Non Stress Tests [facility] [address] [place] [address] 01/02/2024 1:45 PM EDT Office Visit Gynecology/Obstetrics [facility] [address] [place] [address] Radha Diaz, FORMS ANALYSIS MANAGER [address] [place] [address] Adebayo Non Stress Tests [facility] [address] [place] [address] 01/05/2024 1:45 PM EDT Office Visit Gynecology/Obstetrics [facility] [address] [place] [address] Radha Diaz, FORMS ANALYSIS MANAGER [address] [place] [address] Adebayo Non Stress Tests [facility] [address] [place] [address] 01/09/2024 1:45 PM EDT Office Visit Gynecology/Obstetrics [facility] [address] [place] [address] Radha Diaz, FORMS ANALYSIS MANAGER [address] [place] [address] Fiore, Non Stress Tests [facility] [address] [place] [address] 01/11/2024 9:30 AM EDT Office Visit Pulmonary Medicine, [place] [address] [place] [address] Micaela Holly, [address] [place] [facility] [place] [address] 01/12/2024 1:45 PM EDT Office Visit Gynecology/Obstetrics [facility] [address] [place] [address] Radha Diaz CRNP [address] [place] [address] Fiore, Non Stress Tests [facility] [address] [place] [address] 01/16/2024 1:45 PM EDT Office Visit Gynecology/Obstetrics [facility] [address] [place] [address] Radha Diaz CRNP [address] [place] [address] Fiore, Non Stress Tests [facility] [address] [place] [address] 01/19/2024 1:45 PM EDT Office Visit Gynecology/Obstetrics [facility] [address] [place] [address] Radha Diaz CRNP [address] [place] [address] Fiore, Non Stress Tests [facility] [address] [place] [address] 01/23/2024 1:45 PM EDT Office Visit Gynecology/Obstetrics [facility] [address] [place] [address] Radha Diaz CRNP [address] [place] [address] Adebayo, Non Stress Tests [facility] [address] [place] [address] 01/26/2024 1:45 PM EDT Office Visit Gynecology/Obstetrics [facility] [address] [place] [address] Radha Diaz CRNP [address] [place] [address] Adebayo, Non Stress Tests [facility] [address] [place] [address] Scheduled Orders Name Type Priority Associated Diagnoses Orde r Schedule MYCODE INITIAL ADULT Lab Routine MyCode Research Other*[id number] Expected: 11/13/2023 (Approximate), Expires: 12/02/2024 MYCODE INITIAL ADULT Lab Routine MyCode Research Other*[id number] Expected: 11/20/2023 (Approximate), Expires: 12/09/2024 Health Maintenance Due Date Last Done Comments [...] Completed 03/30/1998, 12/1997, 1997 MENINGOCOCCAL (MENACTRA/MENVEO) Completed , 05/18/2010 Pneumococcal Vaccine: Pediat rics (0 to 5 Years) and At-Risk Patients (6 to 64 Years) Completed 03/31/2022, 03/05/2019 Gonorrhea / Chlamydia Screen Discontinued , 06/08/2023, 03/18/2020, Additional history exists documented as of this encounter Medical Devices Not on filedocumented as of this encounter Visit Diagnoses Diagnosis MyCode Research Other*[id number]- Primary documented in this encounter Additional Health Concerns Infection Onset Date Last Indicated Resolved Time Cystic fibrosis 11/10/2021 11/10/2021 documented as of this encounter Advance Directives * Full Code (Latest Code Status on File) Date Activated Date Inactivated Comments 10/30/2014 3:30 PM 11/12/2014 6:49 PM This order reflects the patients wishes [...]
--- OUTSIDE RECORDS SUMMARY | 2024-01-24 09:17 | External Medical Summary | Summary of Care ---
Author Name Unknown Organization [facility] Address [address] [place] [address] Phone [phone] Care Team Providers Care Bait Packer Name Role Phone Unavailable Primary Care Provider Unavailabl e Reason for Visit * Reason Comments Follow Up Cystic Fibrosis Encounter Details Date Type Department Care Team (Late st Contact Info) Description 11/14/2023 11:30 AM EDT Office Visit Pulmonary Medicine, [place] [address], [place] [id number] Severiano Holly, [address], [place] [id number] Cystic Fibrosis ( homozygous [id number])*; Cystic fibrosis with pulmonary manifestations (HCC); Allergic rhinitis, unspecified seasonality, unspecified trigger; Exocrine pancreatic insufficiency; Other specified intestinal malabsorption; Diet controlled gestational diabetes mellitus (GDM) in second trimester; Vitamin D insufficiency; High-risk in second trimester Allergies No known active allergiesdocumented as of this encounter (statuses as of 11/14/2023) Medications Medication Sig Dispensed Refills Start Date End Date Status COMPRESSOR/NEBULIZER MISCIndications:Cyst ic fibrosis (HCC) Use as directed 1 Device 0 05/31/2012 Active Additional Information Patient not taking.Reported on 07/21/2023 JUAN CARLOS LC PLUS NEBULIZER MISCIndications:Cyst ic fibrosis with pulmonary manifestations (HCC) Use daily with Iyprk-Vhs-lqjanmhl device 1 Device 5 06/13/2012 Active Additional [...] Information Patient not taking.Reported on 11/14/2023 Pancrelipase, Whl-Osdm-Xbrq, (ZENPEP) 18377-81737 units CPEPIndications:Cyst ic fibrosis (HCC) Take 6 [...] MG Oral Tablet Take by mouth. Active [employer] Flex System w/Device Kit Use to test blood sugars 4 times daily (fasting, 1 hour after breakfast, lunch, and dinner) 1 Kit 07/18/2023 Active [employer] In Vitro Strip (Glucose Blood) Use to test blood sugars 4 times daily (fasting, 1 hour after breakfast, lunch, and dinner) 125 Strip 6 07/18/2023 Active [employer] Lancets 30G Use to test blood sugars [...] & 150 MG Oral Tablet Therapy Pack (Zsrwzgdx-Gjfuvvr-Ou acaf & Ivacaf)Indications:C ystic fibrosis with pulmonary [...] as of this encounter (statuses as of 11/14/2023) Active Problems Problem Noted Date Diagnosed Date Rubella non-immune status, antepartum 06/09/2023 Chlamydia infection complicating 06/09 Overview: + test at [facility], sent azithromycin High-risk 06/08/2023 Last Assessment & Plan: I reviewed the ultrasound. The anatomy that was visualized is appropriate for the gestational age. Respiratory system disease affecting , antepartum 06/08/2023 Overview: Cystic fibrosis Follows with [facility] Denies complications with cystic fibrosis in last 06/08/23 MF genetic counseling referral placed Per M: Prothrombin [...] Stable (<50%) 08/28/23: RPM reviewed; stable overall 09/05/20235542-HDT-ghxrqcde 5 of 7 days in the past week; stable 09/12/23: RPM reviewed; Stable 09/19/23: RPM reviewed; Stable. Not testing every day. 09/26/23: RPM reviewed; Stable; more consistent reporting 10/03/23: RPM reviewed; Stable but not testing consistently. 10/10/20236394-HOO-byurtlib 2 days along with 2 additional fasting blood sugars. Messaged patient to be consistent with testing and reporting. 10/17/23: RPM reviewed; several missed readings, but overall stable 10/24/20231140-OCI-lvzqdhhb 3 of past 6 days; overall stable. Messaged to test four times daily and report. 10/31/20238053-VBV-sonjqk 11/06/20233423-EIG-bvhpfkpm 5 of 7 days; stable 11/14/20239421-YQN-keayeoxi 3 of past 7 days. Messaged to [...] 11/20/2001 Malabsorption 08/29/2001 Cystic Fibrosis ( homozygous [id number]) Estimated Date of Delivery Comme nts Yes 01/29/2024 Based on Ultraso und documented as of this encounter (statuses as of 11/14/2023) Resolved Problems Problem Noted Date Diagnosed Date [...] health provider [facility] at [facility] DISCUSSION: 1. and delivery can worsen the [...] (boneless & skinless & in olive oil), [place] mackerel (i.e. not Bereket mackerel), or cooked [...] as of this encounter (statuses as of 11/14/2023) Immunizations Name Administration Dates Next Due COVID-19 mRNA, LNP-s, No Pre serve, 2-Dose Series ([employer]) 06/01/2021,11/16/2020,10/26/2020 H1N1 2008 Influenza, IM 03/27/2009 Meningococcal Conjugate Vacc ine (Menactra/Menveo) 07/14/2015,05/18/2010 Pneumococcal Conjugate Vacci ne, 20-valent (Bvoiaxp52) 03/31/2022 Pneumococcal Polysaccharide PPV23 (Pneumovax) 03/05/2019 Seasonal [...] money to get more. Never true 12/13/2022 [place] Depression Scale Answer Date Recorded [place] Depression Scale Total 5 06/08/2023 The thought [...] No 12/13/2022 Does the household have a [place] [employer] [place] source of income? (Household - for ages [...] Sign Reading Time Taken Comments Blood Pressure 117/57 11/14/2023 11:26 AM EDT Pulse 90 11/14/2023 11:26 AM EDT Temperature 36.6 C (97.8 F) 11/14/2023 11:26 AM E DT Respiratory Rate - - Oxygen Saturation 97% 11/14/2023 11:26 AM EDT Inhaled Oxygen Concentration - - Weight 86 kg (189 lb 9.6 oz) 11/14/2023 11:26 AM EDT Height 164.7 cm (5' 4.84") 11/14/2023 11:26 AM E DT Body Mass Index 31.7 11/14/2023 11:26 AM EDT documented in this encounter Functional [...] as of this encounter Progress Notes * Severiano Holly, - 11/13/2023 10:49 PM EDT CF CLINIC FOLLOW UP CC: f/u CF HPI: 28 year old female followed in Adult CF clinic for management of cystic fibrosis lung disease,CF related gastrointestinal disease, and CF related endocrine disease - presents today for follow up. She is accompanied by her son, Dequan. CF Genotype: [id number] x 2 CFTR Mutation Targeted Therapy Eligible: Jannfta since 05/2019 Last seen CF clinic: by Dr. Su ; CAROL 01/29/24 Interim Hx / ROS: Now 29 weeks gestation Had 2nd trimester labs done Following closely with OB and MFM Has diet controlled GDM dx'd in 1st trimester Follows with [facility] (Leah Coley RDN) and [facility] ([facility]) / MFM Planning induction by 39 weeks if needed Pulm: VILLAREAL: denies Cough: at baseline Sputum: denies Wheeze: denies S/s respiratory infection: denies Rhinosinus: seasonal issues has singulair, flonase but not using lately ACT / Inhaled Meds: Airway clearance: [place]/Stationary VEST --> not using lately Has flutter device but not using Exercise routine: Walking at work Inhalational Therapies: Albuterol neb BID/HFA PRN - not using HTS 7%: not using Pulmozyme: not using Last admission for CF-related complications: n/a GI: Last weight: 170 lbs (77 kg), Last BMI 28.3 --> 189 lbs, BMI 31.7 today Nutrition stage 0 Nutrition goal for this visit: maintain BMI >22<28 PERT: not taking since started Trikafta Previously on Zenpep 20K 6 w/meals, 4 w/snacks Steatorrhea: denies BM frequency: 1 BM/day - stable Bowel regimen: none Appetite: at baseline GERD: occasional; takes PRN Dionisio's Abdominal pain: denies CRC screening: n/a Endo: CF Related DM: CF Related DM present: no but did meet criteria for GDM in 1st trimester - diet controlled If present, date of CFRD diagnosis: n/a If present, due for CFRD microvascular screening? 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 Graduated 04/2022. Tobacco and Alcohol Use/Exposure?: Denies ALLERGIES: Review of patient's allergies indicates: No Known Allergies MEDICATIONS: Current Outpatient Medications Medication Sig Dispense Refill COMPRESSOR/NEBULIZER MISC Use as directed (Patient not taking: Reported on 07/21/2023) 1 Device 0 JUAN CARLOS LC PLUS NEBULIZER MISC Use daily with Axmhl-Fpr-pmvgvfia device (Patient not taking: Reported on 07/21/2023) 1 Device 5 SIDESTREAM NEBULIZER-REUSABLE MISC Use daily with Pulmozyme (Patient not taking: Reported on 07/21/2023) 1 Device 5 albuterol sulfate (PROVENTIL) (2.5 MG/3ML) 0.083% nebulizer solution Inhale 1 Vial via nebulizer 2 times a day. May increase to every 4 hours as needed during exacerbations 360 Vial 1 Ferrous Sulfate (IRON) 325 (65 Fe) MG TABS Take 1 Tab by mouth daily. 90 Tab 1 Calcium 500 MG Tablet [...] of Breath or Wheezing. 18 g 5 Pancrelipase, Kwl-Aiii-Mabu, (ZENPEP) 94394-11473 units CPEP Take 6 Caps by mouth three times a daywith meals. Take 4 caps with snacks. 2700 Cap 1 MVW Complete Formulation D3000 [...] Sprays in the morning. 16 g 5 Montelukast Sodium 10 MG Oral Tablet (Singulair) TAKE ONE TABLET BY MOUTH EVERY DAY 90 Tablet 3 28-0.8 MG Oral Tablet Take by mouth. [employer] Flex System w/Device Kit Use to test blood sugars 4 times daily (fasting, 1 hour after breakfast, lunch, and dinner) 1 Kit 0 [employer] In Vitro Strip (Glucose Blood) Use to test blood sugars 4 times daily (fasting, 1 hour after breakfast, lunch, and dinner) 125 Strip 6 [employer] Lancets 30G Use to test blood [...] & 150 MG Oral Tablet Therapy Pack (Uskxdiql-Immzzaj-Ciqkwk & Ivacaf) Take 2 orange tablets by mouth in the morning and 1 light blue tablet by mouth in the evening. Take with fat-containing food. TAKE 2 ORANGE TABLETS BY MOUTH IN THE MORNING AND 1 LIGHT BLUE TABLET BY MOUTH IN THE EVENING. TAKE WITH FAT-CONTAINING FOOD 84 Each 5 No current facility-administered medications for this visit. EXAM BP 117/57 | Pulse 90 | Temp 36.6 C (97.8 F) (Tympanic) | Ht 1.647 m (5' 4.84") | Wt 86 kg (189 lb 9.6 oz) | LMP 03/25/2023 | SpO2 97% | BMI 31.70 kg/m | BSA 1.98 m General: awake, alert, ambulatory, NAD, full sentences Eyes: anicteric, clear ENT: nasal mucosa congested, no polyps, no sinus TTP, oropharynx clear; no exudate Neck: no masses or goiter, no cervical LAD, no JVD CV: regular HR, no murmurs or gallops Lungs: clear to auscultation b/l; no wheeze, rhonchi, or crackles Abd: soft, gravid, non tender Ext: no clubbing, edema or cyanosis Skin: no rashes seen on exposed skin; multiple tattoos Neuro: awake, alert, oriented, able to climb onto exam table without assistance Psychiatric: mood and affect appropriate Objective Data: PFT's: I personally reviewed today's PFT studies: FVC 3.92 (106) FEV1 2.89 (91) FEV1/FVC 74 Mild obstruction; FEV1 insignificantly dec'd c/t last study based on absolute value ,but stable based on %predicted (baseline FEV1 3.08, 91%) PFT results reviewed and compared to prior studies. Latest Reference Range & Units 12/13/22 09:37 04/18/23 09:47 06/22/23 10:36 FEV1/FVC Actual Pre % 76 74 74 FVC Actual Pre L 4.06 4.00 4.14 FVC Actual Pre %Predict % 103 102 104 FEV1 Actual Pre L 3.08 2.97 3.06 FEV1 Actual Pre %Predict % 91 88 90 Cultures: Last CF sputum culture: 06/2023 swab: normal [place] Last sputum culture reviewed and compared to prior cultures. 12/2021 - 06/2023 swab: normal [place] 09/2021: MSSA 02/2020 - 06/2021: normal [place] June 2019: MSSA, Steno May 2019: MSSA, Steno February 2019: MSSA, Steno, Klebsiella November 2018: MSSA, steno July 2018: steno, MSSA, H. influenzae Apr 2018: steno, MSSA Jan 2018: steno, MSSA AFB Cx- negative in 2018 Fungal Cx- Aspergillus, Exophiala 05/2019 Annual Labs completed 11/08/23 LFTs- wnl; GGTP 5 Vit D- 66 on D3 10K/day Vit A- 38 (06/2023) --> pnd Vit E- 12 PT/INR- 12.2 / 0.9 A1c- 4.8 OGTT- 102, 109 (12/13/22) IgE- < 2 SCr 0.8 Hb 12.3 CXR (04/18/23): stable DEXA (03/2021): -1.1, -1.0 (Z score -1 to -2.5 = osteopenia, less than -2.5 or fragility fracture = osteoporosis; consider using T scores if > 30 years old) IMPRESSION and PLAN: 28 year old female here for f/u eval of CF with pulmonary disease, pancreatic insufficiency with malabsorption, CF related endocrine disease. Pt is currently 29 weeks gestation and is doing well so far. Has diet controlled GDM dx'd in first trimester. Stable pulmonary symptoms and FEV1 despite minimal ACT/inhaled meds. CF exacerbation present: no 1) CF related lung disease Encourage at least daily ACT (VEST, flutter, exercise) and inhaled meds to keep FEV1 >90% Pt prefers to use them PRN, but will restart if any s/s acute infection No indication for suppressive INH abx at this time Con't Trikafta ([id number] x 2); annual LFT's Con't rhinosinus medication regimen PRN (singulair, flonase) Throat swab sent for CF culture today CF labs / studies: UTD except for repeat Vit A level for 2nd trimester which is pnd Assure respiratory vaccinations UTD 2) CF related GI disease / pancreatic insufficiency Nutrition stage 0 Nutrition intervention: Nutrition goal: maintain BMI >22<28 Not using PERT since on Trikafta; no s/s malabsorption previously on Zenpep 20K 6 w/meals, 4 w/snacks Remains on PNV; not taking CF vitamin (MVW D3000 2/day) Recommend surveillance Vit A levels during (pnd) Annual LFT's while on Trikafta Con't anti-reflux therapy for GERD Bowel regimen prn 3) CF related Endocrine disease Currently has diet controlled GDM, dx'd in 1st trimester - managed by MFM No CFRD based on 11/2022 OGTT though was c/w IFG DEXA UTD from 2020 Vit D level elevated at 66 on Vit D3 10K/day --> will reduce D3 to 5K/day 4) Bipolar 1 disorder Rescreened by CF team today Follows with Psychiatry Con't Risperdal, Sertraline per Psychiatry 5) Reproductive Health - currently 29 weeks gestation Con't f/u with OB, MFM Con't f/u with [facility], [facility] / MFM for management of GDM Con't PNV, surveillance of Vit A levels during Pt plans to con't Trikafta during ; she does not plan to breast feed F/u CF clinic 2 months I spent a total of 40-54 minutes (exact time 55 mins) on the date of service in preparation, delivery, and documentation of the care provided to Monica Dickey excluding any time spent in the performance of separately billed services. Severiano Holly DO Director, [facility] [place] [facility] Clinic Associate, Pulmonary / Critical Care / Sleep Medicine documented in this encounter Nursing Notes * Nicolasa Esparza RRT-WAFER ABRADING MACHINE TENDER - 11/14/2023 11:53 AM EDT Respiratory Care Note: Patient identified by name and birthday. Spirometry was preformed. documented in this encounter Plan of Treatment Upcoming Encounters Date Type Department Care Team (Late st Contact Info) Description 11/21/2023 10:15 AM EDT Office Visit Gynecology/Obstetrics [facility] [address] [facility] [place] [address] Marnie Calvo PA-C [address] [place] [address] [place] [address] 11/30/2023 9:30 AM EDT Imaging M[facility] Medicine Imaging, [facility] [address] [place] [address] 12/05/2023 10:00 AM EDT Telemedicine Psychiatry Jimbo Marie, [place] [address] [place] [id number] Catina Araiza CRNP [address] [place], [place] [address] 12/05/2023 1:45 PM EDT Office Visit Gynecology/Obstetrics [facility] [address] [place] [address] Radha Diaz CRNP [address] [place] [address] [facility], Non Stress Tests [facility] [address] [place] [address] 12/08/2023 1:45 PM EDT Office Visit Gynecology/Obstetrics [facility] [address] [place] [address] Radha Diaz CRNP [address] [place] [address] [facility], Non Stress Tests [facility] [address] [place] [address] 12/12/2023 1:45 PM EDT Office Visit Gynecology/Obstetrics [facility] [address] [place] [address] Radha Diaz CRNP [address] [place] [address] [place], Non Stress Tests [facility] [address] [place] [address] 12/15/2023 11:00 AM EDT Office Visit Gynecology/Obstetrics [facility] [address] [place] [address] Ling Leonard CRNP [address] [place] [address] [facility], Non Stress Tests [facility] [address] [place] [address] 12/19/2023 1:45 PM EDT Office Visit Gynecology/Obstetrics [facility] [address] [place] [address] Radha Diaz CRNP [address] [place] [address] [place], Non Stress Tests [facility] [address] [place] [address] 12/22/2023 11:00 AM EDT Office Visit Gynecology/Obstetrics [facility] [address] [place] [address] Ling Leonard CRNP [address] [place] [address] [facility], Non Stress Tests [facility] [address] [place] [address] 12/26/2023 1:45 PM EDT Office Visit Gynecology/Obstetrics [facility] [address] [place] [address] Radha Diaz CRNP [address] [place] [address] [facility], Non Stress Tests [facility] [address] [place] [address] 12/28/2023 9:30 AM EDT Imaging Maternal Medicine Imaging, [facility] [address] [place] [address] 12/29/2023 1:45 PM EDT Office Visit Gynecology/Obstetrics [facility] [address] [place] [address] Radha Diaz, ENROBING MACHINE CORDER [address] [place] [address] Adebayo, Non Stress Tests [facility] [address] [place] [address] 01/02/2024 1:45 PM EDT Office Visit Gynecology/Obstetrics [facility] [address] [place] [address] Radha Diaz ENROBING MACHINE CORDER [address] [place] [address] Adebayo Non Stress Tests [facility] [address] [place] [address] 01/05/2024 1:45 PM EDT Office Visit Gynecology/Obstetrics [facility] [address] [place] [address] Radha Diaz, ENROBING MACHINE CORDER [address] [place] [address] Adebayo Non Stress Tests [facility] [address] [place] [address] 01/09/2024 1:45 PM EDT Office Visit Gynecology/Obstetrics [facility] [address] [place] [address] Radha Diaz, ENROBING MACHINE CORDER [address] [place] [address] [facility], Non Stress Tests [facility] [address] [place] [address] 01/12/2024 1:45 PM EDT Office Visit Gynecology/Obstetrics [facility] [address] [place] [address] Radha Diaz, ENROBING MACHINE CORDER [address] [place] [address] Adebayo Non Stress Tests [facility] [address] [place] [address] 01/16/2024 1:45 PM EDT Office Visit Gynecology/Obstetrics [facility] [address] [place] [address] Radha Diaz, ENROBING MACHINE CORDER [address] [place] [address] Adebayo Non Stress Tests [facility] [address] [place] [address] 01/19/2024 1:45 PM EDT Office Visit Gynecology/Obstetrics [facility] [address] [place] [address] Radha Diaz, ENROBING MACHINE CORDER [address] [place] [address] Adebayo Non Stress Tests [facility] [address] [place] [address] 01/23/2024 1:45 PM EDT Office Visit Gynecology/Obstetrics [facility] [address] [place] [address] Radha Diaz, ENROBING MACHINE CORDER [address] [place] [address] Adebayo Non Stress Tests [facility] [address] [place] [address] 01/26/2024 1:45 PM EDT Office Visit Gynecology/Obstetrics [facility] [address] [place] [address] Radha Diaz CRNP [address] [place] [address] Adebayo, Non Stress Tests [facility] [address] [place] [address] Pending Results Name Type Priority Associated Diagnoses Date /Time CULTURE, CYSTIC FIBROSIS Lab Routine Cystic Fibrosis ( homozygous [id number]) Cystic fibrosis with pulmonary manifestations (HCC) 11/14/2023 11:52 AM EDT Scheduled Orders Name Type Priority Associated Diagnoses Orde r Schedule CULTURE, CYSTIC FIBROSIS Lab Routine Cystic Fibrosis ( homozygous [id number]) Cystic fibrosis with pulmonary manifestations (HCC) Expected: 11/14/2023, Expires: 11/13/2024 Health Maintenance Due Date Last Done Comments GARDASIL-HPV IMMUNIZATION SE AIDA (1 - 3-dose series) 2012 COVID-19 Vaccine (2022-2 4 season) 2023 06/01/2021, 11/16/2020, 10/26/2020 Pap Smear 05/20/2025 05/20/2022, 07/05/2019 DTaP,Tdap,and Td Vaccines (1 0 - Td or Tdap) 11/07/2033 11/08/2023, 09/01/2020, 07/14/2015, Additional history exists Hepatitis B Completed 03/30/1998, 12/1997, 1997 MENINGOCOCCAL (MENACTRA/MENVEO) Completed 6, 05/18/2010 Pneumococcal Vaccine: Pediat rics (0 to 5 Years) and At-Risk Patients (6 to 64 Years) Completed 03/31/2022, 03/05/2019 Influenza Vaccine (FLU shot) Completed , 03/07/2022, 04/01/2021, Additional history exists Gonorrhea / Chlamydia Screen Discontinued , 06/08/2023, 03/18/2020, Additional history exists documented as of this encounter Medical Devices Not on filedocumented as of this encounter Procedures Procedure Name Priority Date/Time Associated Diagnosis Comments BASIC SPIROMETRY Routine 11/14/2023 11:3 4 AM EDT Cystic Fibrosis ( homozygous [id number]) Cystic fibrosis with pulmonary manifestations (HCC) PULSE OXIMETRY SNGL DETERMIN (OP) Routine 11/14/2023 Cystic Fibrosis ( homozygous [id number]) Cystic fibrosis with pulmonary manifestations (HCC) documented in this encounter Results * BASIC SPIROMETRY (11/14/2023 11:34 AM EDT) FVC Actual Pre 3.92 L [facility] FVC Actual Pre %Predict 106 % [facility] FEV1 Actual Pre 2.89 L [facility] S[facility]DA [facility] FEV1 Actual Pre %Predict 91 % [facility] FEV1/FVC Actual Pre 74 % [facility] FEF 25-75% Actual Pre 2.10 L/sec [facility] FEF 25-75% Actual Pre %Predict 55 % [facility] 11/14/2023 11:3 4 AM EDT Narrative [facility] - 11/14/2023 11:34 AM EDT Mild obstruction; FEV1 insignificantly dec'd c/t last study based on absolute value ,but stable based on %predicted (baseline FEV1 3.08, 91%)This interpretation has been electronically signed: SEVERIANO HOLLY 11/14/2023 03:39:35 PM Lisa Su DO MEDICINE MARVA BARAKAT * PULSE OXIMETRY SNGL DETERMIN (OP) (11/14/2023) Pulse Oximetry-Initia l Rest 97 Pulse Oximetry-During Exercise Pulse Oximetry-Post Exercise Pulse Oximetry-Post Nebulizer Lisa Sweet Mitchell Sharlene DO MEDICINE documented in this encounter Visit Diagnoses Diagnosis Cystic Fibrosis ( homozygous [id number])- Primary Cystic fibrosis without mention of meconium ileus Cystic fibrosis with pulmonary manifestations (HCC) Cystic fibrosis with pulmonary manifestations Allergic rhinitis, unspecified seasonality, unspecified trigger Exocrine pancreatic insufficiency Other specified disease of pancreas Other specified intestinal malabsorption Diet controlled gestational diabetes mellitus (GDM) in second trimester Vitamin D insufficiency Unspecified vitamin D deficiency High-risk in second trimester documented in this encounter Additional Health [...]
--- OUTSIDE RECORDS SUMMARY | 2024-01-24 09:17 | External Medical Summary | Summary of Care ---
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 Name Role Phone Unavailable Primary Care Provider Unavailabl e Reason for Visit * Reason Onset Date Comments Medication Refill 11/13/2023 Encounter Details Date Type Department Care Team (Late st Contact Info) Description 11/13/2023 Refill Pulmonary Medicine, [place] [address], [place] [id number] Severiano Holly, [address] [place] [address] Cystic fibrosis with pulmonary manifestations (HCC) Allergies No known active allergiesdocumented as of this encounter (statuses as of 11/13/2023) Medications Medication Sig Dispensed Refills Start Date End Date Status COMPRESSOR/NEBULIZE R MISCIndications:Cys tic fibrosis (HCC) Use as directed 1 Device 0 3 Active Additional Information Patient not taking.Reported on 07/21/2023 JUAN CARLOS LC PLUS NEBULIZER MISCIndications:Cys tic fibrosis with pulmonary manifestations (HCC) Use daily with Dbuza-Sxs-ameuvydu device 1 Device 5 3 Active Additional [...] during exacerbations 360 Vial 1 8 Active Ferrous Sulfate (IRON) 325 (65 Fe) MG TABSIndications:Cys tic fibrosis (HCC) Take 1 Tab by mouth daily. 90 Tab 1 8 Active Calcium 500 MG TabletIndications:C ystic fibrosis (HCC) [...] or Wheezing. 18 g 5 0 Active Pancrelipase, Wdn-Hcyt-Vicu, (ZENPEP) 47673-[address] units CPEPIndications:Cys tic fibrosis (HCC) Take 6 Caps by mouth three times a day with meals. Take 4 caps with snacks. 2700 Cap 1 0 Active MVW Complete Formulation D3000 Oral CapsuleIndications: Cystic [...] the morning. 16 g 5 2 Active Montelukast Sodium 10 MG Oral Tablet (Singulair)Indicati ons:Asthma, allergic,Cystic fibrosis (HCC) TAKE ONE TABLET BY MOUTH EVERY DAY 90 Tablet 3 3 Active 28-0.8 MG Oral Tablet Take by mouth. Active [employer] Flex System w/Device Kit Use to test blood sugars 4 times daily (fasting, 1 hour after breakfast, lunch, and dinner) 1 Kit 4 Active [employer] In Vitro Strip (Glucose Blood) Use to test blood sugars 4 times daily (fasting, 1 hour after breakfast, lunch, and dinner) 125 Strip 6 4 Active Sendoid DelSiklu Lancets 30G Use to test blood sugars [...] & 150 MG Oral Tablet Therapy Pack (Tcwvxxxb-Morbxca-E vacaf & Ivacaf)Indications: Cystic fibrosis with pulmonary manifestations (HCC) Take 2 orange tablets by mouth in the morning and 1 light blue tablet by mouth in the evening. Take with fat-containing food. TAKE 2 ORANGE TABLETS BY MOUTH IN THE MORNING AND 1 LIGHT BLUE TABLET BY MOUTH IN THE EVENING. TAKE WITH FAT-CONTAINING FOOD 84 Each 5 4 Active Trikafta 100-50-75 & 150 MG Oral Tablet Therapy Pack (Gzsyzppx-Fchhgbh-I vacaf & Ivacaf)Indications: Cystic fibrosis with pulmonary [...] as of this encounter (statuses as of 11/13/2023) Active Problems Problem Noted Date Diagnosed Date Rubella non-immune status, antepartum 06/09/2023 Chlamydia infection complicating 06/09 Overview: + test at [facility], sent azithromycin High-risk 06/08/2023 Last Assessment & Plan: I reviewed the ultrasound. The anatomy that was visualized is appropriate for the gestational age. Respiratory system disease affecting , antepartum 06/08/2023 Overview: Cystic fibrosis Follows with [facility] Denies complications with cystic fibrosis in last 06/08/23 MF genetic counseling referral placed Per [facility]: Prothrombin time each trimester Growth [...] Stable (<50%) 08/28/23: RPM reviewed; stable overall 09/05/20233874-GOV-yazllraa 5 of 7 days in the past week; stable 09/12/23: RPM reviewed; Stable 09/19/23: RPM reviewed; Stable. Not testing every day. 09/26/23: RPM reviewed; Stable; more consistent reporting 10/03/23: RPM reviewed; Stable but not testing consistently. 10/10/20239327-KNC-ilgdemsx 2 days along with 2 additional fasting blood sugars. Messaged patient to be consistent with testing and reporting. 10/17/23: RPM reviewed; several missed readings, but overall stable 10/24/20231218-WPD-mlqipsvh 3 of past 6 days; overall stable. Messaged to test four times daily and report. 10/31/20230272-CPV-dbkywj 11/06/20233817-IAA-hqtqspyx 5 of 7 days; stable Last Assessment & Plan: Working with [facility], [...] 11/20/2001 Malabsorption 08/29/2001 Cystic Fibrosis ( homozygous [id number]) Estimated Date of Delivery Comme nts Yes 01/29/2024 Based on Ultraso und documented as of this encounter (statuses as of 11/13/2023) Resolved Problems Problem Noted Date Diagnosed Date [...] follows with behavioral health provider here at [facility]. DISCUSSION: 1. and delivery can [...] (boneless & skinless & in olive oil), [place] mackerel (i.e. not Bereket mackerel), or cooked [...] as of this encounter (statuses as of 11/13/2023) Immunizations Name Administration Dates Next Due COVID-19 mRNA, LNP-s, No Pre serve, 2-Dose Series (ShareSDK) 06/01/2021,11/16/2020,10/26/2020 H1N1 2009 Influenza, IM 03/27/2009 Meningococcal Conjugate Vacc ine (Menactra/Menveo) 07/14/2015,05/18/2010 Pneumococcal Conjugate Vacci ne, 20-valent ([id number]) 03/31/2022 Pneumococcal Polysaccharide PPV23 (Pneumovax) 03/05/2019 Seasonal [...] Answer Date Recorded PHQ Adult Total Score 2 06/22/2023 Hunger Vital Sign Answer Date Recorded Within the past 12 months, y ou worried that your food would run out before you got the money to buy more. Never true 12/14/19 23 Within the past 12 months, t he food you bought just didn't last and you didn't have money to get more. Never true 12/13/2022 Moore Depression Scale Answer Date Recorded [place] Depression Scale Total 5 06/08/2023 The thought [...] No 12/13/2022 Does the household have a [place] general [...] 18 years and over) Not on file 07/25/202 3 Are you (or your family) ben eless [...] encounter Miscellaneous Notes * Telephone Encounter - Severiano Holly DO - 11/13/2023 4:08 PM EDT Signed Prescriptions: Disp Refills Trikafta 100-50-75 & 150 MG Oral Tablet Th*84 Each5 Sig: Take 2 orange tablets by mouth in the morning and 1 light blue tablet by mouth in the evening. Take with fat-containing food. TAKE 2 ORANGE TABLETS BY MOUTH IN THE MORNING AND 1 LIGHT BLUE TABLET BY MOUTH IN THE EVENING. TAKE WITH FAT-CONTAINING FOODAuthorizing Provider: SEVERIANO HOLLY documented in this encounter Plan of Treatment Upcoming Encounters Date Type Department Care Team (Late st Contact Info) Description 11/14/2023 11:30 AM EDT Office Visit Pulmonary Medicine, [place] [address] [place] [address] Severiano Holly DO [address] [place] [address] 11/21/2023 10:15 AM EDT Office Visit Gynecology/Obstetrics [address] [place] [address] Marnie Calvo PA-C [address] [place] [address] 11/30/2023 9:30 AM EDT Imaging Maternal Medicine Imaging, [address] [place] [phone] 12/05/2023 10:00 AM EDT Telemedicine Psychiatry [place] [address] [place] [phone] Catina Araiza CRNP [address] [place] [phone] 12/05/2023 1:45 PM EDT Office Visit Gynecology/Obstetrics [facility] [address] [facility] [place] [address] Radha Diaz CRNP [address] [place] [address] Adebayo Non Stress Tests [facility] [address] [place] [address] 12/08/2023 1:45 PM EDT Office Visit Gynecology/Obstetrics [facility] [address] [place] [address] Radha Diaz CRNP [address] [place] [address] Adebayo Non Stress Tests [place] [address] [place] [address] 12/12/2023 1:45 PM EDT Office Visit Gynecology/Obstetrics [facility] [address] [place] [address] Radha Diaz CRNP [address] [place] [address] Adebayo Non Stress Tests [place] [address] [place] [address] 12/15/2023 11:00 AM EDT Office Visit Gynecology/Obstetrics [facility] [address] [place] [address] Ling Leonard CRNP [address] [place] [address] Adebayo Non Stress Tests [place] [address] [place] [address] 12/19/2023 1:45 PM EDT Office Visit Gynecology/Obstetrics [facility] [address] [place] [address] Radha Diaz CRNP [address] [place] [address] Fiore, Non Stress Tests [place] [address] [place] [address] 12/22/2023 11:00 AM EDT Office Visit Gynecology/Obstetrics [facility] [address] [place] [address] Ling Leonard CRNP [address] [place] [address] Adebayo Non Stress Tests [facility] [address] [place] [address] 12/26/2023 1:45 PM EDT Office Visit Gynecology/Obstetrics [facility] [address] [place] [address] Radha Diaz CRNP [address] [place] [address] Fiore, Non Stress Tests [facility] [address] [place] [address] 12/28/2023 9:30 AM EDT Imaging Maternal Medicine Imaging, [facility] [address] [place] [address] 12/29/2023 1:45 PM EDT Office Visit Gynecology/Obstetrics [facility] [address] [place] [address] Radha Diaz CRNP [address] [place] [address] Fiore, Non Stress Tests [place] [address] [place] [address] 01/02/2024 1:45 PM EDT Office Visit Gynecology/Obstetrics [facility] [address] [place] [address] Radha Diaz CRNP [address] [place] [address] Fiore, Non Stress Tests [place] [address] [place] [address] 01/05/2024 1:45 PM EDT Office Visit Gynecology/Obstetrics [facility] [address] [place] [address] Radha Diaz CRNP [address] [place] [address] Fiore, Non Stress Tests [place] [address] [place] [address] 01/09/2024 1:45 PM EDT Office Visit Gynecology/Obstetrics Alisa [facility] [address] [place] [address] Radha Diaz CRNP [address] [place] [address] Fiore, Non Stress Tests [place] [address] [place] [address] 01/12/2024 1:45 PM EDT Office Visit Gynecology/Obstetrics [facility] [address] [place] [address] Radha Diaz CRNP [address] [place] [address] Fiore, Non Stress Tests [place] [address] [place] [address] 01/16/2024 1:45 PM EDT Office Visit Gynecology/Obstetrics [facility] [address] [place] [address] Radha Diaz CRNP [address] [place] [address] Fiore, Non Stress Tests [place] [address] [place] [address] 01/19/2024 1:45 PM EDT Office Visit Gynecology/Obstetrics [facility] [address] [place] [address] Radha Diaz CRNP [address] [place] [address] Fiore, Non Stress Tests [place] [address] [place] [address] 01/23/2024 1:45 PM EDT Office Visit Gynecology/Obstetrics [facility]isa [facility] [address] [place] [address] Radha Diaz CRNP [address] [place] [address] Fiore, Non Stress Tests [facility] [address] [place] [address] 01/26/2024 1:45 PM EDT Office Visit Gynecology/Obstetrics [facility] [address] [place] [address] Radha Diaz CRNP [address] [place] [address] Fiore, Non Stress Tests [place] [address] [place] [address] Health Maintenance Due Date Last Done Comments GARDASIL-HPV IMMUNIZATION SE AIDA (1 - 3-dose series) 2012 COVID-19 Vaccine (4 2022-2 4 season) 2023 06/01/2021, 11/16/2020, 10/26/2020 Pap [...] as of this encounter Visit Diagnoses Diagnosis Cystic fibrosis with pulmonary manifestations (HCC) Cystic fibrosis with pulmonary manifestations documented in this encounter Additional Health Concerns [...]
--- OUTSIDE RECORDS SUMMARY | 2024-01-24 09:17 | External Medical Summary | Summary of Care ---
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 Name Role Phone Unavailable Primary Care Provider Unavailabl e Reason for Visit * Reason Onset Date Comments Diabetes 11/15/2023 Encounter Details Date Type Department Care Team (Late st Contact Info) Description 11/15/2023 2:30 PM EDT Scheduled Telephone [facility] [address] [place] [address] Leah Coley, [place] [address] [place] [id number] Allergies No known active allergiesdocumented as of this encounter (statuses as of 11/15/2023) Medications Medication Sig Dispensed Refills Start Date End Date Status COMPRESSOR/NEBULIZER MISCIndications:Cyst ic fibrosis (HCC) Use as directed 1 Device 0 05/31/2012 Active Additional Information Patient not taking.Reported on 07/21/2023 JUAN CARLOS LC PLUS NEBULIZER MISCIndications:Cyst ic fibrosis with pulmonary manifestations (HCC) Use daily with Ospis-Lil-wysuwaxz device 1 Device 5 06/13/2012 Active Additional [...] Information Patient not taking.Reported on 11/14/2023 Pancrelipase, Lsg-Dvyt-Rmab, (ZENPEP) 82746-[address] units CPEPIndications:Cyst ic fibrosis (HCC) Take 6 [...] MG Oral Tablet Take by mouth. Active PostedIn Flex System w/Device Kit Use to test blood sugars 4 times daily (fasting, 1 hour after breakfast, lunch, and dinner) 1 Kit 07/18/2023 Active PostedIn In Vitro Strip (Glucose Blood) Use to test blood sugars 4 times daily (fasting, 1 hour after breakfast, lunch, and dinner) 125 Strip 6 07/18/2023 Active [employer] Lancets 30G Use to test blood sugars [...] & 150 MG Oral Tablet Therapy Pack (Dcuyxpyk-Umohclz-Qv acaf & Ivacaf)Indications:C ystic fibrosis with pulmonary [...] as of this encounter (statuses as of 11/15/2023) Active Problems Problem Noted Date Diagnosed Date [...] Stable (<50%) 08/28/23: RPM reviewed; stable overall 09/05/20233321-EJN-vdpoarrh 5 of 7 days in the past week; stable 09/12/23: RPM reviewed; Stable 09/19/23: RPM reviewed; Stable. Not testing every day. 09/26/23: RPM reviewed; Stable; more consistent reporting 10/03/23: RPM reviewed; Stable but not testing consistently. 10/10/20233268-RLH-fgcqctzl 2 days along with 2 additional fasting blood sugars. Messaged patient to be consistent with testing and reporting. 10/17/23: RPM reviewed; several missed readings, but overall stable 10/24/20232332-NNW-umluqskc 3 of past 6 days; overall stable. Messaged to test four times daily and report. 10/31/20236296-KMK-fvraeg 11/06/20235824-FNC-xrghotfq 5 of 7 days; stable 11/14/20237317-DWU-nbhvfuur 3 of past 7 days. Messaged to [...] 11/20/2001 Malabsorption 08/29/2001 Cystic Fibrosis ( homozygous [id number]) Estimated Date of Delivery Comme nts Yes 01/29/2024 Based on Ultraso und documented as of this encounter (statuses as of 11/15/2023) Resolved Problems Problem Noted Date Diagnosed Date [...] follows with behavioral health provider here at [facility]. DISCUSSION: 1. and delivery can worsen [...] (boneless & skinless & in olive oil), Jack[place] mackerel (i.e. not Bereket mackerel), or cooked [...] as of this encounter (statuses as of 11/15/2023) Immunizations Name Administration Dates Next Due COVID-19 mRNA, LNP-s, No Pre serve, 2-Dose Series ([employer]) 06/01/2021,11/16/2020,10/26/2020 H1N1 2009 Influenza, IM 03/27/2009 Meningococcal Conjugate Vacc ine (Menactra/Menveo) 07/14/2015,05/18/2010 Pneumococcal Conjugate Vacci ne, 20-valent ([id number]) 03/31/2022 Pneumococcal Polysaccharide PPV23 (Pneumovax) 03/05/2019 Seasonal [...] money to get more. Never true 12/13/2022 [place] Depression Scale Answer Date Recorded [place] Depression Scale Total 5 06/08/2023 The thought [...] encounter Miscellaneous Notes * Telephone Encounter - Leah Coley RDN - 11/15/2023 4:27 PM EDT Attempted to contact pt regarding rescheduling canceled diabetes video visit from October 23. Patientanswered phone first time when calling her but phone line went . Attempted to contact pt again.Left message on her voicemail regarding rescheduling appointment. Of note: pt seen yesterday at CF clinic by Juan Reynolds RDN and Dr Holly from Pulmonology Leah Coley RDN, Clinical Dietitian II, [facility] Clinical Nutrition Services [facility] [address] [place] [address] Available via [employer] Portal documented in this encounter Plan of Treatment Upcoming Encounters Date Type Department Care Team (Late st Contact Info) Description 11/21/2023 10:15 AM EDT Office Visit Gynecology/Obstetrics [facility] [address] [place] [address] [facility] [address] 11/30/2023 9:30 AM EDT Imaging Maternal Medicine Imaging, [facility] [place] [phone] 12/05/2023 10:00 AM EDT Telemedicine Psychiatry [facility] [address] [facility] [place] [address] Catina Araiza CRNP [address] [place] [address] 12/05/2023 1:45 PM EDT Office Visit Gynecology/Obstetrics [facility] [address] [place] [address] Radha Diaz CRNP [address] [place] [address] Adebayo Non Stress Tests [place] [address] [place] [address] 12/08/2023 1:45 PM EDT Office Visit Gynecology/Obstetrics [facility] [address] [place] [address] Radha Diaz CRNP [address] [place] [address] Adebayo, Non Stress Tests [place] [address] [place] [address] 12/12/2023 1:45 PM EDT Office Visit Gynecology/Obstetrics [facility] [address] [place] [address] Radha Diaz CRNP [address] [place] [address] Adebayo Non Stress Tests [place] [address] [place] [address] 12/15/2023 11:00 AM EDT Office Visit Gynecology/Obstetrics [facility] [address] [place] [address] Ling Leonard CRNP [address] [place] [address] Adebayo Non Stress Tests [place] [address] [place] [address] 12/19/2023 1:45 PM EDT Office Visit Gynecology/Obstetrics [facility] [address] [place] [address] Radha Diaz CRNP [address] [place] [address] Adebayo, Non Stress Tests [place] [address] [place] [address] 12/22/2023 11:00 AM EDT Office Visit Gynecology/Obstetrics [facility] [address] [place] [address] Ling Leonard CRNP [address] [place] [address] Fiore, Non Stress Tests [place] [address] [place] [address] 12/26/2023 1:45 PM EDT Office Visit Gynecology/Obstetrics [facility] [address] [place] [address] Radha Diaz CRNP [address] [place] [address] Fiore, Non Stress Tests [place] [address] [place] [address] 12/28/2023 9:30 AM EDT Imaging Maternal Medicine Imaging, [facility] [address] [place] [address] 12/29/2023 1:45 PM EDT Office Visit Gynecology/Obstetrics [facility] [address] [place] [address] Radha Diaz CRNP [address] [place] [address] Fiore, Non Stress Tests [place] [address] [place] [address] 01/02/2024 1:45 PM EDT Office Visit Gynecology/Obstetrics [facility] [address] [place] [address] Radha Diaz CRNP [address] [place] [address] Fiore, Non Stress Tests [place] [address] [place] [address] 01/05/2024 1:45 PM EDT Office Visit Gynecology/Obstetrics [facility] [address] [place] [address] Radha Diaz CRNP [address] [place] [address] Adebayo, Non Stress Tests [place] [address] [place] [address] 01/09/2024 1:45 PM EDT Office Visit Gynecology/Obstetrics [facility] [address] [place] [address] Radha Diaz CRNP [address] [place] [address] Adebayo Non Stress Tests [place] [address] [place] [address] 01/11/2024 9:30 AM EDT Office Visit Pulmonary Medicine, [place] [address] [place] [address] Micaela Holly, [address] [place] [address] 01/12/2024 1:45 PM EDT Office Visit Gynecology/Obstetrics [facility] [address] [place] [address] Radha Diaz CRNP [address] [place] [address] Adebayo Non Stress Tests [place] [address] [place] [address] 01/16/2024 1:45 PM EDT Office Visit Gynecology/Obstetrics [facility] [address] [place] [address] Radha Diaz CRNP [address] [place] [address] Scarlett Fiore Stress Tests [place] [address] [place] [address] 01/19/2024 1:45 PM EDT Office Visit Gynecology/Obstetrics [facility] [address] [place], [place] [address] Radha Diaz CRNP [address] [place] [address] Scarlett Fiore Stress Tests [place] [address] [place] [address] 01/23/2024 1:45 PM EDT Office Visit Gynecology/Obstetrics [facility] [address] [place] [address] Radha Diaz CRNP [address] [place] [address] Scarlett Fiore Stress Tests [place] [address] [place] [address] 01/26/2024 1:45 PM EDT Office Visit Gynecology/Obstetrics [facility] [address] [place] [address] Radha Diaz CRNP [address] [place] [address] Scarlett Fiore Stress Tests [place] [address] [place] [address] Health Maintenance Due Date Last Done Comments [...]
--- OUTSIDE RECORDS SUMMARY | 2024-01-24 09:17 | External Medical Summary | Summary of Care ---
Author Name Unknown Organization [facility] Address [address] [place] [address] Phone [phone] Care Team Providers Care Palliative Nurse Name Role Phone Unavailable Primary Care Provider Unavailabl e Reason for Visit * Reason Comments [facility] [employer] [facility] Documentation Encounter Details Date Type Department Care Team (Late st Contact Info) Description 11/14/2023 [facility] Pulmonary Medicine, [place] [address], [place] [id number] Gracie Caicedo, EMA Allergies No known active allergiesdocumented as of this encounter (statuses as of 11/14/2023) Medications Medication Sig Dispensed Refills Start Date End Date Status COMPRESSOR/NEBULIZER MISCIndications:Cyst ic fibrosis (HCC) Use as directed 1 Device 0 05/31/2012 Active Additional Information Patient not taking.Reported on 07/21/2023 JUAN CARLOS LC PLUS NEBULIZER MISCIndications:Cyst ic fibrosis with pulmonary manifestations (HCC) Use daily with Jdqci-Ijx-wxjdnoaq device 1 Device 5 06/13/2012 Active Additional [...] Information Patient not taking.Reported on 11/14/2023 Pancrelipase, Cwa-Gkvz-Qaxr, (ZENPEP) 09627-91416 units CPEPIndications:Cyst ic fibrosis (HCC) Take 6 [...] MG Oral Tablet Take by mouth. Active Maptiaio Flex System w/Device Kit Use to test blood sugars 4 times daily (fasting, 1 hour after breakfast, lunch, and dinner) 1 Kit 07/18/2023 Active Waveborn In Vitro Strip (Glucose Blood) Use to test blood sugars 4 times daily (fasting, 1 hour after breakfast, lunch, and dinner) 125 Strip 6 07/18/2023 Active [employer] Delica Lancets 30G Use to test blood [...] & 150 MG Oral Tablet Therapy Pack (Aiqlxeut-Emwotzx-Em acaf & Ivacaf)Indications:C ystic fibrosis with pulmonary [...] patient about calling to get enrolled in [facility] 08/22/23: RPM; a couple elevated PP values; overall Stable (<50%) 08/28/23: RPM reviewed; stable overall 09/05/20235699-ZSM-vagqzxci 5 of 7 days in the past week; stable 09/12/23: RPM reviewed; Stable 09/19/23: RPM reviewed; Stable. Not testing every day. 09/26/23: RPM reviewed; Stable; more consistent reporting 10/03/23: RPM reviewed; Stable but not testing consistently. 10/10/20238752-MFJ-mcrjydkd 2 days along with 2 additional fasting blood sugars. Messaged patient to be consistent with testing and reporting. 10/17/23: RPM reviewed; several missed readings, but overall stable 10/24/20239858-ZVM-ehglydne 3 of past 6 days; overall stable. Messaged to test four times daily and report. 10/31/20239233-HEQ-wtnxox 11/06/20239447-FYX-ynsagphq 5 of 7 days; stable 11/14/20231002-FBC-vbkbeehb 3 of past 7 days. Messaged to [...] 11/20/2001 Malabsorption 08/29/2001 Cystic Fibrosis ( homozygous [id number]) Estimated Date of Delivery Comme nts Yes [...] follows with behavioral health provider here at [facility]. DISCUSSION: 1. and delivery can worsen the [...] (boneless & skinless & in olive oil), Starr mackerel (i.e. not Bereket mackerel), or cooked [...] mRNA, LNP-s, No Pre serve, 2-Dose Series (Prime Focus) 06/01/2021,11/16/2020,10/26/2020 H1N1 2008 Influenza, IM 03/27/2009 Meningococcal Conjugate Vacc ine (Menactra/Menveo) 07/14/2015,05/18/2010 Pneumococcal Conjugate Vacci ne, 20-valent (Uobsngn53) 03/31/2022 Pneumococcal Polysaccharide PPV23 (Pneumovax) 03/05/2019 Seasonal [...] money to get more. Never true 12/13/2022 Waddell Depression Scale Answer Date Recorded Waddell Depression Scale Total 5 06/08/2023 The thought [...] as of this encounter Progress Notes * Gracie Caicedo LSW - 11/14/2023 1:11 PM EDT .Adult CF Social Work Annual Assessment Sw met with pt and son today in [facility]. 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 [facility]. Agency Supports: Financial Assistance: None [employer] Assistance: [employer] and [facility]: Medication Management: [facility] Psychiatry JACKY:None Transportation: drives self Summary/Plan: Pt reports to be doing well, recently moved into new home but is more organized. Pt due in January with a baby girl, planing delivery at [facility]. No concerns with finances or food security today. Food Insecurity Screening: Food Insecurity: No Food Insecurity (12/13/2022) Food Insecurity Do you need food for [...] for ages 0-17 years): Not on file If patient answered "often true" or "sometimes true" to any statement, the following resources wereprovided: N/A- patient/family screened negatively or declined screening documented in this encounter Plan of Treatment Upcoming Encounters Date Type Department Care Team (Late st Contact Info) Description 11/21/2023 10:15 AM EDT Office Visit Gynecology/Obstetrics [facility] [address] [address] Marnie Calvo PA-C [address] [place] [address] [place] [address] 11/30/2023 9:30 AM EDT Imaging Maternal Medicine Imaging, [facility] [address] [place] [phone] 12/05/2023 10:00 AM EDT Telemedicine Psychiatry Erika Chambers [address] [phone] Catina Araiza CRNP [address] [place] [address] 12/05/2023 1:45 PM EDT Office Visit Gynecology/Obstetrics [facility]ons [address] [place] [address] Radha Diaz CRNP [address] [place] [address] Adebayo Non Stress Tests [facility] [address] [place] [address] 12/08/2023 1:45 PM EDT Office Visit Gynecology/Obstetrics Alisa Rolons [address] [place] [address] Radha Diaz CRNP [address] [place] [address] Adebayo Non Stress Tests [facility] [address] [place] [address] 12/12/2023 1:45 PM EDT Office Visit Gynecology/Obstetrics Alisa Rolons [address] [place] [address] Radha Diaz CRNP [address] [place] [address] Adebayo Non Stress Tests [facility] [address] [place] [address] 12/15/2023 11:00 AM EDT Office Visit Gynecology/Obstetrics Alisa Rolons [address] [place] [address] Ling Leonard CRNP [address] [place] [address] Adebayo Non Stress Tests [facility] [address] [place] [address] 12/19/2023 1:45 PM EDT Office Visit Gynecology/Obstetrics Alisa [facility] [address] [place] [address] Radha Diaz CRNP [address] [place] [address] Adebayo Non Stress Tests [facility] [address] [place] [address] 12/22/2023 11:00 AM EDT Office Visit Gynecology/Obstetrics Alisa [address] [place], [place] [address] BackerLing CRNP [address] [place] [address] Adebayo Non Stress Tests [facility] [address] [place] [address] 12/26/2023 1:45 PM EDT Office Visit Gynecology/Obstetrics Alisa [facility] [address] [place], [place] [address] Radha Diaz CRNP [address] [place] [address] Adebayo Non Stress Tests [place] [address] [place] [address] 12/28/2023 9:30 AM EDT Imaging Maternal Medicine Imaging, [place] [address] [place] [phone] 12/29/2023 1:45 PM EDT Office Visit Gynecology/Obstetrics Alisa [facility] [address] [place] [address] Radha Diaz CRNP [address] [place] [address] Fiore, Non Stress Tests [facility] [address] [place] [address] 01/02/2024 1:45 PM EDT Office Visit Gynecology/Obstetrics [facility] [address] [place] [address] Radha Diaz CRNP [address] [place] [address] Adebayo, Non Stress Tests [place] [address] [place] [address] 01/05/2024 1:45 PM EDT Office Visit Gynecology/Obstetrics Alisa Rolons [address] [place] [address] Radha Diaz CRNP [address] [place] [address] Adebayo Non Stress Tests [place] [address] [place] [address] 01/09/2024 1:45 PM EDT Office Visit Gynecology/Obstetrics Alisa Rolons [address] [place] [address] Radha Diaz CRNP [address] [place] [address] Fiore, Non Stress Tests [facility] [address] [place] [address] 01/12/2024 1:45 PM EDT Office Visit Gynecology/Obstetrics [facility] [address] [place] [address] Radha Diaz CRNP [address] [place] [address] Fiore, Non Stress Tests [facility] [address] [place] [address] 01/16/2024 1:45 PM EDT Office Visit Gynecology/Obstetrics [facility] [address] [place] [address] Radha Diaz CRNP [address] [place] [address] Fiore, Non Stress Tests [facility] [address] [place] [address] 01/19/2024 1:45 PM EDT Office Visit Gynecology/Obstetrics [facility] [address] [place] [address] Radha Diaz CRNP [address] [place] [address] Adebayo Non Stress Tests [facility] [address] [place] [address] 01/23/2024 1:45 PM EDT Office Visit Gynecology/Obstetrics [facility] [address] [place] [address] Radha Diaz CRNP [address] [place] [address] Fiore, Non Stress Tests [facility] [address] [place] [address] 01/26/2024 1:45 PM EDT Office Visit Gynecology/Obstetrics [facility] [address] [place] [address] Radha Diaz CRNP [address] [place] [address] Fiore, Non Stress Tests [facility] [address] [place] [address] Health Maintenance Due Date Last Done Comments [...]
--- OUTSIDE RECORDS SUMMARY | 2024-01-24 09:17 | External Medical Summary | Summary of Care ---
Author Name Unknown Organization [facility] Address [address] [place] [address] Phone [phone] Care Team Providers Care Manager Ambulatory Name Role Phone Unavailable Primary Care Provider Unavailabl e Reason for Visit * Reason Comments Medical Nutrition Therapy Encounter Details Date Type Department Care Team (Latest Contact Info) Description 11/14/2023 11:30 AM EDT [facility] [address] [place] [address] Juan Reynolds RDN [address], [place] [id number] Diet controlled gestational diabetes mellitus (GDM), antepartum*; Cystic Fibrosis ( homozygous [id number]) Allergies No known active allergiesdocumented as of this encounter (statuses as of 11/15/2023) Medications Medication Sig Dispensed Refills Start Date End Date Status COMPRESSOR/NEBULIZER MISCIndications:Cyst ic fibrosis (HCC) Use as directed 1 Device 0 05/31/2012 Active Additional Information Patient not taking.Reported on 07/21/2023 JUAN CARLOS LC PLUS NEBULIZER MISCIndications:Cyst ic fibrosis with pulmonary manifestations (HCC) Use daily with Futjs-Zmj-xfvpsjvk device 1 Device 5 06/13/2012 Active Additional [...] Information Patient not taking.Reported on 11/14/2023 Pancrelipase, Jji-Ojus-Zbvw, (ZENPEP) 00870-10203 units CPEPIndications:Cyst ic fibrosis (HCC) Take 6 [...] MG Oral Tablet Take by mouth. Active LCO Creation Flex System w/Device Kit Use to test blood sugars 4 times daily (fasting, 1 hour after breakfast, lunch, and dinner) 1 Kit 07/18/2023 Active [employer] In Vitro Strip (Glucose Blood) Use to test blood sugars 4 times daily (fasting, 1 hour after breakfast, lunch, and dinner) 125 Strip 6 07/18/2023 Active [employer] Delica Lancets 30G Use to test blood [...] & 150 MG Oral Tablet Therapy Pack (Qxzoalwq-Rvrxomu-Mr acaf & Ivacaf)Indications:C ystic fibrosis with pulmonary [...] Stable (<50%) 08/28/23: RPM reviewed; stable overall 09/05/20238617-UNM-osbvyrgi 5 of 7 days in the past week; stable 09/12/23: RPM reviewed; Stable 09/19/23: RPM reviewed; Stable. Not testing every day. 09/26/23: RPM reviewed; Stable; more consistent reporting 10/03/23: RPM reviewed; Stable but not testing consistently. 10/10/20238264-DVQ-ckucpglx 2 days along with 2 additional fasting blood sugars. Messaged patient to be consistent with testing and reporting. 10/17/23: RPM reviewed; several missed readings, but overall stable 10/24/20230868-ZVY-wsagyqzj 3 of past 6 days; overall stable. Messaged to test four times daily and report. 10/31/20234220-CAE-elazml 11/06/20231142-EGQ-zpcbnxml 5 of 7 days; stable 11/14/20233191-DDC-ntoacqcg 3 of past 7 days. Messaged to [...] 11/20/2001 Malabsorption 08/29/2001 Cystic Fibrosis ( homozygous [id number]) Estimated Date of Delivery Comme nts Yes [...] follows with behavioral health provider here at [facility]. DISCUSSION: 1. and delivery [...] (boneless & skinless & in olive oil), Shelton mackerel (i.e. not Bereket mackerel), or cooked [...] mRNA, LNP-s, No Pre serve, 2-Dose Series (Centro) 06/01/2021,11/16/2020,10/26/2020 DTP/HIB (Tetramune) 01/27/1998,1997 DTaP Dipth/Tet/Acell Pertussis (Infanrix), Peds 11/20/2001,12/22/1998,03/30/1998 H1N1 2009 Influenza, IM 03/27/2009 Haemophilius B (HIB), unspecified 12/22/1998,01/1998 Hepatitis B Vaccine 03/30/1998,1997,1997 IPV - Polio Virus Vaccine (Inact) 11/20/2001 Influenza, Whole Virus 03/05/2001 MMR - Measles/Mumps/Rubella Vaccine 11/20/2001,0 09/21/1998 Meningococcal Conjugate Vacc ine (Menactra/Menveo) 07/14/2015,05/18/2010 OPV - Polio Virus Vaccine (Oral) 999,03/30/1998,01/27/1998,11/26 Pneumococcal Conjugate Vacci ne, 20-valent (Emmcing85) 03/31/2022 Pneumococcal Polysaccharide PPV23 (Pneumovax) 03/05/2019 Seasonal Influenza, PF, 6 M & above, IM , (FluLaval or Fluzone) 04/18/2023,03/07/2022,04/01/2021,03/05 Seasonal Influenza, Quadriva lent, No Preserve, IM 03/05/2019,02/08/2018,03/09/2017,03/16,03/19/2015 Seasonal Influenza, Split, I IV3, No Preserve, Inj 05/11/1998,04/13/1998 Seasonal Influenza, Split, I IV3, With Preserve, Inj 01/23/2014,04/04/2013,03/08/2012,03/14,02/25/2010,02/05/2009,02/25/2008 ,03/21/2007,03/17/2006,03/24/2005,11/2003,03/03/2003,04/03/2002 TB Vciki Test 09/20/1999,09/21/1998 TDAP (age 10 and older)(Boostrix) [...] money to get more. Never true 12/13/2022 Abie Depression Scale Answer Date Recorded Abie Depression Scale Total 5 06/08/2023 The thought [...] - Inhaled Oxygen Concentration - - Weight 86 kg (189 lb 9.5 oz) 11/15/2023 2:28 PM EDT Height 164.7 cm (5' 4.84") 11/15/2023 2:28 PM ED T Body Mass Index 31.7 11/15/2023 2:28 PM EDT documented in this [...] as of this encounter Progress Notes * Juan Reynolds RDN - 11/14/2023 11:30 AM EDT NUTRITION FOLLOW-UP NOTE - OUTPATIENT [facility] Name: Monica Dickey Location: [facility] Date: 11/14/2023 Time: 12:32 PM Patient was identified by name and date. Patient was seen face to face in Adult CF clinic. Reason for Nutrition Follow-up: Cystic Fibrosis, GDM Support System: Spouse Doris Barriers to Learning: None Special Education Needs: None NUTRITION ASSESSMENT: Client History Monica Billy is a 26 year old female who presents to the [facility] [place] Cystic Fibrosis clinic for follow up of cystic fibrosis lung disease, pancreatic insufficiency/malabsorption, and CF related endocrine disease. Patient Active Problem List Diagnosis Malabsorption VACCIN FOR DISEASE NEC Cystic Fibrosis ( homozygous [id number]) Vaccine refused by patient Cystic fibrosis with pulmonary manifestations (HCC) Cystic fibrosis with gastrointestinal manifestations (HCC) Exocrine pancreatic insufficiency Vitamin D insufficiency History of nasal polyp Constipation Splenomegaly Rh negative, antepartum Diet controlled gestational diabetes mellitus (GDM) Bipolar 1 disorder (HCC) CF (cystic fibrosis) (HCC) High-risk Respiratory system disease affecting , antepartum Bipolar disease during ([facility]) H/O macrosomia in in prior , currently Rubella non-immune status, antepartum Chlamydia infection complicating Pt is being seen for CF follow-up Interval history: Monica is doing well. Here with 2 year old son Davis. Is 29 weeks 1 days gestation. EDC 01/29/24. Testing blood sugars 4 times/day and entering into the ivanna. 83-90 in the morning, 115-135 2 hours after meals Taking vitamin D 10,000 units daily; has not been taking CF vitamin Met with Leah Coley RDN for diabetes education, follow up appt not scheduled Concerns/questions pt would like to discuss today? No questions/concerns RDN checking in re: vitamin D, CF vitamin dose, blood sugars Food Insecurity Screening: Food Insecurity: No Food [...] N/A- patient/family screened negatively or declined screening Supplemental Programs/Assistance - [employer] for medications, vitamins and supplements. Total carerx for CF vitamin. Total care repors pt overdue for refill of CF vitamin, last filled 09/2022. They have had trouble reaching her since December 2022. [employer] sarahy 02/2023. Food/Nutrition-Related History Eating 3 meals/day Drinking less soda Breakfast: meal replacement shake Slimfast or grabs donut (not hungry in the morning) Lunch: grabs at work ([employer]) egg salad sandwich or salad or slice of pizza; water or milk Snack: chips or pretzels Dinner: Cooking more lately - meat, vegetable, potatoes or rice, or Leftovers (from Mom) meat, potatoes, vegetables; milk; eats out occasionally Snacks: none or popcorn Beverages: water (a lot), 3-4 cups 2% milk daily, soda (3 can/sweek), no juice Fruit - strawberries Oral Nutrition Supplement: none Physical Activity: Walks at work; 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 [employer] CF Related Medications Changes/Updates: Vitamins - MVW Complete D3000 2 tabs/day (not taking), vitamin (taking), calcium 500 mg daily (not sure if pt taking) Bowel regimen- miralax prn; has not been taking Probiotics-none Reflux therapy-none CFTR modulator-Trikafta bid with fat containing food (breakfast, after dinner) DM meds -none Enzyme regimen: Zenpep 20,000 6 with meals, 4 with snacks - not taking for > past 3 years (sincestarted Trikafta) Nutrition-Focused Physical Findings Digestive system: -Appetite-Good -Daily BM - 1x/day; Denies constipation, diarrhea, steatorrhea -GERD- denies Overall appearance: WNWD Nutrition focused physical exam deferred at this time. Anthropometric Measurements Current Weight: 189 lb. Pre- weight: 168 lbs at first OB visit 06/08/23 Pre- BMI: 28 weight gain goal (based on prepregnancy BMI) 15-25 lbs; 2-6 lbs first trimester, 2-3 lbs/month second and third trimester Wt Readings from Last 4 Encounters: 11/14/23 86 kg (189 lb 9.6 oz) 11/08/23 86.2 kg (190 lb) 10/24/23 80.8 kg (178 lb 3.2 oz) 09/26/23 81.6 kg (180 lb) Weight Change: increased by 21 pounds at 29 weeks. Biochemical Data, Medical Tests, and Procedures Most recent Labs: First trimester labs 07/06/23, second/third trimester labs 11/08/23 FEV1-91% today A1C -4.9->4.8 3 hour OGTT- 103/216/121 (2/3 elevated) - 07/06/23 Vitamin A-38->34 Vitamin E-11.7-12.3 Vitamin D-18->66 Pt - 12.6->12.2 Fat soluble vitamins D and E in target, vitamin A slightly below target. OGTT diagnostic for GDM. SMBG - testing 4 times/day, fasting and 2 hours after meals Hypoglycemia signs/symptoms? Previous Nutrition Diagnosis: Increased nutrient needs related to increased energy expenditure and altered absorption or metabolism of nutrients as evidenced by disease process of CF. Progress towards goals: Pt will have second trimester labs drawn. Met Pt will test blood sugars qid and submit to ADAPT team via the ivanna, meeting per pt report Weight gain will progress at ~.6lb per week 4. Pt will begin taking 10,000 units vitamin D3 daily. Meeting CURRENT NUTRITION DIAGNOSIS Same as previous CF Nutrition Stage: 0 NUTRITION INTERVENTION: Meals, snacks, vitamin supplementation Nutrition Prescription: Diet: Good Nutrition Estimated Calorie needs: 2240 ([place]kar[place] St Jeor) + 300-400 calories during Estimated Protein needs:115-130 grams (1.5-1.7 grams/kg) Estimated Fluid needs: 0581-2611 mL (~1 mL/calorie) Current Goals: Pt will decrease vitamin D3 from 10,000 units to 5,000 units daily Dietitian Action: Reviewed progress toward goals per above. Discussed vitamin D level of [address] Holly who recommends decreasing dose (goal 30-60 range). Discussed decreasing to 5,000 units daily with pt who is inagreement. Nutrition Education / Written Guidelines Given: None Recommendations to Ordering Provider: Continue current plan of nutrition care. Recheck vitamin D level in 3-6 months. NUTRITION MONITORING AND EVALUATION: The following will be monitored and evaluated at the next visit: Monitoring: Monitor weight;Monitor labs;Monitor goals and progress Plan: Follow up in CF clinic 15 minutes Medical Nutrition Therapy Time In: 1200 (11/14/23 1247) Time Out: 1220 (11/14/23 1247) Juan Reynolds RDN Clinical Dietitian, Adult CF [facility] documented in this encounter Plan of Treatment Upcoming Encounters Date Type Department Care Team (Late st Contact Info) Description 11/21/2023 10:15 AM EDT Office Visit Gynecology/Obstetrics Alisa Fiore [address] [place] [address] Marnie Calvo PA-C [address] [place] [address] 11/30/2023 9:30 AM EDT Imaging Maternal Medicine Imaging, [place] Fi[facility] [address] [place] [id number] 12/05/2023 10:00 AM EDT Telemedicine Psychiatry Erika Chambers [address] [place] [phone] Catina Araiza CRNP [address] [facility] [place] [phone] 12/05/2023 1:45 PM EDT Office Visit Gynecology/Obstetrics Alisa Fiore [address] [place] [address] Radha Diaz CRNP [address] [place] [address] Adebayo, Non Stress Tests [address] [place] [address] 12/08/2023 1:45 PM EDT Office Visit Gynecology/Obstetrics Alisa Fiore [address] [place] [address] Radha Diaz CRNP [address] [place] [address] Fiore, Non Stress Tests [place] [address] [place] [address] 12/12/2023 1:45 PM EDT Office Visit Gynecology/Obstetrics [facility] [address] [place] [address] Radha Diaz CRNP [address] [place] [address] Fiore, Non Stress Tests [place] [address] [place] [address] 12/15/2023 11:00 AM EDT Office Visit Gynecology/Obstetrics [facility] [address] [place] [address] Ling Leonard CRNP [address] [place] [address] Adebayo Non Stress Tests [place] [address] [place] [address] 12/19/2023 1:45 PM EDT Office Visit Gynecology/Obstetrics [facility] [address] [place] [address] Radha Diaz CRNP [address] [place] [address] Fiore, Non Stress Tests [place] [address] [place] [address] 12/22/2023 11:00 AM EDT Office Visit Gynecology/Obstetrics [facility] [address] [place] [address] Ling Leonard CRNP [address] [place] [address] Fiore, Non Stress Tests [place] [address] [place] [address] 12/26/2023 1:45 PM EDT Office Visit Gynecology/Obstetrics Alisa Rolons [address] [place] [address] Radha Diaz CRNP [address] [place] [address] Adebayo, Non Stress Tests [place] [address] [place] [address] 12/28/2023 9:30 AM EDT Imaging Maternal Medicine Imaging, [place] Fi[facility] [address] [place] [id number] 12/29/2023 1:45 PM EDT Office Visit Gynecology/Obstetrics Alisa Rolons [address] [place] [address] Radha Diaz CRNP [address] [place] [address] Adebayo, Non Stress Tests [place] [address] [place] [address] 01/02/2024 1:45 PM EDT Office Visit Gynecology/Obstetrics Alisa Fiore [address] [place] [address] Radha Diaz CRNP [address] [place] [address] Adebayo, Non Stress Tests [place] [address] [place] [address] 01/05/2024 1:45 PM EDT Office Visit Gynecology/Obstetrics Alisa Rolons [address] [place] [address] Radha Diaz, CLINICAL OUTCOMES MANAGER [address] [place] [address] Adebayo, Non Stress Tests [facility] [address] [place] [address] 01/09/2024 1:45 PM EDT Office Visit Gynecology/Obstetrics [facility] [address] [place] [address] Radha Diaz CRNP [address] [place] [address] Adebayo, Non Stress Tests [place] [address] [place] [address] 01/11/2024 9:30 AM EDT Office Visit Pulmonary Medicine, [place] [address] [place] [address] [facility] [address] [place] [address] 01/12/2024 1:45 PM EDT Office Visit Gynecology/Obstetrics [facility] [address] [place] [address] Radha Diaz CRNP [address] [place] [address] Adebayo, Non Stress Tests [place] [address] [place] [address] 01/16/2024 1:45 PM EDT Office Visit Gynecology/Obstetrics [facility] [address] [place] [address] Radha Diaz CLINICAL OUTCOMES MANAGER [address] [place] [address] Adebayo, Non Stress Tests [place] [address] [place] [address] 01/19/2024 1:45 PM EDT Office Visit Gynecology/Obstetrics [facility] [address] [place] [address] Radha Diaz CRNP [address] [place] [address] Adebayo Non Stress Tests [place] [address] [place] [address] 01/23/2024 1:45 PM EDT Office Visit Gynecology/Obstetrics Alisa Fiore [address] [place] [address] Radha Diaz CRNP [address] [place] [address] Scarlett Fiore Stress Tests [place] [address] [place] [address] 01/26/2024 1:45 PM EDT Office Visit Gynecology/Obstetrics Alisa Fiore [address] [place] [address] Radha Diaz CRNP [address] [place] [address] Scarlett Fiore Stress Tests [place] [address] [place] [address] Health Maintenance Due Date Last Done Comments [...] Diagnoses Diagnosis Diet controlled gestational diabetes mellitus (GDM), antepartum- Primary Cystic Fibrosis ( homozygous [id number]) Cystic fibrosis without mention of meconium ileus documented in this encounter Additional Health Concerns [...]
--- OUTSIDE RECORDS SUMMARY | 2024-01-24 09:17 | External Medical Summary | Summary of Care ---
Author Name Unknown Organization [facility] Address [address] [place] [address] Phone [phone] Care Team Providers Care Confidential Secretary Name Role Phone Unavailable Primary Care Provider Unavailabl e Reason for Visit * Reason Comments Medical Nutrition Therapy Encounter Details Date Type Department Care Team (Latest Contact Info) Description 11/14/2023 11:30 AM EDT [facility] [address] [place] [address] Juan Reynolds RDN [address], [place] [id number] Diet controlled gestational diabetes mellitus (GDM), antepartum*; Cystic Fibrosis ( homozygous [id number]) Allergies No known active allergiesdocumented as of this encounter (statuses as of 11/15/2023) Medications Medication Sig Dispensed Refills Start Date End Date Status COMPRESSOR/NEBULIZER MISCIndications:Cyst ic fibrosis (HCC) Use as directed 1 Device 0 05/31/2012 Active Additional Information Patient not taking.Reported on 07/21/2023 JUAN CARLOS LC PLUS NEBULIZER MISCIndications:Cyst ic fibrosis with pulmonary manifestations (HCC) Use daily with Bguvf-Dce-sprpizxe device 1 Device 5 06/13/2012 Active Additional [...] Information Patient not taking.Reported on 11/14/2023 Pancrelipase, Rtr-Vjhl-Gdwe, (ZENPEP) 18759-00420 units CPEPIndications:Cyst ic fibrosis (HCC) Take 6 [...] MG Oral Tablet Take by mouth. Active [employer]Me Flex System w/Device Kit Use to test blood sugars 4 times daily (fasting, 1 hour after breakfast, lunch, and dinner) 1 Kit 07/18/2023 Active WhoWantsMe In Vitro Strip (Glucose Blood) Use to test blood sugars 4 times daily (fasting, 1 hour after breakfast, lunch, and dinner) 125 Strip 6 07/18/2023 Active [employer] Delica Lancets 30G Use to test blood [...] & 150 MG Oral Tablet Therapy Pack (Xkbmuqvc-Wityfcb-Np acaf & Ivacaf)Indications:C ystic fibrosis with pulmonary [...] infection complicating 06/09 Overview: + test at [facility], sent azithromycin High-risk 06/08/2023 Last Assessment [...] Stable (<50%) 08/28/23: RPM reviewed; stable overall 09/05/20236010-ESF-tzecznrw 5 of 7 days in the past week; stable 09/12/23: RPM reviewed; Stable 09/19/23: RPM reviewed; Stable. Not testing every day. 09/26/23: RPM reviewed; Stable; more consistent reporting 10/03/23: RPM reviewed; Stable but not testing consistently. 10/10/20231383-RYV-eqprfchb 2 days along with 2 additional fasting blood sugars. Messaged patient to be consistent with testing and reporting. 10/17/23: RPM reviewed; several missed readings, but overall stable 10/24/20237778-FDZ-prmdpwdx 3 of past 6 days; overall stable. Messaged to test four times daily and report. 10/31/20239594-TVF-albyeh 11/06/20239365-ULH-ytedjywa 5 of 7 days; stable 11/14/20231360-CMA-nfwhxltz 3 of past 7 days. Messaged to [...] 11/20/2001 Malabsorption 08/29/2001 Cystic Fibrosis ( homozygous [id number]) Estimated Date of Delivery Comme nts Yes 01/29/2024 Based on Ultraso und documented as of this encounter (statuses as of 11/15/2023) Resolved Problems Problem Noted Date Diagnosed Date Resolved Date History of gestational diabe naihd mellitus (GDM) in prior , currently 06/08/2023 [...] [place] [facility] [place] DIS[place]: 1. and delivery can worsen the [...] (boneless & skinless & in olive oil), [place] mackerel (i.e. not Bereket mackerel), or cooked [...] mRNA, LNP-s, No Pre serve, 2-Dose Series (Inktd) 06/01/2021,11/16/2020,10/26/2020 DTP/HIB (Tetramune) 01/27/1998,1997 DTaP Dipth/Tet/Acell Pertussis (Infanrix), Peds 11/20/2001,12/22/1998,03/30/1998 H1N1 2009 Influenza, IM 03/27/2009 Haemophilius B (HIB), unspecified 12/22/1998,01/1998 Hepatitis B Vaccine 03/30/1998,1997,1997 IPV - Polio Virus Vaccine (Inact) 11/20/2001 Influenza, Whole Virus 03/05/2001 MMR - Measles/Mumps/Rubella Vaccine 11/20/2001,0 09/21/1998 Meningococcal Conjugate Vacc ine (Menactra/Menveo) 07/14/2015,05/18/2010 OPV - Polio Virus Vaccine (Oral) 999,03/30/1998,01/27/1998,11/26 Pneumococcal Conjugate Vacci ne, 20-valent ([id number]) 03/31/2022 Pneumococcal Polysaccharide PPV23 (Pneumovax) 03/05/2019 Seasonal [...] money to get more. Never true 12/13/2022 Dul[place] Depression Scale Answer Date Recorded Dulzura Depression Scale Total 5 06/08/2023 The thought [...] AM EDT NUTRITION FOLLOW-UP NOTE - OUTPATIENT [facility] Name: Monica Dickey Location: [facility] Date: 11/14/2023 Time: 12:32 PM Patient was identified by name and date. Patient was seen face to face in Adult CF clinic. Reason for Nutrition Follow-up: Cystic Fibrosis, GDM Support System: Spouse Doris Barriers to Learning: None Special Education Needs: None NUTRITION ASSESSMENT: Client History Monica Billy is a 26 year old female who [place] [facility] [place] for follow up of cystic fibrosis lung disease, pancreatic insufficiency/malabsorption, and CF related endocrine disease. Patient Active Problem List Diagnosis Malabsorption VACCIN FOR DISEASE NEC Cystic Fibrosis ( homozygous [id number]) Vaccine refused by patient Cystic fibrosis with pulmonary manifestations (HCC) Cystic fibrosis with gastrointestinal manifestations (HCC) Exocrine pancreatic insufficiency Vitamin D insufficiency History of nasal polyp Constipation Splenomegaly Rh negative, antepartum Diet controlled gestational diabetes mellitus (GDM) Bipolar 1 disorder (HCC) CF (cystic fibrosis) (HCC) High-risk Respiratory system disease affecting , antepartum Bipolar disease during ([facility]) H/O macrosomia in in prior [...] negatively or declined screening Supplemental Programs/Assistance - [employer] for medications, vitamins and supplements. Total carerx for CF vitamin. Total care repors pt overdue for refill of CF vitamin, last filled 09/2022. They have had trouble reaching her since December 2022. [employer] sarahy 02/2023. 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 [employer] CF Related Medications Changes/Updates: Vitamins - MVW [...] Diet: Good Nutrition Estimated Calorie needs: 2240 ([address]ley St Jeor) + 300-400 calories during Estimated Protein needs:115-130 grams (1.5-1.7 grams/kg) Estimated Fluid needs: 3443-5238 mL (~1 mL/calorie) Current Goals: Pt will [...] RDN Clinical Dietitian, Adult CF Clinic [facility] documented in this encounter Plan of Treatment Upcoming Encounters Date Type Department Care Team (Late st Contact Info) Description 11/21/2023 10:15 AM EDT Office Visit Gynecology/Obstetrics Alisa Fiore [address] [place] [address] Marnie Calvo PA-C [address] [place] [address] 11/30/2023 9:30 AM EDT Imaging Maternal Medicine Imaging, [place] [address] [place] [phone] 12/05/2023 10:00 AM EDT Telemedicine Psychiatry Erika Chambers [address] [place] [phone] Catina Araiza CRNP [address] [facility] [place] [address] 12/05/2023 1:45 PM EDT Office Visit Gynecology/Obstetrics Alisa Fiore [address] [place] [address] Radha Diaz CRNP [address] [place] [address] Adebayo, Non Stress Tests [address] [place] [address] 12/08/2023 1:45 PM EDT Office Visit Gynecology/Obstetrics Alisa Fiore [address] [place] [address] Radha Diaz CRNP [address] [place] [address] Fiore, Non Stress Tests [place] [address] [place] [address] 12/12/2023 1:45 PM EDT Office Visit Gynecology/Obstetrics [facility] [address] [place] [address] Radha Diaz CRNP [address] [place] [address] Fiore, Non Stress Tests [place] [address] [place] [address] 12/15/2023 11:00 AM EDT Office Visit Gynecology/Obstetrics [facility] [address] [place] [address] Ling Leonard CRNP [address] [place] [address] Adebayo Non Stress Tests [place] [address] [place] [address] 12/19/2023 1:45 PM EDT Office Visit Gynecology/Obstetrics [facility] [address] [place] [address] Radha Diaz CRNP [address] [place] [address] Fiore, Non Stress Tests [place] [address] [place] [address] 12/22/2023 11:00 AM EDT Office Visit Gynecology/Obstetrics [facility] [address] [place] [address] Ling Leonard CRNP [address] [place] [address] Fiore, Non Stress Tests [place] [address] [place] [address] 12/26/2023 1:45 PM EDT Office Visit Gynecology/Obstetrics Alisa Rolons [address] [place] [address] Radha Diaz CRNP [address] [place] [address] Adebayo, Non Stress Tests [place] [address] [place] [address] 12/28/2023 9:30 AM EDT Imaging Maternal Medicine Imaging, [place] [place] [address] 12/29/2023 1:45 PM EDT Office Visit Gynecology/Obstetrics Alisa Rolons [address] [place] [address] Radha Diaz CRNP [address] [place] [address] Adebayo, Non Stress Tests [place] [address] [place] [address] 01/02/2024 1:45 PM EDT Office Visit Gynecology/Obstetrics Alisa Fiore [address] [place] [address] Radha Diaz CRNP [address] [place] [address] Adebayo, Non Stress Tests [place] [address] [place] [address] 01/05/2024 1:45 PM EDT Office Visit Gynecology/Obstetrics Alisa Rolons [address] [place] [address] Radha Diaz, CLINICAL BIOSTATISTICS DIRECTOR [address] [place] [address] Adebayo, Non Stress Tests [facility] [address] [place] [address] 01/09/2024 1:45 PM EDT Office Visit Gynecology/Obstetrics [facility] [address] [place] [address] Radha Diaz CRNP [address] [place] [address] Adebayo, Non Stress Tests [place] [place] [address] 01/11/2024 9:30 AM EDT Office Visit Pulmonary Medicine, Vincent [address] [place] [address] [facility] [address] [place] [address] 01/12/2024 1:45 PM EDT Office Visit Gynecology/Obstetrics [facility] [address] [place] [address] Radha Diaz CRNP [address] [place] [address] Adebayo, Non Stress Tests [place] [address] [place] [address] 01/16/2024 1:45 PM EDT Office Visit Gynecology/Obstetrics [facility] [address] [place] [address] Radha Diaz CLINICAL BIOSTATISTICS DIRECTOR [address] [place] [address] Adebayo, Non Stress Tests [place] [address] [place] [address] 01/19/2024 1:45 PM EDT Office Visit Gynecology/Obstetrics [facility] [address] [place] [address] Radha Diaz CRNP [address] [place] [address] Adebayo Non Stress Tests [place] [address] [place] [address] 01/23/2024 1:45 PM EDT Office Visit Gynecology/Obstetrics Alisa Fiore [address] [place] [address] Radha Diaz CRNP [address] [place] [address] Scarlett Fiore Stress Tests [place] [address] [place] [address] 01/26/2024 1:45 PM EDT Office Visit Gynecology/Obstetrics Alisa Fiore [address] [place] [address] Radha Diaz CRNP [address] [place] [address] Scarlett Fiore Stress Tests [place] [address] [place] [address] Health Maintenance Due Date Last Done Comments [...] (GDM), antepartum- Primary Cystic Fibrosis ( homozygous [id number]) Cystic fibrosis without mention of meconium ileus [...]
--- OUTSIDE RECORDS SUMMARY | 2024-01-24 09:17 | External Medical Summary ---
Author Name Unknown Address Unknown Organization K01:[facility] [place] [address] [facility] Laboratory Report Ordering Provider Test Date Status SEVERIANOJOSECHELSEA 11/14/2023 11:52:16 Final Observation Date Value Abnormality Reference (Units ) Status Bacteria identified in Specimen by Culture 11/14/2023 11:52:16 Moderate growth normal modesto Final Test: Culture, Cystic Fibros is
Specimen Source: Throat
Specimen Type: Swab
Specimen Date: 11/14/2023 1152
Result Date: 11/17/2023 0824
Result Status: Final result
Resulting Lab: [facility]
[address]
[place] [address]

CULTURE

Moderate growth normal [place]

null Performing Location [facility] [place] [facility] [address] [facility] [address]
--- OUTSIDE RECORDS SUMMARY | 2024-01-24 09:18 | External Medical Summary | Summary of Care ---
Author Name Unknown Organization [facility] Address [address] [place] [address] Phone [phone] Care Team Providers Care Butter Printer Name Role Phone Unavailable Primary Care Provider Unavailabl e Reason for Visit * Reason Onset Date Comments Mycode Reconsent 11/13/2023 Encounter Details Date Type Department Care Team (Late st Contact Info) Description 11/13/2023 Orders Only Outcomes Research Department [address] [place] [address] Bernadine Yuen CHRA MyCode Research Other*[id number]* Allergies No known active allergiesdocumented as of this encounter (statuses as of 11/13/2023) Medications Medication Sig Dispensed Refills Start Date End Date Status COMPRESSOR/NEBULIZER MISCIndications:Cyst ic fibrosis (HCC) Use as directed 1 Device 0 05/31/2012 Active Additional Information Patient not taking.Reported on 07/21/2023 JUAN CARLOS LC PLUS NEBULIZER MISCIndications:Cyst ic fibrosis with pulmonary manifestations (HCC) Use daily with Lxgoh-Pyj-mlgiyavc device 1 Device 5 06/13/2012 Active Additional [...] during exacerbations 360 Vial 1 05/10/2018 Active Ferrous Sulfate (IRON) 325 (65 Fe) MG TABSIndications:Cyst ic fibrosis (HCC) Take 1 Tab by mouth daily. 90 Tab 1 05/10/2018 Active Calcium 500 MG TabletIndications:Cy stic fibrosis (HCC) [...] or Wheezing. 18 g 5 06/20/2019 Active Pancrelipase, Xso-Vexc-Lzbp, (ZENPEP) 25964-18541 units CPEPIndications:Cyst ic fibrosis (HCC) Take 6 Caps by mouth three times a day with meals. Take 4 caps with snacks. 2700 Cap 1 08/22/2019 Active MVW Complete Formulation D3000 Oral CapsuleIndications:C ystic [...] the morning. 16 g 5 09/30/2021 Active Montelukast Sodium 10 MG Oral Tablet (Singulair)Indicatio ns:Asthma, allergic,Cystic fibrosis (HCC) TAKE ONE TABLET BY MOUTH EVERY DAY 90 Tablet 3 09/12/2022 Active 28-0.8 MG Oral Tablet Take by mouth. Active [employer] Verio Flex System w/Device Kit Use to test blood sugars 4 times daily (fasting, 1 hour after breakfast, lunch, and dinner) 1 Kit 07/18/2023 Active [employer] Verio In Vitro Strip (Glucose Blood) Use to test blood sugars 4 times daily (fasting, 1 hour after breakfast, lunch, and dinner) 125 Strip 6 07/18/2023 Active [employer] Payment SolutionsTouch Delica Lancets 30G Use to test blood [...] & 150 MG Oral Tablet Therapy Pack (Bzjabbik-Krecmsz-Os acaf & Ivacaf)Indications:C ystic fibrosis with pulmonary manifestations (HCC) Take 2 orange tablets by mouth in the morning and 1 light blue tablet by mouth in the evening. Take with fat-containing food. TAKE 2 ORANGE TABLETS BY MOUTH IN THE MORNING AND 1 LIGHT BLUE TABLET BY MOUTH IN THE EVENING. TAKE WITH FAT-CONTAINING FOOD 84 Each 08/22/2023 Active documented as of this encounter (statuses as of 11/13/2023) Active Problems Problem Noted Date Diagnosed Date Rubella non-immune status, antepartum 06/09/2023 Chlamydia infection complicating 06/09 Overview: + test at [facility], sent azithromycin High-risk 06/08/2023 Last [...] Stable (<50%) 08/28/23: RPM reviewed; stable overall 09/05/20231570-GRQ-ldtlmfvt 5 of 7 days in the past week; stable 09/12/23: RPM reviewed; Stable 09/19/23: RPM reviewed; Stable. Not testing every day. 09/26/23: RPM reviewed; Stable; more consistent reporting 10/03/23: RPM reviewed; Stable but not testing consistently. 10/10/20232908-PKZ-ppultozw 2 days along with 2 additional fasting blood sugars. Messaged patient to be consistent with testing and reporting. 10/17/23: RPM reviewed; several missed readings, but overall stable 10/24/20238580-OJD-mhclambc 3 of past 6 days; overall stable. Messaged to test four times daily and report. 10/31/20237278-VRS-yhsaso 11/06/20233954-DSF-ryvcjvuc 5 of 7 days; stable Last Assessment [...] 11/20/2001 Malabsorption 08/29/2001 Cystic Fibrosis ( homozygous [id number]) Estimated Date of Delivery Comme nts Yes [...] (boneless & skinless & in olive oil), [place] mackerel (i.e. not [place] mackerel), or cooked [...] mRNA, LNP-s, No Pre serve, 2-Dose Series (Pfizer) 06/01/2021,11/16/2020,10/26/2020 H1N1 2009 Influenza, IM 03/27/2009 Meningococcal Conjugate Vacc ine (Menactra/Menveo) 07/14/2015,05/18/2010 Pneumococcal Conjugate Vacci ne, 20-valent (Qfpzzqd96) 03/31/2022 Pneumococcal Polysaccharide PPV23 (Pneumovax) 03/05/2019 Seasonal [...] money to get more. Never true 12/13/2022 [place] Depression Scale Answer Date Recorded [place] Depression Scale Total 5 06/08/2023 The thought [...] as of this encounter Progress Notes * Bernadine Yuen CHRA - 11/13/2023 9:38 AM EDT MyCode Reconsent Documentation Monica Dickey was invited to reconsent to the MyCode project and agreed. documented in this encounter Plan of Treatment Upcoming Encounters Date Type Department Care Team (Late st Contact Info) Description 11/14/2023 11:30 AM EDT Office Visit Pulmonary Medicine, [place] [address] [place] [address] Micaela Holly DO [address] [place] [address] 11/21/2023 10:15 AM EDT Office Visit Gynecology/Obstetrics [address] [place] [address] Marnie Calvo PA-C [address] [place] [address] 11/30/2023 9:30 AM EDT Imaging Maternal Medicine Imaging, [facility] [facility] [address] [place] [phone] 12/05/2023 10:00 AM EDT Telemedicine Psychiatry [place] [address] [place] [phone] Catina Araiza CRNP [address] [facility] [place] [phone] 12/05/2023 1:45 PM EDT Office Visit Gynecology/Obstetrics Alisa Fiore [address] [place] [address] Radha Diaz CRNP [address] [place] [address] Fiore, Non Stress Tests [place] [address] [place] [address] 12/08/2023 1:45 PM EDT Office Visit Gynecology/Obstetrics Alisa Fiore [address] [place] [address] Radha Diaz CRNP [address] [place] [address] Fiore, Non Stress Tests [place] [address] [place] [address] 12/12/2023 1:45 PM EDT Office Visit Gynecology/Obstetrics Alisa Fiore [address] [address] Radha Diaz CRNP [address] [place] [address] Fiore, Non Stress Tests [place] [address] [place] [address] 12/15/2023 11:00 AM EDT Office Visit Gynecology/Obstetrics [facility] [address] [place] [address] Ling Leonard CRNP [address] [place] [address] Fiore, Non Stress Tests [place] [address] [place] [address] 12/19/2023 1:45 PM EDT Office Visit Gynecology/Obstetrics [facility] [address] [place] [address] Radha Diaz CRNP [address] [place] [address] Fiore, Non Stress Tests [place] [address] [place] [address] 12/22/2023 11:00 AM EDT Office Visit Gynecology/Obstetrics [facility] [address] [place] [address] Ling Leonard CRNP [address] [place] [address] Fiore, Non Stress Tests [place] [address] [place] [address] 12/26/2023 1:45 PM EDT Office Visit Gynecology/Obstetrics [facility] [address] [place] [address] Radha Diaz CRNP [address] [place] [address] Fiore, Non Stress Tests [place] [address] [place] [address] 12/28/2023 9:30 AM EDT Imaging Maternal Medicine Imaging, [place] [address] [place] [phone] 12/29/2023 1:45 PM EDT Office Visit Gynecology/Obstetrics [facility] [address] [place] [address] Radha Diaz CORPORATE SALES MANAGER [address] [place] [address] Fiore, Non Stress Tests [place] [address] [place] [address] 01/02/2024 1:45 PM EDT Office Visit Gynecology/Obstetrics [facility] Fi[facility] [address] [place] [address] Radha Diaz CORPORATE SALES MANAGER [address] [place] [address] Fiore, Non Stress Tests [place] [address] [place] [address] 01/05/2024 1:45 PM EDT Office Visit Gynecology/Obstetrics [facility] [address] [place] [address] Radha Diaz CORPORATE SALES MANAGER [address] [place] [address] Fiore, Non Stress Tests [place] [address] [place] [address] 01/09/2024 1:45 PM EDT Office Visit Gynecology/Obstetrics [facility] [address] [place] [address] Radha Diaz CORPORATE SALES MANAGER [address] [place] [address] Fiore, Non Stress Tests [place] [address] [place] [address] 01/12/2024 1:45 PM EDT Office Visit Gynecology/Obstetrics [facility] [address] [place] [address] Radha Diaz CRNP [address] [place] [address] Fiore, Non Stress Tests [place] [address] [place] [address] 01/16/2024 1:45 PM EDT Office Visit Gynecology/Obstetrics [facility] [address] [place] [address] Radha Diaz CORPORATE SALES MANAGER [address] [place] [address] Fiore, Non Stress Tests [place] [place] [address] 01/19/2024 1:45 PM EDT Office Visit Gynecology/Obstetrics [facility] [address] [place] [address] Radha Diaz CORPORATE SALES MANAGER [address] [place] [address] Fiore, Non Stress Tests [facility] [address] [place] [address] 01/23/2024 1:45 PM EDT Office Visit Gynecology/Obstetrics [facility] [address] [place] [address] Radha Diaz CRNP [address] [place] [address] Adebayo, Non Stress Tests [facility] [place] [address] 01/26/2024 1:45 PM EDT Office Visit Gynecology/Obstetrics Alisa Fi[facility] [address] [place] [address] Radha Diaz CRNP [address] [place] [address] Fiore Non Stress Tests [facility] [address] [place] [address] Scheduled Orders Name Type Priority Associated Diagnoses Orde r Schedule MYCODE INITIAL ADULT Lab Routine MyCode Research Other*[id number] Expected: 11/13/2023 (Approximate), Expires: 12/02/2024 Health Maintenance Due Date Last Done Comments [...] this encounter Visit Diagnoses Diagnosis MyCode Research Other*[id number]- Primary documented in this encounter Additional Health [...]
--- OUTSIDE RECORDS SUMMARY | 2024-01-24 09:18 | External Medical Summary ---
Author Name Unknown Address Unknown Organization K01:[facility] [place] [address] [place] [address] Laboratory Report Ordering Provider Test Date Status JUSTINE العلي 11/08/2023 13:27:51 Final Observation Date Value Abnormality Reference (Units ) Status HbA1C 11/08/2023 13:27:51 4.8 4.0-5.6 (% ) Final The use of HbA1c to monitor glycemic status is based on normal hemoglobin and HbA composition. This test should not be used in patients with abnormal hemoglobin that affects the half life of the red blood cell or the in vivo glycation rates. Glucose, estimated average 11/08/2023 13:27:51 91 <126 (mg/dL) Final Performing Location LABORATORY C - [address] [place] [address]
--- OUTSIDE RECORDS SUMMARY | 2024-01-24 09:18 | External Medical Summary ---
Author Name Unknown Address Unknown Organization K01:[place] [facility] [place] [address] [facility] [place] [address] Laboratory Report Ordering Provider Test Date Status ALFREDO BARRERA 11/08/2023 13:27:51 Final Observation Date Value Abnormality Reference (Units ) Status Treponema pallidum Ab [Presence] in Serum by Immunoassay 11/08/2023 13:27:51 Nonreactive Nonreactive Final No serologic evidence of syp hilis. No additional testing clinicially indicated at this time. Consider repeat testing in 2-4 weeks if acute or primary syphilis is suspected. Performing Location LABORATORY C - [address] [place] [address]
--- OUTSIDE RECORDS SUMMARY | 2024-01-24 09:18 | External Medical Summary ---
Author Name Unknown Address Unknown Organization [id number]:[facility] [place] [address] [place] [address] Laboratory Report Ordering Provider Test Date Status SEVERIANOJUSTINE 11/08/2023 13:27:51 Final Warfarin Therapy
INR: 2 .0-3.0 conventional anticoagulation
INR: 2.5- 3.5 high intensity anticoagulation Observation Date Value Abnormality Reference (Units ) Status PT 11/08/2023 13:27:51 12.2 11.6-15.2 (seconds) Final INR 11/08/2023 13:27:51 0.9 0.8-1.2 Final Performing Location [facility] [place] [facility] [address] [place] [address]
--- OUTSIDE RECORDS SUMMARY | 2024-01-24 09:18 | External Medical Summary ---
Author Name Unknown Address Unknown Organization [id number]:[facility] [place] [address] [place] [address] Laboratory Report Ordering Provider Test Date Status JUSTINE العلي 11/08/2023 13:27:51 Final Observation Date Value Abnormality Reference (Units ) Status Ferritin 11/08/2023 13:27:51 21 13-150 (ng /mL) Final Performing Location [facility] - [address] [place] [address]
--- OUTSIDE RECORDS SUMMARY | 2024-01-24 09:18 | External Medical Summary ---
Author Name Unknown Address Unknown Organization K0G:[facility] [place] [address] [place] [address] Laboratory Report Ordering Provider Test Date Status JUSTINE العلي 11/08/2023 13:27:51 Final Anticoagulation may affect t esting. Refer to [employer] [facility] Test Catalog for a list of effects. Observation Date Value Abnormality Reference (Units ) Status aPTT panel - Platelet poor plasma 11/08/2023 13:27:51 25 21-38 (seconds) Final Performing Location [facility] [place] [address] [place] [address]
--- OUTSIDE RECORDS SUMMARY | 2024-01-24 09:18 | External Medical Summary ---
Author Name Unknown Address Unknown Organization K01:LABORATORY [facility] [place] - [address] [place] [address] Laboratory Report Ordering Provider Test Date Status ALFREDO BARRERA 11/08/2023 13:27:51 Final Observation Date Value Abnormality Reference (Units ) Status WBC, Total 11/08/2023 13:27:51 9.06 4.00-10.8 0 (K/uL) Final RBC 11/08/2023 13:27:51 4.04 3.85-5.15 (M/uL) Final Hemoglobin 11/08/2023 13:27:51 12.3 12.0-15.3 (g/dL) Final Anemia reflex testing trigge rs on a HGB < 12.0 for Females and HGB < 13.0 for Males in accordance with the WHO Anemia Guidelines HCT 11/08/2023 13:27:51 36.2 36.0-45.2 (%) Final MCV 11/08/2023 13:27:51 89.6 81.5-97.5 (fL) Final MCH 11/08/2023 13:27:51 30.4 27.0-34.0 (pg) Final MCHC 11/08/2023 13:27:51 34.0 32.0-36.0 (g/dL) Final RDW 11/08/2023 13:27:51 13.0 11.5-15.5 (%) Final Platelets 11/08/2023 13:27:51 153 140-400 (K /uL) Final MPV 11/08/2023 13:27:51 10.7 6.6-11.1 ( fL) Final Nucleated erythrocytes/100 leukocytes [Ratio] in Blood by Automated count 11/08/2023 13:27:51 0 <=0 (/100 WBCs) Fi nal Performing Location LABORATORY [facility] - [address] [place] [address]
--- OUTSIDE RECORDS SUMMARY | 2024-01-24 09:18 | External Medical Summary ---
Author Name Unknown Address Unknown Organization [id number]:[facility]ATORY [facility] [place] [address] [place] [address] Laboratory Report Ordering Provider Test Date Status JUSTINE العلي 11/08/2023 13:27:51 Final Deficient: <20 ng/mL
Ins ufficient: 20-29 ng/mL
Recommended/Optimum:30-50 ng/mL

Vitamin D intoxication is rare. If suspicious of Vitamin D toxicity, evaluation of serum Calcium and PTH is recommended. Observation Date Value Abnormality Reference (Units ) Status 25-OH Vitamin D total 11/08/2023 13:27:51 66 >19 (ng/mL) Final Performing Location LABORATORY [facility] - [address] [place] [address]
--- OUTSIDE RECORDS SUMMARY | 2024-01-24 09:18 | External Medical Summary ---
Author Name Unknown Address Unknown Organization K01:LAB[facility]ATORY [facility] - [address] [place] [address] Laboratory Report Ordering Provider Test Date Status JUSTINE العلي 11/08/2023 13:27:51 Final Observation Date Value Abnormality Reference (Units ) Status IgE 11/08/2023 13:27:51 <2.0 <=214.0 (k U/L) Final Performing Location [facility] - [address] [place] [address]
--- OUTSIDE RECORDS SUMMARY | 2024-01-24 09:18 | External Medical Summary ---
Author Name Unknown Address Unknown Organization : Laboratory Report Ordering Provider Test Date Status JUSTINE العلي 11/08/2023 13:27:51 Final Observation Date Value Abnormality Reference (Units ) Status Vitamin E, level 11/08/2023 13:27:51 12.3 5.7 -19.9 (mg/L) Final Levels of alpha-tocopherol < 5 mg/L are consistent
with Vitamin E deficiency in adults. Beta+gamma tocopherol [Mass/ volume] in Serum or Plasma 11/08/2023 13:27:51 <1.0 <=4.3 (mg/L) Final Vitamin supplementation with in 24 hours prior to
blood draw may affect the accuracy of the results.
This test was developed and its analytical performance
characteristics have been determined by [facility] [place], [place]. It has
not been cleared or approved by the U.S. Food and Drug
Administration. This assay has been validated pursuant
to the CLIA regulations and is used for clinical
purposes.

Test Performed at:
[facility]
[address]
[place] [address]
Giovanni Cui M.D., Ph.D.,Director of Laboratories Performing Location
--- OUTSIDE RECORDS SUMMARY | 2024-01-24 09:18 | External Medical Summary | Summary of Care ---
Author Name Unknown Organization [facility] Address [address] [facility] [place] [address] Phone [phone] Care Team Providers Care Head Housekeeper Name Role Phone Unavailable Primary Care Provider Unavailabl e Reason for Visit * Reason Comments Outpatient Testing Encounter Details Date Type Department Care Team (Late st Contact Info) Description 11/08/2023 1:20 PM EDT Laboratory Laboratory, [facility] [address] [place] [address] [facility] [address] [place] [address] High-risk in second trimester; Cystic Fibrosis ( homozygous [id number]); High-risk Allergies No known active allergiesdocumented as of this encounter (statuses as of 11/08/2023) Medications Medication Sig Dispensed Refills Start Date End Date Status COMPRESSOR/NEBULIZER MISCIndications:Cyst ic fibrosis (HCC) Use as directed 1 Device 0 05/31/2012 Active Additional Information Patient not taking.Reported on 07/21/2023 JUAN CARLOS LC PLUS NEBULIZER MISCIndications:Cyst ic fibrosis with pulmonary manifestations (HCC) Use daily with Ygqhg-Tih-jkuljolg device 1 Device 5 06/13/2012 Active Additional [...] Wheezing. 18 g 5 06/20/2019 Active Pancrelipase, Cnh-Yvta-Uphk, (ZENPEP) 67064-33087 units CPEPIndications:Cyst ic fibrosis (HCC) Take 6 [...] MG Oral Tablet Take by mouth. Active [employer] Verio Flex System w/Device Kit Use to test blood sugars 4 times daily (fasting, 1 hour after breakfast, lunch, and dinner) 1 Kit 07/18/2023 Active RunMyProcess In Vitro Strip (Glucose Blood) Use to test blood sugars 4 times daily (fasting, 1 hour after breakfast, lunch, and dinner) 125 Strip 6 07/18/2023 Active [employer] Delica Lancets 30G Use to test blood [...] & 150 MG Oral Tablet Therapy Pack (Wrgethzd-Zibuywg-Fb acaf & Ivacaf)Indications:C ystic fibrosis with pulmonary [...] as of this encounter (statuses as of 11/08/2023) Active Problems Problem Noted Date Diagnosed Date [...] patient about calling to get enrolled in [facility] 08/22/23: RPM; a couple elevated PP values; overall Stable (<50%) 08/28/23: RPM reviewed; stable overall 09/05/20235575-CHI-codvpmgy 5 of 7 days in the past week; stable 09/12/23: RPM reviewed; Stable 09/19/23: RPM reviewed; Stable. Not testing every day. 09/26/23: RPM reviewed; Stable; more consistent reporting 10/03/23: RPM reviewed; Stable but not testing consistently. 10/10/20235091-FGJ-nrtuyqfw 2 days along with 2 additional fasting blood sugars. Messaged patient to be consistent with testing and reporting. 10/17/23: RPM reviewed; several missed readings, but overall stable 10/24/20237767-ZSJ-kgalsosl 3 of past 6 days; overall stable. Messaged to test four times daily and report. 10/31/20235135-GDC-aypulz 11/06/20234796-BAF-bgtyxqwe 5 of 7 days; stable Last Assessment [...] 11/20/2001 Malabsorption 08/29/2001 Cystic Fibrosis ( homozygous [id number]) Estimated Date of Delivery Comme nts Yes 01/29/2024 Based on Ultraso und documented as of this encounter (statuses as of 11/08/2023) Resolved Problems Problem Noted Date Diagnosed Date [...] follows with behavioral health provider here at [facility]. DISCUSSION: 1. and delivery can worsen the [...] (boneless & skinless & in olive oil), [place]burn mackerel (i.e. not Bereket mackerel), or cooked [...] as of this encounter (statuses as of 11/08/2023) Immunizations Name Administration Dates Next Due COVID-19 mRNA, LNP-s, No Pre serve, 2-Dose Series (Pfizer) 06/01/2021,11/16/2020,10/26/2020 H1N1 2009 Influenza, IM 03/27/2009 Meningococcal Conjugate Vacc ine (Menactra/Menveo) 07/14/2015,05/18/2010 Pneumococcal Conjugate Vacci ne, 20-valent (Caovsog78) 03/31/2022 Pneumococcal Polysaccharide PPV23 (Pneumovax) 03/05/2019 Seasonal Influenza, PF, 6 M & above, IM , (FluLaval or Fluzone) 04/18/2023,03/07/2022,04/01/2021,03/05 Seasonal Influenza, Quadriva lent, No Preserve, IM 03/05/2019,02/08/2018,03/09/2017,03/16,03/19/2015 Seasonal Influenza, Split, I IV3, With Preserve, Inj 01/23/2014,04/04/2013,03/08/2012,03/14,02/25/2010,02/05/2009,02/25/2008 ,03/21/2007,03/17/2006 TDAP (age 10 and older)(Boostrix) 09/01/2020, TDAP, Age 7 and older, IM (Adacel) [...] money to get more. Never true 12/13/2022 Aurora Depression Scale Answer Date Recorded Aurora Depression Scale Total 5 06/08/2023 The thought [...] No 10/30/2014 documented as of this encounter Plan of Treatment Upcoming Encounters Date Type Department Care Team (Late st Contact Info) Description 11/08/2023 1:45 PM EDT Office Visit Gynecology/Obstetri a[place] [address] [place] [address] Ling Leonard CRNP [address] [place] [address] High-risk in third trimester*; Rh negative, antepartum; Diet controlled gestational diabetes mellitus (GDM) in third trimester; CF (cystic fibrosis) ([facility]); Respiratory system disease affecting , antepartum; Bipolar disease during in third trimester ([facility]); H/O macrosomia in in prior , currently ; Rubella non-immune status, antepartum; Chlamydia infection affecting in third trimester; Need for prophylactic vaccination with combined arpquosutx-azdhhjb-ss rtussis (DTP) vaccine 11/14/2023 11:30 AM EDT Office Visit Pulmonary Medicine, [place] [address] [place] [address] Micaela Holly, DO [address], [place] [id number] 11/30/2023 9:30 AM EDT Imaging Maternal Medicine Imaging, [facility] [address] [place] [address] 12/05/2023 10:00 AM EDT [facility]medicine [facility] [address] [place] [address] Catina Araiza CRNP [address] [place] [address] 12/28/2023 9:30 AM EDT Imaging Maternal Medicine Imaging, [facility] [address] [place] [address] Pending Results Name Type Priority Associated Diagnoses Date /Time SYPHILIS ANTIBODY SCREEN WITH REFLEX TO RPR Lab Routine High-risk in second trimester 11/08/2023 1:27 PM EDT CBC WITH WBC DIFFERENTIAL AND ANEMIA REFLEX WORKUP Lab Routine High-risk in second trimester 11/08/2023 1:27 PM EDT TYPE AND SCREEN Lab Routine High-risk in second trimester 11/08/2023 1:27 PM EDT PT INR Lab Routine Cystic Fibrosis ( homozygous [id number]) High-risk 11/08/2023 1:27 PM EDT APTT Lab Routine Cystic Fibrosis ( homozygous [id number]) High-risk 11/08/2023 1:27 PM EDT HEMOGLOBIN A1C Lab Routine Cystic Fibrosis ( homozygous [id number]) High-risk 11/08/2023 1:27 PM EDT 25-HYDROXY VITAMIN D Lab Routine Cystic Fibrosis ( homozygous [id number]) High-risk 11/08/2023 1:27 PM EDT VITAMIN A (RETINOL) Lab Routine Cystic Fibrosis ( homozygous [id number]) High-risk 11/08/2023 1:27 PM EDT VITAMIN E (TOCOPHEROL) Lab Routine Cystic Fibrosis ( homozygous [id number]) High-risk 11/08/2023 1:27 PM EDT FERRITIN Lab Routine Cystic Fibrosis ( homozygous [id number]) High-risk 11/08/2023 1:27 PM EDT GGTP Lab Routine Cystic Fibrosis ( homozygous [id number]) 11/08/2023 1:27 PM EDT IGE Lab Routine Cystic Fibrosis ( homozygous [id number]) 11/08/2023 1:27 PM EDT SYPHILIS ANTIBODY SCREEN Lab Routine High-risk in second trimester 11/08/2023 1:27 PM EDT ANEMIA CBC Lab Routine High-risk in second trimester 11/08/2023 1:27 PM EDT DIFFERENTIAL, AUTOMATED Lab Routine High-risk in second trimester 11/08/2023 1:27 PM EDT ANEMIA REFLEX CHEMISTRY HOLD Lab Routine High-risk in second trimester 11/08/2023 1:27 PM EDT Health Maintenance Due Date Last Done Comments GARDASIL-HPV IMMUNIZATION SE AIDA (1 - 3-dose series) 2012 COVID-19 Vaccine (2022-2 4 season) 2023 06/01/2021, 11/16/2020, 10/26/2020 Pap Smear 05/20/2025 05/20/2022, 07/05/2019 DTaP,Tdap,and Td Vaccines (9 - Td or Tdap) 09/01/2030 09/01/2020, 07/14/2015, 05/18/2010, Additional history exists Hepatitis B Completed 03/30/1998, [...] antepartum Chlamydia infection affecting in third trimester Need for prophylactic vaccination with combined djqmbfeyir-qzywjsu-usisboqpy (DTP) vaccine High-risk in second trimester Cystic Fibrosis ( homozygous [id number]) Cystic fibrosis without mention of meconium ileus [...]
--- OUTSIDE RECORDS SUMMARY | 2024-01-24 09:18 | External Medical Summary ---
Author Name Unknown Address Unknown Organization K01:[facility] [place] [address] [place] [address] Laboratory Report Ordering Provider Test Date Status BRUCEALFREDO 11/08/2023 13:27:51 Final Observation Date Value Abnormality Reference (Units ) Status ABO 11/08/2023 13:27:51 B Final RH 11/08/2023 13:27:51 Negative Final RED BLOOD CELL ANTIBODY SCREEN 11/08/2023 13:27:51 Negative Final SPECIMEN EXPIRATION DATE 11/08/2023 13:27:51 11/11/2023 23:59 Final Performing Location [facility] [place] [address] [place] [address]
--- OUTSIDE RECORDS SUMMARY | 2024-01-24 09:18 | External Medical Summary ---
Author Name Unknown Address Unknown Organization K01:[facility] - [address] [place] [address] Laboratory Report Ordering Provider Test Date Status ALFREDO BARRERA 11/08/2023 13:27:51 Final Observation Date Value Abnormality Reference (Units ) Status SYNC LEUKOCYTES IN BLOOD BY AUTOMATED COUNT 11/08/2023 13:27:51 9.06 4.00-10.80 (K/uL) Final Segs 11/08/2023 13:27:51 82.1 Above high normal 40.0-75.0 (%) Final Lymphs % 11/08/2023 13:27:51 12.4 Below low normal 18.0-42.0 (%) Final Monos 11/08/2023 13:27:51 4.1 1.0-11.0 (%) Final Eosinophils 11/08/2023 13:27:51 0.9 0.0-6.0 (%) Final Basos 11/08/2023 13:27:51 0.2 0.0-2.0 (%) Final Immature Granulocyte, Percent 11/08/2023 13:27:51 0.3 0.0-2.0 (%) Final Absolute Segs 11/08/2023 13:27:51 7.44 1.80-7.70 (K/uL) Final Lymphs, absolute 11/08/2023 13:27:51 1.12 1.00-4.80 (K/ul) Final Monos, Abs 11/08/2023 13:27:51 0.37 0.00-1.10 (K/uL) Final Eos, Abs 11/08/2023 13:27:51 0.08 0.00-0.70 (K/uL) Final Basos, Abs 11/08/2023 13:27:51 0.02 0.00-0.20 (K/uL) Final Immature Granulocytes, Number 11/08/2023 13:27:51 0.03 0.00-0.20 (K/uL) Final Performing Location LAB[facility] [place] [address] [facility] [address]
--- OUTSIDE RECORDS SUMMARY | 2024-01-24 09:18 | External Medical Summary | Summary of Care ---
Author Name Unknown Organization [facility] Address [address] [facility] [place] [address] Phone [phone] Care Team Providers Care Baker Test Name Role Phone Unavailable Primary Care Provider Unavailabl e Encounter Details Date Type Department Care Team (Late st Contact Info) Description 10/24/2023 9:00 AM EDT Office Visit Gynecology/Obstetric s [place] [address] [place] [address] Radha Diaz CRNP [address] [place] [address] High-risk in second trimester*; Rh negative, antepartum; Diet controlled gestational diabetes mellitus (GDM) in first trimester; CF (cystic fibrosis) ([facility]); Respiratory system disease affecting , antepartum; History of gestational diabetes mellitus (GDM) in prior , currently ; Bipolar disease during in second trimester ([facility]); H/O macrosomia in in prior , currently ; Rubella non-immune status, antepartum; Chlamydia infection affecting , antepartum Allergies No known active allergiesdocumented as of this encounter (statuses as of 10/24/2023) Medications Medication Sig Dispensed Refills Start Date End Date Status COMPRESSOR/NEBULIZER MISCIndications:Cyst ic fibrosis (HCC) Use as directed 1 Device 0 05/31/2012 Active Additional Information Patient not taking.Reported on 07/21/2023 JUAN CARLOS LC PLUS NEBULIZER MISCIndications:Cyst ic fibrosis with pulmonary manifestations (HCC) Use daily with Nryjy-Uje-hfprkxrr device 1 Device 5 06/13/2012 Active Additional [...] Wheezing. 18 g 5 06/20/2019 Active Pancrelipase, Nxq-Mdtd-Xdti, (ZENPEP) 50386-[address] units CPEPIndications:Cyst ic fibrosis (HCC) Take 6 [...] MG Oral Tablet Take by mouth. Active Vault Dragon Flex System w/Device Kit Use to test blood sugars 4 times daily (fasting, 1 hour after breakfast, lunch, and dinner) 1 Kit 07/18/2023 Active Vault Dragon In Vitro Strip (Glucose Blood) Use to test blood sugars 4 times daily (fasting, 1 hour after breakfast, lunch, and dinner) 125 Strip 6 07/18/2023 Active AMDL Delica Lancets 30G Use to test blood [...] & 150 MG Oral Tablet Therapy Pack (Pvotqonh-Ojnatwf-Rl acaf & Ivacaf)Indications:C ystic fibrosis with pulmonary [...] as of this encounter (statuses as of 10/24/2023) Active Problems Problem Noted Date Diagnosed Date Rubella non-immune status, antepartum 06/09/2023 Chlamydia infection complicating 06/09 Overview: + test at [facility], sent azithromycin High-risk 06/08/2023 Last Assessment & [...] condition warrants. Recommend an anesthesia referral antepartum. History of gestational diabe nahid mellitus (GDM) in prior , currently 06/08/2023 Overview: History of gestational diabetes controlled with Metformin in last Last Assessment & Plan: Reviewed with patient that women who have a history of GDM in a previous may have up to a 75% risk for GDM in subsequent pregnancies. Recommend obtaining early one hour Glucola screen and repeat again at 26-28 weeks if early screen is normal. Bipolar disease during 06/08/2023 Overview: bipolar disorder [...] disorder 06/02/2020 Diet controlled gestational diabetes mellitus (GDM) in first trimester 05/13/2020 Overview: 2hr OGTT completed on 07/06/2023: [...] Stable (<50%) 08/28/23: RPM reviewed; stable overall 09/05/20232100-SJC-fbrbuejc 5 of 7 days in the past week; stable 09/12/23: RPM reviewed; Stable 09/19/23: RPM reviewed; Stable. Not testing every day. 09/26/23: RPM reviewed; Stable; more consistent reporting 10/03/23: RPM reviewed; Stable but not testing consistently. 10/10/20237032-TGG-tkjacmys 2 days along with 2 additional fasting blood sugars. Messaged patient to be consistent with testing and reporting. 10/17/23: RPM reviewed; several missed readings, but overall stable Last Assessment & Plan: Working with [...] 11/20/2001 Malabsorption 08/29/2001 Cystic Fibrosis ( homozygous [id number]) Estimated Date of Delivery Comme nts Yes 01/29/2024 Based on Ultraso und documented as of this encounter (statuses as of 10/24/2023) Resolved Problems Problem Noted Date Diagnosed Date Resolved Date GBS (group B Streptococcus c arrier), +RV [...] (boneless & skinless & in olive oil), [place]mith mackerel (i.e. not Bereket mackerel), or cooked [...] as of this encounter (statuses as of 10/24/2023) Immunizations Name Administration Dates Next Due COVID-19 mRNA, LNP-s, No Pre serve, 2-Dose Series (Pfizer) 06/01/2021,11/16/2020,10/26/2020 H1N1 2009 Influenza, IM 03/27/2009 Meningococcal Conjugate Vacc ine (Menactra/Menveo) 07/14/2015,05/18/2010 Pneumococcal Conjugate Vacci ne, 20-valent (Reoflpr70) 03/31/2022 Pneumococcal Polysaccharide PPV23 (Pneumovax) 03/05/2019 Seasonal [...] money to get more. Never true 12/13/2022 [place] Depression Scale Answer Date Recorded [place] Depression Scale Total 5 06/08/2023 The thought of harming myself has occurred to me . Never 06/08/2023 Estimated Date of Delivery Comme nts Yes [...] Reading Time Taken Comments Blood Pressure 102/60 10/24/2023 8:56 AM EDT Pulse - - Temperature - - Respiratory Rate - - Oxygen Saturation - - Inhaled Oxygen Concentration - - Weight 80.8 kg (178 lb 3.2 oz) 10/24/2023 8:56 A M EDT Height - - Body Mass Index 29.65 09/26/2023 9:52 AM EDT documented in this encounter Functional [...] Progress Notes * Radha Diaz CRNP - 10/24/2023 9:11 AM EDT 26w1d No concerns. Baby is active. Denies contractions, bleeding, LOF. Reports taht her blood sugars are good, not on any meds for this. Labs, Rhogam with next visit. Has MFM appt in a few weeks. To begin NSTs at 32w. LAMIN Cross * Patrizia Padilla MED ASSIST - 10/24/2023 8:56 AM EDT 26w1d No concerns Vaginal bleeding: no ROM: no movement: present Contractions: no Nausea: no Vomiting: no Headaches: no documented in this encounter Plan of Treatment Upcoming Encounters Date Type Department Care Team (Late st Contact Info) Description 11/01/2023 2:45 PM EDT Office Visit Office Supervisor Obstetrics Maternal Medicine, [place] [address] [place] [address] Vinnie Guzman MD [address] [place] [address] 11/01/2023 2:45 PM EDT Imaging Radiology [facility] [place] [address] [place] [address] 11/08/2023 1:20 PM EDT Laboratory Laboratory, [address] [place] [address] [place], [facility] [place] [address] 11/08/2023 1:45 PM EDT Office Visit Gynecology/Obstetrics [place] [address] [place] CRNP [address] [place] [address] 11/30/2023 9:30 AM EDT Imaging Maternal Medicine Imaging, [place] [phone] 12/05/2023 10:00 AM EDT Telemedicine Psychiatry [facility] [address] [place] [address] Catina Araiza CRNP [address] [place] [address] 12/28/2023 9:30 AM EDT Imaging Maternal Medicine Imaging, [place] [phone] Scheduled Orders Name Type Priority Associated Diagnoses Orde r Schedule SYPHILIS ANTIBODY SCREEN WITH REFLEX TO RPR Lab Routine High-risk in second trimester Expected: 11/07/2023 (Approximate), Expires: 10/23/2024 CBC WITH WBC DIFFERENTIAL AND ANEMIA REFLEX WORKUP Lab Routine High-risk in second trimester Expected: 11/07/2023 (Approximate), Expires: 10/23/2024 TYPE AND SCREEN Lab Routine High-risk in second trimester Expected: 11/07/2023 (Approximate), Expires: 11/22/2024 Health Maintenance Due Date Last Done Comments [...] this encounter Visit Diagnoses Diagnosis High-risk in second trimester- Primary Rh negative, antepartum Rhesus isoimmunization affecting management of mother, antepartum condition Diet controlled gestational diabetes mellitus (GDM) in first trimester CF (cystic fibrosis) (HCC) Cystic fibrosis without mention of meconium ileus Respiratory system disease affecting , antepartum History of gestational diabetes mellitus (GDM) in prior , currently Bipolar disease during in second trimester (HCC) H/O macrosomia in infant in [...]
--- OUTSIDE RECORDS SUMMARY | 2024-01-24 09:18 | External Medical Summary ---
Author Name Unknown Address Unknown Organization K01:LABORATORY C - [address] [place] [address] Laboratory Report Ordering Provider Test Date Status JUSTINE العلي 11/08/2023 13:27:51 Final Observation Date Value Abnormality Reference (Units ) Status GGT 11/08/2023 13:27:51 5 <=40 (U/L) Final Performing Location [facility] - [address] [place] [address]
--- OUTSIDE RECORDS SUMMARY | 2024-01-24 09:18 | External Medical Summary | Summary of Care ---
Author Name Unknown Organization [facility] Address [address] [place] [address] Phone [phone] Care Team Providers Care Collision Repair Technician Name Role Phone Unavailable Primary Care Provider Unavailabl e Reason for Visit * Reason Onset Date Comments Follow Up 11/02/2023 Encounter Details Date Type Department Care Team (Late st Contact Info) Description 11/02/2023 10:00 AM EDT Scheduled Telephone Nutrition Services, [place] [address] [place] [address] Juan Reynolds, TORITO [address], [place] [phone] Allergies No known active allergiesdocumented as of this encounter (statuses as of 11/02/2023) Medications Medication Sig Dispensed Refills Start Date End Date Status COMPRESSOR/NEBULIZER MISCIndications:Cyst ic fibrosis (HCC) Use as directed 1 Device 0 05/31/2012 Active Additional Information Patient not taking.Reported on 07/21/2023 JUAN CARLOS LC PLUS NEBULIZER MISCIndications:Cyst ic fibrosis with pulmonary manifestations (HCC) Use daily with Caqel-Dmi-euitxrgj device 1 Device 5 06/13/2012 Active Additional [...] Wheezing. 18 g 5 06/20/2019 Active Pancrelipase, Mor-Ghgd-Gfew, (ZENPEP) 36956-00514 units CPEPIndications:Cyst ic fibrosis (HCC) Take 6 Caps by mouth three times a day with meals. Take 4 caps with snacks. 2700 Cap 1 08/22/2019 Active MVW Complete Formulation D3000 Oral CapsuleIndications:C ystic fibrosis (HCC) Take 2 Capsules by mouth daily. 60 Capsule 5 04/01/2021 Active Sodium Chloride 7 % Inhalation Nebulization Solution (Hyper-Benajmin)Indicatio ns:Cystic fibrosis (HCC) Inhale via nebulizer 4 [...] MG Oral Tablet Take by mouth. Active Thwapr Verio Flex System w/Device Kit Use to test blood sugars 4 times daily (fasting, 1 hour after breakfast, lunch, and dinner) 1 Kit 07/18/2023 Active [employer] In Vitro Strip (Glucose Blood) Use to test blood sugars 4 times daily (fasting, 1 hour after breakfast, lunch, and dinner) 125 Strip 6 07/18/2023 Active [employer] DelZaldiva Lancets 30G Use to test blood sugars [...] & 150 MG Oral Tablet Therapy Pack (Wzsulncy-Ymzwqck-Wm acaf & Ivacaf)Indications:C ystic fibrosis with pulmonary [...] as of this encounter (statuses as of 11/02/2023) Active Problems Problem Noted Date Diagnosed Date Rubella non-immune status, antepartum 06/09/2023 Chlamydia infection complicating 06/09 Overview: + test at [facility], sent azithromycin High-risk 06/08/2023 Last Assessment [...] Stable (<50%) 08/28/23: RPM reviewed; stable overall 09/05/20233918-LQP-rmtscxpv 5 of 7 days in the past week; stable 09/12/23: RPM reviewed; Stable 09/19/23: RPM reviewed; Stable. Not testing every day. 09/26/23: RPM reviewed; Stable; more consistent reporting 10/03/23: RPM reviewed; Stable but not testing consistently. 10/10/20233833-MRX-vkjiyqtv 2 days along with 2 additional fasting blood sugars. Messaged patient to be consistent with testing and reporting. 10/17/23: RPM reviewed; several missed readings, but overall stable 10/24/20239052-KBC-xazbtvll 3 of past 6 days; overall stable. Messaged to test four times daily and report. 10/31/20233017-AEI-usjvsv Last Assessment & Plan: Working with [facility], [...] 11/20/2001 Malabsorption 08/29/2001 Cystic Fibrosis ( homozygous [id number]) Estimated Date of Delivery Comme nts Yes 01/29/2024 Based on Ultraso und documented as of this encounter (statuses as of 11/02/2023) Resolved Problems Problem Noted Date Diagnosed Date Resolved Date GBS (group B Streptococcus c arrier), +RV culture, currently 10/05/2020 06/07/2023 Bipolar disease during , antepartum 06/07/2023 Last Assessment & Plan: 06/02/20: reports symptoms range from mild; she denies SI/HI; declines psychiatric medications; intermittently follows with behavioral health provider here at [facility]. DISCUSSION: 1. and delivery can worsen the [...] (boneless & skinless & in olive oil), [place] mackerel (i.e. not Bereket mackerel), or cooked [...] as of this encounter (statuses as of 11/02/2023) Immunizations Name Administration Dates Next Due COVID-19 mRNA, LNP-s, No Pre serve, 2-Dose Series (Pfizer) 06/01/2021,11/16/2020,10/26/2020 H1N1 2009 Influenza, IM 03/27/2009 Meningococcal Conjugate Vacc ine (Menactra/Menveo) 07/14/2015,05/18/2010 Pneumococcal Conjugate Vacci ne, 20-valent (Wjanvsh25) 03/31/2022 Pneumococcal Polysaccharide PPV23 (Pneumovax) 03/05/2019 Seasonal [...] money to get more. Never true 12/13/2022 Virgin Depression Scale Answer Date Recorded Virgin Depression Scale Total 5 06/08/2023 The thought [...] encounter Miscellaneous Notes * Telephone Encounter - Juan Reynolds RDN - 11/02/2023 12:57 PM EDT Nutritional Services Telephone Documentation 11/02/2023 12:57 PM Pt is 27 weeks 3 days gestation. Note pt has MFM appt today. Called to see if pt may be able to have labs drawn after her appointment today and to follow up regarding: Due for second trimester fat soluble vitamin labs and CF clinic follow up (pt cancelled 10/04 CF clinic visit; needs rescheduled) - Follow up re: form of vitamin D pt has been taking (10,000 units daily or 50,000 units weekly - note MyG message this RADHAN sent has not been read) Blood sugars (target during : <95 fasting, <140 1 hour post prandial) - pt followingwith Grazing Examiner; last seen 09/07 by Leah Coley RDN and [facility] program/MFM. Left message on voicemail requesting pt return call. MyG message also sent re: labs. Pt returned call 1:20 PM. Monica asked if she could have labs drawn next week when she is having other labs drawn. She had to cancel last CF clinic appointment as day and time conflicted with MFM appt same day at [facility]. She will call Estela Paz to reschedule She has been taking 2-5,000 units vitamin D daily as prescribed Her blood sugars have been good. Fasting <90, a "handful" of 1 hour post prandial readings over 140. She states these have all been after dinner when she ate out. Post prandial readings when eating at home have been good. Following with MFM. Juan Reynolds RDN Clinical Dietitian, Adult CF clinic [facility] [phone] documented in this encounter Plan of Treatment Upcoming Encounters Date Type Department Care Team (Late st Contact Info) Description 11/02/2023 2:30 PM EDT Imaging Maternal Medicine Imaging, [facility] [address] [facility] [place] [phone] 11/02/2023 2:30 PM EDT Office Visit Inspector Machine Cut Glass Obstetrics Maternal Medicine, [facility] [address] [facility] [place] [address] Wilda Qiu, DO [address] [place] [address] 11/08/2023 1:20 PM EDT Laboratory Laboratory, [facility] [address] [facility] [place] [phone] [facility] [address] [facility] [place] [address] 11/08/2023 1:45 PM EDT Office Visit Gynecology/Obstetrics [facility] [address] [facility] [place] [address] Ling Leonard CRNP [address] [facility] [place] [address] 11/30/2023 9:30 AM EDT Imaging Maternal Medicine Imaging, [facility] [address] [facility] [place] [phone] 12/05/2023 10:00 AM EDT Telemedicine Psychiatry [facility] [address] [place] [phone] Catina Araiza CRNP [address] [place] [phone] 12/28/2023 9:30 AM EDT Imaging Maternal Medicine Imaging, [facility] [address] [facility] [place] [phone] Health Maintenance Due Date Last Done Comments [...]
--- OUTSIDE RECORDS SUMMARY | 2024-01-24 09:18 | External Medical Summary | Summary of Care ---
Author Name Unknown Organization [facility] Address [address] [facility] [place] [address] Phone [phone] Care Team Providers Care Endo Tech Name Role Phone Unavailable Primary Care Provider Unavailabl e Reason for Visit * Reason Comments Return Visit Encounter Details Date Type Department Care Team (Late st Contact Info) Description 11/08/2023 1:45 PM EDT Office Visit Gynecology/Obstetri [facility] [address] [place] [address] Ling Leonard CRNP [address] [place] [id number] High-risk in third trimester*; Rh negative, antepartum; Diet controlled gestational diabetes mellitus (GDM) in third trimester; CF (cystic fibrosis) ([facility]); Respiratory system disease affecting , antepartum; Bipolar disease during in third trimester ([facility]); H/O macrosomia in in prior , currently ; Rubella non-immune status, antepartum; Chlamydia infection affecting in third trimester; Need for prophylactic vaccination with combined pneqpwyled-kzkfwhk-waa tussis (DTP) vaccine; Need for prophylactic immunotherapy Allergies No known active allergiesdocumented as of this encounter (statuses as of 11/08/2023) Medications Medication Sig Dispensed Refills Start Date End Date Status COMPRESSOR/NEBULIZER MISCIndications:Cyst ic fibrosis ([facility]) Use as directed 1 Device 0 05/31/2012 Active Additional Information Patient not taking.Reported on 07/21/2023 JUAN CARLOS LC PLUS NEBULIZER MISCIndications:Cyst ic fibrosis with pulmonary manifestations (HCC) Use daily with Vsozj-Sqj-nhxhlanr device 1 Device 5 06/13/2012 Active Additional [...] Wheezing. 18 g 5 06/20/2019 Active Pancrelipase, Hsf-Laaw-Olsv, (ZENPEP) 98642-44984 units CPEPIndications:Cyst ic fibrosis (HCC) Take 6 [...] MG Oral Tablet Take by mouth. Active Colondee Flex System w/Device Kit Use to test blood sugars 4 times daily (fasting, 1 hour after breakfast, lunch, and dinner) 1 Kit 07/18/2023 Active [employer]e In Vitro Strip (Glucose Blood) Use to test blood sugars 4 times daily (fasting, 1 hour after breakfast, lunch, and dinner) 125 Strip 6 07/18/2023 Active Mowbly [employer] Lancets 30G Use to test blood sugars [...] & 150 MG Oral Tablet Therapy Pack (Mjgzhlps-Vrkvjyd-An acaf & Ivacaf)Indications:C ystic fibrosis with pulmonary manifestations (HCC) Take 2 orange tablets by mouth in the morning and 1 light blue tablet by mouth in the evening. Take with fat-containing food. TAKE 2 ORANGE TABLETS BY MOUTH IN THE MORNING AND 1 LIGHT BLUE TABLET BY MOUTH IN THE EVENING. TAKE WITH FAT-CONTAINING FOOD 84 Each 08/22/2023 Active Hospital, Clinic, or Other Facility Administered Medication Ordered Dose Route Frequency Start Date End Date Status rho d immune globulin (Rhogam) inj 300 mcgIndications:Rh negative, antepartum 300 mcg IM ONCE 11/08/2023 11/08/2023 Disc ontinued Rho D Immune Globulin (Rhophylac) inj 300 mcgIndications:Rh negative, antepartum 300 mcg IM ONCE 11/08/2023 11/08/2023 Ende d documented as of this encounter (statuses as of 11/08/2023) Active Problems Problem Noted Date Diagnosed Date Rubella non-immune status, antepartum 06/09/2023 Chlamydia infection complicating 06/09 Overview: + test at [facility], sent azithromycin High-risk 06/08/2023 Last Assessment & Plan: I reviewed the ultrasound. The anatomy that was visualized is appropriate for the gestational age. Respiratory system disease affecting , antepartum 06/08/2023 Overview: Cystic fibrosis Follows with [facility] Denies complications with cystic fibrosis in last 06/08/23 MFM genetic counseling referral placed Per [facility]: Prothrombin time each trimester Growth scans [...] Stable (<50%) 08/28/23: RPM reviewed; stable overall 09/05/20231185-UUL-knviobnl 5 of 7 days in the past week; stable 09/12/23: RPM reviewed; Stable 09/19/23: RPM reviewed; Stable. Not testing every day. 09/26/23: RPM reviewed; Stable; more consistent reporting 10/03/23: RPM reviewed; Stable but not testing consistently. 10/10/20235598-KCF-vksenyli 2 days along with 2 additional fasting blood sugars. Messaged patient to be consistent with testing and reporting. 10/17/23: RPM reviewed; several missed readings, but overall stable 10/24/20231839-JFX-bgvymmhp 3 of past 6 days; overall stable. Messaged to test four times daily and report. 10/31/20230092-BHZ-ehkhca 11/06/20231032-FEJ-axfomepv 5 of 7 days; stable Last Assessment [...] 11/20/2001 Malabsorption 08/29/2001 Cystic Fibrosis ( homozygous [id number]) Estimated Date of Delivery Comme nts Yes [...] follows with behavioral health provider here at [facility]. DISCUSSION: 1. and delivery can [...] (boneless & skinless & in olive oil), [place] mackerel (i.e. not Bereket mackerel), or cooked [...] mRNA, LNP-s, No Pre serve, 2-Dose Series (ShopRunner) 06/01/2021,11/16/2020,10/26/2020 H1N1 2009 Influenza, IM 03/27/2009 Meningococcal Conjugate Vacc ine (Menactra/Menveo) 07/14/2015,05/18/2010 Pneumococcal Conjugate Vacci ne, 20-valent (Wgglvpx74) 03/31/2022 Pneumococcal Polysaccharide PPV23 (Pneumovax) 03/05/2019 Seasonal [...] money to get more. Never true 12/13/2022 Vermillion Depression Scale Answer Date Recorded Vermillion Depression Scale Total 5 06/08/2023 The thought [...] Reading Time Taken Comments Blood Pressure 108/62 11/08/2023 1:35 PM EDT Pulse - - Temperature - - Respiratory Rate - - Oxygen Saturation - - Inhaled Oxygen Concentration - - Weight 86.2 kg (190 lb) 11/08/2023 1:35 PM EDT Height - - Body Mass Index 31.62 09/26/2023 9:52 AM EDT documented in this [...] Progress Notes * Ling Leonard CRNP - 11/08/2023 1:39 PM EDT 28w2d No ctx, leaking, bleeding. Good movement, reviewed movement counts and when to call theoffice with concerns. Feels well on current sertraline dose. Labs completed, Tdap and RhoGAM today. Followed by [facility]. 2 week return LAMIN Melton * Kate Thomas LPN - 11/08/2023 1:35 PM EDT 28w2d Denies vaginal bleeding/rom + movement Tdap & rhogam today documented in this encounter Nursing Notes * Kate Thomas LPN - 11/08/2023 1:55 PM EDT Patient here for tdap&rhogam injection. Patient doing well no complaints. Injection given IM asordered. Patient tolerated well. Patient to follow up as directed. Patient instructed to call if any complications. Patient verbalized understanding of instructions given. Injection site: Left Deltoid Left Glute Medication Source: Dispensed stock medication documented in this encounter Plan of Treatment Upcoming Encounters Date Type Department Care Team (Late st Contact Info) Description 11/14/2023 11:30 AM EDT Office Visit Pulmonary Medicine, [place] [address] [place] [address] Micaela Holly, DO [address] [place] [address] 11/21/2023 10:15 AM EDT Office Visit Gynecology/Obstetrics [facility] [address] [facility] [place] [address] Marnie Calvo PA-C [address] [facility] [place] [address] 11/30/2023 9:30 AM EDT Imaging Maternal Medicine [facility] [place] [phone] 12/05/2023 10:00 AM EDT Telemedicine Psychiatry [facility] [address] [place] [phone] Catina Araiza CRNP [address] [place] [phone] 12/05/2023 1:45 PM EDT Office Visit Gynecology/Obstetrics [facility] [address] [place] [address] Radha Diaz CRNP [address] [place] [address] Adebayo, Non Stress Tests [facility] [address] [place] [address] 12/08/2023 1:45 PM EDT Office Visit Gynecology/Obstetrics [facility] [address] [place] [address] Radha Diaz CRNP [address] [place] [address] Adebayo, Non Stress Tests [facility] [address] [place] [address] 12/12/2023 1:45 PM EDT Office Visit Gynecology/Obstetrics [facility] [address] [place] [address] Radha Diaz CRNP [address] [place] [address] Adebayo Non Stress Tests [facility] [address] [place] [address] 12/15/2023 11:00 AM EDT Office Visit Gynecology/Obstetrics Alisa [facility] [address] [place] [address] Ling Leonard CRNP [address] [place] [address] Adebayo Non Stress Tests [facility] [address] [place] [address] 12/19/2023 1:45 PM EDT Office Visit Gynecology/Obstetrics Alisa Rolons [address] [place] [address] Radha Diaz CRNP [address] [place] [address] Adebayo Non Stress Tests [facility] [address] [place] [address] 12/22/2023 11:00 AM EDT Office Visit Gynecology/Obstetrics Alisa Rolons [address] [place] [address] BackLing baptiste CRNP [address] [place] [address] Adebayo Non Stress Tests [facility] [address] [place] [address] 12/26/2023 1:45 PM EDT Office Visit Gynecology/Obstetrics Alisa [facility]ons [address] [place], [place] [address] Radha Diaz CRNP [address] [place] [address] Adebayo, Non Stress Tests [facility] [address] [place] [address] 12/28/2023 9:30 AM EDT Imaging Maternal Medicine Imaging, [facility] [address] [place] [phone] 12/29/2023 1:45 PM EDT Office Visit Gynecology/Obstetrics Alisa [facility] [address] [place] [address] Radha Diaz CRNP [address] [place] [address] Adebayo, Non Stress Tests [facility] [address] [place] [address] 01/02/2024 1:45 PM EDT Office Visit Gynecology/Obstetrics Alisa Fi[facility] [address] [place] [address] Radha Diaz CRNP [address] [place] [address] Adebayo, Non Stress Tests [facility] [address] [place] [address] 01/05/2024 1:45 PM EDT Office Visit Gynecology/Obstetrics Alisa Rolons [address] [place] [address] Radha Diaz CRNP [address] [place] [address] Fiore, Non Stress Tests [facility] [address] [place] [address] 01/09/2024 1:45 PM EDT Office Visit Gynecology/Obstetrics [facility] [address] [place] [address] Radha Diaz COMMUNICATIONS SUPERVISOR [address] [place] [address] Fiore, Non Stress Tests [facility] [address] [place] [address] 01/12/2024 1:45 PM EDT Office Visit Gynecology/Obstetrics [facility] [address] [place] [address] Radha Diaz CRNP [address] [place] [address] Fiore, Non Stress Tests [facility] [address] [place] [address] 01/16/2024 1:45 PM EDT Office Visit Gynecology/Obstetrics [facility] [address] [place] [address] Radha Diaz CRNP [address] [place] [address] Fiore, Non Stress Tests [facility] [address] [place] [address] 01/19/2024 1:45 PM EDT Office Visit Gynecology/Obstetrics [facility] [address] [place] [address] Radha Diaz COMMUNICATIONS SUPERVISOR [address] [place] [address] Adebayo, Non Stress Tests [facility] [address] [place] [address] 01/23/2024 1:45 PM EDT Office Visit Gynecology/Obstetrics Alisa Fi[facility] [address] [place] [address] Radha Diaz CRNP [address] [place] [address] Fiore, Non Stress Tests [facility] [address] [place] [address] 01/26/2024 1:45 PM EDT Office Visit Gynecology/Obstetrics Alisa [facility] [address] [place] [address] Radha Diaz CRNP [address] [place] [address] Adebayo Non Stress Tests [facility] [address] [place] [address] Health Maintenance Due Date Last Done Comments [...] antepartum Bipolar disease during in third trimester ([facility]) H/O macrosomia in infant in prior , currently with other poor obstetric history Rubella non-immune status, antepartum Other specified complication, antepartum Chlamydia infection affecting in third trimester Need for prophylactic vaccination with combined jnvopspdpz-wwwtnqt-vagnwfpwj (DTP) vaccine Need for prophylactic immunotherapy documented in this encounter Administered Medications Inactive Administered Medications - up to 3 most recent administrations Medication Order MAR Action Action Date Dose Rate Site Rho D Immune Globulin (Rhophylac) inj 300 mcg 300 mcg, Intramuscular, ONCE, On Mon11/08/23 at 1430, For 1 dose, Do not administer until type and screen has been collected! 1 MCG = 5 INTERNATIONAL UNITS Given 11/08/2023 1:55 PM EDT 300 mcg Ventrogluteal Left documented in this encounter Additional Health Concerns [...] patient have Health Care Power of Attor blakn? No * Full Code Date Activated Date [...]
--- OUTSIDE RECORDS SUMMARY | 2024-01-24 09:18 | External Medical Summary ---
Author Name Unknown Address Unknown Organization : Laboratory Report Ordering Provider Test Date Status JUSTINE العلي 11/08/2023 13:27:51 Final Observation Date Value Abnormality Reference (Units ) Status Vitamin A, level 11/08/2023 13:27:51 34 Below low nor mal 38-98 (mcg/dL) Final Vitamin supplementation with in 24 hours prior to
blood draw may affect the accuracy of the results.
This test was developed and its analytical performance
characteristics have been determined by [facility] [place] It has
not been cleared or approved by the U.S. Food and Drug
Administration. This assay has been validated pursuant
to the CLIA regulations and is used for clinical
purposes.

Test Performed at:
[facility]
[address] [facility]
[place] [address]
Giovanni Cui M.D., Ph.D.,Director of Laboratories Performing Location
--- OUTSIDE RECORDS SUMMARY | 2024-01-24 09:19 | External Medical Summary | Summary of Care ---
Author Name Unknown Organization [facility] Address [address] [place] [address] Phone [phone] Care Team Providers Care Hiv Prevention Specialist Name Role Phone Unavailable Primary Care Provider Unavailabl e Encounter Details Date Type Department Care Team (Late st Contact Info) Description 10/05/2023 1:45 PM EDT Office Visit Information Specialist Obstetrics Maternal Medicine, [address] [place] [address] Wilda Qiu, DO [address] [place] [address] Diet controlled gestational diabetes mellitus (GDM) in first trimester*; CF (cystic fibrosis) (HCC); Ultrasound for screening for growth restriction; 23 weeks gestation of Allergies No known active allergiesdocumented as of this encounter (statuses as of 10/05/2023) Medications Medication Sig Dispensed Refills Start Date End Date Status COMPRESSOR/NEBULIZER MISCIndications:Cyst ic fibrosis (HCC) Use as directed 1 Device 0 05/31/2012 Active Additional Information Patient not taking.Reported on 07/21/2023 JUAN CARLOS LC PLUS NEBULIZER MISCIndications:Cyst ic fibrosis with pulmonary manifestations (HCC) Use daily with Gvuqh-Rki-zudgejyj device 1 Device 5 06/13/2012 Active Additional [...] Wheezing. 18 g 5 06/20/2019 Active Pancrelipase, Noz-Nyps-Bxoj, (ZENPEP) 97208-84560 units CPEPIndications:Cyst ic fibrosis (HCC) Take 6 [...] 28-0.8 MG Oral Tablet Take by mouth. 0 Active [employer] Verio Flex System w/Device Kit Use to test blood sugars 4 times daily (fasting, 1 hour after breakfast, lunch, and dinner) 1 Kit 0 07/18/2023 Active [employer] In Vitro Strip (Glucose Blood) Use to test blood sugars 4 times daily (fasting, 1 hour after breakfast, lunch, and dinner) 125 Strip 6 07/18/2023 Active [employer] Delica Lancets 30G Use to test blood [...] & 150 MG Oral Tablet Therapy Pack (Liljlisu-Lvcwmnv-Zs acaf & Ivacaf)Indications:C ystic fibrosis with pulmonary manifestations (HCC) Take 2 orange tablets by mouth in the morning and 1 light blue tablet by mouth in the evening. Take with fat-containing food. TAKE 2 ORANGE TABLETS BY MOUTH IN THE MORNING AND 1 LIGHT BLUE TABLET BY MOUTH IN THE EVENING. TAKE WITH FAT-CONTAINING FOOD 84 Each 0 08/22/2023 Active documented as of this encounter (statuses as of 10/05/2023) Active Problems Problem Noted Date Diagnosed Date [...] Stable (<50%) 08/28/23: RPM reviewed; stable overall 09/05/20235191-UFG-mxibjbzu 5 of 7 days in the past week; stable 09/12/23: RPM reviewed; Stable 09/19/23: RPM reviewed; Stable. Not testing every day. 09/26/23: RPM reviewed; Stable; more consistent reporting 10/03/23: RPM reviewed; Stable but not testing consistently. Last Assessment & Plan: Working with [facility], [...] 11/20/2001 Malabsorption 08/29/2001 Cystic Fibrosis ( homozygous [id number]) Estimated Date of Delivery Comme nts Yes 01/29/2024 Based on Ultraso und documented as of this encounter (statuses as of 10/05/2023) Resolved Problems Problem Noted Date Diagnosed Date Resolved Date GBS (group B Streptococcus c arrier), +RV culture, currently 10/05/2020 06/07/2023 Bipolar disease during , antepartum 06/07/2023 Last Assessment & Plan: 06/02/20: reports symptoms range from mild; she denies SI/HI; declines psychiatric medications; intermittently follows with behavioral health provider here at [facility]. DISCUSSION: 1. and delivery can worsen the [...] are also low in mercury, including anchovies, spenecr, sardines (boneless & skinless & in olive oil), [place] mackerel (i.e. not [place] mackerel), or cooked [...] as of this encounter (statuses as of 10/05/2023) Immunizations Name Administration Dates Next Due COVID-19 mRNA, LNP-s, No Pre serve, 2-Dose Series (Pfizer) 06/01/2021,11/16/2020,10/26/2020 H1N1 2009 Influenza, IM 03/27/2009 Meningococcal Conjugate Vacc ine (Menactra/Menveo) 07/14/2015,05/18/2010 Pneumococcal Conjugate Vacci ne, 20-valent ([id number]) 03/31/2022 Pneumococcal Polysaccharide PPV23 (Pneumovax) 03/05/2019 Seasonal Influenza, PF, 6 M & above, IM , (FluLaval or Fluzone) 04/18/2023,03/07/2022,04/01/2021,03/05 Seasonal Influenza, Quadriva lent, No Preserve, IM 03/05/2019,02/08/2018,03/09/2017,03/16,03/19/2015 Seasonal Influenza, Split, I IV3, With Preserve, Inj 01/23/2014,04/04/2013,03/08/2012,03/14,02/25/2010,02/05/2009,02/25/2008 ,03/21/2007,03/17/2006 TDAP (age 10 and older)(Boostrix) 09/01/2020, TDAP (age 11 and older)(Adacel) 05/18/2010 Varicella Vaccine (Chicken Pox) 05/18/2010 documented [...] money to get more. Never true 12/13/2022 [place] Depression Scale Answer Date Recorded Hutch[place] Depression Scale Total 5 06/08/2023 The thought [...] encounter Progress Notes * Wilda Qiu, - 10/05/2023 3:41 PM EDT Monica presented today at 23w3d for an ultrasound for the following indications: Diet controlled gestational diabetes mellitus (GDM) in first trimester Assessment & Plan: Working with [facility], but not sending sugars regularly. Please encourage patient to submit sugars. CF (cystic fibrosis) ([facility]) Ultrasound for screening for growth restriction 23 weeks gestation of Ultrasound summary: Patient presented at 23w 3d for growth assessment. Normal growth with EFW 700 g at 86%ile. Normal AILEEN. Cephalic presentation. I reviewed the ultrasound images. Monica [...] call with any questions. Wilda Qiu DO 10/05/2023 3:41 PM documented in this encounter Miscellaneous Notes * Assessment & Plan Note - Wilda Qiu DO - 10/05/2023 3:41 PM EDT Associated Problem(s): Diet controlled gestational diabetes mellitus (GDM) in first trimester Working with [facility], but not sending sugars regularly. Please encourage patient to submit sugars. documented in this encounter Plan of Treatment Upcoming Encounters Date Type Department Care Team (Late st Contact Info) Description 10/24/2023 9:00 AM EDT Office Visit Gynecology/Obstetrics Alisa Fiore [address] [place] [address] Radha Diaz CRNP [address] [place] [address] 10/24/2023 2:00 PM EDT Telemedicine Nutrition, [place] Fi[facility] [address] [place] [address] Leah Coley RDN [address] [place] [address] 11/01/2023 2:45 PM EDT Office Visit Information Specialist Obstetrics Maternal Medicine, [place] [address] [place] [facility] [place] [address] Vinnie Gumzan MD [address] [place] [address] 11/01/2023 2:45 PM EDT Imaging Rad[facility], [place] [address] [place] [address] 11/30/2023 9:30 AM EDT Imaging Maternal Medicine Imaging, [facility] [address] [facility] [address] 12/05/2023 10:00 AM EDT Telemedicine Psychiatry [facility] [address] [place] [address] Catina Araiza CRNP [address] [place] [facility] [place] [address] 12/28/2023 9:30 AM EDT Imaging Maternal Medicine Imaging, [facility] [address] [facility] [place] [address] Health Maintenance Due Date Last Done Comments [...] controlled gestational diabetes mellitus (GDM) in first trimester- Primary CF (cystic fibrosis) (HCC) Cystic fibrosis without mention of meconium ileus Ultrasound for screening for growth restriction screening for growth retardation using ultrasonics 23 weeks gestation of state, incidental documented in this encounter Additional Health Concerns Infection Onset Date Last Indicated Resolved Time Cystic fibrosis 11/10/2021 11/10/2021 documented as of this encounter Advance Directives Latest Code Status on File Code Status Date Activated Date Inactivated Comments Full Code 10/30/2014 3:30 PM 11/12/2014 6:49 PM This order reflects the patients wishes and were consensually agreed upon. Question Answer Comments Discussion of Advance Directives occurred with: Not Discussed Does the patient have a Living Will? No Does the patient have Health Care Power of Truck Loader Overhead Crane? No Code Status History Code Status Date Activated Date Inactivated Comments Full Code 04/24/2012 12:01 PM 05/08/2012 6:45 PM Thi s order reflects the patients wishes and were consensually agreed upon. Question Answer Comments Discussion of Advance Directives occurred with: Not Discussed Does the patient have a Living Will? No Does the patient have Health Care Power of Truck Loader Overhead Crane? No Full Code 03/18/2011 2:41 PM 03/21/2011 7:11 PM Thi s order reflects the patients wishes and were consensually agreed upon. Question Answer Comments Discussion of Advance Directives occurred with: Not Discussed
--- OUTSIDE RECORDS SUMMARY | 2024-01-24 09:19 | External Medical Summary | Summary of Care ---
Author Name Unknown Organization [facility] Address [address] [facility] [place] [address] Phone [phone] Care Team Providers Care Director Of Integrated Marketing Name Role Phone Unavailable Primary Care Provider Unavailabl e Reason for Visit * Reason Comments Return Visit Encounter Details Date Type Department Care Team (Late st Contact Info) Description 08/29/2023 10:00 AM EDT Office Visit Gynecology/Obstetric s Reev[facility] Fiore [address] [place] [address] Radha Diaz CRNP [address] [place] [id number] High-risk in second trimester*; Rh negative, antepartum; Diet controlled gestational diabetes mellitus (GDM) in first trimester; Respiratory system disease affecting , antepartum; History of gestational diabetes mellitus (GDM) in prior , currently ; Bipolar disease during , antepartum (HCC); H/O macrosomia in in prior , currently ; Rubella non-immune status, antepartum; Chlamydia infection affecting in first trimester Allergies No known active allergiesdocumented as of this encounter (statuses as of 08/29/2023) Medications Medication Sig Dispensed Refills Start Date End Date Status COMPRESSOR/NEBULIZER MISCIndications:Cyst ic fibrosis (HCC) Use as directed 1 Device 0 05/31/2012 Active Additional Information Patient not taking.Reported on 07/21/2023 JUAN CARLOS LC PLUS NEBULIZER MISCIndications:Cyst ic fibrosis with pulmonary manifestations (HCC) Use daily with Wxyit-Mkk-byhgkueq device 1 Device 5 06/13/2012 Active Additional [...] Wheezing. 18 g 5 06/20/2019 Active Pancrelipase, Tli-Hdhb-Uasp, (ZENPEP) 25141-00234 units CPEPIndications:Cyst ic fibrosis (HCC) Take 6 [...] Oral Tablet Take by mouth. 0 Active [employer]games Flex System w/Device Kit Use to test blood sugars 4 times daily (fasting, 1 hour after breakfast, lunch, and dinner) 1 Kit 0 07/18/2023 Active [employer]games In Vitro Strip (Glucose Blood) Use to test blood sugars 4 times daily (fasting, 1 hour after breakfast, lunch, and dinner) 125 Strip 6 07/18/2023 Active [employer] Delica Lancets 30G Use to test blood [...] & 150 MG Oral Tablet Therapy Pack (Ncyorwkb-Idzccfb-Lb acaf & Ivacaf)Indications:C ystic fibrosis with pulmonary [...] as of this encounter (statuses as of 08/29/2023) Active Problems Problem Noted Date Diagnosed Date [...] (cystic fibrosis) 06/08/2020 Last Assessment & Plan: She presents today for a anatomy survey secondary to her history of cystic fibrosis and GDM. She was seen for a telemedicine visit by the CF clinic yesterday. She states that she is doing well, and her last CF-related hospitalization was in 2014. I encouraged continued close follow-up with the CF clinic as planned. We reviewed the results of today's ultrasound. The estimated weight is appropriate for gestational age. The visualized anatomy is unremarkable in appearance. Some structures are suboptimally imaged secondary to position. The amniotic fluid amount appears normal. We discussed that ultrasound is not able to identify all anomalies, but it is reassuring that no anomalies were seen today. I recommended follow-up in 3-4 weeks for completion of anatomy. Bipolar 1 disorder 06/02/2020 Diet controlled gestational diabetes mellitus (GDM) in first trimester 05/13/2020 Overview: 2hr OGTT completed on 07/06/2023: (12 weeks) FBS - 103 (elevated) 1hr - 216 (elevated) 2hr - 121 (WNL) Lab Results Component Value Date/Time HEMOGLOBIN A1C - [facility] 4.9 12/13/2022 09:41 AM HEMOGLOBIN A1C - [facility] 4.9 07/04/2019 08:17 AM RECOMMENDATIONS: Insulin is preferred if medications are indicated to optimize euglycemia. Metformin (preferred over glyburide) may also be used in some circumstances. Reviewed the risks and benefits of each. Recommend hemoglobin A1c testing now if diagnosed with GDM prior to 24 weeks as there is potential for pre-existing diabetes. If result is 6.5% or greater, then will diagnose with overt Type 2 DM and treat as pre-existing diabetes. If compliance later in gestation is question, a HBA1c can be assessed with a goal of less than 6%. Recommend early anatomy evaluation at 11-16 weeks gestation. Recommend anatomy survey at 19-20 weeks. Recommend ultrasound, surveillance and delivery as follows: A1GDM, delivery should be accomplished by 41w0d (or sooner if another indication). A2GDM, recommend growth assessment with MFM every 4 weeks, initiate surveillance at 32 weeks and continue until delivery at 39 weeks (or sooner if another indication). Recommend intrapartum monitoring every 1-2 hours (A2GDM) or every 4 hours (A1GDM) and treat with insulin if indicated. Recommend 2-hour glucose tolerance testing with 75-gram glucose load 6-8 weeks . 07/21/23: MFM [facility] consult complete. Enrolled in [...] Stable (<50%) 08/28/23: RPM reviewed; stable overall Last Assessment & Plan: CONSIDERATIONS: Reviewed etiology and risks associated with gestational diabetes mellitus (GDM), including risks to , fetus, and maternal progression to Type 2 DM. Instructed on proper use of glucometer; supplies ordered, if indicated. Advised that life-long screening for diabetes is recommended every 1-3 years. RECOMMENDATIONS: Recommend monitoring blood sugars with daily fasting blood sugar (maintained at less than or equal to 95) and 1 hour postprandial measurements (maintained at less than or equal to 140). Medications should be adjusted to maintain these target values. Report levels to MFM (Maternal- Medicine) weekly. Recommend nutrition consult with RDN (Registered Dietitian [employer]). Lifestyle changes are also indicated including optimizing gestational weight gain and physical activity of 30 minutes per day, if not otherwise contraindicated in . Insulin is preferred if medications are indicated to optimize euglycemia. Metformin (preferred over glyburide) may also be used in some circumstances. Reviewed the risks and benefits of each. Recommend hemoglobin A1c testing now if diagnosed with GDM prior to 24 weeks as there is potential for pre-existing diabetes. If result is 6.5% or greater, then will diagnose with overt Type 2 DM and treat as pre-existing diabetes. If compliance later in gestation is question, a HBA1c can be assessed with a goal of less than 6%. Recommend early anatomy evaluation at 11-16 weeks gestation. Recommend anatomy survey at 19-20 weeks. Recommend echocardiography at 21-23 weeks if hemoglobin A1c greater than 6.5%. Recommend ultrasound, surveillance and delivery as follows: A1GDM, delivery should be accomplished by 41w0d. A2GDM, recommend growth assessment with MFM every 4 weeks, initiate surveillance at 32 weeks and continue until delivery at 39 weeks. Recommend intrapartum monitoring every 1-2 hours (A2GDM) or every 4 hours (A1GDM) and treat with insulin if indicated. Recommend 2-hour glucose tolerance testing with 75-gram glucose load 6-8 weeks . Rh negative, antepartum 03/19/2020 Splenomegaly 11/07/2017 Constipation 09/06/2017 Overview: 06/02/20: denies current sx. Cystic fibrosis with gastrointestinal manifestat ions 07/26/2016 Exocrine pancreatic insufficiency 07/26/2016 Vitamin D insufficiency 07/26/2016 History of nasal polyp 07/26/2016 Cystic fibrosis with pulmonary manifestations Vaccine refused by patient 06/21/2011 Overview: refused HPV VACCIN FOR DISEASE NEC 11/20/2001 Malabsorption 08/29/2001 Cystic Fibrosis ( homozygous [id number]) Estimated Date of Delivery Comme nts Yes 01/29/2024 Based on Ultraso und documented as of this encounter (statuses as of 08/29/2023) Resolved Problems Problem Noted Date Diagnosed Date Resolved Date GBS (group B Streptococcus c arrier), +RV culture, currently 10/05/2020 06/07/2023 Bipolar disease during , antepartum 06/07/2023 Last Assessment & Plan: 06/02/20: reports symptoms range from mild; she denies SI/HI; declines psychiatric medications; intermittently follows with behavioral health provider here at [facility] [place]. DISCUSSION: 1. and [...] (boneless & skinless & in olive oil), [place] mackerel (i.e. not [place]re[place] mackerel), or cooked [...] as of this encounter (statuses as of 08/29/2023) Immunizations Name Administration Dates Next Due COVID-19 mRNA, LNP-s, No Pre serve, 2-Dose Series (Tapad) 06/01/2021,11/16/2020,10/26/2020 H1N1 2008 Influenza, IM 03/27/2009 Meningococcal Conjugate Vacc ine (Menactra/Menveo) 07/14/2015,05/18/2010 Pneumococcal Conjugate Vacci ne, 20-valent ([id number]) 03/31/2022 Pneumococcal Polysaccharide PPV23 (Pneumovax) 03/05/2019 Seasonal [...] money to get more. Never true 12/13/2022 [place] Depression Scale Answer Date Recorded [place] Depression Scale Total 5 06/08/2023 The thought [...] Sign Reading Time Taken Comments Blood Pressure 104/78 08/29/2023 10:00 AM EDT Pulse - - Temperature - - Respiratory Rate - - Oxygen Saturation - - Inhaled Oxygen Concentration - - Weight 81.2 kg (179 lb) 08/29/2023 10:00 AM EDT Height 165.1 cm (5' 5") 08/29/2023 10:00 AM EDT Body Mass Index 29.79 08/29/2023 10:00 AM EDT documented in this encounter Functional [...] Progress Notes * Radha Diaz CRNP - 08/29/2023 10:14 AM EDT 18w1d No concerns. Hasn't felt FM yet. No bleeding, no contractions. Following with [facility], blood sugars are good. Not on insulin or oral meds. Has anatomy u/s next week with MFM. LAMIN Cross documented in this encounter Nursing Notes * Massiel Keith LPN - 08/29/2023 10:03 AM EDT 18w1 Denies concerns MFM anatomy US next week. documented in this encounter Plan of Treatment Upcoming Encounters Date Type Department Care Team (Late st Contact Info) Description 08/31/2023 9:30 AM EDT Telemedicine Nutrition, [address] [place] [address] Leah Coley, T[place] [address] [place] [address] 09/06/2023 1:30 PM EDT Office Visit Crystal Machining Coordinator Obstetrics Maternal Medicine, [place] [address] [place] [address] Vinnie Guzman MD [address] [place] [address] 09/06/2023 1:30 PM EDT Imaging Radiology [facility], [place] [address] [place] [address] 09/26/2023 10:00 AM EDT Office Visit Gynecology/Obstetrics [facility] [address] [place] [address] Radha Diaz CRNP [address] [place] [address] 10/05/2023 10:30 AM EDT Office Visit Pulmonary Medicine, [place] [address] [place] [address] Micaela Holly, [address] [place] [address] 12/05/2023 10:00 AM EDT Telemedicine Psychiatry, [place] [address] [place] [address] Catina Araiza CRNP [address] [place] [address] Health Maintenance Due Date Last [...] gestational diabetes mellitus (GDM) in first trimester Respiratory system disease affecting , antepartum History of gestational diabetes mellitus (GDM) in prior , currently Bipolar disease during , antepartum (HCC) H/O [...] the patient have Health Care Power of Mobile Development Manager? No Code Status History Code Status Date Activated Date Inactivated Comments Full Code 04/24/2012 12:01 PM 05/08/2012 6:45 PM Thi s order reflects the patients wishes and were consensually agreed upon. Question Answer Comments Discussion of Advance Directives occurred with: Not Discussed Does the patient have a Living Will? No Does the patient have Health Care Power of Mobile Development Manager? No Full Code 03/18/2011 2:41 PM 03/21/2011 7:11 PM Thi s order reflects the patients wishes and were consensually agreed upon. Question Answer Comments Discussion of Advance Directives occurred with: Not Discussed
--- OUTSIDE RECORDS SUMMARY | 2024-01-24 09:19 | External Medical Summary | Summary of Care ---
Author Name Unknown Organization [facility] Address [address] [facility] [place] [address] Phone [phone] Care Team Providers Care Dental Laboratory Technician Apprentice Name Role Phone Unavailable Primary Care Provider Unavailabl e Reason for Visit * Reason Onset Date Comments Diabetes 09/08/2023 Encounter Details Date Type Department Care Team (Late st Contact Info) Description 09/08/2023 10:30 AM EDT Scheduled Telephone Guerrero Vasquez [address] [place] [address] Leah Coley RDN [address] [place] [id number] Allergies No known active allergiesdocumented as of this encounter (statuses as of 09/08/2023) Medications Medication Sig Dispensed Refills Start Date End Date Status COMPRESSOR/NEBULIZER MISCIndications:Cyst ic fibrosis (HCC) Use as directed 1 Device 0 05/31/2012 Active Additional Information Patient not taking.Reported on 07/21/2023 JUAN CARLOS LC PLUS NEBULIZER MISCIndications:Cyst ic fibrosis with pulmonary manifestations (HCC) Use daily with Gcqef-Uvn-kphgjcjz device 1 Device 5 06/13/2012 Active Additional [...] Wheezing. 18 g 5 06/20/2019 Active Pancrelipase, Mvl-Ravq-Xusq, (ZENPEP) 69485-32299 units CPEPIndications:Cyst ic fibrosis (HCC) Take 6 [...] Oral Tablet Take by mouth. 0 Active [employer] Verio Flex System w/Device Kit Use to test blood sugars 4 times daily (fasting, 1 hour after breakfast, lunch, and dinner) 1 Kit 0 07/18/2023 Active [email or web address] VerIntellution In Vitro Strip (Glucose Blood) Use to test blood sugars 4 times daily (fasting, 1 hour after breakfast, lunch, and dinner) 125 Strip 6 07/18/2023 Active [employer] Delica Lancets 30G Use to test blood [...] & 150 MG Oral Tablet Therapy Pack (Mlqvxmls-Pkfpcoy-Xz acaf & Ivacaf)Indications:C ystic fibrosis with pulmonary [...] as of this encounter (statuses as of 09/08/2023) Active Problems Problem Noted Date Diagnosed Date Rubella non-immune status, antepartum 06/09/2023 Chlamydia infection complicating 06/09 Overview: + test at [facility], sent azithromycin High-risk 06/08/2023 Last [...] about calling [facility] to get enrolled in [facility] 08/22/23: RPM; a couple elevated PP values; overall Stable (<50%) 08/28/23: RPM reviewed; stable overall 09/05/20239619-FOK-auegioah 5 of 7 days in the past week; stable Last Assessment & Plan: CONSIDERATIONS: Reviewed etiology [...] Recommend nutrition consult with RDN (Registered Dietitian Senior Research Manager). Lifestyle changes are also indicated including optimizing [...] 11/20/2001 Malabsorption 08/29/2001 Cystic Fibrosis ( homozygous [id number]) Estimated Date of Delivery Comme nts Yes 01/29/2024 Based on Ultraso und documented as of this encounter (statuses as of 09/08/2023) Resolved Problems Problem Noted Date Diagnosed Date Resolved Date GBS (group B Streptococcus c arrjacques), +RV culture, currently 10/05/2020 06/07/2023 Bipolar disease during , antepartum 06/07/2023 Last Assessment & Plan: 06/02/20: reports symptoms range from mild; she denies SI/HI; declines psychiatric medications; intermittently follows with behavioral health provider here at [facility] [place]. DISCUSSION: 1. and [...] (boneless & skinless & in olive oil), [place] mackerel (i.e. not [place] mackerel), or cooked [...] as of this encounter (statuses as of 09/08/2023) Immunizations Name Administration Dates Next Due COVID-19 mRNA, LNP-s, No Pre serve, 2-Dose Series (Pfizer) 06/01/2021,11/16/2020,10/26/2020 H1N1 2009 Influenza, IM 03/27/2009 Meningococcal Conjugate Vacc ine (Menactra/Menveo) 07/14/2015,05/18/2010 Pneumococcal Conjugate Vacci ne, 20-valent (Azpyvos12) 03/31/2022 Pneumococcal Polysaccharide PPV23 (Pneumovax) 03/05/2019 Seasonal [...] money to get more. Never true 12/13/2022 [place] Depression Scale Answer Date Recorded [place] Depression Scale Total 5 06/08/2023 The thought [...] Telephone Encounter - Leah Coley RDN - 09/08/2023 8:48 AM EDT Contacted pt to follow-up from initial GDM video visit from August 02. States she has no questionsor concerns. Reports her glucose levels have been within target range. Discussed scheduling a follow-up visit with her and she is agreeable. Video appointment scheduled for October 23 at 2 PM-pt aware and is agreeable. Leah Coley RDN, Clinical Dietitian II, [facility] Clinical Nutrition Services [facility] [address] [place] [address] Available via [employer] Portal documented in this encounter Plan of Treatment Upcoming Encounters Date Type Department Care Team (Late st Contact Info) Description 09/26/2023 10:00 AM EDT Office Visit Gynecology/Obstetrics Alisa Fiore [address] [place] [address] Radha Diaz CRNP [address] [place] [address] 10/05/2023 10:30 AM EDT Office Visit Pulmonary Medicine, [place] [address] [place] [address] Micaela Holly DO [address] [place] [facility] [place] [address] 10/05/2023 1:45 PM EDT Imaging Maternal Medicine Imaging, Guerrero Rolons [address] [place] [id number] 10/24/2023 2:00 PM EDT Telemedicine Nutrition, [place]ro Fiore [address] [place] [address] Leah Coley RDN [address] [place] [address] 11/01/2023 2:45 PM EDT Office Visit Non Emergency Services Ambulance Driver Obstetrics Maternal Medicine, [place] [address] [place] [address] Vinnie Guzman MD [address] [place] [address] 11/01/2023 2:45 PM EDT Imaging [facility]iology [facility], [place] [address] [place] [address] 11/30/2023 9:30 AM EDT Imaging Maternal Medicine Imaging, [facility] [address] [facility] [place] [phone] 12/05/2023 10:00 AM EDT Telemedicine Psychiatry, [place] [address] [place] [address] Catina Araiza CRNP [address] [place] [address] 12/28/2023 9:30 AM EDT Imaging Maternal Medicine Imaging, [facility] [address] [facility] [place] [address] Health Maintenance Due Date Last Done Comments GARDASIL-HPV IMMUNIZATION SE IADA (1 - 3-dose series) 2012 COVID-19 Vaccine [...] the patient have Health Care Power of Soft Sugar Supervisor? No Code Status History Code Status Date Activated Date Inactivated Comments Full Code 04/24/2012 12:01 PM 05/08/2012 6:45 PM Thi s order reflects the patients wishes and were consensually agreed upon. Question Answer Comments Discussion of Advance Directives occurred with: Not Discussed Does the patient have a Living Will? No Does the patient have Health Care Power of Soft Sugar Supervisor? No Full Code 03/18/2011 2:41 PM 03/21/2011 7:11 PM Thi s order reflects the patients wishes and were consensually agreed upon. Question Answer Comments Discussion of Advance Directives occurred with: Not Discussed
--- OUTSIDE RECORDS SUMMARY | 2024-01-24 09:19 | External Medical Summary | Summary of Care ---
Author Name Unknown Organization [facility] Address [address] [place] [address] Phone [phone] Care Team Providers Care Metallic Yarn Slitting Machine Operator Name Role Phone Unavailable Primary Care Provider Unavailabl e Reason for Visit * Reason Comments Ultrasound Encounter Details Date Type Department Care Team (Late st Contact Info) Description 09/06/2023 1:30 PM EDT Office Visit [facility] Obstetrics Maternal Medicine, [place] [address] [place] [address] Vinnie Guzman MD [address] [place], [place] [id number] Bipolar disease during in second trimester (HCC)*; CF (cystic fibrosis) (HCC); Diet controlled gestational diabetes mellitus (GDM) in first trimester Allergies No known active allergiesdocumented as of this encounter (statuses as of 09/06/2023) Medications Medication Sig Dispensed Refills Start Date End Date Status COMPRESSOR/NEBULIZER MISCIndications:Cyst ic fibrosis (HCC) Use as directed 1 Device 0 05/31/2012 Active Additional Information Patient not taking.Reported on 07/21/2023 JUAN CARLOS LC PLUS NEBULIZER MISCIndications:Cyst ic fibrosis with pulmonary manifestations (HCC) Use daily with Eftcx-Ctf-xcvuqxje device 1 Device 5 06/13/2012 Active Additional [...] Wheezing. 18 g 5 06/20/2019 Active Pancrelipase, Dcs-Blqa-Csbi, (ZENPEP) 11505-46640 units CPEPIndications:Cyst ic fibrosis (HCC) Take 6 [...] Oral Tablet Take by mouth. 0 Active [employer] Flex System w/Device Kit Use to test blood sugars 4 times daily (fasting, 1 hour after breakfast, lunch, and dinner) 1 Kit 0 07/18/2023 Active [employer] In Vitro Strip (Glucose Blood) Use to test blood sugars 4 times daily (fasting, 1 hour after breakfast, lunch, and dinner) 125 Strip 6 07/18/2023 Active [employer] Delica Lancets 30G Use to test blood [...] & 150 MG Oral Tablet Therapy Pack (Xqjqozpk-Asohifh-Tx acaf & Ivacaf)Indications:C ystic fibrosis with pulmonary [...] as of this encounter (statuses as of 09/06/2023) Active Problems Problem Noted Date Diagnosed Date [...] about [facility] in [facility] 08/22/23: RPM; a couple elevated PP values; overall Stable (<50%) 08/28/23: RPM reviewed; stable overall 09/05/20234010-CKU-vbrggdfw 5 of 7 days in the past [...] Recommend nutrition consult with RDN (Registered Dietitian Clinical Education Coordinator). Lifestyle changes are also indicated including optimizing [...] 11/20/2001 Malabsorption 08/29/2001 Cystic Fibrosis ( homozygous [id number]) Estimated Date of Delivery Comme nts Yes 01/29/2024 Based on Ultraso und documented as of this encounter (statuses as of 09/06/2023) Resolved Problems Problem Noted Date Diagnosed Date Resolved Date GBS (group B Streptococcus c arrier), +RV culture, currently 10/05/2020 06/07/2023 Bipolar disease during , antepartum 06/07/2023 Last Assessment & Plan: 06/02/20: reports symptoms range from mild; she denies SI/HI; declines psychiatric medications; intermittently follows with behavioral health provider here at [facility] [place]. DISCUSSION: 1. and delivery can worsen the [...] (boneless & skinless & in olive oil), [place] mackerel (i.e. not [place]re[place] mackerel), or cooked [...] as of this encounter (statuses as of 09/06/2023) Immunizations Name Administration Dates Next Due COVID-19 mRNA, LNP-s, No Pre serve, 2-Dose Series (Pfizer) 06/01/2021,11/16/2020,10/26/2020 H1N1 2009 Influenza, IM 03/27/2009 Meningococcal Conjugate Vacc ine (Menactra/Menveo) 07/14/2015,05/18/2010 Pneumococcal Conjugate Vacci ne, 20-valent (Askjjwu12) 03/31/2022 Pneumococcal Polysaccharide PPV23 (Pneumovax) 03/05/2019 Seasonal [...] money to get more. Never true 12/13/2022 [place] Depression Scale Answer Date Recorded [place] Depression Scale Total 5 06/08/2023 The thought [...] as of this encounter Progress Notes * Vinnie Guzman MD - 09/06/2023 1:20 PM EDT MATERNAL MEDICINE VISIT Monica Dickey is at 19w2d who presents to [facility] for an ultrasound and follow-up of her high risk . The patient is currently 19 weeks and 2 days' gestation with cystic fibrosis, bipolar disorder and gestational diabetes controlled by diet alone. She comes in for an evaluation of anatomy. She is being seen today by Maternal- Medicine for the following reasons: Problem List Items Addressed This Visit Bipolar disease during (HCC) - Primary (Chronic) Relevant Orders [facility] US PREG FOLLOW UP EACH FETUS Diet controlled gestational diabetes mellitus (GDM) in first trimester Relevant Orders [facility] US PREG FOLLOW UP EACH FETUS CF (cystic fibrosis) (HCC) (Chronic) I reviewed the ultrasound with her. The anatomy that was visualized appears unremarkable and the biometry is appropriate for the gestational age. The amniotic fluid volume is subjectivelynormal. She states that she has gained anywhere from 4 to 9 lb during this and her cystic fibrosis has been under good control. Relevant Orders [facility] US PREG FOLLOW UP EACH FETUS We reviewed today's ultrasound findings. (For full report, please refer to ultrasound report provided separately). Ms. Dickey's questions were answered to her satisfaction. Ms. Dickey was instructed to notify her primary packaging sales if she felt regular contractions (approximately every 10 mins), leaking of fluid, vaginal bleeding or if movement decreased. Thank you for allowing us to participate in the care of this patient. Please call with any questions. I spent 20 minutes with Ms. Dickey of which greater than 50% was spent in face to face consultationand coordination of care for the above. Vinnie Guzman MD 09/06/2023 1:20 PM documented in this encounter Miscellaneous Notes * Assessment & Plan Note - Vinnie Guzman MD - 09/06/2023 2:09 PM EDT Associated Problem(s): CF (cystic fibrosis) (HCC) I reviewed the ultrasound with her. The anatomy that was visualized appears unremarkable and the biometry is appropriate for the gestational age. The amniotic fluid volume is subjectivelynormal. She states that she has gained anywhere from 4 to 9 lb during this and her cystic fibrosis has been under good control. documented in this encounter Plan of Treatment Upcoming Encounters Date Type Department Care Team (Late st Contact Info) Description 09/26/2023 10:00 AM EDT Office Visit Gynecology/[facility]stetrics [facility] [address] [facility] [place] [address] Radha [facility] [address] [facility] [place] [address] 10/05/2023 10:30 AM EDT Office Visit Pulmonary Medicine, [place] [address] [place] [address] Micaela Holly DO [address] [place] [address] 10/05/2023 1:45 PM EDT Imaging Maternal Medicine Imaging, [facility] Fiore [address] [facility] [place] [phone] 11/01/2023 2:45 PM EDT Office Visit [facility]st[facility] Maternal Medicine, [address] [address] Vinnie Guzman MD [address] [place] [address] 11/01/2023 2:45 PM EDT Imaging Radiology [facility], [place] [address] [place] [address] 11/30/2023 9:30 AM EDT Imaging Maternal Medicine Imaging, Guerrero Fiore [address] [facility] [place] [phone] 12/05/2023 10:00 AM EDT Telemedicine Psychiatry, [place] [address] [place], [place] [phone] Catina Araiza CRNP [address] [place] [phone] 12/28/2023 9:30 AM EDT Imaging Maternal Medicine Imaging, [facility] [address] [facility] [place] [phone] Scheduled Orders Name Type Priority Associated Diagnoses Orde r Schedule MFM US PREG FOLLOW UP EACH FETUS Medical Imaging Routine Bipolar disease during in second trimester (HCC) CF (cystic fibrosis) (HCC) Diet controlled gestational diabetes mellitus (GDM) in first trimester 5 Occurrences starting 09/06/2023 until 03/07/2024 Health Maintenance Due Date Last Done Comments [...] of this encounter Visit Diagnoses Diagnosis Bipolar disease during in second trimester (HCC)- Primary CF (cystic fibrosis) (HCC) Cystic fibrosis without mention of meconium ileus Diet controlled gestational diabetes mellitus (GDM) in first trimester documented in this encounter [...] the patient have Health Care Power of Campus Safety Officer? No Code Status History Code Status Date Activated Date Inactivated Comments Full Code 04/24/2012 12:01 PM 05/08/2012 6:45 PM Thi s order reflects the patients wishes and were consensually agreed upon. Question Answer Comments Discussion of Advance Directives occurred with: Not Discussed Does the patient have a Living Will? No Does the patient have Health Care Power of Campus Safety Officer? No Full Code 03/18/2011 2:41 PM 03/21/2011 7:11 PM Thi s order reflects the patients wishes and were consensually agreed upon. Question Answer Comments Discussion of Advance Directives occurred with: Not Discussed
--- OUTSIDE RECORDS SUMMARY | 2024-01-24 09:19 | External Medical Summary | Summary of Care ---
Author Name Unknown Organization [facility] Address [address] [address] Phone [phone] Care Team Providers Care Database Consultant Name Role Phone Unavailable Primary Care Provider Unavailabl e Reason for Visit * Reason Comments DSMT INITIAL * Evaluate & Treat - Unlimited Visits (Within 10 days (routine)) - Pending Review Specialty Diagnoses / Procedures Referred By Chantell hutton Referred To Contact Electrologist / Nutrition Services Diagnoses Diet controlled gestational diabetes mellitus (GDM), antepartum Radha Diaz CRNP [address] [place] [address] Referral ID Status Reason Start Date Expiration Date Visits Requested Visits Authorized [id number] Pending Review Specialty Services Required 07/18/[phone] Encounter Details Date Type Department Care Team (Late st Contact Info) Description 08/03/2023 9:00 AM EDT Telemedicine Guerrero Vasquez [address] [place] [id number] Leah Coley RDN [address] [place] [address] Diet controlled gestational diabetes mellitus (GDM), antepartum*; History of gestational diabetes mellitus (GDM) in prior , currently ; H/O macrosomia in in prior , currently ; Cystic Fibrosis ( homozygous [id number]) Allergies No known active allergiesdocumented as of this encounter (statuses as of 08/11/2023) Medications Medication Sig Dispensed Refills Start Date End Date Status COMPRESSOR/NEBULIZER MISCIndications:Cyst ic fibrosis (HCC) Use as directed 1 Device 0 05/31/2012 Active Additional Information Patient not taking.Reported on 07/21/2023 JUAN CARLOS LC PLUS NEBULIZER MISCIndications:Cyst ic fibrosis with pulmonary manifestations (HCC) Use daily with Utyyq-Nhx-hldnfzrc device 1 Device 5 06/13/2012 Active Additional [...] Wheezing. 18 g 5 06/20/2019 Active Pancrelipase, Aln-Kbjm-Ubbj, (ZENPEP) 764[address] units CPEPIndications:Cyst ic fibrosis (HCC) Take 6 [...] Oral Tablet Take by mouth. 0 Active Trikafta 100-50-75 & 150 MG Oral Tablet Therapy Pack (Uvnqbcuz-Fjumeeg-Ey acaf & Ivacaf)Indications:C ystic fibrosis with pulmonary manifestations (HCC) Take 2 orange tablets by mouth in the morning and 1 light blue tablet by mouth in the evening. Take with fat-containing food. TAKE 2 ORANGE TABLETS BY MOUTH EVERY MORNING AND TAKE 1 BLUE TABLET EVERY EVENING DIRECTED WITH FAT CONTAINING FOOD 84 Each 0 06/12/2023 Active [employer] Flex System w/Device Kit Use to test blood sugars 4 times daily (fasting, 1 hour after breakfast, lunch, and dinner) 1 Kit 0 07/18/2023 Active [employer] In Vitro Strip (Glucose Blood) Use to test blood sugars 4 times daily (fasting, 1 hour after breakfast, lunch, and dinner) 125 Strip 6 07/18/2023 Active Mapkin Delica Lancets 30G Use to test blood [...] the morning. 90 Tablet 1 07/26/2023 Active documented as of this encounter (statuses as of 08/11/2023) Active Problems Problem Noted Date Diagnosed Date Rubella non-immune status, antepartum 06/09/2023 Chlamydia infection complicating 06/09 Overview: + test at [facility], sent azithromycin High-risk 06/08/2023 Last Assessment [...] mellitus (GDM) in first trimester 05/13/2020 Overview: Failed early 2 hr GTT MFM referral placed Diagnosed at 12 weeks Nutrition referral ordered OneTouch Verio meter ordered Note: history of GDMA2 (Metformin) in previous . 2hr OGTT completed on 07/06/2023: FBS - 103 (elevated) 1hr - 216 [...] unable to get in contact with patient; [employer] message sent to patient regarding same Last Assessment & Plan: CONSIDERATIONS: Reviewed etiology [...] Recommend nutrition consult with RDN (Registered Dietitian Underground Heavy Equipment Operator). Lifestyle changes are also indicated including optimizing [...] 11/20/2001 Malabsorption 08/29/2001 Cystic Fibrosis ( homozygous [id number]) Estimated Date of Delivery Comme nts Yes 01/29/2024 Based on Ultraso und documented as of this encounter (statuses as of 08/11/2023) Resolved Problems Problem Noted Date Diagnosed Date Resolved Date GBS (group B Streptococcus c mary), +RV culture, currently 10/05/2020 06/07/2023 Bipolar disease during , antepartum 06/07/2023 Last Assessment & Plan: 06/02/20: reports symptoms range from mild; she denies SI/HI; declines psychiatric medications; intermittently follows with behavioral health provider [place] [facility] DISCUSSION: 1. and delivery can worsen the [...] (boneless & skinless & in olive oil), Marble mackerel (i.e. not Bereket mackerel), or cooked [...] as of this encounter (statuses as of 08/11/2023) Immunizations Name Administration Dates Next Due COVID-19 mRNA, LNP-s, No Pre serve, 2-Dose Series (Pfizer) 06/01/2021,11/16/2020,10/26/2020 H1N1 2009 Influenza, IM 03/27/2009 Meningococcal Conjugate Vacc ine (Menactra/Menveo) 07/14/2015,05/18/2010 Pneumococcal Conjugate Vacci ne, 20-valent ([id number]) 03/31/2022 Pneumococcal Polysaccharide PPV23 (Pneumovax) 03/05/2019 Seasonal [...] money to get more. Never true 12/13/2022 [place] Depression Scale Answer Date Recorded [place] Depression Scale Total 5 06/08/2023 The thought [...] - Inhaled Oxygen Concentration - - Weight 77.6 kg (171 lb) 08/03/2023 9:15 AM EDT p er report Height 165.1 cm (5' 5") 08/03/2023 9:15 AM EDT Body Mass Index 28.46 08/03/2023 9:15 AM EDT documented in this encounter Functional [...] No 10/30/2014 documented as of this encounter Patient Instructions * Patient Instructions* Leah Coley RDN - 08/03/2023 9:41 AM EDT Participant will check glucose levels 4 times daily, once in AM before breakfast, and 1 hour after breakfast, lunch, and dinner. Secondary goal: Participant will consume consistent meals and snacks: 2-3 servings of carb's at meals and 1-2 servings at snacks (refer to sample meal pattern). documented in this encounter Progress Notes * Leah Coley RDN - 08/03/2023 9:02 AM EDT DIABETES SELF-MANAGEMENT TRAINING/INITIAL NOTE Name: Monica Dickey Date: 08/03/2023 Patient location: HOME. I was not in a hospital or clinic location. After connecting through [employer], patient was verified with two unique identifiers. Patient (or authorized legal manufacturers representative) was then informed that this was a Telemedicine visit and being conducted confidentially over secure lines. Methods to assure confidentiality were taken. Patient acknowledged consent and understanding of privacy and security of the Telemedicine visit. The patient agreed to participate. Last order of DIABETES MANAGEMENT EDUCATION (ADA) REFERRAL was found on 07/18/2023 from Telephone on07/17/2023 Last order of CLINICAL NUTRITION AND DIABETES EDUCATION ANNUAL RENEWAL was found on 06/17/2020 from Telephone on 06/17/2020 No order of PEDIATRIC DIABETES MANAGEMENT EDUCATION (ADA) REFERRAL OP is found. ADA referral in place? Yes Participant scheduled for 1:1 training due to lack of classes scheduled within 2 months of appointment. What diabetes concerns and/or barriers to care would you like to discuss in your appointment: none In your words, what is diabetes? When your sugars drop low or high from where they need to be. Thiscan lead to complications. Do you know the risks of uncontrolled diabetes? No Do you believe that diabetes can be controlled? Yes Are you ready to make small changes to help with diabetes self-management: Yes What type of diabetes do you have? Gestational Diabetes Mellitus: Are you aware of the post- glucose screening recommendations? Yes Diabetes diagnosis year: 2023 Do you have a family history of diabetes? Yes Have you had any previous diabetes education? Yes Support systems: Spouse Barriers to care: None Special Needs: None Psychosocial Screening: Lately have you been feeling down, depressed or hopeless most of the day? No How Do You Manage Stress? Asked/Not Answered Food Insecurity: Within the past 12 months, I worried whether our food would run out before we got money to buy more. No Within the past 12 months, the food we bought just did not last and we did not have money to buy more. No Sleep Health: Addressed - How many hours are you sleeping during the night? 8 or more Do you have difficulty falling or staying asleep? No Do you snore? No Are you waking up during the night with symptoms of low glucose levels (shaky, sweaty, nightmares)?No Are you waking up during the night to urinate frequently? Sometimes Diabetes Medications: None Monitoring blood glucose, interpreting and using results Results for orders placed or performed in visit on 12/13/22 HEMOGLOBIN A1C Result Value Ref Range Hemoglobin A1C 4.9 4.0 - 5.6 % Estimated Average Glucose 94 <126 mg/dL Results for orders placed or performed in visit on 09/30/21 HEMOGLOBIN A1C Result Value Ref Range Hemoglobin A1C 4.7 4.0 - 5.6 % Estimated Average Glucose 88 <126 mg/dL Results for orders placed or performed in visit on 08/04/20 HEMOGLOBIN A1C Result Value Ref Range Hemoglobin A1C 4.5 4.0 - 5.6 % Estimated Average Glucose 82 <126 mg/dL Not addressed, GDM participant Self-Monitoring Blood Glucose Source of Information: Participant does not monitor blood glucoses Hypoglycemia?: No Diet: Describes typical diet history/24-hour recall Breakfast: light yogurt or eggs sometimes with hash browns or Sai Charms or Crave cereal, 2% milk, sometimes coffee with creamer Snacks: none Lunch: 12-1:30 PM salad with chicken and cheese and croutons with ranch dressing or yogurt or [place] wedding or chicken noodle soup sometimes with crackers or sub with deli meat (heated) with onion,lettuce, tomato, onion and dressing or lau or egg salad sandwich, unsweetened iced tea or water Snacks: pretzels or chips Dinner: venison roast or ground beef, potatoes, asparagus or broccoli or spaghetti with sauce and meatballs or chicken sherita, diet soda or milk Snacks: close to bedtime pretzels or popcorn or chips Drinks: water, unsweetened iced tea, diet soda-plenty per participant report Restaurant meals: once a week Alcohol: None Tobacco Use: No Weight management review: Wt Readings from Last 6 Encounters: 08/03/23 77.6 kg (171 lb) 07/06/23 78.5 kg (173 lb) 06/22/23 77.1 kg (170 lb) 06/08/23 76.7 kg (169 lb) 04/18/23 71.2 kg (157 lb) 12/13/22 70.3 kg (154 lb 14.4 oz) Recent weight changes: increased 14 lbs in past 4 months Physical Activity: Walking at work ADA STANDARDS OF CARE/BUNDLE MEASURES Diabetes Bundle / Standards of Care: Gestational Diabetes Participant Therapy Management Plan: Hypertension: BP Readings from Last 3 Encounters: 07/06/23 112/64 06/22/23 117/61 06/08/23 106/62 Gestational Diabetes Participant, being monitored by [facility]. Dyslipidemia: Lab Results Component Value Date/Time LDL CHOLESTEROL (CALCULATED) - [facility] 84 07/06/2023 10:06 AM LDL CHOLESTEROL (CALCULATED) - [facility] 61 11/14/2019 02:51 PM Lab Results Component Value Date/Time TRIGLYCERIDES - [facility] 46 07/06/2023 10:06 AM TRIGLYCERIDES - [facility] 48 11/14/2019 02:51 PM CHOLESTEROL - [facility] 162 07/06/2023 10:06 AM CHOLESTEROL - [facility] 132 11/14/2019 02:51 PM HDL CHOLESTEROL - [facility] 69 07/06/2023 10:06 AM HDL CHOLESTEROL - [facility] 61 11/14/2019 02:51 PM Gestational Diabetes Mellitus Participant Kidney function review: Lab Results Component Value Date/Time ESTIMATED GLOMERULAR FILTRATION RATE - [facility] >90 07/06/2023 10:06 AM ESTIMATED GLOMERULAR FILTRATION RATE - [facility] >60.0 11/14/2019 02:51 PM No results found for: "ALBUMIN / CREATININE RATIO", "ALBUMIN / CREATININE RATIO, URINE - [facility]" No results found for: "PROTEIN/ CREATININE RATIO", "PROTEIN/ CREATININE RATIO, URINE - [facility]" Gestational Diabetes Mellitus Participant DSMT Initial Visit Assessment of Content Areas: Choose the answer that represents the participant's competency in each area. All need to be assessed at initial. Areas taught must match intervention. If content area not assessed and/or intervened today, it will be deferred to future session. Diabetes disease process and treatment process: Needs review (2) Incorporating nutrition management into lifestyle: Needs review (2) Incorporating physical activity into lifestyle: Needs instruction (1) Using medications safely: Needs instruction (1) Monitoring blood glucose, interpreting and using results: Needs review (2) Prevention, detection, and treatment of acute complications: Needs instruction (1) Prevention, detection, and treatment of chronic complications: Needs instruction (1) Developing strategies to address psychosocial issues: Needs instruction (1) Developing strategies to promote health/change behavior: Needs instruction (1) DSMT/ Diabetes MNT intervention: Pathophysiology: Defined disease process. Discussed treatment options. Participant notes a family history of diabetes- sister and cousin-and notes she had a previous GDM . Nutrition: Educated on the effects of macronutrients on diabetes control and diabetes complications. Taught and had participant identify foods that contain carbohydrates. GDM nutrition: Educated on rationale and guidelines of nutritional management of GDM. Emphasis on need for carbohydrate control/consistency with structured meal schedule. Stressed importance of avoiding sugar sweetened beverages, fruit juices. Encouraged bedtime snack 8-10 hours before fasting test the next day. Emphasized importance of eating consistent meals and snacks to manage glucose levels. She admits to not being in the habit of eating breakfast. States her appetite in early weeks of had declined, but states appetite hasimproved since then. Encouraged her to aim for 2-3 servings of carb's at meals and 1-2 servings at snacks. Reviewed recommended portion sizes of some common high-CHO foods with her. Encouraged her monitor effect of eating high-CHO foods on her glucose levels. Physical Activity: Educated on the role of physical activity on glucose control. Encouraged participant to do short sessions of activity after meals if post prandial glucose levels are above recommended target range. Monitoring: Participant has not yet started checking glucose levels; states she just recently obtained her meter and testing supplies. Encouraged her to start checking and to forward glucose results to [facility] weekly. Reviewed recommended method of disposal of used lancets. Reviewed recommended target ranges for fasting and post prandial glucose levels during with her. States she had no issue with checking her glucose levels during her last GDM . Promote health/Change behavior: : Educated on possible effects of hyper/hypoglycemia on the fetus and mother. Participant Selected Behavioral Objective: Monitoring: To identify blood glucose trends, I will check glucose levels 4 times daily, once in AMbefore breakfast, and 1 hour after breakfast, lunch, and dinner. Recommended Medication Changes: No changes. Education materials given to participant/caregiver and reviewed during today's visit: CHO counting info GDM info Understanding CHO's These materials will be mailed and/or portal messaged to the participant. Diabetes Self-Management Support: Websites: www.diabetes.org Possible Future Topics: Content areas that were not assessed in first visit: All content areas have been assessed. Time Spent With Patient: Time in: 9:01 AM Time out: 9:42 AM Billing: DSMT: 30 Minutes Plan for Return: 08/31/2023 Participant provided with contact information for Diabetes [facility] [employer]. All [facility] providers within the system are able to see [place] [employer] education and outcomes within the participant's electronic medical record. Leah Coley RDN, [facility] Diabetes Care and [facility] [employer] documented in this encounter Miscellaneous Notes * Pt Handout (on AVS) - Leah Coley RDN - 08/11/2023 7:51 AM EDT Images from the original note were not included. [id number] Understanding Carbohydrates A car needs the right type of fuel to run. And you need the right kind of food to function. To keepyour energy level up, your body needs food that has carbohydrates (carbs). But carbs raise blood sugar levels higher and faster than other kinds of food. Your dietitian will work with you to figure out the amount of carbs you need. Carbs come in 3 types: starches, sugars, and fiber. Starches Starches are found in grains, some vegetables, and beans. Grain products include bread, pasta, cereal, and tortillas. Starchy vegetables include potatoes, peas, corn, flores beans, yams, and squash. Kidney beans, estrada beans, black beans, garbanzo beans, and lentils also have starches. Sugars Sugars are found naturally in many foods. Or they can be added. Foods that contain natural sugar include fruits and fruit juices, dairy products, honey, and molasses. Added sugars are found in most desserts, processed foods, candy, regular soda, and fruit drinks. These are very helpful to treat lowblood sugar (hypoglycemia). They give you sugar quickly. Try to keep at least 15 to 20 grams of these simple sugars with you at all times. Eat or drink these if you start to have symptoms of low blood sugar. Fiber Fiber comes from plant foods. Your body can't digest most fiber. Instead of raising blood sugar levels like other carbs, fiber stops blood sugar from rising too fast. Fiber is found in fruits, vegetables, whole grains, beans, peas, and many nuts. Carb counting Keep track of the amount of carbs you eat. This can help you keep the right balance of carbs, physical activity, and medicine. The amount of carbs you need will be different from what other people need. How much you need depends on many things. These include your health, the medicines you take, andhow active you are. Your healthcare team will help you figure out the right amount of carbs for you. You may start with 45 to 60 grams of carbs per meal, depending on your case. Carb counting is a system that helps you keep track of the carbohydrates you eat at each meal. Carbs come from many foods. These include grains, starchy vegetables, fruit, milk, beans, and snackfoods. You can either count carbohydrate grams or carbohydrate servings. When you count carbohydrate servings, 1 carbohydrate serving = 15 grams of carbohydrates. Here are some examples of foods that have about 15 grams of carbs (1 serving of carbohydrates): 1/2 cup of canned or frozen fruit A small piece of fresh fruit (4 ounces) 1 slice of bread 1/2 cup of oatmeal 1/3 cup of rice 4 to 6 crackers 1/2 Yoruba muffin 1/2 cup of black beans 1/4 of a large baked potato (3 ounces) 2/3 cup of plain fat-free yogurt 1 cup of soup 1/2 cup of casserole 6 chicken nuggets 1-owvh-ejuxit brownie or cake without frosting 2 small cookies 1/2 cup of ice cream or sherbet Carb counting is easier when food labels are available. Look at the label to see how many grams of total carbs per serving the food contains. Then you can figure out how much you should eat. If your food doesn't have a nutrition label, you should be able to get an idea how many carbs there are per serving by using a book or website. Two very important lines to look at on the label are the serving size and the total carbohydrate amount per serving. Here are some tips for using food labels to count your carbs: Check the serving size. The information on the label is based on that serving size. If you eat more than the listed serving size, you may have to double or triple the other information on the label. Check the total grams of carbs. Total carbohydrate from the label includes sugar, starch, and fiber. Be sure to use the total carbohydrate number (minus the fiber) and not sugar alone. Know how many grams of carbs you can have. Be familiar with the matching portion sizes. Compare labels. Compare the labels of different products. Look at serving sizes and total carbs to find the products that work best for you. Don't forget protein and fat. With the focus on carb counting, it might be easy to forget protein and fat in your meals. Don't forget to include sources of protein and healthy fat to balance your meals. Also watch how much salt (sodium) you eat. This is especially true if you have high blood pressure. If you have diabetes, limit the amount of sodium to less than 2,300 mg a day. It?s also important to be consistent with the amount of carbs and time you eat when taking a fixed dose of diabetes medicine. Work with your healthcare provider or dietitian if you need more help. They can help you keep track of your carbs. They can also help you figure out how many grams of carbs you should have. Last Reviewed Date: 04/21/202119994270-2124 [employer]. All rights reserved. This information is not intended as a substitute for professional medical care. Always follow your healthcare professional's instructions. documented in this encounter Plan of Treatment Upcoming Encounters Date Type Department Care Team (Late st Contact Info) Description 08/29/2023 10:00 AM EDT Office Visit Gynecology/Obstetrics [facility] [address] [facility] [place] [address] Radha Diaz CRNP [address] [place] [address] 08/31/2023 9:30 AM EDT Telemedicine Nutrition, [facility] [address] [facility] [address] Leah Coley RDN [address] [place] [address] 09/06/2023 1:30 PM EDT Office Visit Director [employer] [facility], [place] [address] [place] [address] Vinnie Guzman MD [address] [place] [address] 09/06/2023 1:30 PM EDT Imaging Radiology [facility] [place] [address] [place] [address] 12/05/2023 10:00 AM EDT Telemedicine Psychiatry, [place] [address] [place] [address] Catina Araiza CRNP [address] [place] [address] Scheduled Referrals Name Type Priority Associated Diagnoses Orde r Schedule DIABETES MANAGEMENT EDUCATION (ADA) REFERRAL Referral Within 10 days (routine) Diet controlled gestational diabetes mellitus (GDM), antepartum Ordered: 07/18/2023 Health Maintenance Due Date Last Done Comments GARDASIL-HPV IMMUNIZATION SE AIDA (1 - 3-dose series) 2012 COVID-19 Vaccine (4 - 2022-2 4 season) 2023 06/01/2021, 11/16/2020, 10/26/2020 Depression Screening 06/22/2024 06/22/2023 Pap Smear 05/20/2025 05/20/2022, 07/05/2019 DTaP,Tdap,and Td [...] controlled gestational diabetes mellitus (GDM), antepartum- Primary History of gestational diabetes mellitus (GDM) in prior , currently H/O macrosomia in infant in prior , currently with other poor obstetric history Cystic Fibrosis ( homozygous [id number]) Cystic fibrosis without mention of meconium ileus [...] the patient have Health Care Power of Poultry Veterinarian? No Code Status History Code Status Date Activated Date Inactivated Comments Full Code 04/24/2012 12:01 PM 05/08/2012 6:45 PM Thi s order reflects the patients wishes and were consensually agreed upon. Question Answer Comments Discussion of Advance Directives occurred with: Not Discussed Does the patient have a Living Will? No Does the patient have Health Care Power of Poultry Veterinarian? No Full Code 03/18/2011 2:41 PM 03/21/2011 7:11 PM Thi s order reflects the patients wishes and were consensually agreed upon. Question Answer Comments Discussion of Advance Directives occurred with: Not Discussed
--- OUTSIDE RECORDS SUMMARY | 2024-01-24 09:19 | External Medical Summary | Summary of Care ---
Author Name Unknown Organization [facility] Address [address] [place] [address] Phone [phone] Care Team Providers Care Tamping Machine Operator Road Forms Name Role Phone Unavailable Primary Care Provider Unavailabl e Reason for Visit * Reason Onset Date Comments Home Monitoring Orders Only 08/18/2023 Encounter Details Date Type Department Care Team ([facility] st Contact Info) Description 08/18/2023 Home Monitoring Care Coordination [address] [place] [address] Marnie Roy CRNP [address] [place] [address] History of gestational diabetes mellitus (GDM) in prior , currently * Allergies No known active allergiesdocumented as of this encounter (statuses as of 08/18/2023) Medications Medication Sig Dispensed Refills Start Date End Date Status COMPRESSOR/NEBULIZER MISCIndications:Cyst ic fibrosis (HCC) Use as directed 1 Device 0 05/31/2012 Active Additional Information Patient not taking.Reported on 07/21/2023 JUAN CARLOS LC PLUS NEBULIZER MISCIndications:Cyst ic fibrosis with pulmonary manifestations (HCC) Use daily with Iwdgi-Vvi-jznizjkv device 1 Device 5 06/13/2012 Active Additional [...] Wheezing. 18 g 5 06/20/2019 Active Pancrelipase, Xkf-Rubs-Lvgj, (ZENPEP) 52820-95523 units CPEPIndications:Cyst ic fibrosis (HCC) Take 6 [...] & 150 MG Oral Tablet Therapy Pack (Thmpvxeb-Unqlhkp-As acaf & Ivacaf)Indications:C ystic fibrosis with pulmonary manifestations (HCC) Take 2 orange tablets by mouth in the morning and 1 light blue tablet by mouth in the evening. Take with fat-containing food. TAKE 2 ORANGE TABLETS BY MOUTH EVERY MORNING AND TAKE 1 BLUE TABLET EVERY EVENING DIRECTED WITH FAT CONTAINING FOOD 84 Each 0 06/12/2023 Active Corent Technology Flex System w/Device Kit Use to test blood sugars 4 times daily (fasting, 1 hour after breakfast, lunch, and dinner) 1 Kit 0 07/18/2023 Active Corent Technology In Vitro Strip (Glucose Blood) Use to test blood sugars 4 times daily (fasting, 1 hour after breakfast, lunch, and dinner) 125 Strip 6 07/18/2023 Active D[employer]ouch Delica Lancets 30G Use to test blood [...] as of this encounter (statuses as of 08/18/2023) Active Problems Problem Noted Date Diagnosed Date Rubella non-immune status, antepartum 06/09/2023 Chlamydia infection complicating 06/09 Overview: + test at [facility], sent azithromycin High-risk 06/08/2023 Last Assessment [...] patient about calling to get enrolled in [facility] Last Assessment & Plan: CONSIDERATIONS: Reviewed etiology [...] Recommend nutrition consult with RDN (Registered Dietitian Mechanic Industrial Truck). 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 DISCUSSION: 1. and delivery can worsen the [...] (boneless & skinless & in olive oil), Valencia mackerel (i.e. not Bereket mackerel), or cooked [...] as of this encounter (statuses as of 08/18/2023) Immunizations Name Administration Dates Next Due COVID-19 mRNA, LNP-s, No Pre serve, 2-Dose Series (Pfizer) 06/01/2021,11/16/2020,10/26/2020 H1N1 2009 Influenza, IM 03/27/2009 Meningococcal Conjugate Vacc ine (Menactra/Menveo) 07/14/2015,05/18/2010 Pneumococcal Conjugate Vacci ne, 20-valent (Uidgflg22) 03/31/2022 Pneumococcal Polysaccharide PPV23 (Pneumovax) 03/05/2019 Seasonal [...] money to get more. Never true 12/13/2022 [place] Depression Scale Answer Date Recorded [place] Depression Scale Total 5 06/08/2023 The thought [...] as of this encounter Progress Notes * Garett Hughes [facility] Health Appeals Coordinator - 08/18/2023 8:59 AM EDT Patient has been successfully enrolled to the [id number] Diabetes Management in program. Standard alarm settings have been set as follows: Singular glucose level > 200 Singular glucose level < 60 Patient has been advised to take blood sugar four times a day (fasting upon waking, and one hour after each meal). Patient has been oriented to remote patient monitoring, assisted with initial device set-up, and provided with instruction and education regarding the program. Patient understands that this monitoring should not be used as a replacement for emergency and/or urgent care. If patient experiences any urgent symptoms, they are aware to call office/building stonecutter provider for additional instructions. In emergency situations, they will report directly to the ED for further evaluation. If you would like to customize the alert parameters and/or instructions for this patient, please let me know and we can have them changed. Electronically signed by Garett Hughes [facility] Health Appeals Coordinator at 08/18/2023 9:00 AM EDT documented in this encounter Plan of Treatment Upcoming Encounters Date Type Department Care Team (Late st Contact Info) Description 08/29/2023 10:00 AM EDT Office Visit Gynecology/Obstetrics [facility] [address] [place] [address] Radha Diaz CRNP [address] [place] [address] 08/31/2023 9:30 AM EDT Telemedicine Nutrition, [place] [facility] [address] [place] [address] Leah Coley RDN [address] [place] [address] 09/06/2023 1:30 PM EDT Office Visit City Auditor Obstetrics Maternal Medicine, [place] [address] [place] [address] Vinnie Guzman MD [address] [place] [address] 09/06/2023 1:30 PM EDT Imaging [facility], [place] [address], [place] [id number] 10/05/2023 10:30 AM EDT Office Visit Pulmonary Medicine, [place] [address] [place], [place] [id number] Micaela Holly, DO [address] [place] [address] 12/05/2023 10:00 AM EDT Telemedicine Psychiatry, [place] [address] [place] [address] Catina Araiza CRNP [address] [place] [address] Health Maintenance Due Date Last [...] as of this encounter Visit Diagnoses Diagnosis History of gestational diabetes mellitus (GDM) in prior , currently - Primary documented in this encounter Additional Health [...] the patient have Health Care Power of Area Supervisor? No Code Status History Code Status Date Activated Date Inactivated Comments Full Code 04/24/2012 12:01 PM 05/08/2012 6:45 PM Thi s order reflects the patients wishes and were consensually agreed upon. Question Answer Comments Discussion of Advance Directives occurred with: Not Discussed Does the patient have a Living Will? No Does the patient have Health Care Power of Area Supervisor? No Full Code 03/18/2011 2:41 PM 03/21/2011 7:11 PM Thi s order reflects the patients wishes and were consensually agreed upon. Question Answer Comments Discussion of Advance Directives occurred with: Not Discussed
--- OUTSIDE RECORDS SUMMARY | 2024-01-24 09:19 | External Medical Summary | Summary of Care ---
Author Name Unknown Organization [facility] Address [address] [facility] [place] [address] Phone [phone] Care Team Providers Care Decorating Equipment Setter Name Role Phone Unavailable Primary Care Provider Unavailabl e Reason for Visit * Reason Comments Return Visit Encounter Details Date Type Department Care Team (Late st Contact Info) Description 09/26/2023 10:00 AM EDT Office Visit Gynecology/Obstetric s [facility] [address] [place] [address] Radha Diaz CRNP [address] [place] [address] High-risk in second trimester*; Rh negative, antepartum; Diet controlled gestational diabetes mellitus (GDM) in first trimester; Respiratory system disease affecting , antepartum; History of gestational diabetes mellitus (GDM) in prior , currently ; Bipolar disease during in second trimester (HCC); H/O macrosomia in in prior , currently ; Rubella non-immune status, antepartum; Chlamydia infection affecting , antepartum Allergies No known active allergiesdocumented as of this encounter (statuses as of 09/26/2023) Medications Medication Sig Dispensed Refills Start Date End Date Status COMPRESSOR/NEBULIZER MISCIndications:Cyst ic fibrosis (HCC) Use as directed 1 Device 0 05/31/2012 Active Additional Information Patient not taking.Reported on 07/21/2023 JUAN CARLOS LC PLUS NEBULIZER MISCIndications:Cyst ic fibrosis with pulmonary manifestations (HCC) Use daily with Feltq-Jtv-duvllokx device 1 Device 5 06/13/2012 Active Additional [...] Wheezing. 18 g 5 06/20/2019 Active Pancrelipase, Fgt-Qwra-Aimh, (ZENPEP) 57325-08553 units CPEPIndications:Cyst ic fibrosis (HCC) Take 6 [...] Oral Tablet Take by mouth. 0 Active [employer] Flex System w/Device Kit Use to test blood sugars 4 times daily (fasting, 1 hour after breakfast, lunch, and dinner) 1 Kit 0 07/18/2023 Active [employer]word In Vitro Strip (Glucose Blood) Use to test blood sugars 4 times daily (fasting, 1 hour after breakfast, lunch, and dinner) 125 Strip 6 07/18/2023 Active [employer] Delica Lancets 30G Use to test blood [...] & 150 MG Oral Tablet Therapy Pack (Bkubxiki-Vbrvihw-Vg acaf & Ivacaf)Indications:C ystic fibrosis with pulmonary [...] as of this encounter (statuses as of 09/26/2023) Active Problems Problem Noted Date Diagnosed Date Rubella non-immune status, antepartum 06/09/2023 Chlamydia infection complicating 06/09 Overview: + test at [facility], sent azithromycin High-risk 06/08/2023 Last Assessment & [...] Stable (<50%) 08/28/23: RPM reviewed; stable overall 09/05/20235688-FPW-cyahxxzv 5 of 7 days in the past week; stable 09/12/23: RPM reviewed; Stable 09/19/23: RPM reviewed; Stable. Not testing every day. 09/26/23: RPM reviewed; Stable; more consistent reporting Last Assessment & Plan: CONSIDERATIONS: Reviewed etiology [...] Recommend nutrition consult with RDN (Registered Dietitian Power Bender Operator). Lifestyle changes are also indicated including [...] 11/20/2001 Malabsorption 08/29/2001 Cystic Fibrosis ( homozygous [id number]) Estimated Date of Delivery Comme nts Yes 01/29/2024 Based on Ultraso und documented as of this encounter (statuses as of 09/26/2023) Resolved Problems Problem Noted Date Diagnosed Date [...] (boneless & skinless & in olive oil), [place] mackerel (i.e. not Bereket mackerel), or cooked [...] as of this encounter (statuses as of 09/26/2023) Immunizations Name Administration Dates Next Due COVID-19 mRNA, LNP-s, No Pre serve, 2-Dose Series (Speedment) 06/01/2021,11/16/2020,10/26/2020 H1N1 2009 Influenza, IM 03/27/2009 Meningococcal Conjugate Vacc ine (Menactra/Menveo) 07/14/2015,05/18/2010 Pneumococcal Conjugate Vacci ne, 20-valent (Rgewsyv21) 03/31/2022 Pneumococcal Polysaccharide PPV23 (Pneumovax) 03/05/2019 Seasonal [...] money to get more. Never true 12/13/2022 [place] Depression Scale Answer Date Recorded [place] Depression Scale Total 5 06/08/2023 The thought [...] Sign Reading Time Taken Comments Blood Pressure 104/62 09/26/2023 9:52 AM EDT Pulse - - Temperature - - Respiratory Rate - - Oxygen Saturation - - Inhaled Oxygen Concentration - - Weight 81.6 kg (180 lb) 09/26/2023 9:52 AM EDT Height 165.1 cm (5' 5") 09/26/2023 9:52 AM EDT Body Mass Index 29.95 09/26/2023 9:52 AM EDT documented in this [...] Progress Notes * Radha Diaz CRNP - 09/26/2023 10:07 AM EDT 22w1d No concerns. Feeling well overall. She reports that her blood sugars are good, sending to [facility] weekly through [facility]. Following with MFM, next appt is next week. +FM, no contractions or bleeding. LAMIN Cross documented in this encounter Nursing Notes * Massiel Keith LPN - 09/26/2023 9:56 AM EDT 22w1d Denies concerns documented in this encounter Plan of Treatment Upcoming Encounters Date Type Department Care Team (Late st Contact Info) Description 10/05/2023 10:30 AM EDT Office Visit Pulmonary Medicine, [place] [address] [place] [address] Micaela Holly DO [address] [place] [address] 10/05/2023 1:45 PM EDT Imaging [facility] [address] [place] [phone] 10/24/2023 9:00 AM EDT [facility] [address] [place] [address] Radha Diaz CRNP [address] [place] [address] 10/24/2023 2:00 PM EDT Telemedicine Nutrition, [place] [facility] [address] [place] [address] Leah Coley RDN [address] [place] [address] 11/01/2023 2:45 PM EDT Office Visit Business Segment Manager Obstetrics Maternal Medicine, [place] [address] [place] [address] Vinnie Guzman MD [address] [place] [address] 11/01/2023 2:45 PM EDT [facility] [place] [address] [facility] [place] [address] 11/30/2023 9:30 AM EDT Imaging Maternal Medicine Imaging, [facility] [address] [facility] [place] [address] 12/05/2023 10:00 AM EDT Telemedicine Psychiatry [facility], [place] [address] [place] [address] Catina Araiza CRNP [address] [place] [facility] [place] [address] 12/28/2023 9:30 AM EDT Imaging Maternal Medicine Imaging, [facility] [address] [facility] [place] [address] Health Maintenance Due Date [...] the patient have Health Care Power of [place]? No Code Status History Code Status Date Activated Date Inactivated Comments Full Code 04/24/2012 12:01 PM 05/08/2012 6:45 PM Thi s order reflects the patients wishes and were consensually agreed upon. Question Answer Comments Discussion of Advance Directives occurred with: Not Discussed Does the patient have a Living Will? No Does the patient have Health Care Power of [place]? No Full Code 03/18/2011 2:41 PM 03/21/2011 7:11 PM Thi s order reflects the patients wishes and were consensually agreed upon. Question Answer Comments Discussion of Advance Directives occurred with: Not Discussed
--- OUTSIDE RECORDS SUMMARY | 2024-01-24 09:19 | External Medical Summary | Summary of Care ---
Author Name Unknown Organization [facility] Address [address] [place] [address] Phone [phone] Care Team Providers Care Stake Setter Name Role Phone Unavailable Primary Care Provider Unavailabl e Reason for Visit * Reason Comments eRx-Medication Refill Encounter Details Date Type Department Care Team (Late st Contact Info) Description 08/22/2023 Refill Pulmonary Medicine, [place] [address], [place] [phone] Lisa Su, [address], [place] [phone] Cystic fibrosis with pulmonary manifestations (HCC) Allergies No known active allergiesdocumented as of this encounter (statuses as of 08/22/2023) Medications Medication Sig Dispensed Refills Start Date End Date Status COMPRESSOR/NEBULIZE R MISCIndications:Cys tic fibrosis (HCC) Use as directed 1 Device 0 3 Active Additional Information Patient not taking.Reported on 07/21/2023 JUAN CARLOS LC PLUS NEBULIZER MISCIndications:Cys tic fibrosis with pulmonary manifestations (HCC) Use daily with Tnbju-Fok-zbxdbgqd device 1 Device 5 3 Active Additional [...] Wheezing. 18 g 5 0 Active Pancrelipase, Pcn-Fvjs-Vztf, (ZENPEP) 85336-45369 units CPEPIndications:Cys tic fibrosis (HCC) Take 6 [...] Oral Tablet Take by mouth. 0 Active Powerlytics Flex System w/Device Kit Use to test blood sugars 4 times daily (fasting, 1 hour after breakfast, lunch, and dinner) 1 Kit 0 4 Active Powerlytics In Vitro Strip (Glucose Blood) Use to test blood sugars 4 times daily (fasting, 1 hour after breakfast, lunch, and dinner) 125 Strip 6 4 Active [employer] Lancets 30G Use to test blood sugars [...] & 150 MG Oral Tablet Therapy Pack (Pmdzmgrx-Vghrttt-B vacaf & Ivacaf)Indications: Cystic fibrosis with pulmonary manifestations (HCC) Take 2 orange tablets by mouth in the morning and 1 light blue tablet by mouth in the evening. Take with fat-containing food. TAKE 2 ORANGE TABLETS BY MOUTH IN THE MORNING AND 1 LIGHT BLUE TABLET BY MOUTH IN THE EVENING. TAKE WITH FAT-CONTAINING FOOD 84 Each 0 4 Active Trikafta 100-50-75 & 150 MG Oral Tablet Therapy Pack (Obgeiefr-Udcttof-G vacaf & Ivacaf)Indications: Cystic fibrosis with pulmonary manifestations (HCC) Take 2 orange tablets by mouth in the morning and 1 light blue tablet by mouth in the evening. Take with fat-containing food. TAKE 2 ORANGE TABLETS BY MOUTH EVERY MORNING AND TAKE 1 BLUE TABLET EVERY EVENING DIRECTED WITH FAT CONTAINING FOOD 84 Each 0 4 08/22/19 24 Discontinu ed(Refill) documented as of this encounter (statuses as of 08/22/2023) Active Problems Problem Noted Date Diagnosed Date Rubella non-immune status, antepartum 06/09/2023 Chlamydia infection complicating 06/09 Overview: + test at [facility], sent azithromycin High-risk 06/08/2023 Last Assessment & [...] couple elevated PP values; overall Stable (<50%) Last Assessment & Plan: CONSIDERATIONS: Reviewed etiology [...] Recommend nutrition consult with RDN (Registered Dietitian Barrel Cooper). Lifestyle changes are also indicated including optimizing [...] 11/20/2001 Malabsorption 08/29/2001 Cystic Fibrosis ( homozygous [id number]) Estimated Date of Delivery Comme nts Yes 01/29/2024 Based on Ultraso und documented as of this encounter (statuses as of 08/22/2023) Resolved Problems Problem Noted Date Diagnosed Date Resolved Date GBS (group B Streptococcus c arrier), +RV culture, currently 10/05/2020 06/07/2023 Bipolar disease during , antepartum 06/07/2023 Last Assessment & Plan: 06/02/20: reports symptoms range from mild; she denies SI/HI; declines psychiatric medications; intermittently follows with behavioral health provider here at [facility]. DISCUSSION: 1. and delivery can [...] (boneless & skinless & in olive oil), [place] mackerel (i.e. not Bereket mackerel), or cooked [...] as of this encounter (statuses as of 08/22/2023) Immunizations Name Administration Dates Next Due COVID-19 mRNA, LNP-s, No Pre serve, 2-Dose Series ([employer]) 06/01/2021,11/16/2020,10/26/2020 H1N1 2009 Influenza, IM 03/27/2009 Meningococcal Conjugate Vacc ine (Menactra/Menveo) 07/14/2015,05/18/2010 Pneumococcal Conjugate Vacci ne, 20-valent ([id number]) 03/31/2022 Pneumococcal Polysaccharide PPV23 (Pneumovax) 03/05/2019 Seasonal [...] money to get more. Never true 12/13/2022 [place] Depression Scale Answer Date Recorded [place] Depression Scale Total 5 06/08/2023 The thought [...] encounter Miscellaneous Notes * Telephone Encounter - Marquita Mora OSA - 08/22/2023 7:30 AM EDTPending Prescriptions: Disp Refills Trikafta 100-50-75 & 150 MG Oral Tablet Th*84 Each0 Sig: TAKE 2 ORANGE TABLETS BY MOUTH IN THE MORNING AND 1 LIGHT BLUE TABLET BY MOUTH IN THE EVENING. TAKE WITH FAT-CONTAINING FOOD * Telephone Encounter - Marquita Mora OSA - 08/22/2023 7:30 AM EDT Pending Prescriptions: Disp Refills Trikafta 100-50-75 & 150 MG Oral Tablet T*84 Each0 Sig: Take 2 orange tablets by mouth in the morning and 1 light blue tablet by mouth in the evening. Take with fat-containing food. TAKE 2 ORANGE TABLETS BY MOUTH IN THE MORNING AND 1 LIGHT BLUE TABLET BY MOUTH IN THE EVENING. TAKE WITH FAT-CONTAINING FOOD Most Recent Office Visit Date:06/22/2023 (in office), 12/22/2022 (telemedicine) Next Scheduled Office Visit Date:10/05/2023 If no future appointments scheduled, and last appointment is greater than a year ago, please schedule patient for a follow-up appointment Last date the medication was ordered: [id number] Pharmacy: [facility] [address] [address] [facility] [phone] [id number] Please review and sign at your discretion. documented in this encounter Plan of Treatment Upcoming Encounters Date Type Department Care Team (Late st Contact Info) Description 08/29/2023 10:00 AM EDT Office Visit Gynecology/Obstetrics [facility] [address] [place] [address] Radha Diaz CRNP [address] [place] [address] 08/31/2023 9:30 AM EDT Telemedicine Nutrition [facility] [address] [facility] [address] Leah Coley RDN [address] [place] [address] 09/06/2023 1:30 PM EDT Office Visit Ash Conveyor Operator Obstetrics Maternal Medicine, [place] [address] [place] [address] Vinnie Guzman MD [address] [place] [address] 09/06/2023 1:30 PM EDT Imaging [facility], [place] [address] [place] [address] 10/05/2023 10:30 AM EDT Office Visit Pulmonary Medicine, [place] [address] [place] [address] Micaela Holly DO [address], [place] [phone] 12/05/2023 10:00 AM EDT Telemedicine Psychiatry, [place] [address], [place] [phone] Catina Araiza CRNP [address] [place] [address] Health Maintenance Due Date Last [...] the patient have Health Care Power of Wire Coiner? No Code Status History Code Status Date Activated Date Inactivated Comments Full Code 04/24/2012 12:01 PM 05/08/2012 6:45 PM Thi s order reflects the patients wishes and were consensually agreed upon. Question Answer Comments Discussion of Advance Directives occurred with: Not Discussed Does the patient have a Living Will? No Does the patient have Health Care Power of Wire Coiner? No Full Code 03/18/2011 2:41 PM 03/21/2011 7:11 PM Thi s order reflects the patients wishes and were consensually agreed upon. Question Answer Comments Discussion of Advance Directives occurred with: Not Discussed
--- OUTSIDE RECORDS SUMMARY | 2024-01-24 09:20 | External Medical Summary | Summary of Care ---
Author Name Unknown Organization [facility] Address [address] [place] [address] Phone [phone] Care Team Providers Care Lacquer Polisher Name Role Phone Unavailable Primary Care Provider Unavailabl e Reason for Visit * Reason Comments DSMT INITIAL * Evaluate & Treat - Unlimited Visits (Within 10 days (routine)) - Pending Review Specialty Diagnoses / Procedures Referred By Chantell hutton Referred To Contact Coper Hand / Nutrition Services Diagnoses Diet controlled gestational diabetes mellitus (GDM), antepartum Radha Diaz CRNP [address] [place] [address] Referral ID Status Reason Start Date Expiration Date Visits Requested Visits Authorized [id number] Pending Review Specialty Services Required 07/18/[phone] Encounter Details Date Type Department Care Team (Late st Contact Info) Description 08/03/2023 9:00 AM EDT Telemedicine Ramy Vasquez [address] [place] [address] Leah Coley RDN [address] [place] [address] Diet controlled gestational diabetes mellitus (GDM), antepartum*; History of gestational diabetes mellitus (GDM) in prior , currently ; H/O macrosomia in in prior , currently ; Cystic Fibrosis ( homozygous [id number]) Allergies No known active allergiesdocumented as of this encounter (statuses as of 08/03/2023) Medications Medication Sig Dispensed Refills Start Date End Date Status COMPRESSOR/NEBULIZER MISCIndications:Cyst ic fibrosis (HCC) Use as directed 1 Device 0 05/31/2012 Active Additional Information Patient not taking.Reported on 07/21/2023 JUAN CARLOS LC PLUS NEBULIZER MISCIndications:Cyst ic fibrosis with pulmonary manifestations (HCC) Use daily with Gcqoh-Ulx-exelemrb device 1 Device 5 06/13/2012 Active Additional [...] Wheezing. 18 g 5 06/20/2019 Active Pancrelipase, Kiu-Jpih-Goci, (ZENPEP) 27791-55141 units CPEPIndications:Cyst ic fibrosis (HCC) Take 6 [...] & 150 MG Oral Tablet Therapy Pack (Oyryfgdf-Jqejaxi-Lp acaf & Ivacaf)Indications:C ystic fibrosis with pulmonary manifestations (HCC) Take 2 orange tablets by mouth in the morning and 1 light blue tablet by mouth in the evening. Take with fat-containing food. TAKE 2 ORANGE TABLETS BY MOUTH EVERY MORNING AND TAKE 1 BLUE TABLET EVERY EVENING DIRECTED WITH FAT CONTAINING FOOD 84 Each 0 06/12/2023 Active Smart Adventure Flex System w/Device Kit Use to test blood sugars 4 times daily (fasting, 1 hour after breakfast, lunch, and dinner) 1 Kit 0 07/18/2023 Active Smart Adventure In Vitro Strip (Glucose Blood) Use to test blood sugars 4 times daily (fasting, 1 hour after breakfast, lunch, and dinner) 125 Strip 6 07/18/2023 Active [employer] Delica Lancets 30G Use to test blood [...] as of this encounter (statuses as of 08/03/2023) Active Problems Problem Noted Date Diagnosed Date [...] unable to get in contact with patient; Anda message sent to patient regarding same Last [...] Recommend nutrition consult with RDN (Registered Dietitian Journeyman Sheet Metal Worker). Lifestyle changes are also indicated including optimizing [...] 11/20/2001 Malabsorption 08/29/2001 Cystic Fibrosis ( homozygous [id number]) Estimated Date of Delivery Comme nts Yes 01/29/2024 Based on Ultraso und documented as of this encounter (statuses as of 08/03/2023) Resolved Problems Problem Noted Date Diagnosed Date [...] (boneless & skinless & in olive oil), [place] mackerel (i.e. not Bereket mackerel), or cooked [...] as of this encounter (statuses as of 08/03/2023) Immunizations Name Administration Dates Next Due COVID-19 mRNA, LNP-s, No Pre serve, 2-Dose Series (Pfizer) 06/01/2021,11/16/2020,10/26/2020 H1N1 2009 Influenza, IM 03/27/2009 Meningococcal Conjugate Vacc ine (Menactra/Menveo) 07/14/2015,05/18/2010 Pneumococcal Conjugate Vacci ne, 20-valent ([id number]) 03/31/2022 Pneumococcal Polysaccharide PPV23 (Pneumovax) 03/05/2019 Seasonal [...] money to get more. Never true 12/13/2022 [place] Depression Scale Answer Date Recorded [place] Depression Scale Total 5 06/08/2023 The thought [...] hospital or clinic location. After connecting through [employer], patient was verified with two unique identifiers. Patient (or authorized legal lifeline representatives) was then informed that this was a [...] croutons with ranch dressing or yogurt or Spanish wedding or chicken noodle soup sometimes with [...] 106/62 Gestational Diabetes Participant, being monitored by DATA PROCESSING EQUIPMENT REPAIRER. Dyslipidemia: Lab Results Component Value Date/Time LDL [...] checking and to forward glucose results to [facility] weekly. Reviewed recommended method of disposal [...] with contact information for Diabetes Care and Air Hose Coupler. All [facility] providers within the system are able to see [place] [employer] education and outcomes within the participant's electronic medical record. Leah Coley RDN, NUTRITION SERVICES [facility] [place] Diabetes Care and Air Hose Coupler documented in this encounter Plan of Treatment Upcoming Encounters Date Type Department Care Team (Late st Contact Info) Description 08/04/2023 9:00 AM EDT Office Visit Gynecology/Obstetrics Alisa Lindsey [address] [place] [address] Munira Mg PA-C [address] [place] [address] 08/31/2023 9:30 AM EDT Telemedicine Ramy Vasquez [address] [place] [address] Leah Coley, RDN [address] [place] [address] [address] 09/06/2023 1:30 PM EDT Office Visit Moving Worker Obstetrics Maternal Medicine, [place] [address] [place] [address] Vinnie Guzman MD [address] [place] [address] 09/06/2023 1:30 PM EDT [facility], [place] [address] [place] [address] 12/05/2023 10:00 AM EDT Telemedicine Psychiatry, [place] [address] [place], [place] [id number] Catina Araiza CRNP [address] [place] [address] Scheduled Referrals Name Type Priority Associated Diagnoses Orde r Schedule DIABETES MANAGEMENT EDUCATION (ADA) REFERRAL Referral Within 10 days (routine) Diet controlled gestational diabetes mellitus (GDM), antepartum Ordered: 07/18/2023 Health Maintenance Due Date Last Done Comments GARDASIL-HPV IMMUNIZATION SE AIDA (1 - 3-dose series) 2012 COVID-19 Vaccine (2022-2 4 season) 2023 06/01/2021, 11/16/2020, 10/26/2020 Depression [...] poor obstetric history Cystic Fibrosis ( homozygous [id number]) Cystic fibrosis without mention of meconium ileus [...] the patient have Health Care Power of Drywall Finishing Foreman? No Code Status History Code Status Date Activated Date Inactivated Comments Full Code 04/24/2012 12:01 PM 05/08/2012 6:45 PM Thi s order reflects the patients wishes and were consensually agreed upon. Question Answer Comments Discussion of Advance Directives occurred with: Not Discussed Does the patient have a Living Will? No Does the patient have Health Care Power of Drywall Finishing Foreman? No Full Code 03/18/2011 2:41 PM 03/21/2011 7:11 PM Thi s order reflects the patients wishes and were consensually agreed upon. Question Answer Comments Discussion of Advance Directives occurred with: Not Discussed
--- OUTSIDE RECORDS SUMMARY | 2024-01-24 09:20 | External Medical Summary ---
Author Name Unknown Address Unknown Organization K[facility] [address] [place] [address] Laboratory Report Ordering Provider Test Date Status ANA HARDWICK 08/04/2023 09:33:03 Final Anticoagulation may affect t esting. Refer to [facility] Test Catalog for a list of effects. Observation Date Value Abnormality Reference (Units ) Status aPTT panel - Platelet poor plasma 08/04/2023 09:33:03 27 21-38 (seconds) Final Performing Location [facility] [address] [place] [address]
--- OUTSIDE RECORDS SUMMARY | 2024-01-24 09:20 | External Medical Summary ---
Author Name Unknown Address Unknown Organization K0G:[facility] [address] [place] [address] Laboratory Report Ordering Provider Test Date Status ANA HARDWICK 08/04/2023 09:33:03 Final Warfarin Therapy
INR: 2 .0-3.0 conventional anticoagulation
INR: 2.5- 3.5 high intensity anticoagulation Observation Date Value Abnormality Reference (Units ) Status PT 08/04/2023 09:33:03 13.3 11.6-15.2 (seconds) Final INR 08/04/2023 09:33:03 1.0 0.8-1.2 Final Performing Location [facility] [address] [place] [address]
--- OUTSIDE RECORDS SUMMARY | 2024-01-24 09:20 | External Medical Summary | Summary of Care ---
Author Name Unknown Organization [facility] Address [address] [facility] [place] [address] Phone [phone] Care Team Providers Care Civil Engineer Land Development Name Role Phone Unavailable Primary Care Provider Unavailabl e Reason for Visit * Reason Comments Outpatient Testing Encounter Details Date Type Department Care Team (Late st Contact Info) Description 08/04/2023 9:50 AM EDT Laboratory Laboratory, [facility] [address] [facility] [place] [id number] [facility] [address] [place] [address] High-risk Allergies No known active allergiesdocumented as of this encounter (statuses as of 08/04/2023) Medications Medication Sig Dispensed Refills Start Date End Date Status COMPRESSOR/NEBULIZER MISCIndications:Cyst ic fibrosis (HCC) Use as directed 1 Device 0 05/31/2012 Active Additional Information Patient not taking.Reported on 07/21/2023 JUAN CARLOS LC PLUS NEBULIZER MISCIndications:Cyst ic fibrosis with pulmonary manifestations (HCC) Use daily with Cwhfp-Tld-tnfskldx device 1 Device 5 06/13/2012 Active Additional [...] Wheezing. 18 g 5 06/20/2019 Active Pancrelipase, Utm-Akqt-Cmmh, (ZENPEP) 74234-19[address] units CPEPIndications:Cyst ic fibrosis (HCC) Take 6 [...] & 150 MG Oral Tablet Therapy Pack (Xhzolomc-Akubzgx-Xx acaf & Ivacaf)Indications:C ystic fibrosis with pulmonary manifestations (HCC) Take 2 orange tablets by mouth in the morning and 1 light blue tablet by mouth in the evening. Take with fat-containing food. TAKE 2 ORANGE TABLETS BY MOUTH EVERY MORNING AND TAKE 1 BLUE TABLET EVERY EVENING DIRECTED WITH FAT CONTAINING FOOD 84 Each 0 06/12/2023 Active [facility] Flex System w/Device Kit Use to test blood sugars 4 times daily (fasting, 1 hour after breakfast, lunch, and dinner) 1 Kit 0 07/18/2023 Active [facility] In Vitro Strip (Glucose Blood) Use to test blood sugars 4 times daily (fasting, 1 hour after breakfast, lunch, and dinner) 125 Strip 6 07/18/2023 Active [employer] Delica Lancets 30G Use to test blood [...] as of this encounter (statuses as of 08/04/2023) Active Problems Problem Noted Date Diagnosed Date Rubella non-immune status, antepartum 06/09/2023 Chlamydia infection complicating 06/09 Overview: + test at [facility], sent azithromycin High-risk 06/08/2023 Last Assessment [...] unable to get in contact with patient; [employer]) message sent to patient regarding same Last [...] Recommend nutrition consult with RDN (Registered Dietitian Livestock Handler). Lifestyle changes are also indicated including optimizing [...] 11/20/2001 Malabsorption 08/29/2001 Cystic Fibrosis ( homozygous [id number]) Estimated Date of Delivery Comme nts Yes 01/29/2024 Based on Ultraso und documented as of this encounter (statuses as of 08/04/2023) Resolved Problems Problem Noted Date Diagnosed Date Resolved Date GBS (group B Streptococcus c mary), +RV culture, currently 10/05/2020 06/07/2023 Bipolar disease during , antepartum 1 06/07/2023 Last Assessment & Plan: 06/02/20: reports symptoms range from mild; she denies SI/HI; declines psychiatric medications; intermittently [place] with [place] health provider [place] [facility] DISCUSSION: 1. and delivery can worsen the [...] (boneless & skinless & in olive oil), [place] mackerel (i.e. not Bereket mackerel), or cooked [...] as of this encounter (statuses as of 08/04/2023) Immunizations Name Administration Dates Next Due COVID-19 mRNA, LNP-s, No Pre serve, 2-Dose Series (Wishery) 06/01/2021,11/16/2020,10/26/2020 H1N1 2009 Influenza, IM 03/27/2009 Meningococcal Conjugate Vacc ine (Menactra/Menveo) 07/14/2015,05/18/2010 Pneumococcal Conjugate Vacci ne, 20-valent ([id number]) 03/31/2022 Pneumococcal Polysaccharide PPV23 (Pneumovax) 03/05/2019 Seasonal [...] money to get more. Never true 12/13/2022 [place] Depression Scale Answer Date Recorded [place] Depression Scale Total 5 06/08/2023 The thought [...] Gynecology/Obstetrics Alisa Fiore [address] [place] [address] Radha Diaz CRNP [address] [place] [address] 08/31/2023 9:30 AM EDT Telemedicine Nutrition, [place] [address] [place] [address] Leah Coley RDN [address] [place] [address] 09/06/2023 1:30 PM EDT Office Visit Line Erector Apprentice [facility] [address] [place] [address] Vinnie Guzman MD [address] [place] [address] 09/06/2023 1:30 PM EDT [facility], [place] [address] [place] [address] 12/05/2023 10:00 AM EDT Telemedicine Psychiatry, [place] [address] [place] [address] Trentcarfederico CatinaLAMIN reis [address] [place] [address] Pending Results Name Type Priority Associated Diagnoses Date /Time PT INR Lab Routine High-risk 08/04/2023 9:33 AM EDT APTT Lab Routine High-risk 08/04/2023 9:33 AM EDT Health Maintenance Due Date Last Done [...] of this encounter Visit Diagnoses Diagnosis High-risk Unspecified high-risk documented in this encounter Additional Health Concerns [...] the patient have Health Care Power of District Commercial Superintendent? No Code Status History Code Status Date Activated Date Inactivated Comments Full Code 04/24/2012 12:01 PM 05/08/2012 6:45 PM Thi s order reflects the patients wishes and were consensually agreed upon. Question Answer Comments Discussion of Advance Directives occurred with: Not Discussed Does the patient have a Living Will? No Does the patient have Health Care Power of District Commercial Superintendent? No Full Code 03/18/2011 2:41 PM 03/21/2011 7:11 PM Thi s order reflects the patients wishes and were consensually agreed upon. Question Answer Comments Discussion of Advance Directives occurred with: Not Discussed
--- OUTSIDE RECORDS SUMMARY | 2024-01-24 09:20 | External Medical Summary | Summary of Care ---
Author Name Unknown Organization [facility] Address [address] [facility] [place] [address] Phone [phone] Care Team Providers Care Film Loader Name Role Phone Unavailable Primary Care Provider Unavailabl e Reason for Visit * Reason Onset Date Comments Diabetes 08/10/2023 Encounter Details Date Type Department Care Team (Late st Contact Info) Description 08/10/2023 11:00 AM EDT Scheduled Telephone Guerrero Vasquez [address] [place] [address] Leah Coley, TORITO [address] [place] [address] Allergies No known active allergiesdocumented as of this encounter (statuses as of 08/10/2023) Medications Medication Sig Dispensed Refills Start Date End Date Status COMPRESSOR/NEBULIZER MISCIndications:Cyst ic fibrosis (HCC) Use as directed 1 Device 0 05/31/2012 Active Additional Information Patient not taking.Reported on 07/21/2023 JUAN CARLOS LC PLUS NEBULIZER MISCIndications:Cyst ic fibrosis with pulmonary manifestations (HCC) Use daily with Rxkmd-Mgx-bxlqyjok device 1 Device 5 06/13/2012 Active Additional [...] Wheezing. 18 g 5 06/20/2019 Active Pancrelipase, Rdx-Upor-Wqyu, (ZENPEP) 69818-[address] units CPEPIndications:Cyst ic fibrosis (HCC) Take 6 [...] & 150 MG Oral Tablet Therapy Pack (Xabcjwog-Ibttbtr-Gy acaf & Ivacaf)Indications:C ystic fibrosis with pulmonary manifestations (HCC) Take 2 orange tablets by mouth in the morning and 1 light blue tablet by mouth in the evening. Take with fat-containing food. TAKE 2 ORANGE TABLETS BY MOUTH EVERY MORNING AND TAKE 1 BLUE TABLET EVERY EVENING DIRECTED WITH FAT CONTAINING FOOD 84 Each 0 06/12/2023 Active [employer] Flex System w/Device Kit Use to test blood sugars 4 times daily (fasting, 1 hour after breakfast, lunch, and dinner) 1 Kit 0 07/18/2023 Active [employer] In Vitro Strip (Glucose Blood) Use to test blood sugars 4 times daily (fasting, 1 hour after breakfast, lunch, and dinner) 125 Strip 6 07/18/2023 Active [facility] Delica Lancets 30G Use to test blood [...] as of this encounter (statuses as of 08/10/2023) Active Problems Problem Noted Date Diagnosed Date [...] unable to get in contact with patient; [employer] message sent to patient regarding same Last [...] nutrition consult with RDN (Registered Dietitian Senior Policy Analyst). Lifestyle changes are also indicated including optimizing [...] 11/20/2001 Malabsorption 08/29/2001 Cystic Fibrosis ( homozygous [id number]) Estimated Date of Delivery Comme nts Yes 01/29/2024 Based on Ultraso und documented as of this encounter (statuses as of 08/10/2023) Resolved Problems Problem Noted Date Diagnosed Date [...] (boneless & skinless & in olive oil), [place] mackerel (i.e. not Bereket mackerel), or cooked [...] as of this encounter (statuses as of 08/10/2023) Immunizations Name Administration Dates Next Due COVID-19 mRNA, LNP-s, No Pre serve, 2-Dose Series (FreakOut) 06/01/2021,11/16/2020,10/26/2020 H1N1 2009 Influenza, IM 03/27/2009 Meningococcal Conjugate Vacc ine (Menactra/Menveo) 07/14/2015,05/18/2010 Pneumococcal Conjugate Vacci ne, 20-valent ([id number]) 03/31/2022 Pneumococcal Polysaccharide PPV23 (Pneumovax) 03/05/2019 Seasonal [...] money to get more. Never true 12/13/2022 [place] Depression Scale Answer Date Recorded [place] Depression Scale Total 5 06/08/2023 The thought [...] Telephone Encounter - Leah Coley RDN - 08/10/2023 4:21 PM EDT Made aware of unread [employer] message containing handouts from initial GDM video appointment from . Handouts forwarded to pt's residence via US Mail. Leah Coley RDN, Clinical Dietitian II, [facility] Clinical Nutrition Services [facility] [address] [place] [address] Available via [employer] Portal documented in this encounter Plan of Treatment Upcoming Encounters Date Type Department Care Team (Late st Contact Info) Description 08/29/2023 10:00 AM EDT [facility] [address] [place] [address] Radha Diaz CRNP [address] [place] [address] 08/31/2023 9:30 AM EDT Telemedicine Nutrition, [place] [address] [place] [address] Leah Coley, RDN [address] [facility] [place] [address] 09/06/2023 1:30 PM EDT Office Visit Cream Dumper Obstetrics Maternal Medicine, [place] [address] [place] [address] Vinnie Guzman MD [address] [place] [address] 09/06/2023 1:30 PM EDT Imaging Radiology [facility], [place] [address] [place] [address] 12/05/2023 10:00 AM EDT Telemedicine Psychiatry, [place] [address] [place], [place] [phone] Catina Araiza CRNP [address] [place] [id number] Health Maintenance Due Date Last Done Comments [...] the patient have Health Care Power of Rn Document Improvement? No Code Status History Code Status Date Activated Date Inactivated Comments Full Code 04/24/2012 12:01 PM 05/08/2012 6:45 PM Thi s order reflects the patients wishes and were consensually agreed upon. Question Answer Comments Discussion of Advance Directives occurred with: Not Discussed Does the patient have a Living Will? No Does the patient have Health Care Power of Rn Document Improvement? No Full Code 03/18/2011 2:41 PM 03/21/2011 7:11 PM Thi s order reflects the patients wishes and were consensually agreed upon. Question Answer Comments Discussion of Advance Directives occurred with: Not Discussed
--- OUTSIDE RECORDS SUMMARY | 2024-01-24 09:20 | External Medical Summary | Summary of Care ---
Author Name Unknown Organization [facility] Address [address] [facility] [place] [address] Phone [phone] Care Team Providers Care Entry Level Buyer Name Role Phone Unavailable Primary Care Provider Unavailabl e Reason for Visit * Reason Comments Return Visit Encounter Details Date Type Department Care Team (Late st Contact Info) Description 08/04/2023 9:00 AM EDT Office Visit Gynecology/Obstetric s Alisa Fiore [address] [place] [address] Munira Mg PA-C [address] [place] [address] High-risk in second trimester*; Rh negative, antepartum; [...] with pulmonary manifestations (HCC) Use daily with Qvcfu-Mzq-fhvltcle device 1 Device 5 06/13/2012 Active Additional [...] Wheezing. 18 g 5 06/20/2019 Active Pancrelipase, Nfk-Mdsi-Fbdo, (ZENPEP) 93868-79767 units CPEPIndications:Cyst ic fibrosis (HCC) Take 6 [...] & 150 MG Oral Tablet Therapy Pack (Igxqqjtv-Ksvgxvl-Qw acaf & Ivacaf)Indications:C ystic fibrosis with pulmonary manifestations (HCC) Take 2 orange tablets by mouth in the morning and 1 light blue tablet by mouth in the evening. Take with fat-containing food. TAKE 2 ORANGE TABLETS BY MOUTH EVERY MORNING AND TAKE 1 BLUE TABLET EVERY EVENING DIRECTED WITH FAT CONTAINING FOOD 84 Each 0 06/12/2023 Active Sicubo Flex System w/Device Kit Use to test blood sugars 4 times daily (fasting, 1 hour after breakfast, lunch, and dinner) 1 Kit 0 07/18/2023 Active Sicubo In Vitro Strip (Glucose Blood) Use to test blood sugars 4 times daily (fasting, 1 hour after breakfast, lunch, and dinner) 125 Strip 6 07/18/2023 Active LIANAI Delica Lancets 30G Use to test blood [...] infection complicating 06/09 Overview: + test at [facility], sent azithromycin High-risk 06/08/2023 Last Assessment [...] unable to get in contact with patient; [employer] message sent to patient regarding same Last [...] Recommend nutrition consult with RDN (Registered Dietitian Drop Man). Lifestyle changes are also indicated including optimizing [...] 11/20/2001 Malabsorption 08/29/2001 Cystic Fibrosis ( homozygous [id number]) Estimated Date of Delivery Comme nts Yes [...] follows with behavioral health provider here at [facility]. DISCUSSION: 1. and delivery can worsen the [...] (boneless & skinless & in olive oil), [place] mackerel (i.e. not [place] mackerel), or cooked [...] mRNA, LNP-s, No Pre serve, 2-Dose Series ([employer]) 06/01/2021,11/16/2020,10/26/2020 H1N1 2009 Influenza, IM 03/27/2009 Meningococcal Conjugate Vacc ine (Menactra/Menveo) 07/14/2015,05/18/2010 Pneumococcal Conjugate Vacci ne, 20-valent (Pjykbut52) 03/31/2022 Pneumococcal Polysaccharide PPV23 (Pneumovax) 03/05/2019 Seasonal [...] money to get more. Never true 12/13/2022 [place] Depression Scale Answer Date Recorded [place] Depression Scale Total 5 06/08/2023 The thought [...] Sign Reading Time Taken Comments Blood Pressure 100/62 08/04/2023 9:03 AM EDT Pulse - - Temperature - - Respiratory Rate - - Oxygen Saturation - - Inhaled Oxygen Concentration - - Weight 78 kg (172 lb) 08/04/2023 9:03 AM EDT Height - - Body Mass Index 28.62 08/03/2023 9:15 AM EDT documented in this [...] as of this encounter Progress Notes * Munira Mg PA-C - 08/04/2023 12:20 PM EDT 14w4d S/p MFM consults and early anatomy. Scheduled for anatomy back with [facility] secondary to . Early GDM diagnosis, she is reporting BG. Reports well managed. Discussed need for A1C check, pt states will complete today. MFM recommended prothrombin time each trimester secondary to cystic fibrosis. Order placed with labs today. Pt also + chlamydia with NOB. NNAMDI negative. Declines genetic testing. RTC in 4 weeks Munira Mg PA-C * Danae Kennedy LPN - 08/04/2023 9:03 AM EDT Pt is currently 14w4d with an Estimated Date of Delivery: 01/29/24 - Doing well without complaints documented in this encounter Plan of Treatment Upcoming Encounters Date Type Department Care Team (Late st Contact Info) Description 08/29/2023 10:00 AM EDT Office Visit Gynecology/Obstetrics Alisa Rolons [address] [facility] [place] [address] Radha Diaz CRNP [address] [place] [address] 08/31/2023 9:30 AM EDT Telemedicine NutritionGuerrero Fiore [address] [place] [address] Leah Coley RDN [address] [place] [address] 09/06/2023 1:30 PM EDT Office Visit Mobility Engineer Obstetrics Maternal [facility], [place] [address] [place] [address] Vinnie Guzman MD [address] [place] [facility] [place] [address] 09/06/2023 1:30 PM EDT Imaging Radiology [facility] [place], [place] [address] [place] [address] 12/05/2023 10:00 AM EDT Telemedicine Psychiatry, [place] [address] [place] [address] Catina Araiza CRNP [address] [place] [address] Health Maintenance Due Date Last [...] Not on filedocumented as of this encounter Results * APTT (08/04/2023 9:33 AM EDT) aPTT 27 21 - 38 seconds 08/04/2023 10:36 AM EDT [facility] Blood Venous blood specimen / Unknown Venipuncture / Unknown 08/04/2023 9:33 AM EDT 08/04/2023 9:33 AM EDT Narrative [facility] [place] [facility] - 08/04/2023 10:36 AM EDT Anticoagulation may affect testing. Refer to [facility] Test Catalog for a list of effects. Munira Mg PA-C LAB BLOOD ORDERABLES [facility] [address] [place] [address] * PT INR (08/04/2023 9:33 AM EDT) Prothrombin Time 13.3 11.6 - 15.2 seconds 08/04/2023 10:35 AM EDT [facility] [place] [facility] INR 1.0 0.8 - 1.2 08/04/2023 10:35 AM EDT [facility] [place] [facility] Blood Venous blood specimen / Unknown Venipuncture / Unknown 08/04/2023 9:33 AM EDT 08/04/2023 9:33 AM EDT Narrative [facility] [place] - 08/04/2023 10:35 AM EDT Warfarin Therapy INR: 2.0-3.0 conventional anticoagulation INR: 2.5-3.5 high intensity anticoagulation Munira Mg PA-C LAB BLOOD ORDERABLES Performing Organization Address City/[facility]/ZIP Co de Phone Number [phone] [place] [address] documented in this encounter Visit Diagnoses Diagnosis High-risk in [...] the patient have Health Care Power of Housecleaner? No Code Status History Code Status Date Activated Date Inactivated Comments Full Code 04/24/2012 12:01 PM 05/08/2012 6:45 PM Thi s order reflects the patients wishes and were consensually agreed upon. Question Answer Comments Discussion of Advance Directives occurred with: Not Discussed Does the patient have a Living Will? No Does the patient have Health Care Power of Housecleaner? No Full Code 03/18/2011 2:41 PM 03/21/2011 7:11 PM Thi s order reflects the patients wishes and were consensually agreed upon. Question Answer Comments Discussion of Advance Directives occurred with: Not Discussed
[2024-01-24] MEDS: CITRIC ACID/SODIUM CITRATE 15 ML UDC PO SCH (09:45)
[2024-01-24 09:46] LABS: Hematocrit (blood only) 36.1 % (37.0-47.0); Hemoglobin 12.2 g/dl (12.0-16.0); Mean Corpuscular Hemoglobin 28.2 pg (25.0-34.0); Mean Corpuscular Hgb Conc 33.8 g/dL (32.0-36.0); Mean Corpuscular Volume 83.4 fL (80.0-100.0); Mean Platelet Volume 11.7 fL (9.4-12.4); Platelet Count 179 K/uL (130-400); RDW Coefficient of Variation 12.9 % (11.5-14.5); RDW Standard Deviation 39.1 fL (36.4-46.3); Red Blood Count 4.33 M/uL (4.20-5.40); White Blood Count 7.55 K/ul (4.8-10.8)
[2024-01-24] MEDS: ACETAMINOPHEN 500 MG TAB PO SCH (09:46)
[2024-01-24] MEDS ORDERED: LACTATED RINGER'S 1,000 ML IV SCH ×2 (10:15→13:00)
[2024-01-24] MEDS: ceFAZolin 2000MG 2,000 MG/15 ML SYR IV SCH (11:19)
[2024-01-24] MEDS ORDERED: PROMETHAZINE 6.25 MG/50.25 ML BAG IV PRN (11:50)
[2024-01-24] MEDS ORDERED: NALBUPHINE HCL INJ 10 MG/ML AMP IV PRN (11:50)
[2024-01-24] MEDS ORDERED: NALOXONE HCL 1 MG in SODIUM CHLORIDE 0.9% 1,000 ML IV PRN (11:50)
[2024-01-24] MEDS ORDERED: NALOXONE HCL 0.4 MG/1 ML VIAL/CARP IV PRN (11:50)
[2024-01-24] MEDS ORDERED: ePHEDrine sulfate 50 MG/ML AMP IV PRN (11:50)
[2024-01-24] MEDS ORDERED: NALOXONE HCL 0.08 MG in SYRINGE 1.8 ML IV PRN (11:50)
[2024-01-24] MEDS ORDERED: ONDANSETRON INJ 2 MG/ML 2 ML VIAL IV PRN ×2 (11:50→12:46)
[2024-01-24] MEDS ORDERED: MoRPHine SULFATE PF 1 MG/ML 10 ML AMP/VIAL INT SPINAL ONE (11:50)
[2024-01-24] MEDS ORDERED: KETOROLAC 30 MG/ML VIAL IV PRN (11:50)
[2024-01-24] MEDS ORDERED: LACTATED RINGER'S 500 ML IV PRN (11:50)
[2024-01-24] MEDS ORDERED: NO NARCOTICS OR SEDATIVES SCH (12:00)
[2024-01-24] MEDS ORDERED: DC INTRASPINAL MORPHINE SCH (12:00)
[2024-01-24] MEDS ORDERED: SODIUM CHLORIDE 0.9% 1,000 ML IV SCH (12:00)
--- NOTE | 2024-01-24 12:44 | Operative Report ---
Post Operative Report Pre & Post Diagnosis Operation Date: 01/24/24 09:20 <No data on this case meets the specified criteria> I identified the patient and participated in the time-out.: Yes Procedure Operation Date: 01/24/24 09:20 Primary Ceserean Section Surgeon Husam Raymond MD Stevedoring Superintendent [place] Estimated Blood Loss 716 (QBL) Findings Consistent with Post-Op Diagnosis Baby was a viable female infant delivered at 524939:57 AM in cass breech position, Apgars 7/8, weight is 5000 g. maternal findings: normal uterus, fallopian tubes and ovaries. Specimens Placenta Drains Weeks 100 ml clear urine Anesthesia Type Spinal Complications none Indications Patient is a 28-year-old -0-0-1 at 39 weeks and 4 days of gestation, breech presentation at term. Description of Procedure Patient was taken to operating room where a spinal anesthesia was given without difficulty. She was placed in dorsal supine position with a leftward tilt. She was prepared and draped in usual sterile fashion. A financial skin incision was made and carried through to the underlying layer of fascia with the Bovie. Fascia was incised in the midline and incision was extended laterally with the help of Cruz scissors. Then the upper aspect of the fascial incision was grasped with 2 Florence clamps elevated the underlying rectus muscles were dissected off sharply with Cruz scissors. Same thing was done on the lower incision. Then the muscles were in the midline, peritoneum was identified grasped with 2 pickups and entered sharply with Metzenbaum scissors. Peritoneal incision was extended superior and inferiorly with good visualization of the bladder. The bladder blade was inserted. Vesicouterine peritoneum was identified, grasped with pickups and entered sharply with Metzenbaum scissors, bladder flap was created digitally and bladder blade was reinserted. Uterus was incised in transverse fashion, incision was extended laterally with bandage scissors, membranes were ruptured and clear fluid was obtained. Baby's buttocks were held and brought to the incision, unable deliver with fundal pressure and hand, left leg was grasped and delivered in flexion position without difficulty, followed by right leg, body and arms in flexion position and then head without faculty. Mouth and nose were suctioned there was dried on the field he was vigorously crying and moving. The cord was clamped times and cut and then the was handed off to the pediatric team. Then the placenta was delivered manually as intact and complete. Uterus was externalized and cleared of all clots and debris's. Uterine incision was repaired with 0 Vicryl in a running locked fashion, second umbricating layer was placed with the same suture in running locked fashion. Excellent hemostasis achieved. Cul-de-sac and the pelvis was irrigated with warm normal saline and suctioned. Incision was checked of anesthetic again. Uterus was returned to the abdomen, parietal peritoneum was reapproximated with 3-0 Vicryl in a running fashion and the muscles were reapproximated in the same suture in a running fashion. All of the fascia and rectus muscles were hemostatic. Rectus fascia was reapproximated with 3-0 Vicryl starting from both columns meeting in the midline. Subcuticular fat tissue was brought together with 2-0 Vicryl in a running fashion, skin was closed with 4-0 Monocryl in a subcuticular cuticular fashion. The mom and baby tolerated procedure well. Sponge needle instrument count was correct x3. No complications happened, I was present during whole procedure. My interior design assistant was needed for retraction, hemostasis and aid during delivery of infant I attest to the content of the Intraoperative Record and any orders documented therein. Any exceptions are noted below.
[2024-01-24] MEDS ORDERED: DIPHTHER/TETAN/PERTUS Vaccine (Tdap, Adol/Adult) 0.5mL IM ONE (12:46)
[2024-01-24] MEDS ORDERED: CALCIUM CARBONATE 500 MG CHEWABLE TAB PO PRN (12:46)
[2024-01-24] MEDS ORDERED: HYDROCORTISONE ACETATE 25 MG SUPP PR PRN (12:46)
[2024-01-24] MEDS ORDERED: MAGNESIUM HYDROXIDE SUSP 30 ML UDC PO PRN (12:46)
[2024-01-24] MEDS ORDERED: BENZOCAINE 20% SPRY 85 APPLN/85 GM CAN EXT PRN (12:46)
[2024-01-24] MEDS: OXYTOCIN 20 UNITS/LR 1,002 ML IV SCH (13:10)
--- NOTE | 2024-01-24 13:26 | Anesthesiology Progress Note ---
Date of Service January 24, 2024 Anesthesia Post Procedure Vital Signs Vital Signs: Temp Pulse Resp BP Pulse Ox 01/24/24 13:20 56 L 99 01/24/24 13:15 16 01/24/24 13:15 57 L 116/57 L 99 01/24/24 13:10 56 L 99 01/24/24 13:05 16 01/24/24 13:05 99 01/24/24 13:05 56 L 01/24/24 13:05 66 120/56 L 01/24/24 13:00 57 L 100 01/24/24 12:56 60 129/58 L 01/24/24 12:55 16 01/24/24 12:55 58 L 100 01/24/24 12:50 57 L 100 01/24/24 12:45 36.5 C 16 01/24/24 12:45 57 L 119/58 L 98 01/24/24 08:11 71 110/68 01/24/24 07:58 36.7 C 16 110/68 Transfer of Care Handoff Completed per policy Notes Mental Status: alert / awake / arousable and participated in evaluation Patient Amnestic to Procedure: No Nausea / Vomiting: adequately controlled Pain: adequately controlled Airway Patency, RR, SpO2: stable & adequate BP & HR: stable & adequate Hydration State: stable & adequate Neuraxial Anesthesia: was administered and sensory block is resolving Anesthetic Complications: no major complications apparent and Pt Satisfied with anesthetic care
[2024-01-24] MEDS: diphenhydrAMINE 50 MG/ML VIAL IV PRN (13:50)
[2024-01-24] MEDS: HYDROmorphone INJ 0.5 MG/0.5 ML SYR IV PRN (14:33)
[2024-01-24] MEDS: SIMETHICONE 80 MG CHEW PO SCH (17:00)
[2024-01-24] MEDS: IBUPROFEN 600 MG TAB PO SCH (18:07)
[2024-01-24] MEDS: ACETAMINOPHEN 325 MG TAB PO SCH (18:07)
[2024-01-24] MEDS: risperiDONE 0.5 MG TABLET PO SCH (20:36)
[2024-01-24] MEDS: DOCUSATE SODIUM 100 MG CAP PO SCH (20:36)
[2024-01-24] MEDS: SERTRALINE HCL 50 MG TABLET PO SCH (20:36)
[2024-01-24] MEDS: [UNRECOGNIZED DRUG - REMARK] PO SCH (20:40)
[2024-01-24] MEDS ORDERED: NON-FORMULARY MEDICATION (Prenat.Vits,Cal,Min-Iron-Folic Tablet) PO SCH (21:00)
[2024-01-24] MEDS ORDERED: IVACAFTOR PO SCH (21:00)
[2024-01-24] MEDS ORDERED: ELEXACAFTOR PO SCH (21:00)
[2024-01-24] MEDS ORDERED: TEZACAFTOR PO SCH (21:00)
[2024-01-24] MEDS: oxyCODONE HCL IR 5 MG TAB (IMMEDIATE RELEASE) PO PRN (22:30)
[2024-01-25] MEDS ORDERED: PROMETHAZINE 12.5 MG/50.5 ML BAG IV PRN (05:51)
[2024-01-25] MEDS ORDERED: diphenhydrAMINE 50 MG/ML VIAL IV PRN (05:51)
[2024-01-25] MEDS ORDERED: HYDROmorphone INJ 0.5 MG/0.5 ML SYR IV PRN (05:51)
[2024-01-25] MEDS ORDERED: diphenhydrAMINE Capsule 25 MG CAP PO PRN (05:51)
[2024-01-25] MEDS ORDERED: oxyCODONE HCL IR 5 MG TAB (IMMEDIATE RELEASE) PO PRN (05:51)
[2024-01-25] MEDS: oxyCODONE HCL IR 5 MG TAB (IMMEDIATE RELEASE) PO PRN (06:39)
[2024-01-25 06:53] LABS: Basophils # (auto) 0.01 K/uL (0.00-0.20); Basophils % (auto) 0.1 %; Eosinophils # (auto) 0.02 K/uL (0.00-0.50); Eosinophils % (auto) 0.2 %; Hematocrit (blood only) 29.3 % (37.0-47.0); Hemoglobin 9.7 g/dl (12.0-16.0); Immature Granulocytes # (auto) 0.03 K/uL (0.01-0.20); Immature Granulocytes % (auto) 0.3 %; Lymphocytes # (auto) 1.27 K/uL (1.20-3.40); Mean Corpuscular Hemoglobin 27.9 pg (25.0-34.0); Mean Corpuscular Hgb Conc 33.1 g/dL (32.0-36.0); Mean Corpuscular Volume 84.2 fL (80.0-100.0); Mean Platelet Volume 11.5 fL (9.4-12.4); Monocytes # (auto) 0.62 K/uL (0.11-0.59); Monocytes % (auto) 6.8 %; Neutrophils # (auto) 7.11 K/uL (1.40-6.50); Neutrophils % (auto) 78.6 %; Platelet Count 143 K/uL (130-400); RDW Coefficient of Variation 12.9 % (11.5-14.5); RDW Standard Deviation 38.9 fL (36.4-46.3); Red Blood Count 3.48 M/uL (4.20-5.40); White Blood Count 9.06 K/ul (4.8-10.8)
[2024-01-25] MEDS ORDERED: SERTRALINE HCL 50 MG TABLET PO SCH (09:00)
[2024-01-25] MEDS: PRENATAL VITAMIN 1 TAB PO SCH (09:24)
[2024-01-25] MEDS: FERROUS SULFATE 325 MG TAB PO SCH (09:25)
--- NOTE | 2024-01-25 10:13 | Obstetrical Progress Note ---
Date of Service January 25, 2024 Subjective Ambulation: ambulating normally Voiding: no voiding problems Passing Gas:: Yes Diet Tolerance:: regular diet Lochia:: Small Feeding Type:: breast feeding Current Pain Level(1-10): 0 doing well Physical Exam Constitutional WD/WN, vitals as above Musculoskeletal Extremities: extremities normal to inspection Skin no rashes, warm and dry Neurologic patellar DTR's 2+ bilat, sensation intact Psychiatric A+Ox3, euthymic affect Results & Data Vital Signs (Past 12 Hours) Vital Signs Temp Pulse Resp BP Pulse Ox O2 Del Method 01/25/24 09:00 36.5 C 71 18 95/65 L 98 Room Air 01/25/24 03:30 36.5 C 68 16 100/60 98 Room Air 01/24/24 23:15 36.5 C 18 103/65 Laboratory Results Laboratory Results - last 72 hr 01/24/24 01/24/24 01/25/24 08:03 08:06 06:27 WBC 7.55 9.06 RBC 4.33 3.48 L Hgb 12.2 9.7 L Hct 36.1 L 29.3 L MCV 83.4 84.2 MCH 28.2 27.9 MCHC 33.8 33.1 RDW Std Deviation 39.1 38.9 RDW Coeff of Raymond 12.9 12.9 Plt Count 179 143 MPV 11.7 11.5 Immature Gran % (Auto) 0.3 Neut % (Auto) 78.6 Lymph % (Auto) 14.0 [place] % (Auto) 6.8 Eos % (Auto) 0.2 Baso % (Auto) 0.1 Neut # (Auto) 7.11 H Lymph # (Auto) 1.27 [place] # (Auto) 0.62 H Eos # (Auto) 0.02 Baso # (Auto) 0.01 Immature Gran # (Auto) 0.03 Treponema pallidum Ab Negative Blood Type B Negative Antibody Screen NEGATIVE
[2024-01-25] MEDS ORDERED: bisacodyL 5 MG TABEC PO SCH (20:00)
[2024-01-25] MEDS: SENNA 8.6 MG TAB PO PRN (20:47)
--- NOTE | 2024-01-26 07:38 | Obstetrical Progress Note ---
Date of Service January 26, 2024 Assessment & Plan Admission and Anticipated Discharge Date Admission Date: January 24, 2024 Subjective Patient is seen and examined. She feels well, no complaints. Pain is under control with oral meds. Ambulating without dizziness Voiding without difficulty Tolerating regular diet with out N&V Flatus + Bleeding is minimal No fever/ chills/ CP/ SOB/ N&V/ Leg pain Bottle feeding without problems Vital Signs Temp Pulse Resp BP Pulse Ox O2 Del Method 01/26/24 00:00 36.7 C 75 16 100/66 97 Room Air 01/25/24 20:00 36.6 C 70 16 106/69 97 Room Air 01/25/24 09:00 Room Air 01/25/24 09:00 36.5 C 71 18 95/65 L 98 Room Air Lab Results 01/24/24 01/24/24 01/25/24 Range/Units 08:03 08:06 06:27 WBC 7.55 9.06 (4.8-10.8) K/ul RBC 4.33 3.48 L (4.20-5.40) M/uL Hgb 12.2 9.7 L (12.0-16.0) g/dl Hct 36.1 L 29.3 L (37.0-47.0) % MCV 83.4 84.2 (80.0-100.0) fL MCH 28.2 27.9 (25.0-34.0) pg MCHC 33.8 33.1 (32.0-36.0) g/dL RDW Std Deviation 39.1 38.9 (36.4-46.3) fL RDW Coeff of Raymond 12.9 12.9 (11.5-14.5) % Plt Count 179 143 (130-400) K/uL MPV 11.7 11.5 (9.4-12.4) fL Immature Gran % (Auto) 0.3 % Neut % (Auto) 78.6 % Lymph % (Auto) 14.0 % [place] % (Auto) 6.8 % Eos % (Auto) 0.2 % Baso % (Auto) 0.1 % Neut # (Auto) 7.11 H (1.40-6.50) K/uL Lymph # (Auto) 1.27 (1.20-3.40) K/uL [place] # (Auto) 0.62 H (0.11-0.59) K/uL Eos # (Auto) 0.02 (0.00-0.50) K/uL Baso # (Auto) 0.01 (0.00-0.20) K/uL Immature Gran # (Auto) 0.03 (0.01-0.20) K/uL Treponema pallidum Ab Negative (Negative) Blood Type B Negative Antibody Screen NEGATIVE Screen (Negative) 01/25/24 Range/Units 14:16 WBC (4.8-10.8) K/ul RBC (4.20-5.40) M/uL Hgb (12.0-16.0) g/dl Hct (37.0-47.0) % MCV (80.0-100.0) fL MCH (25.0-34.0) pg MCHC (32.0-36.0) g/dL RDW Std Deviation (36.4-46.3) fL RDW Coeff of Raymond (11.5-14.5) % Plt Count (130-400) K/uL MPV (9.4-12.4) fL Immature Gran % (Auto) % Neut % (Auto) % Lymph % (Auto) % [place] % (Auto) % Eos % (Auto) % Baso % (Auto) % Neut # (Auto) (1.40-6.50) K/uL Lymph # (Auto) (1.20-3.40) K/uL [place] # (Auto) (0.11-0.59) K/uL Eos # (Auto) (0.00-0.50) K/uL Baso # (Auto) (0.00-0.20) K/uL Immature Gran # (Auto) (0.01-0.20) K/uL Treponema pallidum Ab (Negative) Blood Type B Negative Antibody Screen Cancelled Screen Negative (Negative) Lab Results 01/24/24 01/24/24 01/25/24 Range/Units 08:03 08:06 06:27 WBC 7.55 9.06 (4.8-10.8) K/ul RBC 4.33 3.48 L (4.20-5.40) M/uL Hgb 12.2 9.7 L (12.0-16.0) g/dl Hct 36.1 L 29.3 L (37.0-47.0) % MCV 83.4 84.2 (80.0-100.0) fL MCH 28.2 27.9 (25.0-34.0) pg MCHC 33.8 33.1 (32.0-36.0) g/dL RDW Std Deviation 39.1 38.9 (36.4-46.3) fL RDW Coeff of Raymond 12.9 12.9 (11.5-14.5) % Plt Count 179 143 (130-400) K/uL MPV 11.7 11.5 (9.4-12.4) fL Immature Gran % (Auto) 0.3 % Neut % (Auto) 78.6 % Lymph % (Auto) 14.0 % [place] % (Auto) 6.8 % Eos % (Auto) 0.2 % Baso % (Auto) 0.1 % Neut # (Auto) 7.11 H (1.40-6.50) K/uL Lymph # (Auto) 1.27 (1.20-3.40) K/uL [place] # (Auto) 0.62 H (0.11-0.59) K/uL Eos # (Auto) 0.02 (0.00-0.50) K/uL Baso # (Auto) 0.01 (0.00-0.20) K/uL Immature Gran # (Auto) 0.03 (0.01-0.20) K/uL Treponema pallidum Ab Negative (Negative) Blood Type B Negative Antibody Screen NEGATIVE Screen (Negative) 01/25/24 01/26/24 Range/Units 14:16 07:49 WBC (4.8-10.8) K/ul RBC (4.20-5.40) M/uL Hgb 9.6 L (12.0-16.0) g/dl Hct 29.9 L (37.0-47.0) % MCV (80.0-100.0) fL MCH (25.0-34.0) pg MCHC (32.0-36.0) g/dL RDW Std Deviation (36.4-46.3) fL RDW Coeff of Raymond (11.5-14.5) % Plt Count (130-400) K/uL MPV (9.4-12.4) fL Immature Gran % (Auto) % Neut % (Auto) % Lymph % (Auto) % [place] % (Auto) % Eos % (Auto) % Baso % (Auto) % Neut # (Auto) (1.40-6.50) K/uL Lymph # (Auto) (1.20-3.40) K/uL [place] # (Auto) (0.11-0.59) K/uL Eos # (Auto) (0.00-0.50) K/uL Baso # (Auto) (0.00-0.20) K/uL Immature Gran # (Auto) (0.01-0.20) K/uL Treponema pallidum Ab (Negative) Blood Type B Negative Antibody Screen Cancelled Screen Negative (Negative) PE: General: Alert, orientedx3, NAD CVS: S1S2 RRR Lungs; CTAB Abd: soft, NT, ND, BS+, fundus firm, below Umbilicus Incision: Clean, dry, intact Perineum intact, Lochia rubra minimal Ext; NT, no edema AP: 28 yo s/p C Section, pod# 2 VSS Afebrile doing well Continue routine postop care Encourage ambulation, PO intake All questions were answered D/C home , f/u in office Results & Data Vital Signs (Past 12 Hours) Vital Signs Temp Pulse Resp BP Pulse Ox O2 Del Method 01/26/24 00:00 36.7 C 75 16 100/66 97 Room Air 01/25/24 20:00 36.6 C 70 16 106/69 97 Room Air
[2024-01-26 08:13] VITALS: O2SAT 98
[2024-01-26 08:24] LABS: Hematocrit (blood only) 29.9 % (37.0-47.0); Hemoglobin 9.6 g/dl (12.0-16.0)
[2024-01-26 11:23] VITALS: RESP 18; TEMP 98.1
[2024-01-26 12:18] VITALS: BP 107/75; PULSE 71
[2024-01-26] MEDS ORDERED: bisacodyL 10 MG SUPP PR PRN (12:46)
[2024-01-26] MEDS ORDERED: ACETAMINOPHEN 325 MG TAB PO PRN (12:46)
[2024-01-26] MEDS ORDERED: IBUPROFEN 600 MG TAB PO PRN (12:46)
== END 2024-01-26 13:35 | disposition home health service (06) | DRG 788 ==
LOC: 4S1 07:40 → EDSTATUS 09:05 → MERGE 09:05 → 4E2 15:24
DX: Z3A.39 39 weeks gestation of pregnancy; Z37.0 Single live birth; O24.429 Gestational diabetes mellitus in childbirth, unspecified control; O32.1XX0 Maternal care for breech presentation, not applicable or unspecified